=== PATIENT | male | born 1950 | race Caucasian/White ===

== ENCOUNTER 2024-04-12 14:41 | Inpatient (IN) | payer SELFPAY ==
[2024-04-12] VITALS (7 sets, daily range): BP systolic 96–139; BP diastolic 64–82; PULSE 78–100; RESP 16–20; TEMP 36.6–37.7; O2SAT 98–100; BMI 37.2; BMI 36.3
--- NOTE | 2024-04-12 15:11 | CT_ITS ---
INDICATION: sacral wound left pelvis, spina bifida EXAMINATION: CT PELVIS BONE - CT Pelvis W/ Contrast Injection TECHNIQUE: Routine noncontrast bone CT protocol was performed of the pelvis. 2-D reformats were performed by the technologist. A radiation dose optimization technique was used for this scan. IV Contrast dosage and agent: 100 cc [id number] COMPARISON: None. FINDINGS: SOFT TISSUES: Subcutaneous gas and fluid collection with peripheral enhancement posterior to the left initial tuberosity measuring 4.8 x 4.5 x 4.2 cm. No radiopaque foreign body. BONES/JOINTS: Spina bifida deformity with postsurgical changes. Chronic left hip dislocation with destructive changes of the left femoral head. Abnormal soft tissue in the left hip joint space with probable heterogenous enhancement. No evidence of acute cortical destruction. CT/Pelvis WITH IV Contrast IMPRESSION: Subcutaneous collection posterior to the left initial tuberosity suspicious for abscess formation. The collection extends to the tuberosity but there is no acute cortical destruction demonstrated. Chronic left hip dislocation with large phlegmon in the joint space and chronic appearing destructive changes of the left femoral head. Electronically Signed: Hermelindo Bautista MD at 16:48 EST ,
--- NOTE | 2024-04-12 15:15 | EX.ED.DYSGE1 ---
HPI History of Present Illness Chief Complaint: Wound Check Narrative Narrative: Chief complaint and HPI: Sacral decubitus ulcer. 74-year-old male with history of spina bifida who is wheelchair-bound with chronic Gooden and recurrent UTIs presents for evaluation of sacral decubitus ulcer. Patient states that he has a chronic history of sacral decubitus ulcers. He states that he follows with the wound clinic. His states over the last several days the wound appears to be deeper in nature. She states sometimes there is drainage but is not purulent. Patient endorses intermittent fevers over the last several days. He states he has a history of recurrent UTIs. He states that he thought he was having a UTI so he started taking prophylactic antibiotics that his doctor gave him at home. He does not remember what they are called. Patient denies any URI symptoms, nausea, vomiting, abdominal pain, cough, shortness of breath, chest pain. He states that he changed out his Gooden catheter yesterday. He denies any pain at the site. He states that he is currently trying to be seen by the wound clinic. Review of systems: See HPI Medications: As listed on the chart Allergies: As listed on the chart PFSH: Per chart Vital signs: As listed on the chart. Reviewed. Physical exam: Gen: A&O x3, NAD Head: Normocephalic, atraumatic Eyes: No sclera icterus, conjunctiva clear ENT: Moist mucous membranes Neck: Trachea midline, No JVD CV: RRR, no murmurs, no peripheral edema Resp: Lungs CTA BL, no w/r/c GI: Abd soft, non-distended, non-tender, no r/r/g Musc: Limited range of motion from his spinal bifida Skin: Warm, patient has a left buttock/sacral decubitus ulcer-approximate 3 x 4 cm, no drainage or purulence on my exam, no induration/fluctuance/crepitus, wound does tunnel about 1 inch in the center, there is some fibrotic tissue in the center possible early necrosis but no eschar Neuro: Alert, oriented, grossly intact, sensation intact Psych: Cooperative, appropriate mood and affect [facility] Medical History (Updated 04/12/24 @ 15:53 by Jane Sandoval) Chronic indwelling Gooden catheter Allergy/AdvReac Type Severity Reaction Status Date / Time No Known Allergies Allergy Verified 04/12/24 14:42 Family History no significant family his Social History Smoking Status: Never smoker EXAM Physical Exam Const Vital Signs: 04/12/24 14:42 04/12/24 14:45 04/12/24 16:46 Temperature 100 F H 100 F H Temperature Source Oral Oral Pulse Rate 100 100 78 Respiratory Rate 18 18 Blood Pressure 129/81 H 129/81 H 96/64 Blood Pressure Mean 97 97 74 Pulse Ox 99 99 98 Oxygen Delivery Method Room Air Room Air MDM MDM MDM Narrative Medical decision making narrative: 74-year-old male with history of spina bifida who is wheelchair-bound with chronic Gooden and recurrent UTIs presents for evaluation of sacral decubitus ulcer. Associated symptom is intermittent fevers. Patient does have a sacral decubitus ulcer. See physical exam findings. Differential diagnosis includes but is not limited to infected sacral decubitus ulcer, abscess, evolving sacral decubitus ulcer, UTI. On presentation patient does have a temperature of 100 ?F. Tylenol ordered. Basic labs ordered with CT pelvis to better assess the sacral ulcer. UA ordered to assess for UTI. Blood culture obtained given patient's intermittent fevers. CBC without leukocytosis or anemia. BMP relatively unremarkable. Lactic acid unremarkable. UA positive for UTI. Patient has nitrates. On chart review I do not have previous urine cultures therefore Rocephin ordered.CT abdomen pelvis shows subcutaneous collection posterior to the left ischial tuberosity suspicious for abscess formation. The collection extends to the tuberosity but there is no acute cortical destruction demonstrated. There is chronic left hip dislocation with large phlegmon in the joint space and chronic appearing destructive changes in the left femoral head. Given the findings of the CT abdomen pelvis, patient will warrant admission for IV antibiotics and possible debridement. Zosyn and vancomycin ordered for broad coverage. Patient discussed with the hospitalist service who accepted admission. Impression: 1. Sacral decubitus ulcer with subcutaneous abscess 2. UTI with chronic Gooden 3. Chronic left hip dislocation with large phlegmon in the joint space and chronic appearing destructive changes of the left femoral head Lab Data Labs: Laboratory Results - last 24 hr 04/12/24 04/12/24 15:21 15:30 WBC 8.6 RBC 4.28 L Hgb 13.2 Hct 38.9 L MCV 90.9 MCH 30.8 MCHC 33.9 RDW Std Deviation 45.0 H RDW Coeff of Gregor 13.5 Plt Count 366 MPV 9.6 Immature Gran % (Auto) 0.600 Neut % (Auto) 68.7 Lymph % (Auto) 16.1 L [place] % (Auto) 11.7 H Eos % (Auto) 2.6 Baso % (Auto) 0.3 Absolute Neuts (auto) 5.9 Absolute Lymphs (auto) 1.38 Nucleated RBC % 0 Sodium 136 Potassium 3.3 L Chloride 102 Carbon Dioxide 27.0 Anion Gap 7 BUN 13 Creatinine 0.70 Est GFR (MDRD) Af Amer 143 Est GFR (MDRD) Non-Af 118 BUN/Creatinine Ratio 18.6 Glucose 112 H Lactic Acid 1.3 Calcium 8.7 Urine Color Yellow Urine Clarity Sl. Cloudy Urine pH 6.5 Ur Specific [place] 1.010 Urine Protein 15 H Urine Glucose (UA) Normal Urine Ketones Negative Urine Occult Blood 25 H Urine Nitrite Positive H Urine Bilirubin Negative Urine Urobilinogen Normal Ur Leukocyte Esterase 500 H Urine RBC 0-5 SEEN Urine WBC 25-50 SEEN Ur Squamous Epith Cells 0-5 SEEN Urine Bacteria 1+ Urine Mucus 0 SEEN Radiography Diagnostic Testing: Clinical Impression(s) from Imaging Studies Pelvis CT 04/12/24 15:11 IMPRESSION: Subcutaneous collection posterior to the left initial tuberosity suspicious for abscess formation. The collection extends to the tuberosity but there is no acute cortical destruction demonstrated. Chronic left hip dislocation with large phlegmon in the joint space and chronic appearing destructive changes of the left femoral head. Electronically Signed: Hermelindo Bautista MD at 16:48 EST Reading Location ID and State: [facility] / [place] Tel , Service support , Discharge Plan Triage Chief Complaint: Wound Check ED Provider: Jacinto Lizarraga Dx/Rx/DC Orders Primary Care Provider: Guillermo Duenas Referrals: Guillermo Duenas, [Primary Care Provider] - Print Language: Serbian
[2024-04-12 15:38] LABS: Absolute Lymphocyte Count 1.38 X10^3/uL (0.83-4.51); Absolute Neutrophil Count 5.9 X10^3/uL (2.0-7.7); Basophil# 0.03 X10^3/uL; Basophil% 0.3 % (0-1); Eosinophil# 0.22 X10^3/uL; Eosinophils% 2.6 % (0-5); Hematocrit 38.9 % (40-54); Hemoglobin 13.2 g/dL (13.0-16.5); Lymphocyte # 1.38 X10^3/ul (0.83-4.51); Lymphocyte % 16.1 % (19-41); Mean Corp Hgb Conc 33.9 g/dL (32-36); Mean Corpuscular Hgb 30.8 pg (27.0-32.0); Mean Corpuscular Volume 90.9 fL (80-94); Mean Platelet Vol. 9.6 fl (6.2-12.0); Monocyte% 11.7 % (0-10); NRBC Flagged by Analyzer 0 % (0-5); Neutrophil % 68.7 % (47-70); Platelet Count 366 K/mm3 (150-450); RBC Distribution Width CV 13.5 % (11.6-14.6); Red Blood Count 4.28 M/mm3 (4.6-6.2); White Blood Count 8.6 K/mm3 (4.4-11.0)
[2024-04-12 15:38] LABS: Mucous, Urine 0 SEEN /hpf (<or=2+)
[2024-04-12 15:43] LABS: Anion Gap 7 (5-15); BUN 13 mg/dL (7-18); BUN/Creat Ratio 18.6 RATIO (10-20); Calcium,Total 8.7 mg/dL (8.5-10.1); Chloride 102 mmol/L (98-107); EST Glomerular Filtration Rate 118 mL/min (>60); Est Glom Filt Rate - Afr Amer 143 mL/min (>60); Glucose 112 mg/dL (74-106); Potassium 3.3 mmol/L (3.5-5.1); Sodium Level 136 mmol/L (136-145)
[2024-04-12] MEDS: Acetaminophen 500 MG Tablet 1000 MG PO (15:43)
[2024-04-12] MEDS: 0.9% Normal Saline (1000mL) 1,000 ML 999 ML IV (15:43)
[2024-04-12 15:45] LABS: Color, Urine Yellow (Yellow); Glucose, Dipstick Normal (Normal); Ketone-Dipstick Negative (Negative); Leukocyte Esterase-Dipstick 500 /ul (Negative); Nitrite-Dipstick Positive (Negative); Occult Blood-Urine 25 /ul (Negative); Protein-Dipstick 15 mg/dl (Negative); Urine Bilirubin Dipstick Negative (Negative); Urine Clarity Sl. Cloudy (Clear); Urine Urobilinogen Normal (Normal); Urine pH 6.5 (5.0 - 8.0)
[2024-04-12 15:52] LABS: Bacteria 1+ /hpf (None Seen)
[2024-04-12 15:53] LABS: Red Blood Cells-Urine 0-5 SEEN /hpf (0-5); White Blood Cells 25-50 SEEN /hpf (0-5)
[2024-04-12 15:55] LABS: Squamous Epithelial Cells - UA 0-5 SEEN /hpf (0-5)
[2024-04-12 15:55] LABS: Lactic Acid 1.3 mmol/L (0.4-1.9)
[2024-04-12] MEDS: Ceftriaxone 1 GM/50 ML BAG IV (16:25)
[2024-04-12] MEDS: Piperacil/Tazobactam 4.5 GM in 0.9% Normal Saline (100mL MB+) 100 ML IV (17:39)
--- NOTE | 2024-04-12 18:18 | HP.PCM.HOS_ITS ---
HPI - General General Date of Admission: 04/12/24 Date of Service: 04/12/24 Chief Complaint: Pressure ulcer infection HPI Narrative FELIPA PEREZ, is a 74 M with history of spina bifid complicated by paraplegia, recurrent urinary tract infection, A-fib on Eliquis, hypertension in the past who presents to the ED for concerns regarding progressively worsening sacral decubitus ulcer. Per the patient he wanted to follow-up in the wound care clinic but due to [place] he could not get an appointment and decided to present to the ED for further evaluation. Over the last few months the decubitus ulcer has progressively worsened, with associated some discharge, no blood or purulence noted. Denies any fever or chills. No nausea or vomiting. He has an indwelling Gooden's catheter, and has digitally disimpact his feces. Has no incontinence and does not feel there is any fecal soiling of his wounds. Has decreased sensation over bilateral lower extremities and no sensation over the ulcer. [facility] Medical History (Updated 04/12/24 @ 18:39 by Maria A Estevez) Anxiety Non-smoker Asthma Atrial fibrillation Chronic indwelling Gooden catheter Allergy/AdvReac Type Severity Reaction Status Date / Time No Known Allergies Allergy Verified 04/12/24 14:42 Family History no significant family his no significant family history Social History Smoking Status: Never smoker ROS Review of Systems ROS Unobtainable: Denies due to encephalopathy, due to endotracheal tube, due to mental condition, due to mental status or other Constitutional Constitutional: Denies anorexia, change in weight, chills, fatigue, fever(s), malaise, night sweats, weakness or other Eyes Eyes: Denies blurry vision, change in eye color, change in vision, discharge from eye(s), double vision, erythema, eye pain, loss of vision or other ENT HEENT: Denies abnormal hearing, dysphagia, ear pain, epistaxis, headache(s), hearing loss, nasal congestion, nasal discharge, post nasal drip, sinus pressure, sore throat or other Respiratory/Chest Respiratory/Chest: Denies cough, dyspnea, excessive phlegm production, hemoptysis, productive cough, shortness of breath at rest, shortness of breath with exertion, wheezing or other Vital Signs Vital Signs Vital Signs: 04/12/24 14:42 04/12/24 14:45 04/12/24 16:46 Temperature 100 F H 100 F H Temperature Source Oral Oral Pulse Rate 100 100 78 Respiratory Rate 18 18 Blood Pressure 129/81 H 129/81 H 96/64 Blood Pressure Mean 97 97 74 Pulse Ox 99 99 98 Oxygen Delivery Method Room Air Room Air 04/12/24 17:37 Temperature 97.8 F Temperature Source Pulse Rate 78 Respiratory Rate 16 Blood Pressure 128/78 H Blood Pressure Mean 94 Pulse Ox 99 Oxygen Delivery Method Weight Weight: 210 lb 5.136 oz Body Mass Index (BMI) 37.2 Physical Exam Const alert, oriented x3 and no apparent distress HEENT normocephalic Eyes PERRL Neck no lymphadenopathy Resp normal respiratory effort Cardio Cardio Narrative: Irregularly irregular GI normal to inspection, nondistended, normoactive bowel sounds Extremity Extremity Narrative: Reduced to absent sensation over the bilateral lower extremities Skin Skin Narrative: Deep sacral wound around 2X 2 cm in size, present on the left sacral region, surrounding erythema seen, no muscle or bone visible. Neuro oriented x3 Neuro Narrative: Paraplegia, decree sensation over bilateral lower extremities Psych affect normal Results Medical Records Data Attestation: I reviewed the patient's medical records Lab / Micro Data Attestation: I reviewed the patient's lab results. 04/12/24 15:21 04/12/24 15:21 Labs: Laboratory Results - last 24 hr 04/12/24 15:21: WBC 8.6, RBC 4.28 L, Hgb 13.2, Hct 38.9 L, MCV 90.9, MCH 30.8, MCHC 33.9, RDW Std Deviation 45.0 H, RDW Coeff of Gregor 13.5, Plt Count 366, MPV 9.6, Immature Gran % (Auto) 0.600, Neut % (Auto) 68.7, Lymph % (Auto) 16.1 L, M leo % (Auto) 11.7 H, Eos % (Auto) 2.6, Baso % (Auto) 0.3, Absolute Neuts (auto) 5.9, Absolute Lymphs (auto) 1.38, Nucleated RBC % 0, Sodium 136, Potassium 3.3 L , Chloride 102, Carbon Dioxide 27.0, Anion Gap 7, BUN 13, Creatinine 0.70, Est GFR (MDRD) Af Amer 143, Est GFR (MDRD) Non-Af 118, BUN/Creatinine Ratio 18.6, G lucose 112 H, Lactic Acid 1.3, Calcium 8.7 04/12/24 15:30: Urine Color Yellow, Urine Clarity Sl. Cloudy, Urine pH 6.5, Ur Specific [place] 1.010, Urine Protein 15 H, Urine Glucose (UA) Normal, Urine Ketones Negative, Urine Occult Blood 25 H, Urine Nitrite Positive H, Urine Bilirubin Negative, Urine Urobilinogen Normal, Ur Leukocyte Esterase 500 H, Urine RBC 0-5 SEEN, Urine WBC 25-50 SEEN, Ur Squamous Epith Cells 0-5 SEEN, Urine Bacteria 1+, Urine Mucus 0 SEEN Imaging Radiology Impression Pelvis CT 04/12/24 15:11 IMPRESSION: Subcutaneous collection posterior to the left initial tuberosity suspicious for abscess formation. The collection extends to the tuberosity but there is no acute cortical destruction demonstrated. Chronic left hip dislocation with large phlegmon in the joint space and chronic appearing destructive changes of the left femoral head. Electronically Signed: Hermelindo Bautista MD at 16:48 EST , Assessment & Plan Assessment/Plan (1) Pressure ulcer: PLAN: Plan 74-year-old male with history of spina bifid a complicated by paraplegia, A-fib on Eliquis, hypertension, recurrent urinary tract infections presented to the ED with concerns regarding worsening pressure ulcer that on imaging shows a deep seating abscess with possible osteomyelitis. He is being admitted for further management with IV antibiotics, wound care and possible surgical intervention #Pressure ulcer -Based on the imaging findings he has a deep-seated abscess -Will start him on IV Zosyn plus vancomycin -Infectious disease consult -Wound care consult -Possible surgical intervention required will reevaluate after ID input -Regular position changes #Urinary tract infection -Urine nitrate, leuk esterase, WBC are positive -Will be covered with Zosyn -Related to indwelling Gooden's catheter #Hypertension -Continue home medications #A-fib -Presently rate controlled, on metoprolol and Eliquis Continue home medications #DVT prophylaxis -High risk, therapeutically anticoagulated -Continue to monitor
[2024-04-12] MEDS: Vancomycin HCl 1,500 MG in 0.9% Normal Saline (500mL Bag) 500 ML 250 MG IV (19:59)
--- NOTE | 2024-04-12 20:05 | PCM.RX.CS ---
Consult Antibiotic Management Pharmacy has been consulted to manage selected antibiotic: Vancomycin Type of Intervention Type of Consult: New start Suspected Infection Suspected Infection: Skin/Soft tissue Labs Labs: Sodium 136 mmol/L (136-145) 04/12/24 15:21 Potassium 3.3 mmol/L (3.5-5.1) L 04/12/24 15:21 Chloride 102 mmol/L (98-107) 04/12/24 15:21 Carbon Dioxide 27.0 mmol/L (21.0-32.0) 04/12/24 15:21 Anion Gap 7 (5-15) 04/12/24 15:21 BUN 13 mg/dL (7-18) 04/12/24 15:21 Creatinine 0.70 mg/dL (0.70-1.30) 04/12/24 15:21 Est GFR (MDRD) Af Amer 143 mL/min (>60) 04/12/24 15:21 Est GFR (MDRD) Non-Af 118 mL/min (>60) 04/12/24 15:21 BUN/Creatinine Ratio 18.6 RATIO (10-20) 04/12/24 15:21 Glucose 112 mg/dL (74-106) H 04/12/24 15:21 Dosing Weight Weight used for dosin.2 kg Estimated Creatinine Clearance Estimated Creatinine Clearance: 84 ML/MIN Goal Trough Goal Trough: 10-15 mcg/mL Pharmacy Plan for Drug Dosing Pharmacy Plan for Drug Dosing: Give standard dose of 1500mg IV x1, then continue with 1000mg q12h per [facility] dosing protocol. Check a trough before the 4th overall dose. Pharmacy Service will continue to monitor and adjust dosing as required. Follow-Up Labs Follow-Up Labs: Trough: Vancomycin Date/Time Labs Ordered Labs to be done on [date and time ordered]: 04/14/24 07:30
[2024-04-12] MEDS: Atorvastatin Calcium 20 MG Tablet PO (22:02)
[2024-04-12] MEDS: APIXABAN 5 MG TABLET PO (22:02)
[2024-04-12] MEDS: Metoprolol Tartrate 100 MG Tablet PO (22:02)
[2024-04-13 04:01] VITALS: BP 117/78; PULSE 93; RESP 16; TEMP 37.2; O2SAT 97
[2024-04-13 05:37] LABS: Absolute Neutrophil Count 5.1 X10^3/uL (2.0-7.7); Basophil# 0.02 X10^3/uL; Basophil% 0.3 % (0-1); Eosinophil# 0.23 X10^3/uL; Eosinophils% 3.1 % (0-5); Hematocrit 35.3 % (40-54); Hemoglobin 11.9 g/dL (13.0-16.5); Mean Corp Hgb Conc 33.7 g/dL (32-36); Mean Corpuscular Hgb 30.8 pg (27.0-32.0); Mean Corpuscular Volume 91.5 fL (80-94); Mean Platelet Vol. 9.5 fl (6.2-12.0); Monocyte# 0.97 X10^3/uL; Monocyte% 12.9 % (0-10); NRBC Flagged by Analyzer 0 % (0-5); Neutrophil # 5.06 X10^3/uL (2.7-7.7); Neutrophil % 67.2 % (47-70); Platelet Count 358 K/mm3 (150-450); RBC Distribution Width CV 13.5 % (11.6-14.6); RBC Distribution Width SD 45.2 fl (35.1-43.9); Red Blood Count 3.86 M/mm3 (4.6-6.2); White Blood Count 7.5 K/mm3 (4.4-11.0)
[2024-04-13 06:22] LABS: ALB/GLOB Ratio 0.5 RATIO (0.9-2.4); AST(SGOT) 16 U/L (15-37); Alanine Aminotransfer ALT/SGPT 30 U/L (16-61); Albumin, Serum 2.1 g/dL (3.2-5.0); Alkaline Phosphatase 75 U/L (45-117); Anion Gap 5 (5-15); BUN 10 mg/dL (7-18); BUN/Creat Ratio 16.9 RATIO (10-20); Bilirubin, Direct 0.18 mg/dL (0.00-0.30); Calcium,Total 8.3 mg/dL (8.5-10.1); Chloride 109 mmol/L (98-107); Creatinine, Serum 0.59 mg/dL (0.70-1.30); EST Glomerular Filtration Rate 143 mL/min (>60); Est Glom Filt Rate - Afr Amer 173 mL/min (>60); Estimated Creatinine Clearance 84.32 ml/min; Globulin 3.9 g/dL (2.2-4.2); Glucose 92 mg/dL (74-106); Magnesium 1.8 mg/dL (1.6-2.6); Potassium 3.5 mmol/L (3.5-5.1); Sodium Level 140 mmol/L (136-145)
--- NOTE | 2024-04-13 07:13 | PCM.PN.HOSP ---
Reason for Visit Reason for Visit: Diagnoses Pressure ulcer of unspecified site, unspecified stage (04/12/24) Subjective Subjective Patient with no acute events overnight per nurse and per self reports. He denies any significant pain at this time and notes that he is doing well. Discussed plan of care which included continued wound RN evaluation, infectious disease involvement and plastic surgery involvement especially given CT findings which patient is amenable. Patient denies fevers, chills, nausea, emesis, abdominal pain, chest pain or dyspnea. Objective Data Objective Data Vital Signs: Vital Signs Temp Pulse Resp BP Pulse Ox O2 Del Method 98.9 F 93 16 117/78 97 Room Air 04/13/24 04:01 04/13/24 04:01 04/13/24 04:01 04/13/24 04:01 04/13/24 04:01 04/13/24 04:01 Oxygen Delivery Method Room Air Weight: 205 lb 8 oz Body Mass Index (BMI) 36.3 Intake & Output: Intake and Output for Last 24 Hours 04/11/24 04/12/24 04/13/24 23:59 23:59 23:59 Intake Total 1680 / 2080 400 / 400 Output Total 425 / 425 Balance 1680 / 1655 -25 / 25 Lab / Micro Data 04/13/24 05:04 04/13/24 05:04 Labs: Laboratory Results - last 24 hr 04/12/24 15:21: WBC 8.6, RBC 4.28 L, Hgb 13.2, Hct 38.9 L, MCV 90.9, MCH 30.8, MCHC 33.9, RDW Std Deviation 45.0 H, RDW Coeff of Gregor 13.5, Plt Count 366, MPV 9.6, Immature Gran % (Auto) 0.600, Neut % (Auto) 68.7, Lymph % (Auto) 16.1 L, [place] % (Auto) 11.7 H, Eos % (Auto) 2.6, Baso % (Auto) 0.3, Absolute Neuts (auto) 5.9, Absolute Lymphs (auto) 1.38, Nucleated RBC % 0, Sodium 136, Potassium 3.3 L, Chloride 102, Carbon Dioxide 27.0, Anion Gap 7, BUN 13, Creatinine 0.70, Est GFR (MDRD) Af Amer 143, Est GFR (MDRD) Non-Af 118, BUN/Creatinine Ratio 18.6, Glucose 112 H, Lactic Acid 1.3, Calcium 8.7 04/12/24 15:30: Urine Color Yellow, Urine Clarity Sl. Cloudy, Urine pH 6.5, Ur Specific [place] 1.010, Urine Protein 15 H, Urine Glucose (UA) Normal, Urine Ketones Negative, Urine Occult Blood 25 H, Urine Nitrite Positive H, Urine Bilirubin Negative, Urine Urobilinogen Normal, Ur Leukocyte Esterase 500 H, Urine RBC 0-5 SEEN, Urine WBC 25-50 SEEN, Ur Squamous Epith Cells 0-5 SEEN, Urine Bacteria 1+, Urine Mucus 0 SEEN 04/12/24 19:00: S.aureus Protein A PCR Cancelled, MRSA (PCR) Cancelled 04/13/24 05:04: WBC 7.5, RBC 3.86 L, Hgb 11.9 L, Hct 35.3 L, MCV 91.5, MCH 30.8, MCHC 33.7, RDW Std Deviation 45.2 H, RDW Coeff of Gregor 13.5, Plt Count 358, MPV 9.5, Immature Gran % (Auto) 0.500, Neut % (Auto) 67.2, Lymph % (Auto) 16.0 L, [place] % (Auto) 12.9 H, Eos % (Auto) 3.1, Baso % (Auto) 0.3, Absolute Neuts (auto) 5.1, Absolute Lymphs (auto) 1.20, Nucleated RBC % 0, Sodium 140, Potassium 3.5, Chloride 109 H, Carbon Dioxide 25.0, Anion Gap 5, BUN 10, Creatinine 0.59 L, Estim Creat Clear Calc 84.32, Est GFR (MDRD) Af Amer 173, Est GFR (MDRD) Non-Af 143, BUN/Creatinine Ratio 16.9, Glucose 92, Calcium 8.3 L, Phosphorus 3.0, Magnesium 1.8, Total Bilirubin 0.50, Direct Bilirubin 0.18, AST 16, ALT 30, Alkaline Phosphatase 75, Total Protein 6.0 L, Albumin 2.1 L, Globulin 3.9, Albumin/Globulin Ratio 0.5 L, TSH 2.080 Micro: Microbiology 04/12/24 19:00 Wound - Buttock Skin and Soft Tissue MRSA/MSSA (PCR - Final Staphylococcus aureus Radiography Diagnostic Testing: Radiology Impression Pelvis CT 04/12/24 15:11 IMPRESSION: Subcutaneous collection posterior to the left initial tuberosity suspicious for abscess formation. The collection extends to the tuberosity but there is no acute cortical destruction demonstrated. Chronic left hip dislocation with large phlegmon in the joint space and chronic appearing destructive changes of the left femoral head. Electronically Signed: Hermelindo Bautista MD at 16:48 EST Reading Location ID and State: [facility] / [place] Tel , Service support , Physical Exam Narrative Physical Examination: General: Awake, alert, oriented x 3 and cooperative, seated upright in the MS bed, denies any complaints at this time and denies pain. Skin: Normal color, normal turgor, no icterus, no cyanosis except for occasional abrasion, scabs to the lower extremities with underlying paraplegia with mild contractures, notable left buttock decubitus ulcer with periwound erythema, mild odor, mild discharge noted on presentation, dressing in place, no drainage. HEENT: AT/NC, EOMI, PERRLA, MMM. Lungs: CTA bilaterally, moderate effort, mild decrease BL bases, no rales, ronchi or wheezing. Heart: Regular rate and rhythm; no gallop, rub audible. Abdomen: Soft, obese, NTTP, ND, normal BS. Extremities: No cyanosis, no clubbing, bilateral ankle to mid lindo edema chronic, underlying history of paraplegia with mild contractures, see skin Neurological: Patient awake, alert, oriented as noted cognitive function intact; pupils equally reactive to light and accommodation, cranial nerves gross normal, underlying history of spina bifida with chronic paraplegia, strength severely globally decreased, chronic indwelling Aggarwal catheter in place with patient reporting he recently changed the catheter. Psychiatric: Affect appears fatigued otherwise normal, no acute evidence of depressive or anxiety feelings. Assessment & Plan Assessment/Plan (1) Pressure ulcer: PLAN: Plan The patient is a 74 y/o M w/ PMHx: Obesity, PAF, HTN, HLD, Anxiety and Depression, Asthma, Spina bifida complicated by paraplegia with chronic indwelling aggarwal catheter with recurrent UTIs, need for chronic self stool disimpaction with chronic significant decubitus ulcer following with wound care clinic who presents to the [facility] ED on 04/12/24 secondary to worsening sacral decubitus ulcer with discharge, periwound erythema but no fevers or chills prompting ED evaluation. #1. Posterior left ischial tuberosity decubitus ulcer with suspicion for possible abscess, periwound erythema/cellulitis: ED evaluation included CT scan of the pelvis with subcutaneous collection posterior to the left ischial tuberosity suspicious for abscess formation with the collection extending to the tuberosity but no acute cortical destruction demonstrated, chronic left hip dislocation with large phlegmon in the joint space and chronic appearing destructive changes of the left femoral head. Admitted to medical surgical floor, maintained on IV vancomycin, adding IV Zosyn, pending Wound Cx, continue off loading, dressing changes, Wound RN consultation, Plastic Surgery consultation. #2. Spina bifida: Complicated by paraplegia with chronic indwelling Aggarwal catheter with recurrent UTIs as well as chronic self stool disimpaction needs, will continue stool/bowel regimen, assure Aggarwal catheter care, offloading, continue evaluation treatment as noted above #1, PT/OT/case management for discharge planning #3. PAF: Will continue home metoprolol regimen however given possible need for surgical invention we will hold patient home Eliquis regimen and place on chemoprophylaxis in the interim. #4. Anxiety and depression: Per current list does not appear to be on regimen, encourage continued outpatient follow-up and counseling as needed with PCP. #5. Hypertension: Continue home regimen including Norvasc, hydrochlorothiazide, lisinopril, metoprolol with hold parameters as needed, PRN hydralazine. #6. Hyperlipidemia: We will continue patient on statin therapy. #7. Chronic asthma: Per current was not on routine regimen, will have as needed albuterol, encourage head of bed and I-S. #8. Obesity: Weight loss and lifestyle changes encouraged. #9. DVT prophylaxis: Will hold Eliquis in preparation for possible surgical intervention which patient is on for PAF, in the interim transition to chemoprophylaxis. Charges/Coding Visit Charges Inpatient E&M: 05260 Subs Hosp L3
[2024-04-13 08:38] LABS: International Normalized Ratio 1.6; Prothrombin Time (Protime)PT. 19.3 SECONDS (11.7-14.9)
[2024-04-13 09:02] VITALS: BP 122/86; PULSE 99; RESP 16; TEMP 36.9; O2SAT 98
[2024-04-13] MEDS: Vancomycin IV 1,000 MG/200 ML BAG 200 MG IV ×2 (09:13→20:27)
[2024-04-13] MEDS: Menthol/Lanolin/Calamine/Znox 113 GM Tube 1 APPLIC TOPICAL ×4 (09:22→22:37)
[2024-04-13 09:23] VITALS: PULSE 99
[2024-04-13] MEDS: Polyethylene Glycol 3350 17 GM PACKET PO (09:23)
[2024-04-13] MEDS: Metoprolol Tartrate 100 MG Tablet PO ×2 (09:23→22:34)
[2024-04-13] MEDS: hydroCHLOROthiazide 25 MG Tablet PO (09:23)
[2024-04-13] MEDS: Docusate Sodium 100 MG Capsule PO (09:23)
[2024-04-13] MEDS: Lisinopril 40 MG Tablet PO (09:24)
[2024-04-13] MEDS: amLODIPine 10 MG Tablet PO (09:24)
[2024-04-13] MEDS: Piperacil/Tazobactam 3.375 GM in 0.9% Normal Saline (50mL MB+) 50 ML IV ×3 (10:46→22:29)
--- NOTE | 2024-04-13 11:06 | EX.PCM.CON.S ---
Assessment & Plan Assessment/Plan (1) Pressure ulcer: (2) Abscess: PLAN: CT reviewed. Doesn't communicate with the left hip. Left hip changes may be 2/2 previous disease and previous flap reconstruction. Source control obtained for now with bedside I&D today on rounds. PLAN: Plan I talked the patient extensively about the risks of surgery, including bleeding, infection, damage to surrounding structures, surgical site dehiscence and wound formation, need for wound care, need for repeat operations, failure to obtain the desired result, DVT/PE, and the risks of anesthesia including . The benefits and alternatives of this surgery were also discussed. All of their questions were answered, and they agreed to proceed with surgery. Hold Eliquis today and tomorrow morning NPO at midnight Plan for debridement in the OR tomorrow (need to make the wound larger for wound care and to prevent abscess). Anticipate wound VAC and home VAC Needs in hospital and home pressure offloading bed. Nutrition labs and consulting with nutrition team. Patient and happy with plan. HPI Consult Data Date of Consult: 04/13/24 HPI Narrative HPI Narrative: LAMONT PEREZ is a 74 M with a history of atrial fibrillation (on Eliquis) and spina bifida (walks with crutches until 17 years ago and is now nonambulatory and uses a wheelchair) who was admitted last night for worsening left ischial pressure ulcer with concern for drainage and infection. Subjective fevers and chills. CT scan demonstrated left ischial abscess. Today on the floor he has stable vital signs. His white blood cell count is within normal limits. His hemoglobin is 11 He is not a smoker. He is and has several adult children [facility] Medical History Anxiety Non-smoker Asthma Atrial fibrillation Chronic indwelling Gooden catheter Home Medications ?Medication ?Instructions ?Recorded ?Last Taken ?Type amlodipine 10 mg tablet 10 mg PO DAILY Blood pressure 04/12/24 Unknown History apixaban 5 mg tablet (Eliquis) 5 mg PO BID AFIB 04/12/24 Unknown History lisinopril 20 2 tab PO DAILY Blood pressure 04/12/24 Unknown History mg-hydrochlorothiazide 12.5 mg tablet metoprolol tartrate 100 mg tablet 100 mg PO BID Blood pressure 04/12/24 Unknown History simvastatin 40 mg tablet 40 mg PO QHS Cholesterol 04/12/24 Unknown History Allergy/AdvReac Type Severity Reaction Status Date / Time No Known Allergies Allergy Verified 04/12/24 14:42 Family History no significant family his Social History Smoking Status: Never smoker Physical Exam Narrative Wound Left ischial region with a small opening about 2 x 2 cm. With digital examination I was able to drain an abscess and packed the wound. Cultures were taken. Cavity is about 8 x 8 cm beneath small opening. Procedure preformed: Abscess drainage (CPT 63150) Tolerated well. Pressure for bleeding (stopped). Packed with gauze. Lab / Micro Data 04/13/24 05:04 04/13/24 05:04 Labs: Laboratory Results - last 24 hr 04/12/24 15:21: WBC 8.6, RBC 4.28 L, Hgb 13.2, Hct 38.9 L, MCV 90.9, MCH 30.8, MCHC 33.9, RDW Std Deviation 45.0 H, RDW Coeff of Gregor 13.5, Plt Count 366, MPV 9.6, Immature Gran % (Auto) 0.600, Neut % (Auto) 68.7, Lymph % (Auto) 16.1 L, [place] % (Auto) 11.7 H, Eos % (Auto) 2.6, Baso % (Auto) 0.3, Absolute Neuts (auto) 5.9, Absolute Lymphs (auto) 1.38, Nucleated RBC % 0, Sodium 136, Potassium 3.3 L, Chloride 102, Carbon Dioxide 27.0, Anion Gap 7, BUN 13, Creatinine 0.70, Est GFR (MDRD) Af Amer 143, Est GFR (MDRD) Non-Af 118, BUN/Creatinine Ratio 18.6, Glucose 112 H, Lactic Acid 1.3, Calcium 8.7 04/12/24 15:30: Urine Color Yellow, Urine Clarity Sl. Cloudy, Urine pH 6.5, Ur Specific Wickett 1.010, Urine Protein 15 H, Urine Glucose (UA) Normal, Urine Ketones Negative, Urine Occult Blood 25 H, Urine Nitrite Positive H, Urine Bilirubin Negative, Urine Urobilinogen Normal, Ur Leukocyte Esterase 500 H, Urine RBC 0-5 SEEN, Urine WBC 25-50 SEEN, Ur Squamous Epith Cells 0-5 SEEN, Urine Bacteria 1+, Urine Mucus 0 SEEN 04/12/24 19:00: S.aureus Protein A PCR Cancelled, MRSA (PCR) Cancelled 04/13/24 05:04: WBC 7.5, RBC 3.86 L, Hgb 11.9 L, Hct 35.3 L, MCV 91.5, MCH 30.8, MCHC 33.7, RDW Std Deviation 45.2 H, RDW Coeff of Gregor 13.5, Plt Count 358, MPV 9.5, Immature Gran % (Auto) 0.500, Neut % (Auto) 67.2, Lymph % (Auto) 16.0 L, Shawnee % (Auto) 12.9 H, Eos % (Auto) 3.1, Baso % (Auto) 0.3, Absolute Neuts (auto) 5.1, Absolute Lymphs (auto) 1.20, Nucleated RBC % 0, PT 19.3 H, INR 1.6, Sodium 140, Potassium 3.5, Chloride 109 H, Carbon Dioxide 25.0, Anion Gap 5, BUN 10, Creatinine 0.59 L, Estim Creat Clear Calc 84.32, Est GFR (MDRD) Af Amer 173, Est GFR (MDRD) Non-Af 143, BUN/Creatinine Ratio 16.9, Glucose 92, Calcium 8.3 L, Phosphorus 3.0, Magnesium 1.8, Total Bilirubin 0.50, Direct Bilirubin 0.18, AST 16, ALT 30, Alkaline Phosphatase 75, Total Protein 6.0 L, Albumin 2.1 L, Globulin 3.9, Albumin/Globulin Ratio 0.5 L, TSH 2.080 Micro: Microbiology 04/12/24 19:00 Wound - Buttock Skin and Soft Tissue MRSA/MSSA (PCR - Final Staphylococcus aureus Imaging Radiology Impression Pelvis CT 04/12/24 15:11 IMPRESSION: Subcutaneous collection posterior to the left initial tuberosity suspicious for abscess formation. The collection extends to the tuberosity but there is no acute cortical destruction demonstrated. Chronic left hip dislocation with large phlegmon in the joint space and chronic appearing destructive changes of the left femoral head. Electronically Signed: Hermelindo Bautista MD at 16:48 EST , Charges/Coding Multi Select Codes Visit Charges Office Visit/Consults: 52654 IP Consult L5 (with 57 modifier for decision to take to surgery and 25 modifier (abscess drainage CPT 00979) )
[2024-04-13 16:00] VITALS: BP 124/69; PULSE 91; RESP 16; TEMP 37.1; O2SAT 95
[2024-04-13] MEDS: Juven (unflavored) Packet 1 PACKET PO (17:21)
[2024-04-13 20:48] LABS: M R Staph aureus DNA By PCR Negative (Negative); Probe Check PASS; Specimen Processing Control PASS; Staph aureus DNA By PCR NEGATIVE (Negative)
[2024-04-13 22:24] VITALS: BP 128/88; PULSE 95; RESP 16; TEMP 36.8; O2SAT 98
[2024-04-13 22:34] VITALS: BP 128/88; PULSE 95
[2024-04-13] MEDS: Atorvastatin Calcium 20 MG Tablet PO (22:36)
[2024-04-14] VITALS (15 sets, daily range): BP systolic 102–143; BP diastolic 58–86; PULSE 78–102; RESP 12–18; TEMP 36.2–37.2; O2SAT 96–100; BMI 36.3
--- NOTE | 2024-04-14 06:00 | EKG12_ITS ---
Test Reason : PRE-OP Blood Pressure : */* mmHG Vent. Rate : 88 BPM Atrial Rate : * BPM P-R Int : * ms QRS Dur : 80 ms QT Int : 380 ms P-R-T Axes : * 2 37 degrees QTcB Int : 459 ms Atrial fibrillation with a competing junctional pacemaker with premature ventricular or aberrantly co nducted complexes Nonspecific ST abnormality Abnormal ECG Confirmed by LAUREN BLANTON, MARTIR ([id number]), assistant editor WEST SUERO ([id number]) on 04/15/2024 6:12:41 AM Referred By: Jacinto Lizarraga Confirmed By: MARTIR AGUILAR MD
[2024-04-14] MEDS: Piperacil/Tazobactam 3.375 GM in 0.9% Normal Saline (50mL MB+) 50 ML IV ×3 (06:29→22:29)
--- NOTE | 2024-04-14 07:28 | PN.HOSP_ITS ---
Reason for Visit Reason for Visit: Diagnoses Cutaneous abscess, unspecified (04/12/24) Pressure ulcer of unspecified site, unspecified stage (04/12/24) Subjective Subjective Patient with no acute events overnight per self and per nursing report. Reviewed interventions day prior and plan of care to which patient is amenable. Discussed that wound nurse would be available today and will be seeing him and working aside plastic surgery. Discussed no cultures pending per plastic intervention the day prior. Patient only complaint is mild dyspepsia which he notes is currently abated but sometimes can worsen. Patient denies fevers, chills, nausea, emesis, abdominal pain, chest pain or dyspnea. Objective Data Objective Data Vital Signs: Vital Signs Temp Pulse Resp BP Pulse Ox O2 Del Method 99.0 F 84 16 106/83 H 96 Room Air 04/14/24 02:40 04/14/24 02:40 04/14/24 02:40 04/14/24 02:40 04/14/24 02:40 04/14/24 02:40 Oxygen Delivery Method Room Air Weight: 205 lb 8 oz Body Mass Index (BMI) 36.3 Intake & Output: Intake and Output for Last 24 Hours 04/12/24 04/13/24 04/14/24 23:59 23:59 23:59 Intake Total 1680 / 2080 2040 / 2040 50 / 50 Output Total 1775 / 1775 450 / 450 Balance 1680 / 1655 265 / 265 -400 / -400 Lab / Micro Data 04/14/24 07:35 04/14/24 07:35 Labs: Laboratory Results - last 24 hr 04/13/24 05:04: PT 19.3 H, INR 1.6 04/13/24 17:24: S.aureus Protein A PCR NEGATIVE, MRSA (PCR) Negative Micro: Microbiology 04/12/24 15:30 Urine Catheter - Aggarwal Urine Culture - Final Escherichia coli 04/12/24 19:00 Wound - Buttock Gram Stain - Final 04/12/24 19:00 Wound - Buttock Wound Culture - Preliminary Citrobacter koseri Staphylococcus species 04/12/24 19:00 Wound - Buttock Skin and Soft Tissue MRSA/MSSA (PCR - Final Staphylococcus aureus 04/13/24 11:02 Wound - Sacral Gram Stain - Final 04/12/24 15:30 Blood Culture (Wb) - Anticubital Left Blood Culture - Preliminary Physical Exam Narrative Physical Examination: General: Awake, alert, oriented x 3 and cooperative, seated upright in the MS bed, only current complaint is mild dyspepsia intermittent sensation. Skin: Normal color, normal turgor, no icterus, no cyanosis except for occasional abrasion, scabs to the lower extremities with underlying paraplegia with mild contractures, notable left buttock decubitus ulcer with periwound erythema, mild odor, mild discharge noted on presentation, dressing in place, no drainage. HEENT: AT/NC, EOMI, PERRLA, MMM. Lungs: CTA bilaterally, moderate effort, mild decrease BL bases, no rales, ronchi or wheezing. Heart: Regular rate and rhythm; no gallop, rub audible. Abdomen: Soft, obese, NTTP, ND, mildly hyperactive BS. Extremities: No cyanosis, no clubbing, bilateral ankle to mid lindo edema chronic, underlying history of paraplegia with mild contractures, see skin Neurological: Patient awake, alert, oriented as noted cognitive function intact; pupils equally reactive to light and accommodation, cranial nerves gross normal, underlying history of spina bifida with chronic paraplegia, strength severely globally decreased, chronic indwelling Aggarwal catheter in place. Psychiatric: Affect appears more interactive, no acute evidence of depressive or anxiety feelings. Assessment & Plan Assessment/Plan (1) Pressure ulcer: PLAN: Plan The patient is a 74 y/o M w/ PMHx: Obesity, PAF, HTN, HLD, Anxiety and Depression, Asthma, Spina bifida complicated by paraplegia with chronic indwelling aggarwal catheter with recurrent UTIs, need for chronic self stool disimpaction with chronic significant decubitus ulcer following with wound care clinic who presents to the [facility] ED on 04/12/24 secondary to worsening sacral decubitus ulcer with discharge, periwound erythema but no fevers or chills prompting ED evaluation. #1. Posterior left ischial tuberosity decubitus ulcer with suspicion for possible abscess, periwound erythema/cellulitis: ED evaluation included CT scan of the pelvis with subcutaneous collection posterior to the left ischial tuberosity suspicious for abscess formation with the collection extending to the tuberosity but no acute cortical destruction demonstrated, chronic left hip dislocation with large phlegmon in the joint space and chronic appearing destructive changes of the left femoral head. Admitted to medical surgical floor, maintained on IV vancomycin, 04/13/24 added IV Zosyn, continue off loading, dressing changes, Wound RN consultation, Plastic Surgery consultation. 04/13/24 Plastic surgery evaluation w/ bedside I+D with MRSA wound/Wound Cx obtained with cultures pending. Per discussion with surgery will need more definitive OR debridement. 04/12/2024 Gram stain with Citrobacter rare, Staphylococcus aureus rare with malik sensitivity noted however external culture. Per plastic surgery 04/13/2024 final Gram stain with noted 4+ gram-negative rods with finalization culture pending. 04/14/2024 currently NPO with hold on Eliquis for possible surgical intervention. Infectious disease consulted, awaiting evaluation. #2. Spina bifida: Complicated by paraplegia with chronic indwelling Aggarwal catheter with recurrent UTIs as well as chronic self stool disimpaction needs, will continue stool/bowel regimen, assure Aggarwal catheter care, offloading, continue evaluation treatment as noted above #1, PT/OT/case management for discharge planning #3. PAF: Will continue home metoprolol regimen however given possible need for surgical invention we will hold patient home Eliquis regimen. #4. Anxiety and depression: Per current list does not appear to be on regimen, encourage continued outpatient follow-up and counseling as needed with PCP. #5. Hypertension: Continue home regimen including Norvasc, hydrochlorothiazide, lisinopril, metoprolol with hold parameters as needed, PRN hydralazine. #6. Hyperlipidemia: We will continue patient on statin therapy. #7. Chronic asthma: Per current was not on routine regimen, will have as needed albuterol, encourage head of bed and I-S. #8. Obesity: Weight loss and lifestyle changes encouraged. #9. Dyspepsia, possibly chronic GERD: Will add low-dose twice daily famotidine and as needed Mylanta, notes this is an intermittent ongoing issue. #10. DVT prophylaxis: Holding Eliquis for possible surgical intervention as noted.
[2024-04-14 07:47] LABS: Absolute Lymphocyte Count 0.98 X10^3/uL (0.83-4.51); Absolute Neutrophil Count 7.3 X10^3/uL (2.0-7.7); Basophil# 0.03 X10^3/uL; Basophil% 0.3 % (0-1); Eosinophil# 0.18 X10^3/uL; Eosinophils% 1.9 % (0-5); Hematocrit 37.4 % (40-54); Hemoglobin 12.6 g/dL (13.0-16.5); Lymphocyte # 0.98 X10^3/ul (0.83-4.51); Lymphocyte % 10.5 % (19-41); Mean Corp Hgb Conc 33.7 g/dL (32-36); Mean Corpuscular Hgb 30.5 pg (27.0-32.0); Mean Corpuscular Volume 90.6 fL (80-94); Mean Platelet Vol. 9.1 fl (6.2-12.0); Monocyte# 0.81 X10^3/uL; Monocyte% 8.7 % (0-10); NRBC Flagged by Analyzer 0 % (0-5); Neutrophil # 7.29 X10^3/uL (2.7-7.7); Platelet Count 387 K/mm3 (150-450); RBC Distribution Width CV 13.4 % (11.6-14.6); RBC Distribution Width SD 44.4 fl (35.1-43.9); Red Blood Count 4.13 M/mm3 (4.6-6.2); White Blood Count 9.4 K/mm3 (4.4-11.0)
[2024-04-14 08:15] LABS: ALB/GLOB Ratio 0.5 RATIO (0.9-2.4); AST(SGOT) 20 U/L (15-37); Alanine Aminotransfer ALT/SGPT 43 U/L (16-61); Albumin, Serum 2.2 g/dL (3.2-5.0); Alkaline Phosphatase 94 U/L (45-117); Anion Gap 5 (5-15); BUN 13 mg/dL (7-18); BUN/Creat Ratio 23.6 RATIO (10-20); Calcium,Total 9.1 mg/dL (8.5-10.1); Chloride 106 mmol/L (98-107); Creatinine, Serum 0.55 mg/dL (0.70-1.30); EST Glomerular Filtration Rate 155 mL/min (>60); Est Glom Filt Rate - Afr Amer 187 mL/min (>60); Estimated Creatinine Clearance 84.32 ml/min; Globulin 4.3 g/dL (2.2-4.2); Glucose 127 mg/dL (74-106); Potassium 3.4 mmol/L (3.5-5.1); Protein, Total 6.5 g/dL (6.4-8.2); Sodium Level 136 mmol/L (136-145)
[2024-04-14] MEDS: Lisinopril 40 MG Tablet PO (09:35)
[2024-04-14] MEDS: Metoprolol Tartrate 100 MG Tablet PO ×2 (09:35→22:36)
[2024-04-14] MEDS: Famotidine 20 MG Tablet PO ×2 (09:35→22:37)
--- NOTE | 2024-04-14 10:04 | PCM.CONS.GEN ---
Assessment & Plan Assessment/Plan (1) Abscess: PLAN: OR planned, on empiric vanc/zosyn. Wound cx with staph aureus and citro. Will follow, thank you (2) Pressure ulcer: HPI Consult Data Date of Consult: 04/14/24 HPI Narrative Reason for Consultation: abscess HPI Narrative: LAMONT PEREZ, is a 74 M with spina bifida complicated by paraplegia, has had L hip ulcer for about 6 months. Over past few days, increased drainage from hip with worsening of wound. Some fever and chills. Came to ED, admitted on vanc/zosyn, CT showed abscess. Plan is for OR today, feeling better. Full ROS performed and neg except as noted above. [facility] Medical History Anxiety Non-smoker Asthma Atrial fibrillation Chronic indwelling Gooden catheter Home Medications ?Medication ?Instructions ?Recorded ?Last Taken ?Type amlodipine 10 mg tablet 10 mg PO DAILY Blood pressure 04/12/24 Unknown History apixaban 5 mg tablet (Eliquis) 5 mg PO BID AFIB 04/12/24 Unknown History lisinopril 20 2 tab PO DAILY Blood pressure 04/12/24 Unknown History mg-hydrochlorothiazide 12.5 mg tablet metoprolol tartrate 100 mg tablet 100 mg PO BID Blood pressure 04/12/24 Unknown History simvastatin 40 mg tablet 40 mg PO QHS Cholesterol 04/12/24 Unknown History Allergy/AdvReac Type Severity Reaction Status Date / Time No Known Allergies Allergy Verified 04/12/24 14:42 Family History no significant family his Social History Smoking Status: Never smoker Physical Exam Const alert, oriented x3 and no apparent distress General Appearance: cooperative HEENT normocephalic and head/scalp atraumatic Eyes PERRL and EOMs intact bilaterally Neck supple and No nodes Resp normal air movement and clear to auscultation bilaterally Cardio regular rate and regular rhythm GI soft to palpation, non-tender and non-distended Extremity General Extremity: Negative for edema Skin Skin Narrative: hip bandaged Neuro CN's II-XII intact bilaterally Lab / Micro Data Attestation: I reviewed the patient's lab results. 04/14/24 07:35 04/14/24 07:35 Labs: Laboratory Results - last 24 hr 04/13/24 17:24: S.aureus Protein A PCR NEGATIVE, MRSA (PCR) Negative 04/14/24 07:35: WBC 9.4, RBC 4.13 L, Hgb 12.6 L, Hct 37.4 L, MCV 90.6, MCH 30.5, MCHC 33.7, RDW Std Deviation 44.4 H, RDW Coeff of Gregor 13.4, Plt Count 387, MPV 9.1, Immature Gran % (Auto) 0.600, Neut % (Auto) 78.0 H, Lymph % (Auto) 10.5 L, Williamson % (Auto) 8.7, Eos % (Auto) 1.9, Baso % (Auto) 0.3, Absolute Neuts (auto) 7.3, Absolute Lymphs (auto) 0.98, Nucleated RBC % 0, Sodium 136, Potassium 3.4 L, Chloride 106, Carbon Dioxide 26.0, Anion Gap 5, BUN 13, Creatinine 0.55 L, Estim Creat Clear Calc 84.32, Est GFR (MDRD) Af Amer 187, Est GFR (MDRD) Non-Af 155, BUN/Creatinine Ratio 23.6 H, Glucose 127 H, Calcium 9.1, Total Bilirubin 0.60, AST 20, ALT 43, Alkaline Phosphatase 94, Total Protein 6.5, Albumin 2.2 L, Globulin 4.3 H, Albumin/Globulin Ratio 0.5 L Micro: Microbiology 04/12/24 19:00 Wound - Buttock Gram Stain - Final 04/12/24 19:00 Wound - Buttock Wound Culture - Preliminary Citrobacter koseri Staphylococcus aureus 04/12/24 19:00 Wound - Buttock Skin and Soft Tissue MRSA/MSSA (PCR - Final Staphylococcus aureus 04/12/24 15:30 Urine Catheter - Gooden Urine Culture - Final Escherichia coli 04/13/24 11:02 Wound - Sacral Gram Stain - Final 04/12/24 15:30 Blood Culture (Wb) - Anticubital Left Blood Culture - Preliminary
[2024-04-14 10:12] LABS: Vancomycin, Trough Level 10.4 ug/mL (5.0-15.0)
--- NOTE | 2024-04-14 10:19 | WOUNDNOTE ---
Pt scheduled for surgery today with Dr Cabrera. will leave dressing in place at this time. Surgery to pickling grader patient shortly. Discussed with Dr Cabrera.
[2024-04-14] MEDS: Vancomycin IV 1,000 MG/200 ML BAG 200 MG IV ×2 (10:39→20:07)
--- NOTE | 2024-04-14 11:16 | PCM.RX.CS ---
Consult Antibiotic Management Pharmacy has been consulted to manage selected antibiotic: Vancomycin Type of Intervention Type of Consult: Follow-up Labs Labs: Sodium 136 mmol/L (136-145) 04/14/24 07:35 Potassium 3.4 mmol/L (3.5-5.1) L 04/14/24 07:35 Chloride 106 mmol/L (98-107) 04/14/24 07:35 Carbon Dioxide 26.0 mmol/L (21.0-32.0) 04/14/24 07:35 Anion Gap 5 (5-15) 04/14/24 07:35 BUN 13 mg/dL (7-18) 04/14/24 07:35 Creatinine 0.55 mg/dL (0.70-1.30) L 04/14/24 07:35 Est GFR (MDRD) Af Amer 187 mL/min (>60) 04/14/24 07:35 Est GFR (MDRD) Non-Af 155 mL/min (>60) 04/14/24 07:35 BUN/Creatinine Ratio 23.6 RATIO (10-20) H 04/14/24 07:35 Glucose 127 mg/dL (74-106) H 04/14/24 07:35 Vancomycin Trough 10.4 ug/mL (5.0-15.0) 04/14/24 07:35 Microbiology Microbiology: Microbiology 04/13/24 11:02 Wound - Sacral Gram Stain - Final 04/13/24 11:02 Wound - Sacral Wound Culture - Preliminary Gram negative jojo Beta streptococcus Alpha hemolytic organism Staphylococcus species 04/12/24 19:00 Wound - Buttock Gram Stain - Final 04/12/24 19:00 Wound - Buttock Wound Culture - Preliminary Citrobacter koseri Staphylococcus aureus 04/12/24 19:00 Wound - Buttock Skin and Soft Tissue MRSA/MSSA (PCR - Final Staphylococcus aureus 04/12/24 15:30 Urine Catheter - Gooden Urine Culture - Final Escherichia coli 04/12/24 15:30 Blood Culture (Wb) - Anticubital Left Blood Culture - Preliminary Pharmacy Plan for Drug Dosing Pharmacy Plan for Drug Dosing: VANCOMYCIN LEVEL RECEIVED Current Vancomycin Dose: 1000MG Q12 Number of Doses Received: 3 Vancomycin Level: 10.4 mg/dL Hours Since Last Dose: 11 Renal Function: Scr 0.55 mg/dL, CrCl 84 mL/min Renal Function Trend: stable Vancomycin Plan/Comments: 11 hour trough is therapeutic (goal 10-15). Will continue current dosing and get a level in 2 days. Pending Level: 04/16/24 @ 0730 Pharmacy Service will continue to monitor and adjust dosing as required.
--- NOTE | 2024-04-14 11:38 | NURSING ---
1400 zosyn tubed down to AC
--- NOTE | 2024-04-14 11:50 | PRE.ANES_ITS ---
ASA Classification* ASA Classification ASA Classification: 3 (see written pre anesthesia record for full assessment ) and E Assessment & Plan Anesthesia* Anesthesia Assessment Anesthesia Assessment: Discussed sedation and/or anesthesia options, risks, benefits, and alternatives with patient/parents/legal guardian/POA. Questions invited. The patient/parents/legal guardian/POA seems to understand and agrees to proceed with anesthesia plan. Reviewed the physical assessment, medical history, allergy history and patient home medications list prior to surgery/procedure/anesthetic and documented any changes. Performed airway and anesthesia risk assessments. Anesthesia Type Anesthesia Type: General (see written pre anesthesia record for full assessment ) Anesthesia Focused Assessment* Temperature: 98.9 F Pulse Rate: 86 Blood Pressure: 132/85 Respiratory Rate: 16 Pulse Ox: 98 Airway Assessment Mouth opens: >3 cm Mallampati Score: III Focused Labs Anesthesia Preop lab: CBC WBC 9.4 K/mm3 (4.4-11.0) 04/14/24 07:35 RBC 4.13 M/mm3 (4.6-6.2) L 04/14/24 07:35 Hgb 12.6 g/dL (13.0-16.5) L 04/14/24 07:35 Hct 37.4 % (40-54) L 04/14/24 07:35 Plt Count 387 K/mm3 (150-450) 04/14/24 07:35 CHEMISTRY Potassium 3.4 mmol/L (3.5-5.1) L 04/14/24 07:35 Sodium 136 mmol/L (136-145) 04/14/24 07:35 Magnesium 1.8 mg/dL (1.6-2.6) 04/13/24 05:04 Phosphorus 3.0 mg/dL (2.5-4.9) 04/13/24 05:04 BUN 13 mg/dL (7-18) 04/14/24 07:35 Creatinine 0.55 mg/dL (0.70-1.30) L 04/14/24 07:35 Glucose 127 mg/dL (74-106) H 04/14/24 07:35 TSH 2.080 uIU/mL (0.358-3.740) 04/13/24 05:04 COAG PT 19.3 SECONDS (11.7-14.9) H 04/13/24 05:04 Pre-Assessment Diagnosis/Proposed Procedure Planned Operative Procedure(s): I and D of Left Ischial pressure sore Anesthesia History 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 When Was Last Pacemaker Check QUESTION #4 FULL TEXT: You/Your Family Experience fever (hyperthermia) with Anesthesia Last Oral Intake Last Oral intake: Last Oral Intake NPO since 00:00 04/14/24 08:04 Meds taken in AM with sips of Yes 04/14/24 08:04 water? Meds patient instructed to take am of surgery PONV PONV - inorganic chemistry professor: PONV - inorganic chemistry professor Female HX of Motion Sickness HX of N/V After Surgery Non-Smoker Duration of Surgery greater than 60 minutes Number of Risk Factors PONV Score Height & Weight Height & Weight: Anesthesia: Height & Weight Height 5 ft 3 in 04/14/24 08:04 Weight: 93.213 kg 04/14/24 08:04 Body Mass Index (BMI) 36.3 04/14/24 08:04 Respiratory Assessment Respiratory Assessment - inorganic chemistry professor: Respiratory Tract Infection Hx - inorganic chemistry professor Hx Respiratory Tract Infection No 04/14/24 00:00 STOP Sleep Apnea STOP Sleep Apnea - inorganic chemistry professor: STOP Sleep Apnea - inorganic chemistry professor Hx Hypertension Yes: controlled with meds 04/13/24 11:44 Hx Sleep Apnea No 04/12/24 18:40 CPAP BIPAP Do you snore loudly (louder Yes 04/12/24 18:40 than talking or can be heard Do you often feel tired/ Yes 04/12/24 18:40 fatigued/ sleepy during daytime? Has anyone observed you stop No 04/12/24 18:40 breathing during sleep? STOP Results Positive 04/12/24 18:40 QUESTION #5 FULL TEXT : Do you snore loudly (louder than talking or can be heard through closed doors)? 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 confused, unrespo /Reproduction History /Reproductive History - inorganic chemistry professor: /Reproductive Hx- inorganic chemistry professor Hx Now No 04/14/24 00:00 Gestational Age (in weeks): EDC: Hx Hx Para Hx Section SAB No 04/14/24 00:00 Active Medications Active Medications: Current Medications Generic Name Dose Route Start Last Admin Trade Name Freq PRN Reason Stop Dose Admin Al Hydroxide/Mg Hydroxide 30 ml 04/14/24 09:19 Mag Hydrox/Al Hydrox/Simeth 30 Ml Udc PO Q4H PRN PRN DYSPEPSIA/INDIGESTION Albuterol Sulfate 2.5 mg 04/13/24 07:16 Albuterol 2.5 Mg/3 Ml Vial.Neb. INHALATION Q2H PRN PRN Dyspnea, wheezing Amlodipine Besylate 10 mg 04/14/24 22:00 Amlodipine 10 Mg Tablet PO QHS [facility] Protocol Atorvastatin Calcium 20 mg 04/12/24 22:00 04/13/24 22:36 Atorvastatin Calcium 20 Mg Tablet PO 20 mg QHS [facility] Administration Calamine/Phenol 1 applic 04/13/24 10:00 04/14/24 08:11 Menthol/Lanolin/Calamine/Znox 113 Gm Tube TOPICAL Not Given 4X/DAY [facility] Protocol Docusate Sodium 100 mg 04/13/24 10:00 04/14/24 07:26 Docusate Sodium 100 Mg Capsule PO Not Given BID [facility] Famotidine 20 mg 04/14/24 09:20 04/14/24 09:35 Famotidine 20 Mg Tablet PO 20 mg BID [facility] Administration Hydralazine HCl 10 mg 04/13/24 07:16 Hydralazine 20 Mg/Ml Vial IV Q4H PRN PRN SBP > 160 Protocol Hydrochlorothiazide 25 mg 04/13/24 10:00 04/14/24 07:26 Hydrochlorothiazide 25 Mg Tablet PO Not Given DAILY [facility] Sodium Chloride 100 mls @ 15 mls/hr 04/12/24 18:35 IV .Q6H40M PRN SALINE FLUSH Vancomycin IV-PHARMACY TO DOSE 500 mls @ 250 mls/hr 04/12/24 19:15 1 each/ Sodium Chloride IV X1 PRN Rx to Dose Protocol Vancomycin HCl 1,000 mg in 200 mls @ 200 mls/hr 04/13/24 08:00 04/14/24 10:39 Vancomycin IV 200 mls/hr Q12H [facility] Administration Piperacillin Sod/Tazobactam 50 mls @ 12.5 mls/hr 04/13/24 07:30 04/14/24 10:39 Sod 3.375 gm/ Sodium Chloride IV Infused Q8 [facility] Infusion Sodium Chloride 100 mls @ 15 mls/hr 04/14/24 09:17 IV .Q6H40M PRN Saline Flush Sodium Chloride 100 mls @ 15 mls/hr 04/14/24 09:17 IV .Q6H40M PRN Additional IVPB Infusion L-Arginine/L-Glutamine/Calcium HMB 1 packet 04/13/24 17:00 04/14/24 07:26 Sudhakar (Unflavored) [facility] Lisinopril 40 mg 04/13/24 10:00 04/14/24 09:35 Lisinopril 40 Mg Tablet PO 40 mg DAILY [facility] Administration Metoprolol Tartrate 100 mg 04/12/24 22:00 04/14/24 09:35 Metoprolol Tartrate 100 Mg Tablet PO 100 mg BID [facility] Administration Protocol Polyethylene Glycol 17 gm 04/13/24 10:00 04/14/24 07:27 Polyethylene Glycol 3350 17 Gm Packet PO Not Given DAILY [facility] Sodium Chloride 10 - 40 ml 04/12/24 18:35 0.9% Saline Lock 10 Ml Syringe IV UD PRN SALINE FLUSH Vancomycin Protocol 1 lab 04/16/24 05:30 Vancomycin Trough/Random Due 04/16/24 09:30 DAILY [facility] PFSH Medical History Anxiety Non-smoker Asthma Atrial fibrillation Chronic indwelling Gooden catheter Home Medications ?Medication ?Instructions ?Recorded ?Last Taken ?Type amlodipine 10 mg tablet 10 mg PO DAILY Blood pressure 04/12/24 Unknown History apixaban 5 mg tablet (Eliquis) 5 mg PO BID AFIB 04/12/24 Unknown History lisinopril 20 2 tab PO DAILY Blood pressure 04/12/24 Unknown History mg-hydrochlorothiazide 12.5 mg tablet metoprolol tartrate 100 mg tablet 100 mg PO BID Blood pressure 04/12/24 Unknown History simvastatin 40 mg tablet 40 mg PO QHS Cholesterol 04/12/24 Unknown History Allergy/AdvReac Type Severity Reaction Status Date / Time No Known Allergies Allergy Verified 04/12/24 14:42 Family History no significant family his Social History Smoking Status: Never smoker Review of Systems (Anesthesia) ROS Narrative System reviewed and no additional complaints, except as documented.
--- NOTE | 2024-04-14 11:52 | HP.PCM.SX_ITS ---
HPI - General General Date of Admission: 04/12/24 Chief Complaint: Pressure ulcer infection HPI Narrative LAMONT PEREZ is a 74 M who presents with left ischial wound with acute abscess (admitted for infection). Taking to the OR today for drainage. [facility] Medical History Anxiety Non-smoker Asthma Atrial fibrillation Chronic indwelling Gooden catheter Home Medications ?Medication ?Instructions ?Recorded ?Last Taken ?Type amlodipine 10 mg tablet 10 mg PO DAILY Blood pressure 04/12/24 Unknown History apixaban 5 mg tablet (Eliquis) 5 mg PO BID AFIB 04/12/24 Unknown History lisinopril 20 2 tab PO DAILY Blood pressure 04/12/24 Unknown History mg-hydrochlorothiazide 12.5 mg tablet metoprolol tartrate 100 mg tablet 100 mg PO BID Blood pressure 04/12/24 Unknown History simvastatin 40 mg tablet 40 mg PO QHS Cholesterol 04/12/24 Unknown History Allergy/AdvReac Type Severity Reaction Status Date / Time No Known Allergies Allergy Verified 04/12/24 14:42 Family History no significant family his Social History Smoking Status: Never smoker Vital Signs Vital Signs Vital Signs: 04/13/24 16:00 04/13/24 22:00 04/13/24 22:24 Temperature 98.8 F 98.2 F Temperature Source Oral Oral Pulse Rate 91 95 Pulse Strength Normal (2+) Respiratory Rate 16 16 Respiratory Effort Respiratory Depth Respiratory Pattern Blood Pressure 124/69 H 128/88 H Blood Pressure Mean 87 101 Blood Pressure Source Monitor Blood Pressure Position Semi-Fowlers Supine Blood Pressure Location Right Arm Right Arm Pulse Ox 95 98 Oxygen Delivery Method Room Air Room Air 04/13/24 22:34 04/13/24 22:40 04/14/24 02:40 Temperature 99.0 F Temperature Source Oral Pulse Rate 95 84 Pulse Strength Respiratory Rate 16 Respiratory Effort Normal Non-Labored Respiratory Depth Normal Respiratory Pattern Normal Blood Pressure 128/88 H 106/83 H Blood Pressure Mean 90 Blood Pressure Source Monitor Blood Pressure Position Semi-Fowlers Blood Pressure Location Right Arm Pulse Ox 96 Oxygen Delivery Method Room Air Room Air 04/14/24 08:04 04/14/24 09:35 Temperature 98.9 F Temperature Source Oral Pulse Rate 86 86 Pulse Strength Respiratory Rate 16 Respiratory Effort Respiratory Depth Respiratory Pattern Blood Pressure 132/85 H Blood Pressure Mean 100 Blood Pressure Source Monitor Blood Pressure Position Semi-Fowlers Blood Pressure Location Right Forearm Pulse Ox 98 Oxygen Delivery Method Room Air Weight Weight: 205 lb 8 oz Body Mass Index (BMI) 36.3 Physical Exam Narrative Wound Left ischial region with a small opening about 2 x 2 cm. With digital examination I was able to drain an abscess and packed the wound. Cultures were taken. Cavity is about 8 x 8 cm beneath small opening. Results Lab / Micro Data 04/14/24 07:35 04/14/24 07:35 Labs: Laboratory Results - last 24 hr 04/13/24 17:24: S.aureus Protein A PCR NEGATIVE, MRSA (PCR) Negative 04/14/24 07:35: WBC 9.4, RBC 4.13 L, Hgb 12.6 L, Hct 37.4 L, MCV 90.6, MCH 30.5, MCHC 33.7, RDW Std Deviation 44.4 H, RDW Coeff of Gregor 13.4, Plt Count 387, MPV 9.1, Immature Gran % (Auto) 0.600, Neut % (Auto) 78.0 H, Lymph % (Auto) 10.5 L, [place] % (Auto) 8.7, Eos % (Auto) 1.9, Baso % (Auto) 0.3, Absolute Neuts (auto) 7.3, Absolute Lymphs (auto) 0.98, Nucleated RBC % 0, Sodium 136, Potassium 3.4 L , Chloride 106, Carbon Dioxide 26.0, Anion Gap 5, BUN 13, Creatinine 0.55 L, Estim Creat Clear Calc 84.32, Est GFR (MDRD) Af Amer 187, Est GFR (MDRD) Non-Af 155, BUN/Creatinine Ratio 23.6 H, Glucose 127 H, Calcium 9.1, Total Bilirubin 0.60, AST 20, ALT 43, Alkaline Phosphatase 94, Total Protein 6.5, Albumin 2.2 L, Globulin 4.3 H, Albumin/Globulin Ratio 0.5 L, Vancomycin Trough 10.4 Micro: Microbiology 04/12/24 15:30 Blood Culture (Wb) - Anticubital Left Blood Culture - Preliminary Coag Negative Staph 04/13/24 11:02 Wound - Sacral Gram Stain - Final 04/13/24 11:02 Wound - Sacral Wound Culture - Preliminary Gram negative jojo Beta streptococcus Alpha hemolytic organism Staphylococcus species 04/12/24 19:00 Wound - Buttock Gram Stain - Final 04/12/24 19:00 Wound - Buttock Wound Culture - Preliminary Citrobacter koseri Staphylococcus aureus 04/12/24 19:00 Wound - Buttock Skin and Soft Tissue MRSA/MSSA (PCR - Final Staphylococcus aureus 04/12/24 15:30 Urine Catheter - Gooden Urine Culture - Final Escherichia coli Assessment & Plan Assessment/Plan (1) Pressure ulcer: (2) Abscess: PLAN: Plan I talked the patient extensively about the risks of surgery, including bleeding, infection, damage to surrounding structures, surgical site dehiscence and wound formation, need for wound care, need for repeat operations, failure to obtain the desired result, DVT/PE, and the risks of anesthesia including . The benefits and alternatives of this surgery were also discussed. All of their questions were answered, and they agreed to proceed with surgery. INTERVAL H&P PLAN, DATE OF SURGERY: We will proceed with surgery today.
--- NOTE | 2024-04-14 11:54 | PCM.OPRPT ---
Operative Report (Standard) Operative Information Date of Procedure: 04/14/24 Pre-Operative Diagnosis: Left Ischial Wound with Abscess Post-Operative Diagnosis: Same Surgery/Procedure Performed: 1) Incision and Drainage of Left Ischial Wound (7 x 6 cm) with debridement of necrotic bone (CPT: 57941, 21339 x 2 (42 cm^2)) 2) Bone biopsy left ischium (CPT 73188) 3) Placement of irrigating wound vac, left ischium (CPT 27043) - VeraFlow pattern cutter: No Type of Anesthesia: General RN Documented Start/Stop Times: Operation Date: 04/14/24 12:30 Case Time Into Pre-Op 04/14/24 11:19 Out of Pre-Op 04/14/24 13:06 Anesthesia Start 04/14/24 13:09 Into Room 04/14/24 13:09 Procedure Start 04/14/24 13:28 Procedure End 04/14/24 14:03 Anesthesia End 04/14/24 14:14 Out of Room 04/14/24 14:14 Procedure Start Time: 13:28 Procedure Stop Time: 14:03 Select all DRAINS/GRAFTS/IMPLANTS that apply: None Estimated Blood Loss: 20 cc Fluids Replaced: 500 cc of LR Specimen collected: Yes Description of specimen(s) removed: Cultures and ulcer to pathology Description of surgery: Indications: Lamont Wolf is a 74-year-old male with a history of spina bifida who has been nonambulatory and using a wheelchair for the past 17 years secondary to complications from his spina bifida and lower extremity weakness. I was consulted by the inpatient team for an infected left ischial abscess. He presents today for incision and drainage of the abscess in the operating room as well as opening the wound for improved wound care. He understands the risks, benefits, and alternatives to today's procedure and elected to proceed. Procedure details: Patient was correctly identified in preoperative holding and taken back to the operating room where he was administered general anesthesia and placed in a prone position where he was prepped and draped in sterile fashion. All bony prominences were protected as were the face and eyes. 20 cc of 0.25% marcaine with 1:200,000 epinephrine and 1% lidocaine with 1:200,000 epinephrine (50/50 mixture of the long and short acting local) was injected around the wound. A 10 blade scalpel was used to excise (ulcer sent to pathology) around the ulcer to unroof the large subcutaneous wound that was tracking down to the left ischial bone. The abscess was cultured. The wound was excised with rongeur and Bovie and hemostasis was obtained with Bovie. The ulcer was sent to pathology to rule out skin cancer. A culture of the left ischial bone was taken and the bone was debrided with a rongeur. The wound was irrigated with 3 L normal saline as well as 450 cc of Irrisept. The entire excision was 7 x 6 cm including necrotic bone, necrotic muscle, necrotic fascia, necrotic subcutaneous tissue and necrotic skin. The patient tolerated the procedure well. A wound VAC was applied for irrigation (irrigating not disposable wound VAC). The patient was awakened and taken to the PACU in stable condition and transferred on was pressure offloading bed. Postoperative plan: Patient will need 3 times per week VAC changes at home. Okay for removal and replacement of irrigating wound VAC with normal wound VAC on 18 April 2024 (Thursday). Surgical Findings: Ischial wound down to bone with abscess cavity overlying the bone Complications Complications: No Admit VTE Documentation VTE Mechan Device Prophylaxis: SCD's
[2024-04-14] MEDS: 0.9% Normal Saline (1000mL) 1,000 ML 15 ML IV (12:00)
--- NOTE | 2024-04-14 12:30 | PRES_PTH ---
PATIENT: FELIPA PEREZ LOC: MS3 U#:[id number] AGE/SX: 74/M ROOM: [facility] RE04/12/[address]: Dr. Eddi Carmona MD : 1950 BED: 1 DIS: 04/18/2024 SPEC #: [id number] RECD: 04/14/24 17:59 STATUS: GUILLERMO TREMAINE #: [id number] DEJAH: 04/14/24 12:[address]: Felipa Cabrera DEPT: SURGICAL PATHOLOGY RECD BY: Sanchez Red ENTERED: 04/15/24 09:08 SP TYPE: PRESS SORE OTHR DR: MD Dr. Ardiana Garcia MD Dr. Robert Leininger, MD Dr. Scott Wilkins, DO Tissues: A - Ischium, NOS B - Ischium, NOS Procedures: Decalcification bone/plaque Surgery Specimen Level IV HEADER OPERATION: Incision, drainage abscess, ischial PRE-OP DIAGNOSIS: Pressure ulcer, abscess TISSUE SUBMITTED: A. Ischial pressure sore, B. Ischial bone MICROSCOPIC DIAGNOSIS A. Ischial pressure sore, excision: Skin with underlying tissue with ulceration, acute and chronic inflammation, abscess formation and granulation tissue reaction. B. Ischial bone, excision: A piece of bone with acute osteomyelitis. . 04/18/2024 MICROSCOPIC DESCRIPTION Slides are reviewed. GROSS DESCRIPTION A. Received in fixative is one container labeled with the patient's name and designated Tissue, ischial pressure sore. The specimen consists of a piece of coleman-white skin with underlying tissue measuring 3.0 x 0.5cm and up to 1.0cm in thickness. This specimen is inked, serially sectioned and totally submitted in two cassettes. B. Received fresh for frozen section diagnosis labeled with the patient's name is a specimen designated Ischial bone. The specimen consists of a piece of bone measuring 0.3 x 0.1 x 0.1cm. The entire specimen is submitted in one cassette after decalcification. 04/18/2024 TC:2 CPT:[id number]
--- NOTE | 2024-04-14 13:56 | CASEMGMT ---
RN CM attempted to see Pt, down in the OR. Will follow up later for initial assessment and DC planning.
[2024-04-14] MEDS: Bupiv/Epi 0.25% 30 ML Vial (14:07)
[2024-04-14] MEDS: Lidocaine 1% /Epi 1:100 (20ml) 20 ML Vial (14:07)
--- NOTE | 2024-04-14 14:38 | WOUNDNOTE ---
Was notified by Dr Cabrera that patient will need a home wound VAC prior to discharge home. Pt does not have insurance, so Dr Cabrera was notified that a home wound VAC would not be possible with no insurance coverage. Pt had surgery today so unsure of discharge date at this point. will continue to follow.
--- NOTE | 2024-04-14 14:58 | PCM.POSTANE2 ---
Anesthesia Postop Eval I Sum Anesthesia Postop Eval I Summary Anesthesia Postop Eval I Summary: Anesthesia Postop Eval I: Assessment Summary Airway patent Spontaneous unlabored respirations Mental status nausea Vomiting Anesthesia Postop Eval I: Fluid Summary Crystalloid volume administer (ml) Colloids volume administered ( ml) Blood Product volume administered (ml) Total IV fluid infused Anesthesia Postop Eval I: Summary Notes Anesthesia Complication Anesthesia Complication Comment: Post-operative progress note Anesthesia: Postop Eval II Evaluation Mental status: Awake and Calm Pain Level: 0 nausea: No Vomiting: No Complications Anesthesia Complication: No
[2024-04-14] MEDS: Menthol/Lanolin/Calamine/Znox 113 GM Tube 1 APPLIC TOPICAL ×2 (15:22→22:34)
[2024-04-14] MEDS: Sodium Hypochlorite (Dakin's) 0.125% Wound Irrigation IRRIGATION (15:32)
--- NOTE | 2024-04-14 15:44 | WOUNDNOTE ---
VeraFlo switched over to the Dakins solution as ordered. dressing intact with good seal noted at 125mmHg. will monitor.
--- NOTE | 2024-04-14 16:00 | PCM.POST.ANE ---
Anesthesia: Postop Eval I Current Vital Signs Temperature: 98.3 F Pulse Rate: 87 Blood Pressure: 126/83 Respiratory Rate: 16 Pulse Ox: 98 Oxygen Delivery Method: Room Air Assessment Airway patent: Yes Spontaneous unlabored respirations: Yes Mental status: Awake and Calm nausea: No Vomiting: No Anesthesia Complication: No Fluid Hydration Crystalloid volume administer (ml): 1,000 Total IV fluid infused: 1,000 Progress Note Anesthesia document: Postop Eval 1 completed: Yes
--- NOTE | 2024-04-14 16:09 | CASEMGMT ---
AZIZA NOBLES Assessment: Face to Face with pt for initial transition planning/care coordination assessment. AZIZA NOBLES introduced self and role at [facility], pt voices understanding and consents to assessment. Pt is A&O x4 and answers all questions appropriately at this time. Pt lying in bed in no distress, sitting at bedside. Care providers, pharmacy, and demographics verified/updated. Strata: 1 Admitting Dx: Wound Infection PCP: Henrique Specialists: Marek Direct Support Worker [facility] Insurance: Self Pay Prescription Benefit: No LNOK: NephewArmin; , Marilou Living Arrangements: Pt lives with in a ranch home with ramp to enter. ADLs: Pt needs assistance with ADLs and IADLs. Transportation: Pt drives self and denies concerns with transportation. DME: Wheelchair, ramp, provides bed baths. HHC/SNF: Denies SNF, used HHC in the past but does not recall who it was. Pt states no concerns with going home at time of dc. states able to assist with dressing changes at home. Pt states no further concerns/needs. CM to follow. Advised pt to ask CM if any further question/concerns/needs arise, voices understanding. Pt Goal: Home Plan: Home, follow ID and Wound Care. Eze ERVIN CM
--- NOTE | 2024-04-14 17:00 | CASEMGMT ---
Social Work Reason for intervention: Self Pay Met with patient and in room, introducing to self and social work role. Patient willing and open to speaking with social media sr strategy manager. Patient confirms that does not have insurance, and shares that works for a company called [employer] in [place] for the last 17 years. Patient reports this company does not offer insurance, with stating reasoning that many Taz work for this employer; patient also reports has not paid into social security to get Medicare. estimates patient earns between [phone] a month, which is how financial needs are met in the household. Patient referenced being exempt from paying into Medicare. reports Dede from [employer] was up today to see patient and left hospital assistance applications to fill out. Explored willingness to apply for Medicaid, which patient declined stating that he and try to take care of own needs, but have also received help from the [employer] patient and belong to. Patient does voice some concern about wound care, in that the machine patient has on costs about 5,000, referring to what this ad copy writer believes is a wound vac. Encouraged patient to talk with physician and wound nurse to hear what recommendations will be made for aftercare, and educated that both RN CM and SW remain available to assist with discharge planning, and evaluation of resource needs. Educated that if patient has prescription needs at discharge, and concerned about the cost RN CM/SW team can also follow for possible resources for this. Patient and share that patient was recently approved for a year coverage of [employer], from March 2024 through March 2025. Supportive listening and emotional support offered, including learning about patient and being for 49 years, with an anniversary coming in September 2024. 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 Patient and expressed thanks for visit and checking in. Plan: SW to follow and assist as needed for home going needs. Possible need for prescriptions assistance at discharge. -LAURA Greenfield
[2024-04-14] MEDS: Atorvastatin Calcium 20 MG Tablet PO (22:36)
[2024-04-14] MEDS: amLODIPine 10 MG Tablet PO (22:37)
[2024-04-15] VITALS (7 sets, daily range): BP systolic 116–138; BP diastolic 78–85; PULSE 73–97; RESP 14–18; TEMP 36.9–37.3; O2SAT 96–98
[2024-04-15 04:51] LABS: Absolute Lymphocyte Count 1.41 X10^3/uL (0.83-4.51); Absolute Neutrophil Count 5.9 X10^3/uL (2.0-7.7); Basophil# 0.03 X10^3/uL; Basophil% 0.3 % (0-1); Eosinophil# 0.27 X10^3/uL; Eosinophils% 3.1 % (0-5); Hematocrit 35.3 % (40-54); Hemoglobin 11.8 g/dL (13.0-16.5); Lymphocyte # 1.41 X10^3/ul (0.83-4.51); Lymphocyte % 16.3 % (19-41); Mean Corp Hgb Conc 33.4 g/dL (32-36); Mean Corpuscular Hgb 30.4 pg (27.0-32.0); Mean Platelet Vol. 9.2 fl (6.2-12.0); Monocyte# 1.01 X10^3/uL; Monocyte% 11.6 % (0-10); NRBC Flagged by Analyzer 0 % (0-5); Neutrophil % 68.1 % (47-70); Platelet Count 389 K/mm3 (150-450); RBC Distribution Width CV 13.5 % (11.6-14.6); Red Blood Count 3.88 M/mm3 (4.6-6.2); White Blood Count 8.7 K/mm3 (4.4-11.0)
[2024-04-15 05:19] LABS: ALB/GLOB Ratio 0.5 RATIO (0.9-2.4); AST(SGOT) 17 U/L (15-37); Alanine Aminotransfer ALT/SGPT 39 U/L (16-61); Alkaline Phosphatase 80 U/L (45-117); Anion Gap 3 (5-15); BUN 16 mg/dL (7-18); BUN/Creat Ratio 26.1 RATIO (10-20); Calcium,Total 8.7 mg/dL (8.5-10.1); Chloride 110 mmol/L (98-107); Creatinine, Serum 0.61 mg/dL (0.70-1.30); EST Glomerular Filtration Rate 137 mL/min (>60); Est Glom Filt Rate - Afr Amer 166 mL/min (>60); Estimated Creatinine Clearance 84.32 ml/min; Globulin 3.9 g/dL (2.2-4.2); Glucose 104 mg/dL (74-106); Potassium 3.5 mmol/L (3.5-5.1); Protein, Total 5.9 g/dL (6.4-8.2); Sodium Level 139 mmol/L (136-145)
[2024-04-15] MEDS: Piperacil/Tazobactam 3.375 GM in 0.9% Normal Saline (50mL MB+) 50 ML IV ×3 (06:29→21:09)
--- NOTE | 2024-04-15 06:45 | PCM.PN.HOSP ---
Reason for Visit Reason for Visit: Diagnoses Cutaneous abscess, unspecified (04/12/24) Pressure ulcer of unspecified site, unspecified stage (04/12/24) Subjective Subjective Patient with post-operatively no issues overnight. VAC in place without concerns with serosanguineous drainage. He denies any pain complaints at this time. Discussed further plan of care and noted that we would need to await OR cultures and repeat input from infectious disease as to whether or not oral versus IV antibiotics were going to be necessary. In addition to this discussed that likely the VAC would be transition off once he is appropriate to return to home with home health with packing given unfortunately patient has no insurance and likely will not be able to afford the costly fee for VAC at home. Patient denies fevers, chills, nausea, emesis, abdominal pain, chest pain or dyspnea. Objective Data Objective Data Vital Signs: Vital Signs Temp Pulse Resp BP Pulse Ox O2 Del Method 99.0 F 87 14 122/78 H 96 Room Air 04/15/24 06:32 04/15/24 06:32 04/15/24 06:32 04/15/24 06:32 04/15/24 06:32 04/15/24 06:32 Oxygen Delivery Method Room Air Weight: 205 lb 8 oz Body Mass Index (BMI) 36.3 Intake & Output: Intake and Output for Last 24 Hours 04/13/24 04/14/24 04/15/24 23:59 23:59 23:59 Intake Total 2040 / 2040 1075 / 1075 500 / 500 Output Total 1775 / 1775 1200 / 1200 500 / 500 Balance 265 / 265 -125 / -125 0 / 0 Lab / Micro Data 04/15/24 04:06 04/15/24 04:06 Labs: Laboratory Results - last 24 hr 04/14/24 07:35: WBC 9.4, RBC 4.13 L, Hgb 12.6 L, Hct 37.4 L, MCV 90.6, MCH 30.5, MCHC 33.7, RDW Std Deviation 44.4 H, RDW Coeff of Gregor 13.4, Plt Count 387, MPV 9.1, Immature Gran % (Auto) 0.600, Neut % (Auto) 78.0 H, Lymph % (Auto) 10.5 L, [place] % (Auto) 8.7, Eos % (Auto) 1.9, Baso % (Auto) 0.3, Absolute Neuts (auto) 7.3, Absolute Lymphs (auto) 0.98, Nucleated RBC % 0, Sodium 136, Potassium 3.4 L, Chloride 106, Carbon Dioxide 26.0, Anion Gap 5, BUN 13, Creatinine 0.55 L, Estim Creat Clear Calc 84.32, Est GFR (MDRD) Af Amer 187, Est GFR (MDRD) Non-Af 155, BUN/Creatinine Ratio 23.6 H, Glucose 127 H, Calcium 9.1, Total Bilirubin 0.60, AST 20, ALT 43, Alkaline Phosphatase 94, Total Protein 6.5, Albumin 2.2 L, Globulin 4.3 H, Albumin/Globulin Ratio 0.5 L, Vancomycin Trough 10.4 04/15/24 04:06: WBC 8.7, RBC 3.88 L, Hgb 11.8 L, Hct 35.3 L, MCV 91.0, MCH 30.4, MCHC 33.4, RDW Std Deviation 45.0 H, RDW Coeff of Gregor 13.5, Plt Count 389, MPV 9.2, Immature Gran % (Auto) 0.600, Neut % (Auto) 68.1, Lymph % (Auto) 16.3 L, [place] % (Auto) 11.6 H, Eos % (Auto) 3.1, Baso % (Auto) 0.3, Absolute Neuts (auto) 5.9, Absolute Lymphs (auto) 1.41, Nucleated RBC % 0, Sodium 139, Potassium 3.5, Chloride 110 H, Carbon Dioxide 26.0, Anion Gap 3 L, BUN 16, Creatinine 0.61 L, Estim Creat Clear Calc 84.32, Est GFR (MDRD) Af Amer 166, Est GFR (MDRD) Non-Af 137, BUN/Creatinine Ratio 26.1 H, Glucose 104, Calcium 8.7, Total Bilirubin 0.50, AST 17, ALT 39, Alkaline Phosphatase 80, Total Protein 5.9 L, Albumin 2.0 L, Globulin 3.9, Albumin/Globulin Ratio 0.5 L Micro: Microbiology 04/12/24 15:49 Blood Culture (Wb) - Anticubital Right Blood Culture - Preliminary No growth in 48 hours. 04/12/24 15:30 Blood Culture (Wb) - Anticubital Left Blood Culture - Preliminary Coag Negative Staph 04/13/24 11:02 Wound - Sacral Gram Stain - Final 04/13/24 11:02 Wound - Sacral Wound Culture - Preliminary Gram negative jojo Beta streptococcus Alpha hemolytic organism Staphylococcus species 04/12/24 19:00 Wound - Buttock Gram Stain - Final 04/12/24 19:00 Wound - Buttock Wound Culture - Preliminary Citrobacter koseri Staphylococcus aureus 04/12/24 19:00 Wound - Buttock Skin and Soft Tissue MRSA/MSSA (PCR - Final Staphylococcus aureus 04/12/24 15:30 Urine Catheter - Aggarwal Urine Culture - Final Escherichia coli Physical Exam Narrative Physical Examination: General: Awake, alert, oriented x 3 and cooperative, seated upright in the MS bed, no acute complaints, VAC in place with serosanguineous drainage. Skin: Normal color, normal turgor, no icterus, no cyanosis except for occasional abrasion, ecchymoses, status post OR with VAC in place with serosanguineous drainage noted in the canister. HEENT: AT/NC, EOMI, PERRLA, MMM. Lungs: CTA bilaterally, moderate effort, mild decrease BL bases, no rales, ronchi or wheezing. Heart: Regular rate and rhythm; no gallop, rub audible. Abdomen: Soft, obese, NTTP, ND, normal BS. Extremities: No cyanosis, no clubbing, bilateral ankle to mid lindo edema chronic, underlying history of paraplegia with mild contractures, see skin Neurological: Patient awake, alert, oriented as noted cognitive function intact; pupils equally reactive to light and accommodation, cranial nerves gross normal, underlying history of spina bifida with chronic paraplegia, strength severely globally decreased, chronic indwelling Aggarwal catheter in place. Psychiatric: Affect appears normal, no acute evidence of depressive or anxiety feelings. Assessment & Plan Assessment/Plan (1) Pressure ulcer: PLAN: Plan The patient is a 74 y/o M w/ PMHx: Obesity, PAF, HTN, HLD, Anxiety and Depression, Asthma, Spina bifida complicated by paraplegia with chronic indwelling aggarwal catheter with recurrent UTIs, need for chronic self stool disimpaction with chronic significant decubitus ulcer following with wound care clinic who presents to the [facility] ED on 04/12/24 secondary to worsening sacral decubitus ulcer with discharge, periwound erythema but no fevers or chills prompting ED evaluation. #1. Posterior left ischial tuberosity decubitus ulcer with suspicion for possible abscess, periwound erythema/cellulitis: ED evaluation included CT scan of the pelvis with subcutaneous collection posterior to the left ischial tuberosity suspicious for abscess formation with the collection extending to the tuberosity but no acute cortical destruction demonstrated, chronic left hip dislocation with large phlegmon in the joint space and chronic appearing destructive changes of the left femoral head. Admitted to medical surgical floor, maintained on IV vancomycin, 04/13/24 added IV Zosyn, continue off loading, dressing changes, Wound RN consultation, Plastic Surgery consultation. 04/13/24 Plastic surgery evaluation w/ bedside I+D with MRSA wound/Wound Cx obtained with cultures pending. Per discussion with surgery will need more definitive OR debridement. 04/12/2024 Gram stain with Citrobacter rare, Staphylococcus aureus rare with malik sensitivity noted however external culture. Per plastic surgery 04/13/2024 final Gram stain with noted 4+ gram-negative rods with finalization culture pending. 04/14/2024 OR I+D L ischial wound w/ debridement necrotic bone w/ VAC placement. Unfortunately patient will not be candidate to have home wound VAC as he is self-pay but still awaiting on operative cultures and infectious disease input on antibiotic therapies. If prolonged IV regimen needed will place PICC. Once patient is discharged home will need to continue aggressive wound care/packing per wound RN/surgery discretion. Suspect likely will not be able be discharged until Thursday. 04/15/2024 cleared by surgery to resume patient Eliquis therapy. #2. Spina bifida: Complicated by paraplegia with chronic indwelling Aggarwal catheter with recurrent UTIs as well as chronic self stool disimpaction needs, will continue stool/bowel regimen, assure Aggarwal catheter care, offloading, continue evaluation treatment as noted above #1, PT/OT/case management for discharge planning. #3. PAF: Will continue home metoprolol regimen, 04/15/2024 resumed Eliquis per surgery amenability. #4. Anxiety and depression: Per current list does not appear to be on regimen, encourage continued outpatient follow-up and counseling as needed with PCP. #5. Hypertension: Continue home regimen including Norvasc, hydrochlorothiazide, lisinopril, metoprolol with hold parameters as needed, PRN hydralazine. #6. Hyperlipidemia: We will continue patient on statin therapy. #7. Chronic asthma: Per current was not on routine regimen, will have as needed albuterol, encourage head of bed and I-S. #8. Obesity: Weight loss and lifestyle changes encouraged. #9. Dyspepsia, possibly chronic GERD: Added low-dose twice daily famotidine and as needed Mylanta, notes this is an intermittent ongoing issue. #10. DVT prophylaxis: 04/15/2024 resumed Eliquis per surgery amenability. Charges/Coding Visit Charges Inpatient E&M: 87011 Subs Hosp L2
--- NOTE | 2024-04-15 07:32 | PN.SURG_ITS ---
Subjective Subjective Doing well POD 1 from left ischial wound debridement. Pain controlled. 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 He has a pressure offloading cushion that he will use going forward. Objective Data Objective Data Vital Signs: Vital Signs Temp Pulse Resp BP Pulse Ox O2 Del Method 99.0 F 87 14 122/78 H 96 Room Air 04/15/24 06:32 04/15/24 06:32 04/15/24 06:32 04/15/24 06:32 04/15/24 06:32 04/15/24 06:32 Oxygen Delivery Method Room Air Weight: 205 lb 8 oz Body Mass Index (BMI) 36.3 Intake & Output: Intake and Output for Last 24 Hours 04/13/24 04/14/24 04/15/24 23:59 23:59 23:59 Intake Total 2040 / 2040 1075 / 1075 500 / 500 Output Total 1775 / 1775 1200 / 1200 500 / 500 Balance 265 / 265 -125 / -125 0 / 0 Lab / Micro Data 04/15/24 04:06 04/15/24 04:06 Labs: Laboratory Results - last 24 hr 04/14/24 07:35: WBC 9.4, RBC 4.13 L, Hgb 12.6 L, Hct 37.4 L, MCV 90.6, MCH 30.5, MCHC 33.7, RDW Std Deviation 44.4 H, RDW Coeff of Gregor 13.4, Plt Count 387, MPV 9.1, Immature Gran % (Auto) 0.600, Neut % (Auto) 78.0 H, Lymph % (Auto) 10.5 L, [place] % (Auto) 8.7, Eos % (Auto) 1.9, Baso % (Auto) 0.3, Absolute Neuts (auto) 7.3, Absolute Lymphs (auto) 0.98, Nucleated RBC % 0, Sodium 136, Potassium 3.4 L , Chloride 106, Carbon Dioxide 26.0, Anion Gap 5, BUN 13, Creatinine 0.55 L, Estim Creat Clear Calc 84.32, Est GFR (MDRD) Af Amer 187, Est GFR (MDRD) Non-Af 155, BUN/Creatinine Ratio 23.6 H, Glucose 127 H, Calcium 9.1, Total Bilirubin 0.60, AST 20, ALT 43, Alkaline Phosphatase 94, Total Protein 6.5, Albumin 2.2 L, Globulin 4.3 H, Albumin/Globulin Ratio 0.5 L, Vancomycin Trough 10.4 04/15/24 04:06: WBC 8.7, RBC 3.88 L, Hgb 11.8 L, Hct 35.3 L, MCV 91.0, MCH 30.4, MCHC 33.4, RDW Std Deviation 45.0 H, RDW Coeff of Gregor 13.5, Plt Count 389, MPV 9.2, Immature Gran % (Auto) 0.600, Neut % (Auto) 68.1, Lymph % (Auto) 16.3 L, M [place] % (Auto) 11.6 H, Eos % (Auto) 3.1, Baso % (Auto) 0.3, Absolute Neuts (auto) 5.9, Absolute Lymphs (auto) 1.41, Nucleated RBC % 0, Sodium 139, Potassium 3.5, Chloride 110 H, Carbon Dioxide 26.0, Anion Gap 3 L, BUN 16, Creatinine 0.61 L, Estim Creat Clear Calc 84.32, Est GFR (MDRD) Af Amer 166, Est GFR (MDRD) Non-Af 137, BUN/Creatinine Ratio 26.1 H, Glucose 104, Calcium 8.7, Total Bilirubin 0.50, AST 17, ALT 39, Alkaline Phosphatase 80, Total Protein 5.9 L, Albumin 2.0 L, Globulin 3.9, Albumin/Globulin Ratio 0.5 L Micro: Microbiology 04/12/24 15:49 Blood Culture (Wb) - Anticubital Right Blood Culture - Preliminary No growth in 48 hours. 04/12/24 15:30 Blood Culture (Wb) - Anticubital Left Blood Culture - Preliminary Coag Negative Staph 04/13/24 11:02 Wound - Sacral Gram Stain - Final 04/13/24 11:02 Wound - Sacral Wound Culture - Preliminary Gram negative jojo Beta streptococcus Alpha hemolytic organism Staphylococcus species 04/12/24 19:00 Wound - Buttock Gram Stain - Final 04/12/24 19:00 Wound - Buttock Wound Culture - Preliminary Citrobacter koseri Staphylococcus aureus 04/12/24 19:00 Wound - Buttock Skin and Soft Tissue MRSA/MSSA (PCR - Final Staphylococcus aureus 04/12/24 15:30 Urine Catheter - Gooden Urine Culture - Final Escherichia coli Physical Exam Narrative Left ischial wound with irrigating VAC. Holding suction. No pressure points on the VAC tubing. Assessment & Plan Assessment/Plan (1) Pressure ulcer: PLAN: F/u OR cultures Continue Irrigating VAC until date of discharge (if within 1 week). Then change to regular VAC and then start three times per week VAC changes at home if able. Should get pressure offloading bed at home (has one now in hospital) Nutrition labs and nutrition consultation Discussed high protein intake and pressure offloading with Mr. Wolf. Charges/Coding Procedures Integumentary 111xxx-113xx: 50025 Global Visit
[2024-04-15] MEDS: Vancomycin IV 1,000 MG/200 ML BAG 200 MG IV ×2 (07:48→19:54)
[2024-04-15] MEDS: 0.9% Saline Lock 10 ML Syringe IV ×2 (07:49→19:53)
[2024-04-15] MEDS: Docusate Sodium 100 MG Capsule PO (07:50)
[2024-04-15] MEDS: Lisinopril 40 MG Tablet PO (07:50)
[2024-04-15] MEDS: Menthol/Lanolin/Calamine/Znox 113 GM Tube 1 APPLIC TOPICAL ×2 (07:51→21:11)
[2024-04-15] MEDS: hydroCHLOROthiazide 25 MG Tablet PO (07:51)
[2024-04-15] MEDS: Metoprolol Tartrate 100 MG Tablet PO ×2 (07:52→22:45)
[2024-04-15] MEDS: Famotidine 20 MG Tablet PO ×2 (07:52→21:13)
[2024-04-15] MEDS: APIXABAN 5 MG TABLET PO ×2 (09:51→21:12)
--- NOTE | 2024-04-15 14:11 | PCM.PN.ID ---
Physical Exam Narrative Feeling better since surgery. No fever, no n/v/d. Const alert and no apparent distress General Appearance: cooperative Resp normal air movement and clear to auscultation bilaterally Cardio regular rate and regular rhythm GI soft to palpation, non-tender and non-distended Skin Skin Narrative: wound vac in place, no new rash ID ID: Route of nutrition/ use of supplements: [] Nutritional Intake: [] IV Site: [] Gooden Catheter: [] Assessment & Plan Assessment/Plan (1) Abscess: PLAN: OR 04/14/[address] Cabrera for I&D down to bone, on empiric vanc/zosyn. Wound cx with staph aureus and citro. Surg cx with strep, GNR. Plan will be for 6 weeks abx at discharge. Will follow (2) Pressure ulcer:
[2024-04-15] MEDS: Atorvastatin Calcium 20 MG Tablet PO (21:12)
[2024-04-15] MEDS: amLODIPine 10 MG Tablet PO (21:12)
--- NOTE | 2024-04-16 01:00 | NURSING ---
Changed wound vac canister.
[2024-04-16] MEDS: Piperacil/Tazobactam 3.375 GM in 0.9% Normal Saline (50mL MB+) 50 ML IV ×3 (05:57→21:34)
[2024-04-16 05:59] VITALS: BP 138/93; PULSE 73; RESP 18; TEMP 36.8; O2SAT 92
--- NOTE | 2024-04-16 06:27 | PN.HOSP_ITS ---
Reason for Visit Reason for Visit: Diagnoses Cutaneous abscess, unspecified (04/12/24) Pressure ulcer of unspecified site, unspecified stage (04/12/24) Subjective Subjective Patient with no acute events overnight per self and per nursing report. He denies any abdominal discomfort or pain. He notes currently sensation of feeling very full but just finished his breakfast and he does report he likely ate too much. Discussed plan of care with ongoing finalization of cultures, ID reevaluation need and likely 6 weeks course of antibiotic therapy but will await ID reevaluation prior to PICC request. Discussed that currently there may be a possibility for an ultra type of VAC but it sounds as though wound nursing care is still working on this otherwise patient will need to go home with aggressive frequent dressing changes and packing only. Patient denies fevers, chills, nausea, emesis, abdominal pain, chest pain or dyspnea. Objective Data Objective Data Vital Signs: Vital Signs Temp Pulse Resp BP Pulse Ox O2 Del Method 98.3 F 73 18 138/93 H 92 Room Air 04/16/24 05:59 04/16/24 05:59 04/16/24 05:59 04/16/24 05:59 04/16/24 05:59 04/16/24 05:59 Oxygen Delivery Method Room Air Weight: 205 lb 8 oz Body Mass Index (BMI) 36.3 Intake & Output: Intake and Output for Last 24 Hours 04/14/24 04/15/24 04/16/24 23:59 23:59 23:59 Intake Total 1075 / 1075 1631.00 / 1631.00 50 / 50 Output Total 1200 / 1200 2450 / 2450 Balance -125 / -125 -819.00 / -819.00 50 / 50 Lab / Micro Data 04/16/24 07:35 04/16/24 07:35 Micro: Microbiology 04/13/24 11:02 Wound - Sacral Gram Stain - Final 04/13/24 11:02 Wound - Sacral Wound Culture - Preliminary Citrobacter koseri Streptococcus group F Alpha Hemolytic Streptococcus Staphylococcus haemolyticus 04/13/24 11:02 Wound - Sacral Anaerobic Culture - Preliminary Checking for anaerobes, further studies to follow. 04/14/24 12:30 Bone - Ischial Bone Gram Stain - Final 04/14/24 12:30 Tissue - Ischial Pressure Sore Gram Stain - Final 04/14/24 12:30 Tissue - Ischial Pressure Sore Wound Culture - Preliminary Gram negative jojo Beta streptococcus Alpha hemolytic organism 04/12/24 15:30 Blood Culture (Wb) - Anticubital Left Blood Culture - Preliminary Coag Negative Staph 04/12/24 15:49 Blood Culture (Wb) - Anticubital Right Blood Culture - Preliminary No growth in 48 hours. 04/12/24 19:00 Wound - Buttock Gram Stain - Final 04/12/24 19:00 Wound - Buttock Wound Culture - Preliminary Citrobacter koseri Staphylococcus aureus 04/12/24 19:00 Wound - Buttock Skin and Soft Tissue MRSA/MSSA (PCR - Final Staphylococcus aureus 04/12/24 15:30 Urine Catheter - Aggarwal Urine Culture - Final Escherichia coli Physical Exam Narrative Physical Examination: General: Awake, alert, oriented x 3 and cooperative, seated upright in the MS bed, denies any complaints, VAC in place with serosanguineous drainage, present. Skin: Normal color, normal turgor, no icterus, no cyanosis except for occasional abrasion, ecchymoses, status post OR with VAC in place with serosanguineous drainage noted in the canister. HEENT: AT/NC, EOMI, PERRLA, MMM. Lungs: CTA bilaterally, moderate effort, mild decrease BL bases, no rales, ronchi or wheezing. Heart: Regular rate and rhythm; no gallop, rub audible. Abdomen: Soft, obese, NTTP, ND, normal BS. Extremities: No cyanosis, no clubbing, bilateral ankle to mid lindo edema chronic, underlying history of paraplegia with mild contractures, see skin Neurological: Patient awake, alert, oriented as noted cognitive function intact; pupils equally reactive to light and accommodation, cranial nerves gross normal, underlying history of spina bifida with chronic paraplegia, strength severely globally decreased, chronic indwelling Aggarwal catheter in place. Psychiatric: Affect appears normal, no acute evidence of depressive or anxiety feelings. Assessment & Plan Assessment/Plan (1) Pressure ulcer: PLAN: Plan The patient is a 74 y/o M w/ PMHx: Obesity, PAF, HTN, HLD, Anxiety and Depression, Asthma, Spina bifida complicated by paraplegia with chronic indwelling aggarwal catheter with recurrent UTIs, need for chronic self stool disimpaction with chronic significant decubitus ulcer following with wound care clinic who presents to the [facility] ED on 04/12/24 secondary to worsening sacral decubitus ulcer with discharge, periwound erythema but no fevers or chills prompting ED evaluation. #1. Posterior left ischial tuberosity decubitus ulcer with suspicion for possible abscess, periwound erythema/cellulitis: ED evaluation included CT scan of the pelvis with subcutaneous collection posterior to the left ischial tuberosity suspicious for abscess formation with the collection extending to the tuberosity but no acute cortical destruction demonstrated, chronic left hip dislocation with large phlegmon in the joint space and chronic appearing destructive changes of the left femoral head. Admitted to medical surgical floor, maintained on IV vancomycin, 04/13/24 added IV Zosyn, continue off loading, dressing changes, Wound RN consultation, Plastic Surgery consultation. 04/13/24 Plastic surgery evaluation w/ bedside I+D with MRSA wound/Wound Cx obtained with cultures pending. Per discussion with surgery will need more definitive OR debridement. Per plastic surgery 04/13/2024 final Gram stain with noted 4+ gram-negative rods with finalization culture pending. 04/14/2024 OR I+D L ischial wound w/ debridement necrotic bone w/ VAC placement. Unfortunately patient will not be candidate to have home wound VAC as he is self-pay. 04/12/2024 Gram stain with Citrobacter rare, Staphylococcus aureus rare with malik sensitivity noted however external culture. 04/14/2024 surgical culture with Citrobacter, beta Staphylococcus, alpha-hemolytic organism with preliminary status with anaerobic cultures pending and previous to this 04/13/2024 finalized Citrobacter, Streptococcus, Staphylococcus with anaerobic preliminary only. Per last infectious disease note 04/15/2024 will need likely 6 weeks of antibiotic therapy at discharge. 04/15/2024 cleared by surgery to resume patient Eliquis therapy. 04/16/2024 discussions with patient and about awaiting finalized cultures, plan repeat ID evaluation Thursday and possibility of altered type of VAC per wound RN who will be re-involved again Thursday. #2. Spina bifida: Complicated by paraplegia with chronic indwelling Aggarwal catheter with recurrent UTIs as well as chronic self stool disimpaction needs, will continue stool/bowel regimen, assure Aggarwal catheter care, offloading, continue evaluation treatment as noted above #1, PT/OT/case management for discharge planning. #3. PAF: Will continue home metoprolol and Eliquis regimen, transiently held as noted above for surgery but resumed. #4. Anxiety and depression: Per current list does not appear to be on regimen, encourage continued outpatient follow-up and counseling as needed with PCP. #5. Hypertension: Continue home regimen including Norvasc, hydrochlorothiazide, lisinopril, metoprolol with hold parameters as needed, PRN hydralazine. #6. Hyperlipidemia: We will continue patient on statin therapy. #7. Chronic asthma: Per current was not on routine regimen, will have as needed albuterol, encourage head of bed and I-S. #8. Obesity: Weight loss and lifestyle changes encouraged. #9. Dyspepsia, possibly chronic GERD: Added low-dose twice daily famotidine and as needed Mylanta, notes this is an intermittent ongoing issue. #10. DVT prophylaxis: Continue home Eliquis. Charges/Coding Visit Charges Inpatient E&M: 19780 Subs Hosp L2
--- NOTE | 2024-04-16 06:33 | NURSING ---
left voicemail for [employer] about service code 7 being on the screen.
--- NOTE | 2024-04-16 08:04 | PCM.PN.SRG ---
Subjective Subjective Pain controlled. Social work and the rest of the team are working on coordinating home VAC changes. Objective Data Objective Data Vital Signs: Vital Signs Temp Pulse Resp BP Pulse Ox O2 Del Method 98.3 F 73 18 138/93 H 92 Room Air 04/16/24 05:59 04/16/24 05:59 04/16/24 05:59 04/16/24 05:59 04/16/24 05:59 04/16/24 08:00 Oxygen Delivery Method Room Air Weight: 205 lb 8 oz Body Mass Index (BMI) 36.3 Intake & Output: Intake and Output for Last 24 Hours 04/14/24 04/15/24 04/16/24 23:59 23:59 23:59 Intake Total 1075 / 1075 1631.00 / 1631.00 450 / 450 Output Total 1200 / 1200 2450 / 2450 650 / 650 Balance -125 / -125 -819.00 / -819.00 -200 / -200 Lab / Micro Data 04/15/24 04:06 04/15/24 04:06 Micro: Microbiology 04/14/24 12:30 Tissue - Ischial Pressure Sore Gram Stain - Final 04/14/24 12:30 Tissue - Ischial Pressure Sore Wound Culture - Preliminary Citrobacter koseri Beta streptococcus Alpha hemolytic organism 04/13/24 11:02 Wound - Sacral Gram Stain - Final 04/13/24 11:02 Wound - Sacral Wound Culture - Final Citrobacter koseri Streptococcus group F Streptococcus mitis/ oralis Staphylococcus haemolyticus 04/13/24 11:02 Wound - Sacral Anaerobic Culture - Preliminary Checking for anaerobes, further studies to follow. 04/14/24 12:30 Bone - Ischial Bone Gram Stain - Final 04/12/24 15:30 Blood Culture (Wb) - Anticubital Left Blood Culture - Preliminary Coag Negative Staph 04/12/24 15:49 Blood Culture (Wb) - Anticubital Right Blood Culture - Preliminary No growth in 48 hours. 04/12/24 19:00 Wound - Buttock Gram Stain - Final 04/12/24 19:00 Wound - Buttock Wound Culture - Preliminary Citrobacter koseri Staphylococcus aureus 04/12/24 19:00 Wound - Buttock Skin and Soft Tissue MRSA/MSSA (PCR - Final Staphylococcus aureus 04/12/24 15:30 Urine Catheter - Gooden Urine Culture - Final Escherichia coli Physical Exam Narrative Vac holding suction over left ischial wound. No bleeding in the VAC. Assessment & Plan Assessment/Plan (1) Pressure ulcer: PLAN: OK to remove VAC and place BID Dakins WTD dressings as needed if trouble with holding suction. Plan for DC home with air bed and TIW VAC changes and weekly follow up in the wound care center. Continue nutrition consultation and improved protein intake for wound healing. Continue pressure offloading. Charges/Coding Procedures Integumentary 111xxx-113xx: 17712 Global Visit
[2024-04-16] MEDS: Menthol/Lanolin/Calamine/Znox 113 GM Tube 1 APPLIC TOPICAL ×3 (08:05→21:33)
[2024-04-16] MEDS: APIXABAN 5 MG TABLET PO ×2 (08:07→21:33)
[2024-04-16] MEDS: hydroCHLOROthiazide 25 MG Tablet PO (08:07)
[2024-04-16 08:08] VITALS: PULSE 86
[2024-04-16] MEDS: Metoprolol Tartrate 100 MG Tablet PO ×2 (08:08→21:32)
[2024-04-16] MEDS: Famotidine 20 MG Tablet PO ×2 (08:09→21:32)
[2024-04-16] MEDS: Lisinopril 40 MG Tablet PO (08:09)
[2024-04-16 08:36] LABS: Absolute Lymphocyte Count 1.28 X10^3/uL (0.83-4.51); Absolute Neutrophil Count 5.9 X10^3/uL (2.0-7.7); Basophil# 0.05 X10^3/uL; Basophil% 0.6 % (0-1); Eosinophil# 0.23 X10^3/uL; Eosinophils% 2.8 % (0-5); Hematocrit 39.4 % (40-54); Hemoglobin 13.1 g/dL (13.0-16.5); Lymphocyte # 1.28 X10^3/ul (0.83-4.51); Lymphocyte % 15.4 % (19-41); Mean Corp Hgb Conc 33.2 g/dL (32-36); Mean Corpuscular Hgb 30.5 pg (27.0-32.0); Mean Corpuscular Volume 91.6 fL (80-94); Mean Platelet Vol. 9.3 fl (6.2-12.0); Monocyte# 0.74 X10^3/uL; Monocyte% 8.9 % (0-10); NRBC Flagged by Analyzer 0 % (0-5); Neutrophil # 5.93 X10^3/uL (2.7-7.7); Neutrophil % 71.6 % (47-70); Platelet Count 448 K/mm3 (150-450); RBC Distribution Width CV 13.4 % (11.6-14.6); RBC Distribution Width SD 45.4 fl (35.1-43.9); White Blood Count 8.3 K/mm3 (4.4-11.0)
[2024-04-16] MEDS: Vancomycin Trough/Random Due 1 LAB MC (08:46)
[2024-04-16 09:06] LABS: ALB/GLOB Ratio 0.5 RATIO (0.9-2.4); AST(SGOT) 21 U/L (15-37); Alanine Aminotransfer ALT/SGPT 43 U/L (16-61); Albumin, Serum 2.1 g/dL (3.2-5.0); Alkaline Phosphatase 86 U/L (45-117); Anion Gap 7 (5-15); BUN 22 mg/dL (7-18); BUN/Creat Ratio 32.8 RATIO (10-20); Calcium,Total 9.2 mg/dL (8.5-10.1); Chloride 109 mmol/L (98-107); Creatinine, Serum 0.67 mg/dL (0.70-1.30); EST Glomerular Filtration Rate 124 mL/min (>60); Est Glom Filt Rate - Afr Amer 150 mL/min (>60); Estimated Creatinine Clearance 84.32 ml/min; Globulin 4.3 g/dL (2.2-4.2); Glucose 110 mg/dL (74-106); Potassium 3.5 mmol/L (3.5-5.1); Protein, Total 6.4 g/dL (6.4-8.2); Sodium Level 142 mmol/L (136-145)
[2024-04-16 09:13] LABS: Vancomycin, Trough Level 13.9 ug/mL (5.0-15.0)
[2024-04-16] MEDS: Vancomycin IV 1,000 MG/200 ML BAG 200 MG IV ×2 (11:18→21:33)
[2024-04-16 12:00] VITALS: BP 132/76; PULSE 65; RESP 14; TEMP 36.3; O2SAT 96
--- NOTE | 2024-04-16 15:02 | PCM.RX.CS ---
Consult Antibiotic Management Pharmacy has been consulted to manage selected antibiotic: Vancomycin Type of Intervention Type of Consult: Follow-up Suspected Infection Suspected Infection: Skin/Soft tissue Labs Labs: Sodium 142 mmol/L (136-145) 04/16/24 07:35 Potassium 3.5 mmol/L (3.5-5.1) 04/16/24 07:35 Chloride 109 mmol/L (98-107) H 04/16/24 07:35 Carbon Dioxide 27.0 mmol/L (21.0-32.0) 04/16/24 07:35 Anion Gap 7 (5-15) 04/16/24 07:35 BUN 22 mg/dL (7-18) H 04/16/24 07:35 Creatinine 0.67 mg/dL (0.70-1.30) L 04/16/24 07:35 Est GFR (MDRD) Af Amer 150 mL/min (>60) 04/16/24 07:35 Est GFR (MDRD) Non-Af 124 mL/min (>60) 04/16/24 07:35 BUN/Creatinine Ratio 32.8 RATIO (10-20) H 04/16/24 07:35 Glucose 110 mg/dL (74-106) H 04/16/24 07:35 Vancomycin Trough 13.9 ug/mL (5.0-15.0) 04/16/24 07:35 Microbiology Microbiology: Microbiology 04/14/24 12:30 Tissue - Ischial Pressure Sore Gram Stain - Final 04/14/24 12:30 Tissue - Ischial Pressure Sore Wound Culture - Preliminary Citrobacter koseri Streptococcus group F Alpha hemolytic organism 04/14/24 12:30 Bone - Ischial Bone Gram Stain - Final 04/14/24 12:30 Bone - Ischial Bone Wound Culture - Preliminary Gram negative jojo Gram positive organism 04/13/24 11:02 Wound - Sacral Gram Stain - Final 04/13/24 11:02 Wound - Sacral Wound Culture - Final Citrobacter koseri Streptococcus group F Streptococcus mitis/ oralis Staphylococcus haemolyticus 04/13/24 11:02 Wound - Sacral Anaerobic Culture - Preliminary Checking for anaerobes, further studies to follow. 04/12/24 15:30 Blood Culture (Wb) - Anticubital Left Blood Culture - Preliminary Coag Negative Staph 04/12/24 15:49 Blood Culture (Wb) - Anticubital Right Blood Culture - Preliminary No growth in 48 hours. 04/12/24 19:00 Wound - Buttock Gram Stain - Final 04/12/24 19:00 Wound - Buttock Wound Culture - Preliminary Citrobacter koseri Staphylococcus aureus 04/12/24 19:00 Wound - Buttock Skin and Soft Tissue MRSA/MSSA (PCR - Final Staphylococcus aureus 04/12/24 15:30 Urine Catheter - Gooden Urine Culture - Final Escherichia coli Goal Trough Goal Trough: 10-15 mcg/mL Pharmacy Plan for Drug Dosing Pharmacy Plan for Drug Dosing: VANCOMYCIN LEVEL RECEIVED Current Vancomycin Dose: 1000mg q12h Number of Doses Received: x6 1000mg doses Vancomycin Level: 13.9 (drawn at 0735) Hours Since Last Dose: 11.5 hours since last 1000mg dose on 04/15 at 1954 Renal Function: SrCr 0.67 Renal Function Trend: SrCr stable Lab/Micro: Vancomycin Plan/Comments: resulted trough of 13.9 is within the ordered goal trough range of 10-15. recommend continuing current dose of 1000mg q12h and checking a trough prior to the 4th dose Pending Level: 04/17/24 at 2130 Pharmacy Service will continue to monitor and adjust dosing as required. Follow-Up Labs Follow-Up Labs: Trough: Vancomycin (04/17/24 at 2130)
[2024-04-16 21:25] VITALS: BP 118/79; PULSE 87; RESP 16; TEMP 36.9; O2SAT 95
[2024-04-16 21:32] VITALS: BP 118/79; PULSE 87
[2024-04-16] MEDS: Atorvastatin Calcium 20 MG Tablet PO (21:32)
[2024-04-16] MEDS: amLODIPine 10 MG Tablet PO (21:32)
[2024-04-17 03:56] VITALS: BP 141/84; PULSE 87; RESP 16; TEMP 36.6; O2SAT 96
[2024-04-17 05:20] LABS: Absolute Neutrophil Count 6.9 X10^3/uL (2.0-7.7); Basophil# 0.05 X10^3/uL; Basophil% 0.5 % (0-1); Eosinophil# 0.29 X10^3/uL; Eosinophils% 3.1 % (0-5); Hematocrit 37.9 % (40-54); Hemoglobin 12.6 g/dL (13.0-16.5); Lymphocyte % 12.7 % (19-41); Mean Corp Hgb Conc 33.2 g/dL (32-36); Mean Corpuscular Hgb 29.9 pg (27.0-32.0); Mean Platelet Vol. 9.1 fl (6.2-12.0); Monocyte% 9.5 % (0-10); NRBC Flagged by Analyzer 0 % (0-5); Neutrophil # 6.94 X10^3/uL (2.7-7.7); Neutrophil % 73.5 % (47-70); Platelet Count 490 K/mm3 (150-450); RBC Distribution Width CV 13.2 % (11.6-14.6); Red Blood Count 4.21 M/mm3 (4.6-6.2); White Blood Count 9.5 K/mm3 (4.4-11.0)
[2024-04-17] MEDS: Piperacil/Tazobactam 3.375 GM in 0.9% Normal Saline (50mL MB+) 50 ML IV ×3 (06:24→22:27)
--- NOTE | 2024-04-17 06:26 | PCM.PN.HOSP ---
Reason for Visit Reason for Visit: Diagnoses Cutaneous abscess, unspecified (04/12/24) Pressure ulcer of unspecified site, unspecified stage (04/12/24) Subjective Subjective Patient with stools the day prior, getting around the VAC thus it was taken down and transitioned to dakin soaked dressings wet to dry. Patient denies any further stooling or diarrhea. Plastic surgery evaluation today with amenability to continue these types of dressings is still uncertain that patient will be able to have any type of VAC for discharge. Patient denies fevers, chills, nausea, emesis, abdominal pain, chest pain or dyspnea. Objective Data Objective Data Vital Signs: Vital Signs Temp Pulse Resp BP Pulse Ox O2 Del Method 97.9 F 87 16 141/84 H 96 Room Air 04/17/24 03:56 04/17/24 03:56 04/17/24 03:56 04/17/24 03:56 04/17/24 03:56 04/17/24 03:56 Oxygen Delivery Method Room Air Weight: 205 lb 8 oz Body Mass Index (BMI) 36.3 Intake & Output: Intake and Output for Last 24 Hours 04/15/24 04/16/24 04/17/24 23:59 23:59 23:59 Intake Total 1631.00 / 1631.00 2330 / 2330 50 / 50 Output Total 2450 / 2450 2550 / 2550 550 / 550 Balance -819.00 / -819.00 -220 / -220 -500 / -500 Lab / Micro Data 04/17/24 04:23 04/17/24 04:23 Labs: Laboratory Results - last 24 hr 04/16/24 07:35: WBC 8.3, RBC 4.30 L, Hgb 13.1, Hct 39.4 L, MCV 91.6, MCH 30.5, MCHC 33.2, RDW Std Deviation 45.4 H, RDW Coeff of Gregor 13.4, Plt Count 448, MPV 9.3, Immature Gran % (Auto) 0.700, Neut % (Auto) 71.6 H, Lymph % (Auto) 15.4 L, [place] % (Auto) 8.9, Eos % (Auto) 2.8, Baso % (Auto) 0.6, Absolute Neuts (auto) 5.9, Absolute Lymphs (auto) 1.28, Nucleated RBC % 0, Sodium 142, Potassium 3.5, Chloride 109 H, Carbon Dioxide 27.0, Anion Gap 7, BUN 22 H, Creatinine 0.67 L, Estim Creat Clear Calc 84.32, Est GFR (MDRD) Af Amer 150, Est GFR (MDRD) Non-Af 124, BUN/Creatinine Ratio 32.8 H, Glucose 110 H, Calcium 9.2, Total Bilirubin 0.30, AST 21, ALT 43, Alkaline Phosphatase 86, Total Protein 6.4, Albumin 2.1 L, Globulin 4.3 H, Albumin/Globulin Ratio 0.5 L, Vancomycin Trough 13.9 04/17/24 04:23: WBC 9.5, RBC 4.21 L, Hgb 12.6 L, Hct 37.9 L, MCV 90.0, MCH 29.9, MCHC 33.2, RDW Std Deviation 43.0, RDW Coeff of Gregor 13.2, Plt Count 490 H, MPV 9.1, Immature Gran % (Auto) 0.700, Neut % (Auto) 73.5 H, Lymph % (Auto) 12.7 L, [place] % (Auto) 9.5, Eos % (Auto) 3.1, Baso % (Auto) 0.5, Absolute Neuts (auto) 6.9, Absolute Lymphs (auto) 1.20, Nucleated RBC % 0 Micro: Microbiology 04/14/24 12:30 Tissue - Ischial Pressure Sore Gram Stain - Final 04/14/24 12:30 Tissue - Ischial Pressure Sore Wound Culture - Preliminary Citrobacter koseri Streptococcus group F Alpha hemolytic organism 04/14/24 12:30 Bone - Ischial Bone Gram Stain - Final 04/14/24 12:30 Bone - Ischial Bone Wound Culture - Preliminary Gram negative jojo Gram positive organism 04/13/24 11:02 Wound - Sacral Gram Stain - Final 04/13/24 11:02 Wound - Sacral Wound Culture - Final Citrobacter koseri Streptococcus group F Streptococcus mitis/ oralis Staphylococcus haemolyticus 04/13/24 11:02 Wound - Sacral Anaerobic Culture - Preliminary Checking for anaerobes, further studies to follow. 04/12/24 15:30 Blood Culture (Wb) - Anticubital Left Blood Culture - Preliminary Coag Negative Staph 04/12/24 15:49 Blood Culture (Wb) - Anticubital Right Blood Culture - Preliminary No growth in 48 hours. 04/12/24 19:00 Wound - Buttock Gram Stain - Final 04/12/24 19:00 Wound - Buttock Wound Culture - Preliminary Citrobacter koseri Staphylococcus aureus 04/12/24 19:00 Wound - Buttock Skin and Soft Tissue MRSA/MSSA (PCR - Final Staphylococcus aureus 04/12/24 15:30 Urine Catheter - Aggarwal Urine Culture - Final Escherichia coli Physical Exam Narrative Physical Examination: General: Awake, alert, oriented x 3 and cooperative, laying in the MS bed, denies any complaints, VAC has been taken off and transition to wet-to-dry with Dakin solution. Skin: Normal color, normal turgor, no icterus, no cyanosis except for occasional abrasion, ecchymoses, status post OR with currently dressing in place with no marked drainage, VAC has been removed. HEENT: AT/NC, EOMI, PERRLA, MMM. Lungs: CTA bilaterally, moderate effort, mild decrease BL bases, no rales, ronchi or wheezing. Heart: Regular rate and rhythm; no gallop, rub audible. Abdomen: Soft, obese, NTTP, ND, normal BS. Extremities: No cyanosis, no clubbing, bilateral ankle to mid lindo edema chronic, underlying history of paraplegia with mild contractures, see skin Neurological: Patient awake, alert, oriented as noted cognitive function intact; pupils equally reactive to light and accommodation, cranial nerves gross normal, underlying history of spina bifida with chronic paraplegia, strength severely globally decreased, chronic indwelling Aggarwal catheter in place. Psychiatric: Affect appears normal, no acute evidence of depressive or anxiety feelings. Assessment & Plan Assessment/Plan (1) Pressure ulcer: PLAN: Plan The patient is a 74 y/o M w/ PMHx: Obesity, PAF, HTN, HLD, Anxiety and Depression, Asthma, Spina bifida complicated by paraplegia with chronic indwelling aggarwal catheter with recurrent UTIs, need for chronic self stool disimpaction with chronic significant decubitus ulcer following with wound care clinic who presents to the [facility] ED on 04/12/24 secondary to worsening sacral decubitus ulcer with discharge, periwound erythema but no fevers or chills prompting ED evaluation. #1. Posterior left ischial tuberosity decubitus ulcer with suspicion for possible abscess, periwound erythema/cellulitis: ED evaluation included CT scan of the pelvis with subcutaneous collection posterior to the left ischial tuberosity suspicious for abscess formation with the collection extending to the tuberosity but no acute cortical destruction demonstrated, chronic left hip dislocation with large phlegmon in the joint space and chronic appearing destructive changes of the left femoral head. Admitted to medical surgical floor, maintained on IV vancomycin, 04/13/24 added IV Zosyn, continue off loading, dressing changes, Wound RN consultation, Plastic Surgery consultation. 04/13/24 Plastic surgery evaluation w/ bedside I+D with MRSA wound/Wound Cx obtained with cultures pending. Per discussion with surgery will need more definitive OR debridement. Per plastic surgery 04/13/2024 final Gram stain with noted 4+ gram-negative rods with finalization culture pending. 04/14/2024 OR I+D L ischial wound w/ debridement necrotic bone w/ VAC placement. Unfortunately patient will not be candidate to have home wound VAC as he is self-pay. 04/12/2024 Gram stain with Citrobacter rare, Staphylococcus aureus rare with malik sensitivity noted however external culture. 04/14/2024 surgical culture with Citrobacter, beta Staphylococcus, alpha-hemolytic organism with preliminary status with anaerobic cultures pending and previous to this 04/13/2024 finalized Citrobacter, Streptococcus, Staphylococcus with anaerobic preliminary only. Per last infectious disease note 04/15/2024 will need likely 6 weeks of antibiotic therapy at discharge. 04/15/2024 cleared by surgery to resume patient Eliquis therapy. 04/16/2024 discussions with patient and about awaiting finalized cultures, plan repeat ID evaluation Thursday and possibility of altered type of VAC per wound RN who will be re-involved again Thursday. May require PICC line placement. 04/16/2024 unfortunately wound VAC contaminated, taken down and transition to Dakin's soaked packing which was amenable per plastic surgery. #2. Spina bifida: Complicated by paraplegia with chronic indwelling Aggarwal catheter with recurrent UTIs as well as chronic self stool disimpaction needs, will continue stool/bowel regimen, assure Aggarwal catheter care, offloading, continue evaluation treatment as noted above #1, PT/OT/case management for discharge planning. #3. PAF: Will continue home metoprolol and Eliquis regimen, transiently held as noted above for surgery but resumed. #4. Anxiety and depression: Per current list does not appear to be on regimen, encourage continued outpatient follow-up and counseling as needed with PCP. #5. Hypertension: Continue home regimen including Norvasc, hydrochlorothiazide, lisinopril, metoprolol with hold parameters as needed, PRN hydralazine. #6. Hyperlipidemia: We will continue patient on statin therapy. #7. Chronic asthma: Per current was not on routine regimen, will have as needed albuterol, encourage head of bed and I-S. #8. Obesity: Weight loss and lifestyle changes encouraged. #9. Dyspepsia, possibly chronic GERD: Added low-dose twice daily famotidine and as needed Mylanta, notes this is an intermittent ongoing issue. #10. DVT prophylaxis: Continue home Eliquis. Charges/Coding Visit Charges Inpatient E&M: 76980 Subs Hosp L2
[2024-04-17 06:46] LABS: ALB/GLOB Ratio 0.5 RATIO (0.9-2.4); AST(SGOT) 24 U/L (15-37); Alanine Aminotransfer ALT/SGPT 50 U/L (16-61); Albumin, Serum 2.2 g/dL (3.2-5.0); Alkaline Phosphatase 83 U/L (45-117); Anion Gap 5 (5-15); BUN 16 mg/dL (7-18); BUN/Creat Ratio 22.7 RATIO (10-20); Calcium,Total 9.2 mg/dL (8.5-10.1); Chloride 106 mmol/L (98-107); Creatinine, Serum 0.71 mg/dL (0.70-1.30); EST Glomerular Filtration Rate 117 mL/min (>60); Est Glom Filt Rate - Afr Amer 141 mL/min (>60); Estimated Creatinine Clearance 84.32 ml/min; Globulin 4.2 g/dL (2.2-4.2); Glucose 115 mg/dL (74-106); Potassium 3.2 mmol/L (3.5-5.1); Protein, Total 6.4 g/dL (6.4-8.2); Sodium Level 139 mmol/L (136-145)
[2024-04-17 09:50] VITALS: BP 137/85; PULSE 86; RESP 16; TEMP 36.7; O2SAT 96
[2024-04-17] MEDS: Menthol/Lanolin/Calamine/Znox 113 GM Tube 1 APPLIC TOPICAL ×4 (10:18→23:01)
[2024-04-17 10:19] VITALS: PULSE 84
[2024-04-17] MEDS: APIXABAN 5 MG TABLET PO ×2 (10:19→23:02)
[2024-04-17] MEDS: Metoprolol Tartrate 100 MG Tablet PO ×2 (10:19→23:03)
[2024-04-17] MEDS: hydroCHLOROthiazide 25 MG Tablet PO (10:19)
[2024-04-17] MEDS: Lisinopril 40 MG Tablet PO (10:25)
[2024-04-17] MEDS: Famotidine 20 MG Tablet PO ×2 (10:25→23:03)
[2024-04-17] MEDS: Vancomycin IV 1,000 MG/200 ML BAG 200 MG IV (10:33)
[2024-04-17 16:30] VITALS: BP 134/76; PULSE 89; RESP 16; TEMP 36.8; O2SAT 96
[2024-04-17 22:28] LABS: Vancomycin, Trough Level 16.3 ug/mL (5.0-15.0)
--- NOTE | 2024-04-17 22:35 | PCM.RX.CS ---
Consult Antibiotic Management Pharmacy has been consulted to manage selected antibiotic: Vancomycin Type of Intervention Type of Consult: Follow-up Labs Labs: Sodium 139 mmol/L (136-145) 04/17/24 04:23 Potassium 3.2 mmol/L (3.5-5.1) L 04/17/24 04:23 Chloride 106 mmol/L (98-107) 04/17/24 04:23 Carbon Dioxide 28.0 mmol/L (21.0-32.0) 04/17/24 04:23 Anion Gap 5 (5-15) 04/17/24 04:23 BUN 16 mg/dL (7-18) 04/17/24 04:23 Creatinine 0.71 mg/dL (0.70-1.30) 04/17/24 04:23 Est GFR (MDRD) Af Amer 141 mL/min (>60) 04/17/24 04:23 Est GFR (MDRD) Non-Af 117 mL/min (>60) 04/17/24 04:23 BUN/Creatinine Ratio 22.7 RATIO (10-20) H 04/17/24 04:23 Glucose 115 mg/dL (74-106) H 04/17/24 04:23 Vancomycin Trough 16.3 ug/mL (5.0-15.0) H 04/17/24 21:43 Microbiology Microbiology: Microbiology 04/12/24 15:30 Blood Culture (Wb) - Anticubital Left Blood Culture - Final Coag Negative Staph 04/12/24 15:49 Blood Culture (Wb) - Anticubital Right Blood Culture - Final No growth in 5 days. 04/13/24 11:02 Wound - Sacral Gram Stain - Final 04/13/24 11:02 Wound - Sacral Wound Culture - Final Citrobacter koseri Streptococcus group F Streptococcus mitis/ oralis Staphylococcus haemolyticus 04/13/24 11:02 Wound - Sacral Anaerobic Culture - Preliminary Anaerobic cocci 04/14/24 12:30 Bone - Ischial Bone Gram Stain - Final 04/14/24 12:30 Bone - Ischial Bone Wound Culture - Preliminary Citrobacter koseri Staphylococcus species 04/14/24 12:30 Tissue - Ischial Pressure Sore Gram Stain - Final 04/14/24 12:30 Tissue - Ischial Pressure Sore Wound Culture - Final Citrobacter koseri Streptococcus group F Streptococcus mitis/ oralis 04/12/24 19:00 Wound - Buttock Gram Stain - Final 04/12/24 19:00 Wound - Buttock Wound Culture - Preliminary Citrobacter koseri Staphylococcus aureus 04/12/24 19:00 Wound - Buttock Skin and Soft Tissue MRSA/MSSA (PCR - Final Staphylococcus aureus 04/12/24 15:30 Urine Catheter - Gooden Urine Culture - Final Escherichia coli Pharmacy Plan for Drug Dosing Pharmacy Plan for Drug Dosing: Pharmacy Service will continue to monitor and adjust dosing as required. TROUGH 16.3 @ 11 HOURS (GOAL 10-15) HOLD DOSE AND DRAW RANDOM LEVEL IN 8 HOURS Follow-Up Labs Follow-Up Labs: Trough: Vancomycin Date/Time Labs Ordered Labs to be done on [date and time ordered]: 04/18 @ 9142
[2024-04-17 22:59] VITALS: BP 142/98; PULSE 61; RESP 18; TEMP 36.7; O2SAT 95
[2024-04-17 23:03] VITALS: BP 142/98; PULSE 61
[2024-04-17] MEDS: Atorvastatin Calcium 20 MG Tablet PO (23:03)
[2024-04-17] MEDS: amLODIPine 10 MG Tablet PO (23:04)
[2024-04-18 03:48] VITALS: BP 142/86; PULSE 78; RESP 16; TEMP 37.1; O2SAT 96
[2024-04-18 05:40] LABS: Absolute Neutrophil Count 8.9 X10^3/uL (2.0-7.7); Basophil# 0.04 X10^3/uL; Basophil% 0.3 % (0-1); Eosinophils% 2.6 % (0-5); Hemoglobin 13.5 g/dL (13.0-16.5); Lymphocyte % 10.4 % (19-41); Mean Corp Hgb Conc 33.8 g/dL (32-36); Mean Corpuscular Hgb 30.3 pg (27.0-32.0); Mean Corpuscular Volume 89.7 fL (80-94); Mean Platelet Vol. 8.8 fl (6.2-12.0); Monocyte# 1.02 X10^3/uL; Monocyte% 8.8 % (0-10); NRBC Flagged by Analyzer 0 % (0-5); Neutrophil # 8.94 X10^3/uL (2.7-7.7); Neutrophil % 77.2 % (47-70); Platelet Count 479 K/mm3 (150-450); RBC Distribution Width CV 13.1 % (11.6-14.6); RBC Distribution Width SD 42.7 fl (35.1-43.9); Red Blood Count 4.46 M/mm3 (4.6-6.2); White Blood Count 11.6 K/mm3 (4.4-11.0)
[2024-04-18] MEDS: Piperacil/Tazobactam 3.375 GM in 0.9% Normal Saline (50mL MB+) 50 ML IV ×2 (05:57→14:04)
[2024-04-18 06:09] LABS: ALB/GLOB Ratio 0.5 RATIO (0.9-2.4); AST(SGOT) 19 U/L (15-37); Alanine Aminotransfer ALT/SGPT 46 U/L (16-61); Albumin, Serum 2.2 g/dL (3.2-5.0); Alkaline Phosphatase 78 U/L (45-117); Anion Gap 5 (5-15); BUN 15 mg/dL (7-18); BUN/Creat Ratio 20.5 RATIO (10-20); Calcium,Total 9.3 mg/dL (8.5-10.1); Chloride 106 mmol/L (98-107); Creatinine, Serum 0.73 mg/dL (0.70-1.30); EST Glomerular Filtration Rate 112 mL/min (>60); Est Glom Filt Rate - Afr Amer 135 mL/min (>60); Estimated Creatinine Clearance 84.32 ml/min; Globulin 4.3 g/dL (2.2-4.2); Glucose 111 mg/dL (74-106); Potassium 3.1 mmol/L (3.5-5.1); Protein, Total 6.5 g/dL (6.4-8.2); Sodium Level 138 mmol/L (136-145)
[2024-04-18 06:42] LABS: Vancomycin, Random Level 11.8 ug/mL (0.0-15.0)
--- NOTE | 2024-04-18 06:54 | PCM.RX.CS ---
Consult Antibiotic Management Pharmacy has been consulted to manage selected antibiotic: Vancomycin Type of Intervention Type of Consult: Follow-up Suspected Infection Suspected Infection: Skin/Soft tissue Prior Doses of Antibiotics Prior Doses of Antibiotics Received/Current Regimen: Vancomycin 1000 mg Q12H last dose given 04/17/24 @ 1033 Labs Labs: Sodium 138 mmol/L (136-145) 04/18/24 05:27 Potassium 3.1 mmol/L (3.5-5.1) L 04/18/24 05:27 Chloride 106 mmol/L (98-107) 04/18/24 05:27 Carbon Dioxide 27.0 mmol/L (21.0-32.0) 04/18/24 05:27 Anion Gap 5 (5-15) 04/18/24 05:27 BUN 15 mg/dL (7-18) 04/18/24 05:27 Creatinine 0.73 mg/dL (0.70-1.30) 04/18/24 05:27 Est GFR (MDRD) Af Amer 135 mL/min (>60) 04/18/24 05:27 Est GFR (MDRD) Non-Af 112 mL/min (>60) 04/18/24 05:27 BUN/Creatinine Ratio 20.5 RATIO (10-20) H 04/18/24 05:27 Glucose 111 mg/dL (74-106) H 04/18/24 05:27 Vancomycin Trough 16.3 ug/mL (5.0-15.0) H 04/17/24 21:43 Random Vancomycin 11.8 ug/mL (0.0-15.0) 04/18/24 05:27 Microbiology Microbiology: Microbiology 04/12/24 15:30 Blood Culture (Wb) - Anticubital Left Blood Culture - Final Coag Negative Staph 04/12/24 15:49 Blood Culture (Wb) - Anticubital Right Blood Culture - Final No growth in 5 days. 04/13/24 11:02 Wound - Sacral Gram Stain - Final 04/13/24 11:02 Wound - Sacral Wound Culture - Final Citrobacter koseri Streptococcus group F Streptococcus mitis/ oralis Staphylococcus haemolyticus 04/13/24 11:02 Wound - Sacral Anaerobic Culture - Preliminary Anaerobic cocci 04/14/24 12:30 Bone - Ischial Bone Gram Stain - Final 04/14/24 12:30 Bone - Ischial Bone Wound Culture - Preliminary Citrobacter koseri Staphylococcus species 04/14/24 12:30 Tissue - Ischial Pressure Sore Gram Stain - Final 04/14/24 12:30 Tissue - Ischial Pressure Sore Wound Culture - Final Citrobacter koseri Streptococcus group F Streptococcus mitis/ oralis 04/12/24 19:00 Wound - Buttock Gram Stain - Final 04/12/24 19:00 Wound - Buttock Wound Culture - Preliminary Citrobacter koseri Staphylococcus aureus 04/12/24 19:00 Wound - Buttock Skin and Soft Tissue MRSA/MSSA (PCR - Final Staphylococcus aureus 04/12/24 15:30 Urine Catheter - Gooden Urine Culture - Final Escherichia coli Dosing Weight Weight used for dosin kg Estimated Creatinine Clearance Estimated Creatinine Clearance: ~ 84 Goal Trough Goal Trough: 10-15 mcg/mL Pharmacy Plan for Drug Dosing Pharmacy Plan for Drug Dosing: Vancomycin random this AM = 11.8, will resume dosing with 750 mg Q12H. Pharmacy Service will continue to monitor and adjust dosing as required. Follow-Up Labs Follow-Up Labs: Trough: Vancomycin Date/Time Labs Ordered Labs to be done on [date and time ordered]: 04/19/24 @ 0061
[2024-04-18] MEDS: hydroCHLOROthiazide 25 MG Tablet PO (08:22)
[2024-04-18] MEDS: Lisinopril 40 MG Tablet PO (08:22)
[2024-04-18] MEDS: Menthol/Lanolin/Calamine/Znox 113 GM Tube 1 APPLIC TOPICAL ×2 (08:22→14:04)
[2024-04-18] MEDS: Famotidine 20 MG Tablet PO (08:22)
[2024-04-18] MEDS: Vancomycin HCl 750 MG in 0.9% Normal Saline (250mL Bag) 250 ML 250 MG IV (08:22)
[2024-04-18 08:23] VITALS: PULSE 78
[2024-04-18] MEDS: APIXABAN 5 MG TABLET PO (08:23)
[2024-04-18] MEDS: Metoprolol Tartrate 100 MG Tablet PO (08:23)
[2024-04-18 09:45] VITALS: BP 121/89; PULSE 78; RESP 17; TEMP 36.8; O2SAT 98
[2024-04-18] MEDS: DAKIN'S SOL HALF STRENGTH (=0.25%) TOPICAL (11:00)
--- NOTE | 2024-04-18 11:26 | WOUNDNOTE ---
wound photo: left ischium
--- NOTE | 2024-04-18 11:35 | WOUNDNOTE ---
skin photo: left buttock
--- NOTE | 2024-04-18 14:37 | PCM.PN.ID ---
ID ID: Route of nutrition/ use of supplements: [] Nutritional Intake: [] IV Site: [] Gooden Catheter: [] Patient overall clinically stable. Tolerating parenteral antibiotic therapy well. Remains euthermic. Microbiology data reviewed. Discussed case with wound care nurse and reviewed the pictures of his buttocks area. Alert responsive does not appear toxic lungs are clear heart exam S1-S2 abdomen soft nontender Assessment & Plan Assessment/Plan (1) Pressure ulcer: PLAN: Pressure ulcer/wound infection status post surgical debridement. Based on the microbiology data okay to go home on Augmentin 875 mg twice a day plus Cipro 500 mg twice a day both for 10 more days.
--- NOTE | 2024-04-18 15:15 | PCM.DC ---
Discharge Instructions Diet Discharge Diet: Low fat / Low cholesterol DC O2, CPAP, BIPAP needs Home O2 Discharge instructions: No Dressing / Incision Discharge Activity: Return to Normal Activity Dressing / Incision Call your doctor if you observe: Fever of 101 or Higher, Shortness of breath, Dizziness, Fainting spells, Swelling in the ankles, Chest pain and Increased palpitations (irregular heartbeat) Follow Up Care Test Results: Test results from this visit will be discussed in further detail at your follow-up appointment, if applicable. Discharge Plan Admission Admit Date/Time: 04/12/24 17:32 Attending Provider: Eddi Carmona Primary Care Provider: Guillermo Duenas Consulting Providers: Mervin Wooten; Lamont Cabrera; Lamont Salas; Adriana Champagne Discharge Orders/Prescriptions Prescriptions: New amoxicillin-pot clavulanate 875-125 mg tablet 1 tab PO BID Qty: 20 0RF ciprofloxacin HCl [Cipro] 500 mg tablet 500 mg PO BID Qty: 20 0RF Continued amlodipine 10 mg tablet 10 mg PO DAILY lisinopril-hydrochlorothiazide 20-12.5 mg tablet 2 tab PO DAILY metoprolol tartrate 100 mg tablet 100 mg PO BID simvastatin 40 mg tablet 40 mg PO QHS Eliquis 5 mg tablet 5 mg PO BID Referrals / Follow Up: Guillermo Duenas DO [Primary Care Provider] - Within 1 Week Hyperbaric Medicine,[facility] Wound and [Non-Staff] - Within 1 Week Disposition Disposition (needs filled in before D/C Order can be placed): Home, Self Care
--- NOTE | 2024-04-18 15:31 | WOUNDNOTE ---
Pt's wanting another wound dressing change with her to be sure she feels comfortable changing the dressing at home. was able to demonstrate the dressing change and states she now feels comfortable changing it at home. No firther needs or concerns. pt will be sent with Dakins solution and some dressing changes. pt will follow with Dr Cabrera at discharge at the wound healing center.
--- NOTE | 2024-04-18 15:33 | CASEMGMT ---
AZIZA NOBLES spoke with wound nurse. Wound nurse reports that pt observed dressing change twice today and feels comfortable with this at home. Rest of Dakins and wound supplies to be sent home with pt. She states pt can obtain more dakins at pharmacy without rx since pt is self pay. AZIZA NOBLES into pt room, pt and present. Pt is aware of wound supplies and dakins that will be sent home and how to obtain more when needed. Discussed C SN for pt. Pt states he will be going to the [facility] weekly and does not feel this is necessary at this point. He is aware that should he change his mind, the [facility] may order HH for him. Pt confirms she is comfortable with wound care for pt. Pt does not plan on getting a low air loss mattress for his bed due to cost. Discussed where he could obtain this as well such as [facility] and a handout given for the [facility] for [facility]. Pt to dc on po atb. Pt would like meds brought to room. TC to [facility] and the meds were actually called into [facility]. TC to [facility], left requesting cost of medications. Pt is aware meds were sent to [facility]. Pt has transportation home. No further needs at this time. Pt ready for dc.
[2024-04-18 16:00] VITALS: BP 133/84; PULSE 70; RESP 18; TEMP 36.7; O2SAT 98
--- NOTE | 2024-04-18 16:03 | DS.PCM_ITS ---
Providers Date of Admission: 04/12/24 Primary Care Physician: Dr. 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 Comment: Reason for Consult:: Bed sore 04/13/24 07:18 Consult: Plastic Surgery Routine Consulting Provider: Felipa Cabrera Reason for Consult: Infected decubitous ulcer EMERGENT Consult: No Notified: Yes Date Notified: 04/13/24 Time Notified: 07:18 Method of Notification: Text Reason For Visit: WOUND INFECTION Diagnosis Discharge Diagnosis (1) Pressure ulcer: Status: Acute Code(s): L89.90 - Pressure ulcer of unspecified site, unspecified stage Medications at Discharge Home Medications amlodipine 10 mg tablet 10 mg PO DAILY Blood pressure 04/12/24 apixaban 5 mg tablet (Eliquis) 5 mg PO BID AFIB 04/12/24 lisinopril 20 mg-hydrochlorothiazide 12.5 mg tablet 2 tab PO DAILY Blood pressure 04/12/24 metoprolol tartrate 100 mg tablet 100 mg PO BID Blood pressure 04/12/24 simvastatin 40 mg tablet 40 mg PO QHS Cholesterol 04/12/24 amoxicillin 875 mg-potassium clavulanate 125 mg tablet 1 tab PO BID #20 tabs 04/18/24 ciprofloxacin HCl 500 mg tablet (Cipro) 500 mg PO BID #20 tabs 04/18/24 Hospital Course Operations - (1) Incision and Drainage of Left Ischial Wound (7 x 6 cm) with debridement of necrotic bone (CPT: 89097, 69895 x 2 (42 cm^2)) 2) Bone biopsy left ischium (CPT 82485) 3) Placement of irrigating wound vac, left ischium (CPT 77199) - VeraFlow) Procedures None Summary of Care Provided Minutes Spent on Discharge: 32 Hospital Course: Per HPI: FELIPA PEREZ, is a 74 M with history of spina bifid complicated by paraplegia, recurrent urinary tract infection, A-fib on Eliquis, hypertension in the past who presents to the ED for concerns regarding progressively worsening sacral decubitus ulcer. Per the patient he wanted to follow-up in the wound care clinic but due to Davon Codi he could not get an appointment and decided to present to the ED for further evaluation. Over the last few months the decubitus ulcer has progressively worsened, with associated some discharge, no blood or purulence noted. Denies any fever or chills. No nausea or vomiting. He has an indwelling Gooden's catheter, and has digitally disimpact his feces. Has no incontinence and does not feel there is any fecal soiling of his wounds. Has decreased sensation over bilateral lower extremities and no sensation over the ulcer. Hospital Course: #1. Posterior left ischial tuberosity decubitus ulcer with suspicion for possible abscess, periwound erythema/cellulitis: ED evaluation included CT scan of the pelvis with subcutaneous collection posterior to the left ischial tuberosity suspicious for abscess formation with the collection extending to the tuberosity but no acute cortical destruction demonstrated, chronic left hip dislocation with large phlegmon in the joint space and chronic appearing destructive changes of the left femoral head. Admitted to medical surgical floor, maintained on IV vancomycin, 04/13/24 added IV Zosyn, continue off loading, dressing changes, Wound RN consultation, Plastic Surgery consultation. 04/13/24 Plastic surgery evaluation w/ bedside I+D with MRSA wound/Wound Cx obtained with cultures pending. Per discussion with surgery will need more definitive OR debridement. Per plastic surgery 04/13/2024 final Gram stain with noted 4+ gram-negative rods with finalization culture pending. 04/14/2024 OR I+D L ischial wound w/ debridement necrotic bone w/ VAC placement. Unfortunately patient will not be candidate to have home wound VAC as he is self-pay. 04/12/2024 Gram stain with Citrobacter rare, Staphylococcus aureus rare with malik sensitivity noted however external culture. 04/14/2024 surgical culture with Citrobacter, beta Staphylococcus, alpha-hemolytic organism with preliminary status with anaerobic cultures pending and previous to this 04/13/2024 finalized Citrobacter, Streptococcus, Staphylococcus with anaerobic preliminary only. Per last infectious disease note 04/15/2024 will need likely 6 weeks of antibiotic therapy at discharge. 04/15/2024 cleared by surgery to resume patient Eliquis therapy. 04/16/2024 discussions with patient and about awaiting finalized cultures, plan repeat ID evaluation Thursday and possibility of altered type of VAC per wound RN who will be re-involved again Thursday. May require PICC line placement. 04/16/2024 unfortunately wound VAC contaminated, taken down and transition to Dakin's soaked packing which was amenable per plastic surgery. 04/18/2024: Discussed with him the plan for discharge today he expressed understanding there is benefits going home and would like to go home today. Infectious disease is recommending Cipro 500 mg p.o. twice daily as well as Augmentin 875 mg p.o. twice daily for 10 more days with outpatient follow-up to the wound care center. He had a bowel movement that did go into the wound VAC so this was removed and he will continue with Dakin's solution and wet-to-dry dressing changes at home. He did not want home health care. Otherwise he is doing well #2. Spina bifida: Complicated by paraplegia with chronic indwelling Gooden catheter with recurrent UTIs as well as chronic self stool disimpaction needs, will continue stool/bowel regimen, assure Gooden catheter care, offloading, continue evaluation treatment as noted above #1, PT/OT/case management for discharge planning. #3. PAF: Will continue home metoprolol and Eliquis regimen, transiently held as noted above for surgery but resumed. #4. Anxiety and depression: Per current list does not appear to be on regimen, encourage continued outpatient follow-up and counseling as needed with PCP. #5. Hypertension: Continue home regimen including Norvasc, hydrochlorothiazide, lisinopril, metoprolol with hold parameters as needed, PRN hydralazine. #6. Hyperlipidemia: We will continue patient on statin therapy. #7. Chronic asthma: Per current was not on routine regimen, will have as needed albuterol, encourage head of bed and I-S. #8. Obesity: Weight loss and lifestyle changes encouraged. #9. Dyspepsia, possibly chronic GERD: Added low-dose twice daily famotidine and as needed Mylanta, notes this is an intermittent ongoing issue. Physical Exam Narrative General: Alert, Oriented x3, Cooperative, No apparent distress HEENT: Atraumatic, PERRLA, EOMI, Normocephalic Oral: Moist Mucosa Neck: Supple, No JVD Lungs: Clear to auscultation, Normal air movement, No rhonchi, No wheeze, No rales Cardiovascular: Regular rate, Regular Rhythm, Normal S1, Normal S2, No murmurs Abdomen: Soft, Non Tender, Non-Distended, No Hepato-splenomegaly Extremities: No edema, Capillary Refill Less than 3 Seconds Skin: No rashes, No breakdown, dressing intact Musculoskeletal: No Tenderness to Palpation of Joints or Extremities Neurological: No focal neurological deficits, chronic lower extremity neurological changes Psych/Mental Status: Normal Affect, Appropriate Weight / BMI Weight Weight: 205 lb 8 oz Body Mass Index (BMI) 36.3 ABG / Lab / Microbiology Data 04/18/24 05:27 04/18/24 05:27 Laboratory: Laboratory Results - last 24 hr 04/17/24 21:43: Vancomycin Trough 16.3 H 04/18/24 05:27: WBC 11.6 H, RBC 4.46 L, Hgb 13.5, Hct 40.0, MCV 89.7, MCH 30.3, MCHC 33.8, RDW Std Deviation 42.7, RDW Coeff of Gregor 13.1, Plt Count 479 H, MPV 8.8, Immature Gran % (Auto) 0.700, Neut % (Auto) 77.2 H, Lymph % (Auto) 10.4 L, Florence % (Auto) 8.8, Eos % (Auto) 2.6, Baso % (Auto) 0.3, Absolute Neuts (auto) 8.9 H, Absolute Lymphs (auto) 1.20, Nucleated RBC % 0, Sodium 138, Potassium 3.1 L, Chloride 106, Carbon Dioxide 27.0, Anion Gap 5, BUN 15, Creatinine 0.73, Estim Creat Clear Calc 84.32, Est GFR (MDRD) Af Amer 135, Est GFR (MDRD) Non-Af 112, BUN/Creatinine Ratio 20.5 H, Glucose 111 H, Calcium 9.3, Total Bilirubin 0.40, AST 19, ALT 46, Alkaline Phosphatase 78, Total Protein 6.5, Albumin 2.2 L, Globulin 4.3 H, Albumin/Globulin Ratio 0.5 L, Random Vancomycin 11.8 Microbiology: Microbiology 04/13/24 11:02 Wound - Sacral Gram Stain - Final 04/13/24 11:02 Wound - Sacral Wound Culture - Final Citrobacter koseri Streptococcus group F Streptococcus mitis/ oralis Staphylococcus haemolyticus 04/13/24 11:02 Wound - Sacral Anaerobic Culture - Final Anaerobic cocci Bacteroides thetaiotaomicron Prevotella oralis 04/14/24 12:30 Tissue - Ischial Pressure Sore Gram Stain - Final 04/14/24 12:30 Tissue - Ischial Pressure Sore Wound Culture - Final Citrobacter koseri Streptococcus group F Streptococcus mitis/ oralis 04/14/24 12:30 Tissue - Ischial Pressure Sore Anaerobic Culture - Preliminary Gram variable jojo Gram positive jojo Gram negative jojo 04/14/24 12:30 Bone - Ischial Bone Gram Stain - Final 04/14/24 12:30 Bone - Ischial Bone Wound Culture - Final Citrobacter koseri Staphylococcus epidermidis 04/12/24 15:30 Blood Culture (Wb) - Anticubital Left Blood Culture - Final Coag Negative Staph 04/12/24 15:49 Blood Culture (Wb) - Anticubital Right Blood Culture - Final No growth in 5 days. 04/12/24 19:00 Wound - Buttock Gram Stain - Final 04/12/24 19:00 Wound - Buttock Wound Culture - Preliminary Citrobacter koseri Staphylococcus aureus 04/12/24 19:00 Wound - Buttock Skin and Soft Tissue MRSA/MSSA (PCR - Final Staphylococcus aureus 04/12/24 15:30 Urine Catheter - Gooden Urine Culture - Final Escherichia coli D/C Instructions Discharge Diet: Low fat / Low cholesterol Call your doctor if you observe: Fever of 101 or Higher, Shortness of breath, Dizziness, Fainting spells, Swelling in the ankles, Chest pain and Increased palpitations (irregular heartbeat) DC O2, CPAP, BIPAP Needs Home O2 Discharge instructions: No Meaningful Use Info Meaningful Use Meaningful Use Diagnoses (Choose all that apply): None applicable Ischemic Stroke Statin Dosing Therapy Reference: STATIN DOSE THERAPY REFERENCE: * Patients > 75 years receive moderate or high dose statin therapy. * Patients 75 years or YOUNGER should receive HIGH intensity statin dose unless contraindicated. You will be required to document reason for non-treatment if statin daily dose does not meet guidelines. HIGH DOSE STATIN THERAPY DAILY Atorvastatin > than or = to 40 mg Rosuvastatin > than or = to 20 mg Amlodipine + Atorvastatin > than or = to 2.5/40 mg Ezetimibe + Simvastatin 10/80 mg Simvastatin 80mg Discharge Plan Admission Admit Date/Time: 12/24/24 17:32 Attending Provider: Eddi Carmona Primary Care Provider: Guillermo Duenas Consulting Providers: Mervin Wooten; Felipa Cabrera; Felipa Salas; Adriana Champagne Discharge Orders/Prescriptions Prescriptions: New amoxicillin-pot clavulanate 875-125 mg tablet 1 tab PO BID Qty: 20 0RF ciprofloxacin HCl [Cipro] 500 mg tablet 500 mg PO BID Qty: 20 0RF Continued amlodipine 10 mg tablet 10 mg PO DAILY lisinopril-hydrochlorothiazide 20-12.5 mg tablet 2 tab PO DAILY metoprolol tartrate 100 mg tablet 100 mg PO BID simvastatin 40 mg tablet 40 mg PO QHS Eliquis 5 mg tablet 5 mg PO BID Referrals / Follow Up: Guillermo Duenas DO [Primary Care Provider] - Within 1 Week [facility] [Non-Staff] - Within 1 Week Disposition Disposition (needs filled in before D/C Order can be placed): Home, Self Care Charges/Coding Visit Charges Inpatient E&M: 24268 Disch Hosp >30min
== END 2024-04-18 17:26 | disposition home or self-care (01) | DRG 580 ==
LOC: ED 15:44 → MS3 17:33
PROVIDERS: Family Medicine; Surgery Plastic and Reconstructive Surgery; Admitting Provider Internal Medicine; Emergency Provider Surgery; Visit Provider Family Medicine
PROC: 0QB30ZZ Excision of Left Pelvic Bone, Open Approach (ICD-10-PCS; principal; 2024-04-14 12:15)
DX: L89.324 Pressure ulcer of left buttock, stage 4 (principal); L02.31 Cutaneous abscess of buttock; G82.20 Paraplegia, unspecified; L03.317 Cellulitis of buttock; I48.0 Paroxysmal atrial fibrillation; B95.4 Other streptococcus as the cause of diseases classified elsewhere; B95.62 Methicillin resistant Staphylococcus aureus infection as the cause of diseases classified elsewhere; I10 Essential (primary) hypertension; F32.A Depression, unspecified; E66.9 Obesity, unspecified; Q05.9 Spina bifida, unspecified; E78.5 Hyperlipidemia, unspecified; F41.9 Anxiety disorder, unspecified; K21.9 Gastro-esophageal reflux disease without esophagitis; M24.452 Recurrent dislocation, left hip; B96.89 Other specified bacterial agents as the cause of diseases classified elsewhere; B95.7 Other staphylococcus as the cause of diseases classified elsewhere; Z99.3 Dependence on wheelchair; Z79.01 Long term (current) use of anticoagulants; Z79.899 Other long term (current) drug therapy; Z87.440 Personal history of urinary (tract) infections
CPT/HCPCS: 36415; 72193; 80048; 80053; 80076; 80202; 81001; 83605; 83735; 84100; 84443; 85025; 85610; 87015; 87040; 87070; 87075; 87077; 87086; 87088; 87102; 87116; 87186; 87205; 87206; 87640; 88305; 88311; 93005; 94668; 97802; 99284; Q9967; A4216; J2405

== ENCOUNTER 2024-05-16 14:15 | Outpatient (RCR) | payer SELFPAY ==
[2024-05-02 14:15] VITALS: BP 128/80; PULSE 91; RESP 16; TEMP 35.9; BMI 36.3
--- NOTE | 2024-05-02 17:54 | PCM.WC.PN ---
History of Present Illness Date of Service: 05/02/24 Chief Complaint: FELIPA PEREZ is a 74 M with a history of atrial fibrillation (on Eliquis) and spina bifida (walks with crutches until 17 years ago and is now nonambulatory and uses a wheelchair) who was admitted last night for worsening left ischial pressure ulcer with concern for drainage and infection. Subjective fevers and chills. CT scan demonstrated left ischial abscess. Today on the floor he has stable vital signs. His white blood cell count is within normal limits. His hemoglobin is 11 He is not a smoker. He is and has several adult children Debrided in OR on 14 APR 2024, positive cultures (left ischial bone, Citrobacter koseri, Staph epidermidis, on Augmentin and Cipro). Subjective Subjective Current Encounter, 02 May 2024: Doing well overall. On antibiotics, has been trying to pressure offload. Endorses good dressing changes with his at home. No fevers/chills. Objective Data Objective Data Vital Signs: Vital Signs Temp Pulse Resp BP O2 Del Method 96.7 F L 91 16 128/80 H Room Air 05/02/24 14:15 05/02/24 14:15 05/02/24 14:15 05/02/24 14:15 05/02/24 14:15 Oxygen Delivery Method Room Air Weight: 205 lb Body Mass Index (BMI) 36.3 Charges/Coding Procedures Integumentary 111xxx-113xx: 65887 Tiana bone 20 sq cm/< Physical Exam Narrative Wound: Open and no fluid collections. Wound is 4 x 3 cm and is 3 cm deep. Left ischial region. Probes to bone. Const alert and oriented x3 Debridement Note Debridement Note Wound debrided: Left ischial wound Laterality: Left Type of Debridement: Excisional debridement Anesthesia Used: 4% Lidocaine Solution Depth: to bone Percentage of wound debrided: 100 Instrument Used: 7mm curette Severity: Necrosis of Bone Amount of bleeding with debridement: Moderate Bleeding Controlled with: Compression and gauze and Silver Nitrate Patient tolerated procedure: Patient tolerated procedure well Post-Debridement Measurements and Additional Note: Post-Debridement Measurements/Treatment HAKAN - Nurse 1 - General Ulcer Assessment Start: 05/02/24 14:13 Freq: Status: Active Protocol: GABI Activity Type Activity Date Activity User E-sign Co-sign Detail Recorded Client Recorded Date Recorded By Document 05/02/24 14:15 [facility] [id number] 05/02/24 14:29 [facility] 05/02/24 14:15 WC - Today's Visit Information Type of service Initial Visit Arrival Mode Wheelchair Transfer Assistance Other Transfer Assist (Other) 1 Accompanied by Patient Identification Verified (Name & Yes ) Patient Requires Transmission-Based No Precautions Height and Weight Height 5 ft 3 in Weight 205 lb Weight in Pounds 205.0 lbs Weight Measurement Method Estimated by Patient Body Mass Index (BMI) 36.3 BMI Classification Obese BSA - Luisito 1.95 Vital Signs Temperature (97.8 F-99.1 F) 96.7 F L Temperature Source Temporal Pulse Rate (60-100) 91 Pulse Location Monitor Respiratory Rate (12-18) 16 Respiratory rate source Observation Oxygen Delivery Method Room Air Blood Pressure (90/60-120/80) 128/80 H Blood Pressure Mean (mm Hg) 96 Source Monitor Position Sitting Blood Pressure Location Left Arm History Since Last Visit- (Skip if this is Patient's initial visit) Left Footwear Regular Shoe Right Footwear Regular Shoe Pain Scale: 0-10 Numeric Is Patient Pain Free? 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 No Able to Read Yes Able to Write Yes Communication Tools None Right Hearing Abillity Normal Left Hearing Abillity Normal Visual Assistive Devices Glasses Teaching Assessment Preferences Verbal,Written, Audio/Visual, Demonstration Barriers to Learning None Readiness To Learn Excellent Willingness to Engage in Self Management High Activies Readiness to Engage in Self Management High Activities Anxiety Level Calm Cooperation Cooperative Perception Coherent Interest in Health Problem Asks Questions Education Importance Acknowledges Need Does Patient Smoke tobacco or other No substances Smoking Status Never smoker Is Patient Diabetic No Functional Assessment Recent Decline in Ability to Perform Denies Any Declines 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 Cultural/Baptism Needs that may affect No Treatment Plan Teaching: Wound Center Signs & Symptoms of Infection -Person Taught Patient, Significant Other -Teaching Method Discussion -Response to teaching Verbalize Understanding *Pressure Ulcers -Person Taught Patient, Significant Other -Teaching Method Discussion -Response to teaching Verbalize Understanding Offload: Mattress, Cushion, Reposition -Person Taught Patient, Significant Other -Teaching Method Discussion -Response to teaching Verbalize Understanding *Welcome to the Wound Center -Person Taught Patient, Significant Other -Teaching Method Discussion -Response to teaching Verbalize Understanding - Nurse 1 - General Ulcer Measurement Start: 05/02/24 14:13 Freq: Status: Active Protocol: Activity Type Activity Date Activity User E-sign Co-sign Detail Recorded Client Recorded Date Recorded By Document 05/02/24 14:15 [facility] [id number] 05/02/24 14:29 [facility] 05/02/24 14:15 Wound Center Nurse 1 #1- L ISCHIAL POST OP -Combined with other wound No -Current Size (cm) - Length 1.4 -Current Size (cm) - Width 5.9 -Current Size (cm) - Depth 3.4 -Total Square Cm 8.26 -Date of Last Picture (Recall this 05/02/24 field) -Photo Taken Yes -Undermining/Tunneling Yes -Undermining/Tunneling Starts (O'clock 11 ) -Undermining/Tunneling Ends (O'clock) 1 -Maximum Distance (cm) 3.6 -Exudate Amt Large -Exudate Type Serosanguineous -Wound Margin Distinct, Outline Attached -Granulation Amt Large (67-100%) -Granulation Quality Hyper- granulation,Red -Slough/Fibrin Yes -Necrosis Amt Small (1-33%) -Necrotic Tissue Type Adherent Slough -Texture (Nichelle-wound Skin Appearance) Assessed, Scarring,Rash -Moisture (Nichelle-wound Skin Appearance) Assessed -Color (Nichelle-wound Skin Appearance) Assessed -Temperature (Nichelle-wound Skin No Abnormality Appearance) (Pt Warm) -Tenderness on Palpation (Nichelle-wound No Skin Appearance) -Ulcer Cleansing Soap and Water -Foul Odor after Cleansing No -Anesthetic Used 4% Lidocaine Solution WC - Nurse 2 - General Ulcer CM Notes Start: 05/02/24 14:13 Freq: Status: Active Protocol: Activity Type Activity Date Activity User E-sign Co-sign Detail Recorded Client Recorded Date Recorded By Document 05/02/24 15:10 [id number] 05/02/24 15:12 05/02/24 15:10 Wound Center Nurse 2 -Time 15:11 -Correct Patient Yes -Correct Side, Site, Position Yes -Correct Procedure Yes -Procedure Performed Yes -Type of Procedure Debridement -Clinical Debridement Bone -Tissue Removed Non-viable tissue -Post Debridement (cm) - Length 4 -Post Debridement (cm) - Width 3 -Post Debridement (cm) - Depth 3 -Total Square (Post) (cm) 12 -Area of Debridement (cm) - Length 4 -Area of Debridement (cm) - Width 3 -Total Square (Area) (cm) 12 -Tunneling No -Undermining/Tunneling No -Circular Undermining No -Wound/Ulcer Outcome Not Healed -Ulcer Cleansing Rinsed/ Irrigated with Saline -Foul Odor after Cleansing No -Bioengineered Tissue No -Bleeding Controlled with Pressure -Treatment Response Procedure Tolerated Well -Offloading No -Debridement - Bone, 1st 20sq cm Yes Pain Scale: 0-10 Numeric Is Patient Pain Free? Yes - Nurse 3 - General Ulcer D/C NN Start: 05/02/24 14:13 Freq: Status: Active Protocol: Activity Type Activity Date Activity User E-sign Co-sign Detail Recorded Client Recorded Date Recorded By Document 05/02/24 15:29 [id number] 05/02/24 15:29 05/02/24 15:29 Wound Care Center Nurse 3 #1- L ISCHIAL POST OP -Ulcer Cleansing Rinsed/ Irrigated with Saline -Foul Odor after Cleansing No -Other Dressing KERLIX -Primary Dressing Covered/Secured with Secured with Tape Pain Scale: 0-10 Numeric Is Patient Pain Free? Yes WC - Visit Discharge Discharge Condition Stable Ambulatory Status Wheelchair Transportation Private Auto Medication Reconcilliation completed & Yes provided to patient/care provider Clinical Summary of Care Provided Yes Assessment/Plan Assessment/Plan (1) Pressure ulcer: CODE(S): L89.90 - Pressure ulcer of unspecified site, unspecified stage PLAN: F/u with Dr. Salas (infectious disease) for the positive bone cultures in setting or recent abscess/infection. Continue twice daily Dakins-soaked Kerlix wet-to-dry dressings, pressure offloading. 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 Would like to try to get the wound to granulate in and heal secondarily at this time. F/u in 2 weeks at the wound care center.
--- NOTE | 2024-05-03 09:49 | WC ---
PHOTO 05/02/24 LEFT ISCHIAL
[2024-05-16 14:05] VITALS: BP 125/79; PULSE 84; RESP 16; TEMP 36.1; BMI 36.3
--- NOTE | 2024-05-17 09:30 | WC ---
PHOTO 05/16/24 LEFT ISCHIAL POST OP
--- NOTE | 2024-05-17 13:49 | PN.PCM_ITS ---
History of Present Illness Date of Service: 05/17/24 Chief Complaint: FELIPA PEREZ is a 74 M with a history of atrial fibrillation (on Eliquis) and spina bifida (walks with crutches until 17 years ago and is now nonambulatory and uses a wheelchair) who was admitted last night for worsening left ischial pressure ulcer with concern for drainage and infection. Subjective fevers and chills. CT scan demonstrated left ischial abscess. Today on the floor he has stable vital signs. His white blood cell count is within normal limits. His hemoglobin is 11 He is not a smoker. He is and has several adult children Debrided in OR on 14 APR 2024, positive cultures (left ischial bone, Citrobacter koseri, Staph epidermidis, on Augmentin and Cipro). Subjective Subjective 02 May 2024: Doing well overall. On antibiotics, has been trying to pressure offload. Endorses good dressing changes with his at home. No fevers/chills. 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 Doing well overall. No fevers or chills. has been doing excellent wound care. Objective Data Objective Data Vital Signs: Vital Signs Temp Pulse Resp BP O2 Del Method 97.0 F L 84 16 125/79 H Room Air 05/16/24 14:05 05/16/24 14:05 05/16/24 14:05 05/16/24 14:05 05/16/24 14:05 Oxygen Delivery Method Room Air Weight: 205 lb Body Mass Index (BMI) 36.3 Charges/Coding Procedures Integumentary 111xxx-113xx: 57032 Tiana bone 20 sq cm/< Physical Exam Narrative Wound (LEFT ISCHIAL WOUND): Open and no fluid collections. Wound is 5 x 3 cm and is 5.4 cm deep. Left ischial region. Probes to bone. Const alert and oriented x3 Debridement Note Debridement Note Wound debrided: Left Ischial Wound Laterality: Left Wound Grade/Stage: Stage 4 (exposed bone) Type of Debridement: Excisional debridement Anesthesia Used: 4% Lidocaine Solution Depth: to bone Percentage of wound debrided: 100 Instrument Used: 7mm curette Severity: Necrosis of Bone Amount of bleeding with debridement: Moderate Bleeding Controlled with: Compression and gauze and Silver Nitrate Patient tolerated procedure: Patient tolerated procedure well Post-Debridement Measurements and Additional Note: Post-Debridement Measurements/Treatment WC - Nurse 1 - General Ulcer Assessment Start: 05/02/24 14:13 Freq: Status: Active Protocol: GABI Activity Type Activity Date Activity User E-sign Co-sign Detail Recorded Client Recorded Date Recorded By Document 05/02/24 14:15 [facility] [id number] 05/02/24 14:29 BM Document 05/16/24 14:05 [id number] 05/16/24 14:18 KW 05/02/24 05/16/24 14:15 14:05 - Today's Visit Information Type of service Initial Visit Follow-up Visit (Physician/MENTAL HEALTH DIRECTOR ) Arrival Mode Wheelchair Wheelchair Transfer Assistance Other Transfer Assist (Other) 1 Accompanied by Patient Identification Verified (Name & Yes Yes ) Patient Requires Transmission-Based No Precautions Height and Weight Height 5 ft 3 in Weight 205 lb Weight in Pounds 205.0 lbs Weight Measurement Method Estimated by Patient Body Mass Index (BMI) 36.3 36.3 BMI Classification Obese Obese BSA - Luisito 1.95 Vital Signs Temperature (97.8 F-99.1 F) 96.7 F L 97.0 F L Temperature Source Temporal Temporal Pulse Rate (60-100) 91 84 Pulse Location Monitor Monitor Respiratory Rate (12-18) 16 16 Respiratory rate source Observation Observation Oxygen Delivery Method Room Air Room Air Blood Pressure (90/60-120/80) 128/80 H 125/79 H Blood Pressure Mean (mm Hg) 96 94 Source Monitor Monitor Position Sitting Sitting Blood Pressure Location Left Arm Left Arm History Since Last Visit- (Skip if this is Patient's initial visit) Have you changed medications since your No last visit? Any new allergies or adverse reactions No Had a fall/change in ADL's that may No increase risk of falls Signs or symptoms of abuse and/or No neglect since last visit Have you been in the hospital since your No last visit? Has dressing in place as prescribed Yes Has compression in place as prescribed N/A Has offloadiing in place as prescribed N/A Experienced any changes in pain level or No management Left Footwear Regular Shoe Regular Shoe Right Footwear Regular Shoe Regular Shoe Pain Scale: 0-10 Numeric Is Patient Pain Free? Yes Yes Communication Assessment Preferred language Malay Financial Compliance Officer Required No Able to Read Yes Able to Write Yes Communication Tools None Right Hearing Abillity Normal Left Hearing Abillity Normal Visual Assistive Devices Glasses Teaching Assessment Preferences Verbal,Written, Audio/Visual, Demonstration Barriers to Learning None Readiness To Learn Excellent Willingness to Engage in Self Management High Activies Readiness to Engage in Self Management High Activities Anxiety Level Calm Cooperation Cooperative Perception Coherent Interest in Health Problem Asks Questions Education Importance Acknowledges Need Does Patient Smoke tobacco or other No substances Smoking Status Never smoker Is Patient Diabetic No Functional Assessment Recent Decline in Ability to Perform Denies Any Declines 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 Cultural/Taoism Needs that may affect No Treatment Plan Teaching: Wound Center Signs & Symptoms of Infection -Person Taught Patient, Significant Other -Teaching Method Discussion -Response to teaching Verbalize Understanding *Pressure Ulcers -Person Taught Patient, Significant Other -Teaching Method Discussion -Response to teaching Verbalize Understanding Offload: Mattress, Cushion, Reposition -Person Taught Patient, Significant Other -Teaching Method Discussion -Response to teaching Verbalize Understanding *Welcome to the Wound Center -Person Taught Patient, Significant Other -Teaching Method Discussion -Response to teaching Verbalize Understanding WC - Nurse 1 - General Ulcer Measurement Start: 05/02/24 14:13 Freq: Status: Active Protocol: Activity Type Activity Date Activity User E-sign Co-sign Detail Recorded Client Recorded Date Recorded By Document 05/02/24 14:15 [facility] [id number] 05/02/24 14:29 [facility] Document 05/16/24 14:05 [id number] 05/16/24 14:18 05/02/24 05/16/24 14:15 14:05 Wound Center Nurse 1 #1- L ISCHIAL POST OP -Combined with other wound No -Current Size (cm) - Length 1.4 5 -Current Size (cm) - Width 5.9 1.8 -Current Size (cm) - Depth 3.4 5.2 -Total Square Cm 8.26 9.0 -Date of Last Picture (Recall this 05/02/24 field) -Photo Taken Yes -Undermining/Tunneling Yes -Undermining/Tunneling Starts (O'clock 11 ) -Undermining/Tunneling Ends (O'clock) 1 -Maximum Distance (cm) 3.6 -Exudate Amt Large Medium -Exudate Type Serosanguineous Serosanguineous -Wound Margin Distinct, Distinct, Outline Outline Attached Attached -Granulation Amt Large (67-100%) Large (67-100%) -Granulation Quality Hyper- [place] granulation,Red -Slough/Fibrin Yes -Necrosis Amt Small (1-33%) Small (1-33%) -Necrotic Tissue Type Adherent Slough Adherent Slough -Structure Exposed Bone -Texture (Nichelle-wound Skin Appearance) Assessed, Assessed Scarring,Rash -Moisture (Nichelle-wound Skin Appearance) Assessed Assessed -Color (Nichelle-wound Skin Appearance) Assessed Assessed -Temperature (Nichelle-wound Skin No Abnormality No Abnormality Appearance) (Pt Warm) (Pt Warm) -Tenderness on Palpation (Nichelle-wound No No Skin Appearance) -Ulcer Cleansing Soap and Water Rinsed/ Irrigated with Saline -Foul Odor after Cleansing No No -Anesthetic Used 4% Lidocaine 4% Lidocaine Solution Solution WC - Nurse 2 - General Ulcer CM Notes Start: 05/02/24 14:13 Freq: Status: Active Protocol: Activity Type Activity Date Activity User E-sign Co-sign Detail Recorded Client Recorded Date Recorded By Document 05/02/24 15:10 [id number] 05/02/24 15:12 Document 05/16/24 14:30 [id number] 05/16/24 14:37 05/02/24 05/16/24 15:10 14:30 Wound Center Nurse 2 #1- L ISCHIAL POST OP -Time 15:11 14:30 -Correct Patient Yes Yes -Correct Side, Site, Position Yes Yes -Correct Procedure Yes Yes -Procedure Performed Yes Yes -Type of Procedure Debridement Debridement -Clinical Debridement Bone Bone -Tissue Removed Non-viable Non-viable tissue tissue -Post Debridement (cm) - Length 4 3.0 -Post Debridement (cm) - Width 3 5 -Post Debridement (cm) - Depth 3 5.4 -Total Square (Post) (cm) 12 15.0 -Area of Debridement (cm) - Length 4 3.0 -Area of Debridement (cm) - Width 3 5.0 -Total Square (Area) (cm) 12 15.00 -Tunneling No No -Undermining/Tunneling No No -Circular Undermining No No -Wound/Ulcer Outcome Not Healed Not Healed -Ulcer Cleansing Rinsed/ Rinsed/ Irrigated with Irrigated with Saline Saline -Foul Odor after Cleansing No No -Bioengineered Tissue No No -Bleeding Controlled with Pressure Pressure -Treatment Response Procedure Procedure Tolerated Well Tolerated Well -Offloading No No -Pressure Reduction Wheelchair cushion -Debridement - Bone, 1st 20sq cm Yes Yes Pain Scale: 0-10 Numeric Is Patient Pain Free? Yes Yes - Nurse 3 - General Ulcer D/C NN Start: 05/02/24 14:13 Freq: Status: Active Protocol: Activity Type Activity Date Activity User E-sign Co-sign Detail Recorded Client Recorded Date Recorded By Document 05/02/24 15:29 JF [id number] 05/02/24 15:29 Document 05/16/24 15:09 KW [id number] 05/16/24 15:10 KW 05/02/24 05/16/24 15:29 15:09 Wound Care Center Nurse 3 #1- L ISCHIAL POST OP -Ulcer Cleansing Rinsed/ Irrigated with Saline -Foul Odor after Cleansing No -Primary Dressing Applied Hysept ($) -Other Dressing KERLIX dakins soaked gauze -Primary Dressing Covered/Secured with Secured with Dry Gauze, Tape Secured with Tape Pain Scale: 0-10 Numeric Is Patient Pain Free? Yes Yes - Visit Discharge Discharge Condition Stable Stable Ambulatory Status Wheelchair Wheelchair Transportation Private Auto Private Auto Medication Reconcilliation completed & Yes No provided to patient/care provider Clinical Summary of Care Provided Yes Yes Assessment/Plan Assessment/Plan (1) Pressure ulcer: CODE(S): L89.90 - Pressure ulcer of unspecified site, unspecified stage PLAN: Patient remains on antibiotics per Infectious Disease (following) Continue twice daily Dakins-soaked Kerlix wet-to-dry dressings, pressure offloading. I discussed the wound and how the exposure of the bone makes the wound healing complicated, especially when we cannot do home VAC (patient is self pay/[employer] insurance). He is reluctant to get OR debridmeent with flap reconstruction because of need for offloading/gradual sitting protocol (could not work at his desk or at least not sit while at work). Patient and his are going to continue to discuss options and attempt to pressure offload as much as possible. F/u in 2 weeks for a wound check and to discuss options.
== END 2024-05-20 23:59 | disposition home or self-care (01) ==
LOC: WC 14:15
PROVIDERS: Referring Provider Surgery Plastic and Reconstructive Surgery; Visit Provider Surgery Plastic and Reconstructive Surgery
DX: L89.90 Pressure ulcer of unspecified site, unspecified stage (principal); Q05.9 Spina bifida, unspecified; L02.91 Cutaneous abscess, unspecified; Z79.01 Long term (current) use of anticoagulants; Z99.3 Dependence on wheelchair
CPT/HCPCS: 11044; 99214; G0463

== ENCOUNTER 2024-06-13 13:30 | Outpatient (RCR) | payer SELFPAY ==
[2024-05-21 02:32] VITALS: BP 125/79; PULSE 84; RESP 16; TEMP 36.1; BMI 36.3
[2024-05-25 14:14] VITALS: BP 138/82; PULSE 90; RESP 16; TEMP 36.6; BMI 36.3
--- NOTE | 2024-05-25 15:14 | PN.PCM_ITS ---
<Statement entered by Felipa Cabrera MD - 05/26/24 23:09> I have personally performed a face to face assessment of the patient and have reviewed the JEROME Note. History of Present Illness Date of Service: 05/25/24 Chief Complaint: Left ischial ulcer History of Wound: FELIPA PEREZ is a 74 M with a history of atrial fibrillation (on Eliquis) and spina bifida (walks with crutches until 17 years ago and is now nonambulatory and uses a wheelchair) who was admitted last night for worsening left ischial pressure ulcer with concern for drainage and infection. Subjective fevers and chills. CT scan demonstrated left ischial abscess. Today on the floor he has stable vital signs. His white blood cell count is within normal limits. His hemoglobin is 11 He is not a smoker. He is and has several adult children Debrided in OR on 14 APR 2024, positive cultures (left ischial bone, Citrobacter koseri, Staph epidermidis, on Augmentin and Cipro). Progress of Wound: 02 May 2024: Doing well overall. On antibiotics, has been trying to pressure offload. Endorses good dressing changes with his at home. No fevers/chills. 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 Doing well overall. No fevers or chills. has been doing excellent wound care. Current Encounter, 25 May 2024: He saw Dr. Salas earlier today and was told to complete his antibiotics. His ulcer is stable. He continues to have bone exposed and palpable. The ulcer is beefy pink. Nichelle wound is clear. He denies any issues with the dressing changes. Objective Data Objective Data Vital Signs: Vital Signs Temp Pulse Resp BP O2 Del Method 97.8 F 90 16 138/82 H Room Air 05/25/24 14:14 05/25/24 14:14 05/25/24 14:14 05/25/24 14:14 05/25/24 14:14 Oxygen Delivery Method Room Air Weight: 205 lb Body Mass Index (BMI) 36.3 Charges/Coding Procedures Integumentary 111xxx-113xx: 68003 Global Visit Debridement Note Debridement Note Wound debrided: Left Ischial Wound Laterality: Left Wound Grade/Stage: Stage 4 (exposed bone) Type of Debridement: Excisional debridement Anesthesia Used: 4% Lidocaine Solution and 5% Lidocaine Gel Depth: to muscle and to bone Percentage of wound debrided: 100 Instrument Used: 7mm curette Tissue Removed: Non viable tissue and slough into the muscle, no bone debrided. Severity: Necrosis of Muscle Amount of bleeding with debridement: Mild Bleeding Controlled with: Compression and gauze Patient tolerated procedure: Patient tolerated procedure well Post-Debridement Measurements and Additional Note: Post-Debridement Measurements/Treatment WC - Nurse 1 - General Ulcer Assessment Start: 05/25/24 14:14 Freq: Status: Active Protocol: GABI Activity Type Activity Date Activity User E-sign Co-sign Detail Recorded Client Recorded Date Recorded By Document 05/25/24 14:14 [email or web address] [id number] 05/25/24 14:15 KW 05/25/24 14:14 WC - Today's Visit Information Type of service Follow-up Visit (Physician/PARK NATURALIST ) Arrival Mode Wheelchair Accompanied by Patient Identification Verified (Name & Yes ) Height and Weight Body Mass Index (BMI) 36.3 BMI Classification Obese Vital Signs Temperature (97.8 F-99.1 F) 97.8 F Temperature Source Temporal Pulse Rate (60-100) 90 Pulse Location Monitor Respiratory Rate (12-18) 16 Respiratory rate source Observation Oxygen Delivery Method Room Air Blood Pressure (90/60-120/80) 138/82 H Blood Pressure Mean (mm Hg) 100 Source Monitor Position Semi-Fowlers Blood Pressure Location Left Arm History Since Last Visit- (Skip if this is Patient's initial visit) Have you changed medications since your No last visit? Any new allergies or adverse reactions No Had a fall/change in ADL's that may No increase risk of falls Signs or symptoms of abuse and/or No neglect since last visit Have you been in the hospital since your No last visit? Has dressing in place as prescribed Yes Has compression in place as prescribed N/A Has offloadiing in place as prescribed N/A Experienced any changes in pain level or No management Left Footwear Regular Shoe Right Footwear Regular Shoe Pain Scale: 0-10 Numeric Is Patient Pain Free? Yes Kaylee Nurse 1 - General Ulcer Measurement Start: 05/25/24 14:14 Freq: Status: Active Protocol: Activity Type Activity Date Activity User E-sign Co-sign Detail Recorded Client Recorded Date Recorded By Document 05/25/24 14:14 [id number] 05/25/24 14:15 05/25/24 14:14 Wound Center Nurse 1 #1- L ISCHIAL POST OP -Current Size (cm) - Length 4.8 -Current Size (cm) - Width 4.9 -Current Size (cm) - Depth 5.2 -Total Square Cm 23.52 -Date of Last Picture (Recall this 05/25/24 field) -Exudate Amt Medium -Exudate Type Serosanguineous -Wound Margin Distinct, Outline Attached -Granulation Amt Large (67-100%) -Granulation Quality [place],Red -Necrosis Amt Small (1-33%) -Necrotic Tissue Type Adherent Slough -Texture (Nichelle-wound Skin Appearance) Assessed -Moisture (Nichelle-wound Skin Appearance) Assessed -Color (Nichelle-wound Skin Appearance) Assessed -Temperature (Nichelle-wound Skin No Abnormality Appearance) (Pt Warm) -Tenderness on Palpation (Nichelle-wound No Skin Appearance) -Ulcer Cleansing Rinsed/ Irrigated with Saline -Foul Odor after Cleansing No -Anesthetic Used 5% Lidocaine Gel WC - Nurse 2 - General Ulcer CM Notes Start: 05/25/24 14:14 Freq: Status: Active Protocol: Activity Type Activity Date Activity User E-sign Co-sign Detail Recorded Client Recorded Date Recorded By Document 05/25/24 14:35 [id number] 05/25/24 14:42 05/25/24 14:35 Wound Center Nurse 2 -Time 14:35 -Correct Patient Yes -Correct Side, Site, Position Yes -Correct Procedure Yes -Procedure Performed Yes -Type of Procedure Debridement -Clinical Debridement Muscle / Fascia -Tissue Removed Muscle -Post Debridement (cm) - Length 5.0 -Post Debridement (cm) - Width 4.2 -Post Debridement (cm) - Depth 6.5 -Total Square (Post) (cm) 21.00 -Area of Debridement (cm) - Length 5.0 -Area of Debridement (cm) - Width 4.2 -Total Square (Area) (cm) 21.00 -Tunneling No -Undermining/Tunneling No -Circular Undermining No -Wound/Ulcer Outcome Not Healed -Ulcer Cleansing Rinsed/ Irrigated with Saline -Foul Odor after Cleansing No -Bioengineered Tissue No -Bleeding Controlled with Pressure -Treatment Response Procedure Tolerated Well -Debridement - Muscle / Fascia, 1st Yes 20sq cm Pain Scale: 0-10 Numeric Is Patient Pain Free? Yes WC - Nurse 3 - General Ulcer D/C NN Start: 05/25/24 14:14 Freq: Status: Active Protocol: Activity Type Activity Date Activity User E-sign Co-sign Detail Recorded Client Recorded Date Recorded By Document 05/25/24 15:00 DL [id number] 05/25/24 15:02 DL 05/25/24 15:00 Wound Care Center Nurse 3 #1- L ISCHIAL POST OP -Ulcer Cleansing Rinsed/ Irrigated with Saline -Foul Odor after Cleansing No -Other Dressing dakins -Primary Dressing Covered/Secured with Secured with Tape -Other Covering ABD -Wound Comment(s) Dressing applied per Thony Sierra today. Treatment Response Procedure Tolerated Well Pain Scale: 0-10 Numeric Is Patient Pain Free? Yes WC - Visit Discharge Discharge Condition Stable Ambulatory Status Wheelchair Transportation Private Auto Assessment/Plan Assessment/Plan (1) Pressure ulcer: CODE(S): L89.90 - Pressure ulcer of unspecified site, unspecified stage PLAN: Patient remains on antibiotics per Infectious Disease (following) Continue twice daily Dakins-soaked Kerlix wet-to-dry dressings, pressure offloading. I reinforced the discussion that Dr. Cabrera previously discussed about: the wound and how the exposure of the bone makes the wound healing complicated, especially when we cannot do home VAC (patient is self pay/[employer] insurance). He is reluctant to get OR debridmeent with flap reconstruction because of need for offloading/gradual sitting protocol (could not work at his desk or at least not sit while at work). Patient and his are going to continue to discuss options and attempt to pressure offload as much as possible. The can discuss this further with Dr. Cabrera at the next visit. I discussed this plan of car with Dr. Cabrera. F/u in 2-[address] Cabrera for a wound check and to discuss options.
--- NOTE | 2024-05-26 09:42 | WC ---
PHOTO 05/25/24 LEFT ISCHIUM
[2024-06-13 13:27] VITALS: BP 130/80; PULSE 88; RESP 18; TEMP 36.1; BMI 36.3
[2024-06-13 15:05] LABS: Absolute Lymphocyte Count 2.09 X10^3/uL (0.83-4.51); Absolute Neutrophil Count 8.8 X10^3/uL (2.0-7.7); Basophil# 0.05 X10^3/uL; Basophil% 0.4 % (0-1); Eosinophil# 0.19 X10^3/uL; Eosinophils% 1.6 % (0-5); Hematocrit 42.9 % (40-54); Hemoglobin 13.8 g/dL (13.0-16.5); Lymphocyte # 2.09 X10^3/ul (0.83-4.51); Lymphocyte % 17.5 % (19-41); Mean Corp Hgb Conc 32.2 g/dL (32-36); Mean Corpuscular Hgb 28.9 pg (27.0-32.0); Mean Corpuscular Volume 89.7 fL (80-94); Mean Platelet Vol. 9.7 fl (6.2-12.0); Monocyte# 0.81 X10^3/uL; Monocyte% 6.8 % (0-10); NRBC Flagged by Analyzer 0 % (0-5); Neutrophil # 8.75 X10^3/uL (2.7-7.7); Neutrophil % 73.4 % (47-70); Platelet Count 395 K/mm3 (150-450); RBC Distribution Width CV 14.2 % (11.6-14.6); RBC Distribution Width SD 46.5 fl (35.1-43.9); Red Blood Count 4.78 M/mm3 (4.6-6.2); White Blood Count 11.9 K/mm3 (4.4-11.0)
[2024-06-13 16:42] LABS: Hemoglobin A1c 5.5 % (3.8-5.6)
[2024-06-13 19:00] LABS: ALB/GLOB Ratio 0.7 RATIO (0.9-2.4); AST(SGOT) 19 U/L (15-37); Alanine Aminotransfer ALT/SGPT 37 U/L (16-61); Albumin, Serum 3.3 g/dL (3.2-5.0); Alkaline Phosphatase 84 U/L (45-117); Anion Gap 10 (5-15); BUN 21 mg/dL (7-18); BUN/Creat Ratio 31.3 RATIO (10-20); Calcium,Total 9.6 mg/dL (8.5-10.1); Chloride 105 mmol/L (98-107); Creatinine, Serum 0.67 mg/dL (0.70-1.30); EST Glomerular Filtration Rate 124 mL/min (>60); Est Glom Filt Rate - Afr Amer 150 mL/min (>60); Globulin 4.6 g/dL (2.2-4.2); Glucose 107 mg/dL (74-106); Potassium 3.5 mmol/L (3.5-5.1); Protein, Total 7.9 g/dL (6.4-8.2); Sodium Level 139 mmol/L (136-145)
--- NOTE | 2024-06-14 09:43 | PCM.WC.PN ---
History of Present Illness Date of Service: 06/13/24 Chief Complaint: Left ischial ulcer History of Wound: FELIPA PEREZ is a 74 M with a history of atrial fibrillation (on Eliquis) and spina bifida (walked with crutches until 17 years ago and is now nonambulatory and uses a wheelchair) who was admitted last night for worsening left ischial pressure ulcer with concern for drainage and infection. Subjective fevers and chills. CT scan demonstrated left ischial abscess. Today on the floor he has stable vital signs. His white blood cell count is within normal limits. His hemoglobin is 11 He is not a smoker. He is and has several adult children Debrided in OR on 14 APR 2024, positive cultures (left ischial bone, Citrobacter koseri, Staph epidermidis, on Augmentin and Cipro). With regards to ambulation: Patient has not been able to walk for over 10 years and does not anticipate ever being able to walk again. I talked to him about the use of muscles in the lower extremity for reconstruction, and he is amenable to this option. Progress of Wound: 02 May 2024: Doing well overall. On antibiotics, has been trying to pressure offload. Endorses good dressing changes with his at home. No fevers/chills. 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 Doing well overall. No fevers or chills. has been doing excellent wound care. 25 May 2024: He saw Dr. Salas earlier today and was told to complete his antibiotics. His ulcer is stable. He continues to have bone exposed and palpable. The ulcer is beefy pink. Nichelle wound is clear. He denies any issues with the dressing changes. Current Encounter, 13 Jun 2024: Reports that he is thought a lot about reconstructive options and postoperative protocols. He and his are now interested in flap reconstruction, and understand plan for pressure offloading. Since her last visit they have been doing excellent wound care with Dakin's wet-to-dry dressings and keeping the wound clean. He has not had any fevers chills or any other systemic signs of illness. He continues to pressure offload the wound and eat a high-protein diet Objective Data Objective Data Vital Signs: Vital Signs Temp Pulse Resp BP O2 Del Method 96.9 F L 88 18 130/80 H Room Air 06/13/24 13:27 06/13/24 13:27 06/13/24 13:27 06/13/24 13:27 06/13/24 13:27 Oxygen Delivery Method Room Air Weight: 205 lb Body Mass Index (BMI) 36.3 Lab / Micro Data 06/13/24 14:25 06/13/24 14:25 Labs: Laboratory Results - last 24 hr 06/13/24 14:25: WBC 11.9 H, RBC 4.78, Hgb 13.8, Hct 42.9, MCV 89.7, MCH 28.9, MCHC 32.2, RDW Std Deviation 46.5 H, RDW Coeff of Gregor 14.2, Plt Count 395, MPV 9.7, Immature Gran % (Auto) 0.300, Neut % (Auto) 73.4 H, Lymph % (Auto) 17.5 L, [place] % (Auto) 6.8, Eos % (Auto) 1.6, Baso % (Auto) 0.4, Absolute Neuts (auto) 8.8 H, Absolute Lymphs (auto) 2.09, Nucleated RBC % 0, Sodium 139, Potassium 3.5, Chloride 105, Carbon Dioxide 24.0, Anion Gap 10, BUN 21 H, Creatinine 0.67 L, Est GFR (MDRD) Af Amer 150, Est GFR (MDRD) Non-Af 124, BUN/Creatinine Ratio 31.3 H, Glucose 107 H, Hemoglobin A1c 5.5, Calcium 9.6, Total Bilirubin 0.50, AST 19, ALT 37, Alkaline Phosphatase 84, Total Protein 7.9, Albumin 3.3, Globulin 4.6 H, Albumin/Globulin Ratio 0.7 L Charges/Coding Procedures Integumentary [id number]: [id number] Tiana bone 20 sq cm/< Physical Exam Narrative Wound (LEFT ISCHIAL WOUND): Open and no fluid collections. Wound is 5 x 3 cm and is 5.4 cm deep. Left ischial region. Probes to bone. Const alert and oriented x3 Constitutional Narrative: Wound (LEFT ISCHIAL WOUND): Open and no fluid collections. Wound is 3.5 x 3 cm and is 5 cm deep. Probes to bone. Good granulation tissue overall Debridement Note Debridement Note Wound debrided: Left ischial wound Laterality: Left Type of Debridement: Excisional debridement Anesthesia Used: 4% Lidocaine Solution Depth: to bone Percentage of wound debrided: 100 Instrument Used: 7mm curette Severity: Necrosis of Bone Amount of bleeding with debridement: Moderate Bleeding Controlled with: Compression and gauze Patient tolerated procedure: Patient tolerated procedure well Post-Debridement Measurements and Additional Note: Post-Debridement Measurements/Treatment - Nurse 1 - General Ulcer Assessment Start: 05/25/24 14:14 Freq: Status: Active Protocol: GABI Activity Type Activity Date Activity User E-sign Co-sign Detail Recorded Client Recorded Date Recorded By Document 05/25/24 14:14 KW [id number] 05/25/24 14:15 KW Document 06/13/24 13:27 KW [id number] 06/13/24 13:28 KW 05/25/24 06/13/24 14:14 13:27 - Today's Visit Information Type of service Follow-up Visit Follow-up Visit (Physician/MANAGER PERFORMANCE IMPROVEMENT (Physician/MANAGER PERFORMANCE IMPROVEMENT ) ) Arrival Mode Wheelchair Wheelchair Accompanied by Patient Identification Verified (Name & Yes Yes ) Height and Weight Body Mass Index (BMI) 36.3 36.3 BMI Classification Obese Obese Vital Signs Temperature (97.8 F-99.1 F) 97.8 F 96.9 F L Temperature Source Temporal Temporal Pulse Rate (60-100) 90 88 Pulse Location Monitor Monitor Respiratory Rate (12-18) 16 18 Respiratory rate source Observation Observation Oxygen Delivery Method Room Air Room Air Blood Pressure (90/60-120/80) 138/82 H 130/80 H Blood Pressure Mean (mm Hg) 100 96 Source Monitor Monitor Position Semi-Fowlers Right Lateral Blood Pressure Location Left Arm Left Arm History Since Last Visit- (Skip if this is Patient's initial visit) Have you changed medications since your No No last visit? Any new allergies or adverse reactions No No Had a fall/change in ADL's that may No No increase risk of falls Signs or symptoms of abuse and/or No No neglect since last visit Have you been in the hospital since your No No last visit? Has dressing in place as prescribed Yes Yes Has compression in place as prescribed N/A N/A Has offloadiing in place as prescribed N/A N/A Experienced any changes in pain level or No No management Left Footwear Regular Shoe Regular Shoe Right Footwear Regular Shoe Regular Shoe Pain Scale: 0-10 Numeric Is Patient Pain Free? Yes Yes WC - Nurse 1 - General Ulcer Measurement Start: 05/25/24 14:14 Freq: Status: Active Protocol: Activity Type Activity Date Activity User E-sign Co-sign Detail Recorded Client Recorded Date Recorded By Document 05/25/24 14:14 KW [id number] 05/25/24 14:15 KW Document 06/13/24 13:27 KW [id number] 06/13/24 13:28 KW 05/25/24 06/13/24 14:14 13:27 Wound Center Nurse 1 #1- L ISCHIAL POST OP -Current Size (cm) - Length 4.8 4.2 -Current Size (cm) - Width 4.9 1.6 -Current Size (cm) - Depth 5.2 5.5 -Total Square Cm 23.52 6.72 -Date of Last Picture (Recall this 05/25/24 field) -Exudate Amt Medium Small -Exudate Type Serosanguineous Sanguineous -Wound Margin Distinct, Thickened & Outline Rolled Under Attached -Granulation Amt Large (67-100%) Large (67-100%) -Granulation Quality [place],Red [place] -Necrosis Amt Small (1-33%) -Necrotic Tissue Type Adherent Slough -Texture (Nichelle-wound Skin Appearance) Assessed Assessed -Moisture (Nichelle-wound Skin Appearance) Assessed -Color (Nichelle-wound Skin Appearance) Assessed Assessed -Temperature (Nichelle-wound Skin No Abnormality No Abnormality Appearance) (Pt Warm) (Pt Warm) -Tenderness on Palpation (Nichelle-wound No No Skin Appearance) -Ulcer Cleansing Rinsed/ Rinsed/ Irrigated with Irrigated with Saline Saline -Foul Odor after Cleansing No No -Anesthetic Used 5% Lidocaine 4% Lidocaine Gel Solution WC - Nurse 2 - General Ulcer CM Notes Start: 05/25/24 14:14 Freq: Status: Active Protocol: Activity Type Activity Date Activity User E-sign Co-sign Detail Recorded Client Recorded Date Recorded By Document 05/25/24 14:35 GM [id number] 05/25/24 14:42 GM Edit Result 05/25/24 14:35 GM (1) [id number] 06/01/24 10:18 GM Document 06/13/24 13:29 JF [id number] 06/13/24 13:31 JF (1) #1- L ISCHIAL POST OP - Debridement, Muscle/Fascia, ea addt'l => 1 20sq cm or part thereof 05/25/24 06/13/24 14:35 13:29 Wound Center Nurse 2 #1- L ISCHIAL POST OP -Time 14:35 13:29 -Correct Patient Yes Yes -Correct Side, Site, Position Yes Yes -Correct Procedure Yes Yes -Procedure Performed Yes Yes -Type of Procedure Debridement Debridement -Clinical Debridement Muscle / Fascia Bone -Tissue Removed Muscle Non-viable tissue -Post Debridement (cm) - Length 5.0 3.0 -Post Debridement (cm) - Width 4.2 3.5 -Post Debridement (cm) - Depth 6.5 5.0 -Total Square (Post) (cm) 21.00 10.50 -Area of Debridement (cm) - Length 5.0 3.0 -Area of Debridement (cm) - Width 4.2 3.5 -Total Square (Area) (cm) 21.00 10.50 -Tunneling No No -Undermining/Tunneling No No -Circular Undermining No No -Wound/Ulcer Outcome Not Healed Not Healed -Ulcer Cleansing Rinsed/ Rinsed/ Irrigated with Irrigated with Saline Saline -Foul Odor after Cleansing No No -Bioengineered Tissue No No -Bleeding Controlled with Pressure Pressure -Treatment Response Procedure Procedure Tolerated Well Tolerated Well -Offloading No -Pressure Reduction Wheelchair cushion -Debridement - Muscle / Fascia, 1st Yes 20sq cm -Debridement, Muscle/Fascia, ea addt'l 1 20sq cm or part thereof -Debridement - Bone, 1st 20sq cm Yes Pain Scale: 0-10 Numeric Is Patient Pain Free? Yes Yes - Nurse 3 - General Ulcer D/C NN Start: 05/25/24 14:14 Freq: Status: Active Protocol: Activity Type Activity Date Activity User E-sign Co-sign Detail Recorded Client Recorded Date Recorded By Document 05/25/24 15:00 DL [id number] 05/25/24 15:02 DL Document 06/13/24 13:58 DL [id number] 06/13/24 13:59 DL 05/25/24 06/13/24 15:00 13:58 Wound Care Center Nurse 3 #1- L ISCHIAL POST OP -Ulcer Cleansing Rinsed/ Irrigated with Saline -Foul Odor after Cleansing No -Other Dressing dakins -Primary Dressing Covered/Secured with Secured with Tape -Other Covering ABD -Wound Comment(s) Dressing applied per Thony Sierra today. Treatment Response Procedure Tolerated Well Pain Scale: 0-10 Numeric Is Patient Pain Free? Yes Yes WC - Visit Discharge Discharge Condition Stable Stable Ambulatory Status Wheelchair Wheelchair Transportation Private Auto Private Auto Facility Type Home Health Orders Sent Yes #1- L ISCHIAL POST OP -Ulcer Cleansing Rinsed/ Irrigated with Saline -Foul Odor after Cleansing No -Other Dressing dakins -Primary Dressing Covered/Secured with Dry Gauze, Secured with Tape -Other Covering ABD Treatment Response Procedure Tolerated Well Assessment/Plan Assessment/Plan (1) Pressure ulcer: CODE(S): L89.90 - Pressure ulcer of unspecified site, unspecified stage PLAN: Continue twice daily Dakins-soaked Kerlix wet-to-dry dressings, pressure offloading. I discussed the wound and how the exposure of the bone makes the wound healing complicated, especially when we cannot do home VAC (patient is self pay/[employer] insurance). He was initially reluctant to get OR debridement with flap reconstruction because of need for offloading/gradual sitting protocol (could not work at his desk or at least not sit while at work), but since we are having difficulty granulating over the bone and getting the wound healed, he would like to attempt definitive reconstruction. Patient and his are going to continue to discuss options and attempt to pressure offload as much as possible. F/u in 3 weeks for a wound check and to discuss nutrition labs (ordered today) and for operative planning. With regards to potential reconstruction, I talked the patient extensively about staging the surgery with an operative debridement washout followed by reconstruction, and then we had an extensive discussion regarding the risks of surgery, including bleeding, infection, damage to surrounding structures, flap failure, surgical site dehiscence and wound formation, need for wound care, need for repeat operations, failure to obtain the desired result, DVT/PE, and the risks of anesthesia including , including stroke (from low blood pressure/ischemia or clot). The benefits and alternatives of this surgery were also discussed. All of their questions were answered.
[2024-06-15 05:07] LABS: Prealbumin 23 mg/dL (9-32)
== END 2024-06-17 23:59 | disposition home or self-care (01) ==
LOC: WC 13:30
PROVIDERS: Referring Provider Surgery Plastic and Reconstructive Surgery; Visit Provider Surgery Plastic and Reconstructive Surgery
DX: L89.224 Pressure ulcer of left hip, stage 4 (principal); Q05.9 Spina bifida, unspecified; I48.91 Unspecified atrial fibrillation; Z99.3 Dependence on wheelchair; L02.416 Cutaneous abscess of left lower limb
CPT/HCPCS: 11043; 11044; 11046; 36415; 80053; 83036; 84134; 85025

== ENCOUNTER 2024-07-04 08:32 | Outpatient (RCR) | payer SELFPAY ==
[2024-06-18 02:34] VITALS: BP 130/80; PULSE 88; RESP 18; TEMP 36.1; BMI 36.3
--- NOTE | 2024-07-04 08:29 | PN.PCM_ITS ---
History of Present Illness Date of Service: 07/04/24 Chief Complaint: Left ischial ulcer History of Wound: FELIPA WOLF is a 74 M with a history of atrial fibrillation (on Eliquis) and spina bifida (walked with crutches until 17 years ago and is now nonambulatory and uses a wheelchair) who was admitted last night for worsening left ischial pressure ulcer with concern for drainage and infection. Subjective fevers and chills. CT scan demonstrated left ischial abscess. Today on the floor he has stable vital signs. His white blood cell count is within normal limits. His hemoglobin is 11 He is not a smoker. He is and has several adult children Debrided in OR on 14 APR 2024, positive cultures (left ischial bone, Citrobacter koseri, Staph epidermidis, on Augmentin and Cipro). With regards to ambulation: Patient has not been able to walk for over 10 years and does not anticipate ever being able to walk again. I talked to him about the use of muscles in the lower extremity for reconstruction, and he is amenable to this option. Subjective Subjective 02 May 2024: Doing well overall. On antibiotics, has been trying to pressure offload. Endorses good dressing changes with his at home. No fevers/chills. 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 Doing well overall. No fevers or chills. has been doing excellent wound care. Current Encounter, 04 July 2024: Patient here to discuss flap reconstruction. Would like to attempt a definitive treatment of the ischial wound. Has thought about positioning restrictions and expectations, and is accepting of the risks, benefits of the procedure. He recently (13 June) had nutrition labs which demonstrated albumin of 3.3 and a prealbumin of 23. Hgb is 13.4 (MCV 89) Patient does not have a diverting ostomy and is not interested in one at this time. He does not have a pressure offloading bed at home, but is working with the [facility] Liaison to get one from the [facility] warehouse. Objective Data Objective Data Vital Signs: Vital Signs Temp Pulse Resp BP 96.9 F L 88 18 130/80 H 06/18/24 02:34 06/18/24 02:34 06/18/24 02:34 06/18/24 02:34 Weight: 205 lb Body Mass Index (BMI) 36.3 He recently (13 June) had nutrition labs which demonstrated albumin of 3.3 and a prealbumin of 23. Hgb is 13.4 (MCV 89) Charges/Coding Visit Charges Office Visits / Consults: 16198 OV L3 Est 20min Physical Exam Narrative Wound (LEFT ISCHIAL WOUND): Open and no fluid collections. Wound is 3 x 3.5 cm and is 5 cm deep. Left ischial region. Probes to bone. Const alert and oriented x3 Debridement Note Debridement Note No debridement was completed: No debridement was completed today Assessment/Plan Assessment/Plan (1) Pressure ulcer: CODE(S): L89.90 - Pressure ulcer of unspecified site, unspecified stage PLAN: Plan from 14 Jun 2024: Continue twice daily Dakins-soaked Kerlix wet-to-dry dressings, pressure offloading. I discussed the wound and how the exposure of the bone makes the wound healing complicated, especially when we cannot do home VAC (patient is self pay/[employer] insurance). He was initially reluctant to get OR debridement with flap reconstruction because of need for offloading/gradual sitting protocol (could not work at his desk or at least not sit while at work), but since we are having difficulty granulating over the bone and getting the wound healed, he would like to attempt definitive reconstruction. Patient and his are going to continue to discuss options and attempt to pressure offload as much as possible. F/u in 3 weeks for a wound check and to discuss nutrition labs (ordered today) and for operative planning. With regards to potential reconstruction, I talked the patient extensively about staging the surgery with an operative debridement washout followed by reconstruction, and then we had an extensive discussion regarding the risks of surgery, including bleeding, infection, damage to surrounding structures, flap failure, surgical site dehiscence and wound formation, need for wound care, need for repeat operations, failure to obtain the desired result, DVT/PE, and the risks of anesthesia including , including stroke (from low blood pressure/ischemia or clot). The benefits and alternatives of this surgery were also discussed. All of their questions were answered. PLAN FROM 04 July 2024: Reviewed nutrition labs with the patient and his . I believe he is optimized for flap reconstruction. I reiterated the above risks of flap failure/worsening of the wound/failure to heal the wound. We talked about the above noted risks of anesthesia. I also talked to them about damage to surrounding structures including the anus/rectum, and need for an ostomy. I talked to them about fistula formation with the anus/rectum. They're accepting of these risks. Mr. Wolf would like to proceed. Discussed pressure offloading protocol and sitting protocol, with an emphasis on the length of the protocol and reasons why he needs to continue to pressure offload post-operatively. Stage 1: Plan for excision of the left ischial wound with cultures and then irrigating wound VAC. ID consult. Stage 2 (during the same admission): Definitive reconstruction of the left ischial wound with rotation flap/closure, possible gracilis flap.
[2024-07-04 08:33] VITALS: BP 130/88; PULSE 71; RESP 15; TEMP 36.4; BMI 36.3
== END 2024-07-18 23:59 | disposition home or self-care (01) ==
LOC: WC 08:32
PROVIDERS: Referring Provider Surgery Plastic and Reconstructive Surgery; Visit Provider Surgery Plastic and Reconstructive Surgery
DX: L89.224 Pressure ulcer of left hip, stage 4 (principal); I48.91 Unspecified atrial fibrillation; L02.416 Cutaneous abscess of left lower limb; Z99.3 Dependence on wheelchair
CPT/HCPCS: 99213; G0463

== ENCOUNTER 2024-08-01 09:10 | Outpatient (RCR) | payer SELFPAY ==
[2024-07-19 00:28] VITALS: BP 130/88; PULSE 71; RESP 15; TEMP 36.4; BMI 36.3
--- NOTE | 2024-07-27 15:47 | WC ---
Cathryn Curry BAR TACKER transfers care of this patient over to Dr. Cabrera as of 07/27/24
[2024-08-01 09:41] VITALS: BP 133/86; PULSE 88; RESP 18; TEMP 36.5; BMI 36.3
--- NOTE | 2024-08-01 14:05 | PCM.WC.PN ---
History of Present Illness Date of Service: 08/01/24 Chief Complaint: Left ischial ulcer History of Wound: FELIPA WOLF is a 74 M with a history of atrial fibrillation (on Eliquis) and spina bifida (walked with crutches until 17 years ago and is now nonambulatory and uses a wheelchair) who was admitted last night for worsening left ischial pressure ulcer with concern for drainage and infection. Subjective fevers and chills. CT scan demonstrated left ischial abscess. Today on the floor he has stable vital signs. His white blood cell count is within normal limits. His hemoglobin is 11 He is not a smoker. He is and has several adult children Debrided in OR on 14 APR 2024, positive cultures (left ischial bone, Citrobacter koseri, Staph epidermidis, on Augmentin and Cipro). With regards to ambulation: Patient has not been able to walk for over 10 years and does not anticipate ever being able to walk again. I talked to him about the use of muscles in the lower extremity for reconstruction, and he is amenable to this option. Subjective Subjective 02 May 2024: Doing well overall. On antibiotics, has been trying to pressure offload. Endorses good dressing changes with his at home. No fevers/chills. 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 Doing well overall. No fevers or chills. has been doing excellent wound care. 04 July 2024: Patient here to discuss flap reconstruction. Would like to attempt a definitive treatment of the ischial wound. Has thought about positioning restrictions and expectations, and is accepting of the risks, benefits of the procedure. He recently (13 June) had nutrition labs which demonstrated albumin of 3.3 and a prealbumin of 23. Hgb is 13.4 (MCV 89) Patient does not have a diverting ostomy and is not interested in one at this time. He does not have a pressure offloading bed at home, but is working with the [facility] Liaison to get one from the [facility] warehouse. Current Encounter, 01 August 2024: Doing well overall with home wound care. He is looking forward to flap reconstruction. Patient has been unable to get a pressure offloading bed from the [facility] warehouse they do not have one currently. He is working on getting clearance from a lotus notes administrator for surgery (has an appointment later this month). Objective Data Objective Data Vital Signs: Vital Signs Temp Pulse Resp BP 97.7 F L 88 18 133/86 H 08/01/24 09:41 08/01/24 09:41 08/01/24 09:41 08/01/24 09:41 Weight: 205 lb Body Mass Index (BMI) 36.3 Charges/Coding Visit Charges Office Visits / Consults: 21367 OV L3 Est 20min Physical Exam Narrative Wound (LEFT ISCHIAL WOUND): Open and no fluid collections. Wound is 3 x 4 cm and is 4 cm deep. Left ischial region. Probes to bone. Const alert and oriented x3 Debridement Note Debridement Note No debridement was completed: No debridement was completed today Post-Debridement Measurements and Additional Note: Post-Debridement Measurements/Treatment WC - Nurse 1 - General Ulcer Assessment Start: 08/01/24 09:41 Freq: Status: Active Protocol: WC.LOWEXT Activity Type Activity Date Activity User E-sign Co-sign Detail Recorded Client Recorded Date Recorded By Document 08/01/24 09:41 DL [id number] 08/01/24 09:46 DL 08/01/24 09:41 - Today's Visit Information Type of service Follow-up Visit (Physician/ROLLER GOLD LEAF ) Arrival Mode Wheelchair Transfer Assistance Manual Transfer Assist (Other) x2 Patient Identification Verified (Name & Yes ) Patient Requires Transmission-Based No Precautions Height and Weight Body Mass Index (BMI) 36.3 BMI Classification Obese Vital Signs Temperature (97.8 F-99.1 F) 97.7 F L Temperature Source Temporal Pulse Rate (60-100) 88 Pulse Location Monitor Respiratory Rate (12-18) 18 Respiratory rate source Observation Blood Pressure (90/60-120/80) 133/86 H Blood Pressure Mean (mm Hg) 101 Source Monitor History Since Last Visit- (Skip if this is Patient's initial visit) Have you changed medications since your No last visit? Any new allergies or adverse reactions No Had a fall/change in ADL's that may No increase risk of falls Signs or symptoms of abuse and/or No neglect since last visit Have you been in the hospital since your No last visit? Has dressing in place as prescribed Yes Has compression in place as prescribed N/A Has offloadiing in place as prescribed Yes Experienced any changes in pain level or No management Pain Scale: 0-10 Numeric Is Patient Pain Free? Yes WC - Nurse 1 - General Ulcer Measurement Start: 08/01/24 09:41 Freq: Status: Active Protocol: Activity Type Activity Date Activity User E-sign Co-sign Detail Recorded Client Recorded Date Recorded By Document 08/01/24 09:41 DL [id number] 08/01/24 09:46 DL 08/01/24 09:41 Wound Center Nurse 1 #1- L ISCHIAL POST OP -Current Size (cm) - Length 4.4 -Current Size (cm) - Width 2.4 -Current Size (cm) - Depth 4.5 -Total Square Cm 10.56 -Photo Taken Yes -Classification - Thickness Full Thickness without Exposed Support Structure -Exudate Amt Medium -Exudate Type Serosanguineous -Wound Margin Distinct, Outline Attached -Granulation Amt Large (67-100%) -Granulation Quality [place] -Necrosis Amt None Present (0 %) -Structure Exposed N/A -Texture (Nichelle-wound Skin Appearance) Scarring -Moisture (Nichelle-wound Skin Appearance) Maceration -Color (Nichelle-wound Skin Appearance) No Abnormality -Temperature (Nichelle-wound Skin No Abnormality Appearance) (Pt Warm) -Ulcer Cleansing Soap and Water -Foul Odor after Cleansing No -Anesthetic Used 5% Lidocaine Gel HAKAN - Nurse 2 - General Ulcer CM Notes Start: 08/01/24 09:41 Freq: Status: Active Protocol: Activity Type Activity Date Activity User E-sign Co-sign Detail Recorded Client Recorded Date Recorded By Document 08/01/24 10:05 DS [id number] 08/01/24 10:06 DS 08/01/24 10:05 Wound Center Nurse 2 -Time 10:05 -Correct Patient Yes -Correct Side, Site, Position Yes -Procedure Performed No -Post Debridement (cm) - Length 4.0 -Post Debridement (cm) - Width 3.0 -Post Debridement (cm) - Depth 4.0 -Total Square (Post) (cm) 12.00 -Area of Debridement (cm) - Length 4.0 -Area of Debridement (cm) - Width 3.0 -Total Square (Area) (cm) 12.00 -Wound/Ulcer Outcome Not Healed Pain Scale: 0-10 Numeric Is Patient Pain Free? Yes HAKAN - Nurse 3 - General Ulcer D/C NN Start: 08/01/24 09:41 Freq: Status: Active Protocol: Activity Type Activity Date Activity User E-sign Co-sign Detail Recorded Client Recorded Date Recorded By Document 08/01/24 10:29 JOSE [id number] 08/01/24 10:30 JOSE 08/01/24 10:29 Wound Care Center Nurse 3 #1- L ISCHIAL POST OP -Ulcer Cleansing Rinsed/ Irrigated with Saline -Other Dressing dakin's slightly moistened gauze -Primary Dressing Covered/Secured with Dry Gauze, Secured with Tape Pain Scale: 0-10 Numeric Is Patient Pain Free? Yes WC - Visit Discharge Discharge Condition Unstable Ambulatory Status Ambulatory, Wheelchair Transportation Private Auto Accompanied by Medication Reconcilliation completed & Yes provided to patient/care provider Clinical Summary of Care Provided Yes Assessment/Plan Assessment/Plan (1) Pressure ulcer: CODE(S): L89.90 - Pressure ulcer of unspecified site, unspecified stage PLAN: Plan from 14 Jun 2024: Continue twice daily Dakins-soaked Kerlix wet-to-dry dressings, pressure offloading. I discussed the wound and how the exposure of the bone makes the wound healing complicated, especially when we cannot do home VAC (patient is self pay/[employer] insurance). He was initially reluctant to get OR debridement with flap reconstruction because of need for offloading/gradual sitting protocol (could not work at his desk or at least not sit while at work), but since we are having difficulty granulating over the bone and getting the wound healed, he would like to attempt definitive reconstruction. Patient and his are going to continue to discuss options and attempt to pressure offload as much as possible. F/u in 3 weeks for a wound check and to discuss nutrition labs (ordered today) and for operative planning. With regards to potential reconstruction, I talked the patient extensively about staging the surgery with an operative debridement washout followed by reconstruction, and then we had an extensive discussion regarding the risks of surgery, including bleeding, infection, damage to surrounding structures, flap failure, surgical site dehiscence and wound formation, need for wound care, need for repeat operations, failure to obtain the desired result, DVT/PE, and the risks of anesthesia including , including stroke (from low blood pressure/ischemia or clot). The benefits and alternatives of this surgery were also discussed. All of their questions were answered. PLAN FROM 04 July 2024: Reviewed nutrition labs with the patient and his . I believe he is optimized for flap reconstruction. I reiterated the above risks of flap failure/worsening of the wound/failure to heal the wound. We talked about the above noted risks of anesthesia. I also talked to them about damage to surrounding structures including the anus/rectum, and need for an ostomy. I talked to them about fistula formation with the anus/rectum. They're accepting of these risks. Mr. Wolf would like to proceed. Discussed pressure offloading protocol and sitting protocol, with an emphasis on the length of the protocol and reasons why he needs to continue to pressure offload post-operatively. Stage 1: Plan for excision of the left ischial wound with cultures and then irrigating wound VAC. ID consult. Stage 2 (during the same admission): Definitive reconstruction of the left ischial wound with rotation flap/closure, possible gracilis flap. Plan from 01 August 2024: Patient is awaiting appointment later this month with cardiology for clearance for the OR. His primary care physician of coordinate. We discussed the risk benefits and alternatives to flap reconstruction today. We talked about pressure offloading protocols. We talked about no guarantees that the wound will be healed and we may make a small wound into a larger wound. I also talked to him about my concerns for osteomyelitis and how we will need to do bone biopsies and follow-up with infectious disease for IV antibiotic. We will likely keep him in house for 3 weeks while the wound heals following the flaps that we can pressure offload. Patient is in agreement with all of these plans. He will need to be off of Eliquis for 48 hours before surgery (understands risks of thromboembolic event and benefit of decreasing bleeding risk). Continue Dakin's wet-to-dry twice daily dressings for now
--- NOTE | 2024-08-02 14:50 | WC ---
PHOTO 08/01/24 LEFT ISCHIAL
== END 2024-08-17 23:59 | disposition home or self-care (01) ==
LOC: WC 09:10
PROVIDERS: Referring Provider Surgery Plastic and Reconstructive Surgery; Visit Provider Surgery Plastic and Reconstructive Surgery
DX: L89.224 Pressure ulcer of left hip, stage 4 (principal); Q05.9 Spina bifida, unspecified; I48.91 Unspecified atrial fibrillation; Z99.3 Dependence on wheelchair; L02.416 Cutaneous abscess of left lower limb
CPT/HCPCS: 99213; G0463

== ENCOUNTER 2024-08-29 07:54 | Outpatient (RCR) | payer SELFPAY ==
[2024-08-18 00:12] VITALS: BP 133/86; PULSE 88; RESP 18; TEMP 36.5; BMI 36.3
[2024-08-29 10:07] VITALS: BP 143/91; PULSE 72; RESP 18; TEMP 36.2; BMI 36.3
--- NOTE | 2024-08-30 09:26 | PN.PCM_ITS ---
History of Present Illness Date of Service: 08/29/24 Chief Complaint: Left ischial ulcer History of Wound: FELIPA WOLF is a 74 M with a history of atrial fibrillation (on Eliquis) and spina bifida (walked with crutches until 17 years ago and is now nonambulatory and uses a wheelchair) who was admitted last night for worsening left ischial pressure ulcer with concern for drainage and infection. Subjective fevers and chills. CT scan demonstrated left ischial abscess. Today on the floor he has stable vital signs. His white blood cell count is within normal limits. His hemoglobin is 11 He is not a smoker. He is and has several adult children Debrided in OR on 14 APR 2024, positive cultures (left ischial bone, Citrobacter koseri, Staph epidermidis, on Augmentin and Cipro). With regards to ambulation: Patient has not been able to walk for over 10 years and does not anticipate ever being able to walk again. I talked to him about the use of muscles in the lower extremity for reconstruction, and he is amenable to this option. Subjective Subjective 02 May 2024: Doing well overall. On antibiotics, has been trying to pressure offload. Endorses good dressing changes with his at home. No fevers/chills. 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 Doing well overall. No fevers or chills. has been doing excellent wound care. 04 July 2024: Patient here to discuss flap reconstruction. Would like to attempt a definitive treatment of the ischial wound. Has thought about positioning restrictions and expectations, and is accepting of the risks, benefits of the procedure. He recently (13 June) had nutrition labs which demonstrated albumin of 3.3 and a prealbumin of 23. Hgb is 13.4 (MCV 89) Patient does not have a diverting ostomy and is not interested in one at this time. He does not have a pressure offloading bed at home, but is working with the [facility] Liaison to get one from the [facility] warehouse. 01 August 2024: Doing well overall with home wound care. He is looking forward to flap reconstruction. Patient has been unable to get a pressure offloading bed from the [facility] warehouse they do not have one currently. He is working on getting clearance from a audio video mechanic for surgery (has an appointment later this month). Current Encounter, 29 Aug 2024: Doing well overall and would like to undergo excision and flap reconstruction. Patient has gone to a audio video mechanic there was recommended that he obtain additional stress test; however, after discussion with audio video mechanic here (Bryce Sanders/LUIS FERNANDO), who reviewed the chart and cardiac imaging, he is recommending we proceed without additional testing. Objective Data Objective Data Vital Signs: Vital Signs Temp Pulse Resp BP 97.2 F L 72 18 143/91 H 08/29/24 10:07 08/29/24 10:07 08/29/24 10:07 08/29/24 10:07 Weight: 205 lb Body Mass Index (BMI) 36.3 Charges/Coding Visit Charges Office Visits / Consults: 93523 OV L3 Est 20min Physical Exam Narrative Wound (LEFT ISCHIAL WOUND): Open and no fluid collections. Wound is 3 x 2.5 cm and is 4 cm deep. Left ischial region. Probes to bone. Const alert and oriented x3 Debridement Note Debridement Note No debridement was completed: No debridement was completed today Post-Debridement Measurements and Additional Note: Post-Debridement Measurements/Treatment WC - Nurse 1 - General Ulcer Assessment Start: 08/29/24 10:07 Freq: Status: Active Protocol: HAKAN.KAITLIN Activity Type Activity Date Activity User E-sign Co-sign Detail Recorded Client Recorded Date Recorded By Document 08/29/24 10:07 DL [id number] 08/29/24 10:14 DL 08/29/24 10:07 WC - Today's Visit Information Type of service Follow-up Visit (Physician/CARPENTER BRIDGE ) Arrival Mode Wheelchair Transfer Assistance None Height and Weight Body Mass Index (BMI) 36.3 BMI Classification Obese Vital Signs Temperature (97.8 F-99.1 F) 97.2 F L Temperature Source Temporal Pulse Rate (60-100) 72 Pulse Location Monitor Respiratory Rate (12-18) 18 Respiratory rate source Observation Blood Pressure (90/60-120/80) 143/91 H Blood Pressure Mean (mm Hg) 108 Source Monitor History Since Last Visit- (Skip if this is Patient's initial visit) Have you changed medications since your No last visit? Any new allergies or adverse reactions No Had a fall/change in ADL's that may No increase risk of falls Signs or symptoms of abuse and/or No neglect since last visit Have you been in the hospital since your No last visit? Has dressing in place as prescribed No Has compression in place as prescribed N/A Has offloadiing in place as prescribed Yes Experienced any changes in pain level or No management Pain Scale: 0-10 Numeric Is Patient Pain Free? Yes HAKAN - Nurse 1 - General Ulcer Measurement Start: 08/29/24 10:07 Freq: Status: Active Protocol: Activity Type Activity Date Activity User E-sign Co-sign Detail Recorded Client Recorded Date Recorded By Document 08/29/24 10:07 CORY [id number] 08/29/24 10:14 DL 08/29/24 10:07 Wound Center Nurse 1 #1- L ISCHIAL POST OP -Current Size (cm) - Length 3.6 -Current Size (cm) - Width 2.6 -Current Size (cm) - Depth 4.8 -Total Square Cm 9.36 -Photo Taken Yes -Exudate Amt Medium -Exudate Type Serosanguineous -Wound Margin Thickened & Rolled Under -Granulation Amt Large (67-100%) -Granulation Quality Red -Necrosis Amt None Present (0 %) -Structure Exposed N/A -Texture (Nichelle-wound Skin Appearance) Scarring -Moisture (Nichelle-wound Skin Appearance) Maceration -Color (Nichelle-wound Skin Appearance) No Abnormality -Ulcer Cleansing Soap and Water -Foul Odor after Cleansing No -Anesthetic Used 5% Lidocaine Gel HAKAN - Nurse 2 - General Ulcer CM Notes Start: 08/29/24 10:07 Freq: Status: Active Protocol: Activity Type Activity Date Activity User E-sign Co-sign Detail Recorded Client Recorded Date Recorded By Document 08/29/24 10:34 [facility] [id number] 08/29/24 10:44 [facility] 08/29/24 10:34 Wound Center Nurse 2 -Time 10:35 -Post Debridement (cm) - Length 3 -Post Debridement (cm) - Width 2.5 -Post Debridement (cm) - Depth 4 -Total Square (Post) (cm) 7.5 -Area of Debridement (cm) - Length 3 -Area of Debridement (cm) - Width 2.5 -Total Square (Area) (cm) 7.5 -Wound/Ulcer Outcome Not Healed -Bleeding Controlled with NA Pain Scale: 0-10 Numeric Is Patient Pain Free? Yes HAKAN - Nurse 3 - General Ulcer D/C NN Start: 08/29/24 10:07 Freq: Status: Active Protocol: Activity Type Activity Date Activity User E-sign Co-sign Detail Recorded Client Recorded Date Recorded By Document 08/29/24 10:56 ML [id number] 08/29/24 10:57 ML 08/29/24 10:56 Wound Care Center Nurse 3 #1- L ISCHIAL POST OP -Ulcer Cleansing Rinsed/ Irrigated with Saline -Other Dressing dakins,abd -Primary Dressing Covered/Secured with Dry Gauze & Roll Gauze, Secured with Tape Pain Scale: 0-10 Numeric Is Patient Pain Free? Yes Assessment/Plan Assessment/Plan (1) Pressure ulcer: CODE(S): L89.90 - Pressure ulcer of unspecified site, unspecified stage PLAN: Plan from 14 Jun 2024: Continue twice daily Dakins-soaked Kerlix wet-to-dry dressings, pressure offloading. I discussed the wound and how the exposure of the bone makes the wound healing complicated, especially when we cannot do home VAC (patient is self pay/[employer] insurance). He was initially reluctant to get OR debridement with flap reconstruction because of need for offloading/gradual sitting protocol (could not work at his desk or at least not sit while at work), but since we are having difficulty granulating over the bone and getting the wound healed, he would like to attempt definitive reconstruction. Patient and his are going to continue to discuss options and attempt to pressure offload as much as possible. F/u in 3 weeks for a wound check and to discuss nutrition labs (ordered today) and for operative planning. With regards to potential reconstruction, I talked the patient extensively about staging the surgery with an operative debridement washout followed by reconstruction, and then we had an extensive discussion regarding the risks of surgery, including bleeding, infection, damage to surrounding structures, flap failure, surgical site dehiscence and wound formation, need for wound care, need for repeat operations, failure to obtain the desired result, DVT/PE, and the risks of anesthesia including , including stroke (from low blood pressure/ischemia or clot). The benefits and alternatives of this surgery were also discussed. All of their questions were answered. PLAN FROM 04 July 2024: Reviewed nutrition labs with the patient and his . I believe he is optimized for flap reconstruction. I reiterated the above risks of flap failure/worsening of the wound/failure to heal the wound. We talked about the above noted risks of anesthesia. I also talked to them about damage to surrounding structures including the anus/rectum, and need for an ostomy. I talked to them about fistula formation with the anus/rectum. They're accepting of these risks. Mr. Wolf would like to proceed. Discussed pressure offloading protocol and sitting protocol, with an emphasis on the length of the protocol and reasons why he needs to continue to pressure offload post-operatively. Stage 1: Plan for excision of the left ischial wound with cultures and then irrigating wound VAC. ID consult. Stage 2 (during the same admission): Definitive reconstruction of the left ischial wound with rotation flap/closure, possible gracilis flap. Plan from 01 August 2024: Patient is awaiting appointment later this month with cardiology for clearance for the OR. His primary care physician of coordinate. We discussed the risk benefits and alternatives to flap reconstruction today. We talked about pressure offloading protocols. We talked about no guarantees that the wound will be healed and we may make a small wound into a larger wound. I also talked to him about my concerns for osteomyelitis and how we will need to do bone biopsies and follow-up with infectious disease for IV antibiotic. We will likely keep him in house for 3 weeks while the wound heals following the flaps that we can pressure offload. Patient is in agreement with all of these plans. He will need to be off of Eliquis for 48 hours before surgery (understands risks of thromboembolic event and benefit of decreasing bleeding risk). Continue Dakin's wet-to-dry twice daily dressings for now Plan from 29 Aug 2024: Plan to proceed with excision followed by reconstruction. Patient will need to be off of Eliquis 48 hours before surgery. Re-iterated above noted risks, benefits, and alternatives.
== END 2024-09-17 23:59 | disposition home or self-care (01) ==
LOC: WC 07:54
PROVIDERS: Referring Provider Surgery Plastic and Reconstructive Surgery; Visit Provider Surgery Plastic and Reconstructive Surgery
DX: L98.496 Non-pressure chronic ulcer of skin of other sites with bone involvement without evidence of necrosis (principal); Q05.9 Spina bifida, unspecified; I48.91 Unspecified atrial fibrillation; Z99.3 Dependence on wheelchair; L02.416 Cutaneous abscess of left lower limb; Z79.01 Long term (current) use of anticoagulants
CPT/HCPCS: 99213; G0463

== ENCOUNTER 2024-09-06 08:24 | Inpatient (IN) | payer SELFPAY ==
--- NOTE | 2024-09-02 14:03 | PAT.ANE_ITS ---
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 When Was Last Pacemaker Check QUESTION #4 FULL TEXT: You/Your Family Experience fever (hyperthermia) with Anesthesia Last Oral Intake Last Oral intake: Last Oral Intake NPO since Meds taken in AM with sips of water? 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 Female No 09/02/24 13:41 HX of Motion Sickness No 09/02/24 13:41 HX of N/V After Surgery No 09/02/24 13:41 Non-Smoker Yes 09/02/24 13:41 Duration of Surgery greater Yes 09/02/24 13:41 than 60 minutes Number of Risk Factors 2 09/02/24 13:41 PONV Score Moderate Risk 09/02/24 13:41 Height & Weight Height & Weight: Anesthesia: Height & Weight Height 5 ft 3 in 08/16/24 08:55 Respiratory Assessment Respiratory Assessment - heavy equipment plumbing supervisor: Respiratory Tract Infection Hx - heavy 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 Has anyone observed you stop No 09/02/24 13:41 breathing during sleep? STOP Results Positive 09/02/24 13:41 QUESTION #5 FULL TEXT : Do you snore loudly (louder than talking or can be heard through closed doors)? 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 Specify any problems Hx of Preganancy in last 3 N/A 09/02/24 13:41 Months Nurse Filling Out Transfusion DSCHRIBER 09/02/24 13:41 & Questions: Date: 09/02/24 09/02/24 13:41 Time: 13:44 09/02/24 13:41 Patient unable to answer at this time (ie. 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: /Reproductive Hx- heavy equipment plumbing supervisor Hx Now No 09/02/24 13:41 Gestational Age (in weeks): EDC: Hx Hx Para Hx Section SAB No 09/02/24 13:41 PFSH Medical History (Updated 09/02/24 @ 13:55 by Tory Montenegro) Wears glasses Arthritis Uses wheelchair Incontinence of bowel Heartburn History of edema History of echocardiogram Cardiology follow-up encounter History of atrial fibrillation Self-catheterizes urinary bladder Agatston coronary artery calcium score less than 100 Mixed hyperlipidemia Spina bifida Paraplegia, incomplete Benign essential hypertension Anxiety Non-smoker Asthma Atrial fibrillation Home Medications ?Medication ?Instructions ?Recorded ?Last Taken ?Type amlodipine 10 mg tablet 10 mg PO DAILY Blood pressur e 04/12/24 Unknown History apixaban 5 mg tablet (Eliquis) 5 mg PO BID AFIB Unknown History lisinopril 20 1 tab PO BID Blood pressure 04/12/24 Unknown History mg-hydrochlorothiazide 12.5 mg tablet metoprolol tartrate 100 mg tablet 100 mg PO BID Blood pressure 04/12/24 Unknown History simvastatin 40 mg tablet 40 mg PO QHS Cholesterol Unknown History Allergy/AdvReac Type Severity Reaction Status Date / Time No Known Allergies Allergy Verified 09/02/24 13:37 Family History Father Cancer Surgical History (Updated 09/02/24 @ 13:55 by Tory Montenegro) History of incision and drainage History of cataract removal with insertion of prosthetic lens Social History household members: spouse Smoking Status: Never smoker alcohol intake: never substance use type: does not use caffeine: Yes (2 servings daily) Audit: Pertinent Findings Pertinent Findings EKG Perinent findings: 08/16/24 Atrial fibrillation -irregular conduction - Nonspecific T-abnormality. 78rate BNORMAL Consult pertinent findings: Date of Service: 08/16/24 [facility] [address] [place] [address] OFFICE VISIT Date of Service: 08/16/24 MR#: [id number] Acct: [id number] Name: FELIPA PEREZ Rep #: [id number] : 1950 Provider: Dr. Joavn Moser MD Age/Sex: 74/M Location: [facility] [place] Status: Signed HPI HPI History of Present Illness Details: This gentleman has past medical history significant for spina bifid, dyslipidemia, hypertension and atrial fibrillation. He is being considered for surgery for decubitus ulcer on his hip. We are asked to evaluate his cardiac risk for the proposed procedure. Patient was diagnosed with atrial fibrillation this last March. He is on metoprolol for rate control and on apixaban for anticoagulation. He has also had a coronary calcium score done last January. Reported as 48. Denies any chest pains either at rest or with exertion. Patient is wheelchair- bound on account of his spina bifida. Denies any orthopnea. No PND. No ankle edema. Denies any palpitations. No syncope or presyncope. No history of CVA or TIA. No history of bleeding disorders. Intake Vital Signs 05/02/24 14:15 08/16/24 08:52 08/16/24 08:55 Height 5 ft 3 in 5 ft 3 in 5 ft 3 in Weight: 200 lb BMI 35.4 BP 114/72 Blood Pressure Location Lt brachial Position Sitting Respiration 18 Pulse 85 Pulse Source Monitor Comment weight per pt report Intake Visit Reasons: AFIB ([facility]) Pay Clerk Required: No Accompanied by: Is patient in pain?: No Allergies No Known Allergies Allergy (Verified 08/16/24 08:50) Medications Medication Instructions Recorded Confirmed Type amlodipine 10 mg tablet 10 mg PO DAILY Blood pressure 04/12/24 08/16/24 History apixaban 5 mg tablet (Eliquis) 5 mg PO BID AFIB 04/12/24 08/16/24 History lisinopril 20 2 tab PO DAILY Blood pressure 04/12/24 08/16/24 History mg-hydrochlorothiazide 12.5 mg tablet metoprolol tartrate 100 mg tablet 100 mg PO BID Blood pressure 04/12/24 08/16/24 History simvastatin 40 mg tablet 40 mg PO QHS Cholesterol 04/12/24 08/16/24 History Have you fallen in the past year?: Yes PFSH Medical History Urinary tract infection Self-catheterizes urinary bladder Pre-diabetes Agatston coronary artery calcium score less than 100 Mixed hyperlipidemia Nonhealing ulcer of left lower extremity Spina bifida Paraplegia, incomplete Benign essential hypertension Anxiety Non-smoker Asthma Atrial fibrillation Chronic indwelling Gooden catheter Surgical History History of cataract removal with insertion of prosthetic lens Family History Father Cancer Social History household members: spouse Smoking Status: Never smoker alcohol intake: never substance use type: does not use caffeine: Yes (2 servings daily) ROS Const Const: Negative for fatigue or weakness ENT ENT: Negative for dizziness or balance problems Cardio Chest Pain: No Palpitations: No Edema: None Muscle aches with walking: None Resp Respiratory: Negative for SOB with activity, SOB at rest or SOB orthopnea\SOB lying down GI GI: Negative nausea, vomiting or heartburn Musc Musc: Negative for muscle weakness or balance problems Neuro Neuro: Negative for dizziness, lightheadedness, near syncope, syncope or weakness Endo Endo: Negative for fatigue Cardiology Exam Const Appearance: comfortable and no acute distress Nutritional Appearance: well nourished Neck Neck: no JVD Carotids: Negative bruit Chest Auscultation: Bilateral: Clear to Auscultation Cardio Rhythm: irregularly irregular Heart sounds: S1 normal and S2 normal Neuro General: patient alert, patient awake and patient oriented x3 Extremities Lower Extremity Edema: Trace: Bilateral Supplemental Info Supplemental Information Labs: No Data to Display Diagnostics: Electrocardiogram Pulmonary: No Data to Display Past Visits: Cardiology Visit 08/16/24 Assessment and Plan Assessment and Plan (1) Preoperative cardiovascular examination: Plan: Normal LV function on echocardiogram. I wanted to further risk stratify this patient by checking a Lexiscan stress Myoview. However the patient refuses that and wishes to proceed with the proposed surgery without any further testing. He is willing to accept any cardiovascular risk. In my opinion, patient is an intermediate risk for the proposed procedure. Please avoid major hemodynamic swings during and after anesthesia. May hold apixaban 3 to 4 days prior to the proposed surgical procedure and resume postsurgery when okay with the surgeon. Continue metoprolol for ventricular rate control with his atrial fibrillation. (2) Atrial fibrillation: Status: Chronic Plan: Continue metoprolol for rate control. Continue on apixaban for anticoagulation. (3) Coronary artery disease: Status: Chronic Plan: Calcium score 48. I recommended that the patient undergo a Lexiscan stress Myoview to evaluate physiological significance of coronary artery disease. He however declines that. (4) Hypertension: Status: Chronic Plan: Amlodipine, lisinopril hydrochlorothiazide and metoprolol. (5) Dyslipidemia: Status: Chronic Plan: On simvastatin. Being managed by primary care physician. Orders: Orders 12 Lead EKG performed by BMS Today I48.91 - Unspecified atrial fibrillation Recommendation Anesthesia Recommendation Anesthesia recommendation: OPTIMIZED for anesthesia
[2024-09-06] VITALS (16 sets, daily range): BP systolic 104–151; BP diastolic 70–115; PULSE 76–94; RESP 15–20; TEMP 36.3–37.1; O2SAT 87–100; BMI 76.1; BMI 36.3
--- NOTE | 2024-09-06 07:34 | PRE.ANES_ITS ---
ASA Classification* ASA Classification ASA Classification: 3 Assessment & Plan Anesthesia* Anesthesia Assessment Anesthesia Assessment: Discussed sedation and/or anesthesia options, risks, benefits, and alternatives with patient/parents/legal guardian/POA. Questions invited. The patient/parents/legal guardian/POA seems to understand and agrees to proceed with anesthesia plan. Reviewed the physical assessment, medical history, allergy history and patient home medications list prior to surgery/procedure/anesthetic and documented any changes. Performed airway and anesthesia risk assessments. Anesthesia Type Anesthesia Type: General Anesthesia Focused Assessment* Airway Assessment Mouth opens: >3 cm Mallampati Score: II Comment: Dr. Cabrera discussed cardiac issues with Dr Sanders who feels patient is optimized from a cardiac stand poinnt Focused Labs Anesthesia Preop lab: CBC WBC 11.9 K/mm3 (4.4-11.0) H 06/13/24 14: 5 RBC 4.78 M/mm3 (4.6-6.2) 06/13/24 14:25 06/13/24 Hgb 13.8 g/dL (13.0-16.5) 06/13/24 14:25 06/13/24 Hct 42.9 % (40-54) 06/13/24 14:25 06/13/24 Plt Count 395 K/mm3 (150-450) 06/13/24 14:25 06/13/24 CHEMISTRY Potassium 3.5 mmol/L (3.5-5.1) 06/13/24 14:25 06/13/24 Sodium 139 mmol/L (136-145) 06/13/24 14:25 06/13/24 Magnesium 1.8 mg/dL (1.6-2.6) 04/13/24 05:04 04/13/24 Phosphorus 3.0 mg/dL (2.5-4.9) 04/13/24 05:04 04/13/24 BUN 21 mg/dL (7-18) H 06/13/24 14:25 06/13/24 Creatinine 0.67 mg/dL (0.70-1.30) L 06/13/24 14:25 Glucose 107 mg/dL (74-106) H 06/13/24 14:25 06/13/24 TSH 2.080 uIU/mL (0.358-3.740) 04/13/24 05:04 03/21 09/10 COAG PT 19.3 SECONDS (11.7-14.9) H 04/13/24 05:04 03/21 09/10 Pre-Assessment Diagnosis/Proposed Procedure Planned Operative Procedure(s): LEFT ISCHIUM PRESSURE SORE EXCISION WITH IRRIGATING WOUND VAC Anesthesia History 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 When Was Last Pacemaker Check QUESTION #4 FULL TEXT: You/Your Family Experience fever (hyperthermia) with Anesthesia Last Oral Intake Last Oral intake: Last Oral Intake NPO since Meds taken in AM with sips of water? 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 Has anyone observed you stop No 09/02/24 13:41 breathing during sleep? STOP Results Positive 09/02/24 13:41 QUESTION #5 FULL TEXT : Do you snore loudly (louder than talking or can be heard through closed doors)? 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 Specify any problems Hx of Preganancy in last 3 N/A 09/02/24 13:41 Months Nurse Filling Out Transfusion DSCHRIBER 09/02/24 13:41 & Questions: Date: 09/02/24 09/02/24 13:41 Time: 13:44 09/02/24 13:41 Patient unable to answer at this time (ie. 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: /Reproductive Hx- bullet lubricant mixer Hx Now No 09/02/24 13:41 Gestational Age (in weeks): EDC: Hx Hx Para Hx Section SAB No 09/02/24 13:41 Active Medications Active Medications: Current Medications Generic Name Dose Route Start Last Admin Trade Name Freq PRN Reason Stop Dose Admin Cefazolin Sodium 2 gm/ Sodium 110 mls @ 150 mls/hr 09/06/24 08:40 Chloride IV 09/06/24 09:23 INTRAOP ONE Lactated Ringer's 1,000 mls @ 15 mls/hr 09/06/24 07:30 IV .Q48H MANUEL PFSH Medical History Wears glasses Arthritis Uses wheelchair Incontinence of bowel Heartburn History of edema History of echocardiogram Cardiology follow-up encounter History of atrial fibrillation Self-catheterizes urinary bladder Agatston coronary artery calcium score less than 100 Mixed hyperlipidemia Spina bifida Paraplegia, incomplete Benign essential hypertension Anxiety Non-smoker Asthma Atrial fibrillation Home Medications ?Medication ?Instructions ?Recorded ?Last Taken ?Type amlodipine 10 mg tablet 10 mg PO DAILY Blood pressur e 04/12/24 Unknown History apixaban 5 mg tablet (Eliquis) 5 mg PO BID AFIB Unknown History lisinopril 20 1 tab PO BID Blood pressure 04/12/24 Unknown History mg-hydrochlorothiazide 12.5 mg tablet metoprolol tartrate 100 mg tablet 100 mg PO BID Blood pressure 04/12/24 Unknown History simvastatin 40 mg tablet 40 mg PO QHS Cholesterol Unknown History Allergy/AdvReac Type Severity Reaction Status Date / Time No Known Allergies Allergy Verified 09/02/24 13:37 Family History Father Cancer Surgical History History of incision and drainage History of cataract removal with insertion of prosthetic lens Social History household members: spouse Smoking Status: Never smoker alcohol intake: never substance use type: does not use caffeine: Yes (2 servings daily) Review of Systems (Anesthesia) ROS Narrative System reviewed and no additional complaints, except as documented.
[2024-09-06] MEDS: Lactated Ringers 1,000 ML 15 ML IV (07:50)
--- NOTE | 2024-09-06 08:22 | PCM.HP.STD ---
HPI - General General Date of Admission: 09/06/24 HPI Narrative Chief Complaint: Left ischial ulcer History of Wound: LAMONT WOLF is a 74 M with a history of atrial fibrillation (on Eliquis) and spina bifida (walked with crutches until 17 years ago and is now nonambulatory and uses a wheelchair) who was admitted last night for worsening left ischial pressure ulcer with concern for drainage and infection. Subjective fevers and chills. CT scan demonstrated left ischial abscess. Today on the floor he has stable vital signs. His white blood cell count is within normal limits. His hemoglobin is 11 He is not a smoker. He is and has several adult children Debrided in OR on 14 APR 2024, positive cultures (left ischial bone, Citrobacter koseri, Staph epidermidis, on Augmentin and Cipro). With regards to ambulation: Patient has not been able to walk for over 10 years and does not anticipate ever being able to walk again. I talked to him about the use of muscles in the lower extremity for reconstruction, and he is amenable to this option. 02 May 2024: Doing well overall. On antibiotics, has been trying to pressure offload. Endorses good dressing changes with his at home. No fevers/chills. 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 Doing well overall. No fevers or chills. has been doing excellent wound care. 04 July 2024: Patient here to discuss flap reconstruction. Would like to attempt a definitive treatment of the ischial wound. Has thought about positioning restrictions and expectations, and is accepting of the risks, benefits of the procedure. He recently (13 June) had nutrition labs which demonstrated albumin of 3.3 and a prealbumin of 23. Hgb is 13.4 (MCV 89) Patient does not have a diverting ostomy and is not interested in one at this time. He does not have a pressure offloading bed at home, but is working with the [facility] Liaison to get one from the [facility] warehouse. 01 August 2024: Doing well overall with home wound care. He is looking forward to flap reconstruction. Patient has been unable to get a pressure offloading bed from the [facility] warehouse they do not have one currently. He is working on getting clearance from a tetryl nitrator operator for surgery (has an appointment later this month). 29 Aug 2024: Doing well overall and would like to undergo excision and flap reconstruction. Patient has gone to a tetryl nitrator operator there was recommended that he obtain additional stress test; however, after discussion with tetryl nitrator operator here (Bryce Sanders/LUIS FERNANDO), who reviewed the chart and cardiac imaging, he is recommending we proceed without additional testing. Current Encounter (DATE OF SURGERY H&P UPDATE): I saw and examined the patient this morning in pre-operative holding. We discussed risks and benefits of today's surgery and they would like to proceed. NO CHANGE in health history since last seen and evaluated. Ready to proceed with surgery. He has been off of blood thinner since Thursday [facility] Medical History Wears glasses Arthritis Uses wheelchair Incontinence of bowel Heartburn History of edema History of echocardiogram Cardiology follow-up encounter History of atrial fibrillation Self-catheterizes urinary bladder Agatston coronary artery calcium score less than 100 Mixed hyperlipidemia Spina bifida Paraplegia, incomplete Benign essential hypertension Anxiety Non-smoker Asthma Atrial fibrillation Home Medications ?Medication ?Instructions ?Recorded ?Last Taken ?Type amlodipine 10 mg tablet 10 mg PO DAILY Blood pressure 04/12/24 09/06/24 History apixaban 5 mg tablet (Eliquis) 5 mg PO BID AFIB 04/12/24 09/03/24 History lisinopril 20 1 tab PO BID Blood pressure 04/12/24 09/05/24 History mg-hydrochlorothiazide 12.5 mg tablet metoprolol tartrate 100 mg tablet 100 mg PO BID Blood pressure 04/12/24 09/06/24 History simvastatin 40 mg tablet 40 mg PO .qd Cholesterol 04/12/24 09/05/24 History Allergy/AdvReac Type Severity Reaction Status Date / Time No Known Allergies Allergy Verified 09/06/24 07:43 Family History Father Cancer Surgical History History of incision and drainage History of cataract removal with insertion of prosthetic lens Social History household members: spouse Smoking Status: Never smoker alcohol intake: never substance use type: does not use caffeine: Yes (2 servings daily) Vital Signs Vital Signs Vital Signs: 09/06/24 07:45 09/06/24 07:45 Temperature 97.3 F L Temperature Source Temporal Pulse Rate 90 Respiratory Rate 18 Respiratory Pattern Normal Blood Pressure 117/91 H Blood Pressure Mean 99 Blood Pressure Source Monitor Blood Pressure Position Semi-Fowlers Blood Pressure Location Left Arm Pulse Ox 97 Oxygen Delivery Method Room Air Weight Weight: 429 lb 14.422 oz Body Mass Index (BMI) 76.1 Physical Exam Narrative Wound (LEFT ISCHIAL WOUND): Open and no fluid collections. Wound is 3 x 2.5 cm and is 4 cm deep. Left ischial region. Probes to bone. Assessment & Plan Assessment/Plan (1) Pressure ulcer: PLAN: I discussed the wound and how the exposure of the bone makes the wound healing complicated, especially when we cannot do home VAC (patient is self pay/[employer] insurance). He was initially reluctant to get OR debridement with flap reconstruction because of need for offloading/gradual sitting protocol (could not work at his desk or at least not sit while at work), but since we are having difficulty granulating over the bone and getting the wound healed, he would like to attempt definitive reconstruction. Patient and his are going to continue to discuss options and attempt to pressure offload as much as possible. F/u in 3 weeks for a wound check and to discuss nutrition labs (ordered today) and for operative planning. With regards to potential reconstruction, I talked the patient extensively about staging the surgery with an operative debridement washout followed by reconstruction, and then we had an extensive discussion regarding the risks of surgery, including bleeding, infection, damage to surrounding structures, flap failure, surgical site dehiscence and wound formation, need for wound care, need for repeat operations, failure to obtain the desired result, DVT/PE, and the risks of anesthesia including , including stroke (from low blood pressure/ischemia or clot). The benefits and alternatives of this surgery were also discussed. All of their questions were answered. PLAN FROM 04 July 2024: Reviewed nutrition labs with the patient and his . I believe he is optimized for flap reconstruction. I reiterated the above risks of flap failure/worsening of the wound/failure to heal the wound. We talked about the above noted risks of anesthesia. I also talked to them about damage to surrounding structures including the anus/rectum, and need for an ostomy. I talked to them about fistula formation with the anus/rectum. They're accepting of these risks. Mr. Wolf would like to proceed. Discussed pressure offloading protocol and sitting protocol, with an emphasis on the length of the protocol and reasons why he needs to continue to pressure offload post-operatively. Stage 1: Plan for excision of the left ischial wound with cultures and then irrigating wound VAC. ID consult. Stage 2 (during the same admission): Definitive reconstruction of the left ischial wound with rotation flap/closure, possible gracilis flap. Plan from 01 August 2024: Patient is awaiting appointment later this month with cardiology for clearance for the OR. His primary care physician of coordinate. We discussed the risk benefits and alternatives to flap reconstruction today. We talked about pressure offloading protocols. We talked about no guarantees that the wound will be healed and we may make a small wound into a larger wound. I also talked to him about my concerns for osteomyelitis and how we will need to do bone biopsies and follow-up with infectious disease for IV antibiotic. We will likely keep him in house for 3 weeks while the wound heals following the flaps that we can pressure offload. Patient is in agreement with all of these plans. He will need to be off of Eliquis for 48 hours before surgery (understands risks of thromboembolic event and benefit of decreasing bleeding risk). Continue Dakin's wet-to-dry twice daily dressings for now Plan from 29 Aug 2024: Plan to proceed with excision followed by reconstruction. Patient will need to be off of Eliquis 48 hours before surgery. Re-iterated above noted risks, benefits, and alternatives. INTERVAL H&P PLAN, DATE OF SURGERY: We will proceed with surgery today. I talked to the patient extensively about the risks of surgery, including bleeding, infection, damage to surrounding structures, poor scaring, surgical site dehiscence and wound formation, need for wound care, need for repeat operations, failure to obtain the desired result, DVT/PE, and the risks of anesthesia including , including stroke (from low blood pressure/ischemia or clot). The benefits and alternatives of this surgery were also discussed. All of their questions were answered, and they agreed to proceed with surgery.
--- NOTE | 2024-09-06 08:34 | OP.PCM_ITS ---
Operative Report (Standard) Operative Information Date of Procedure: 09/06/24 Pre-Operative Diagnosis: 1) left ischial wound Post-Operative Diagnosis: Same Surgery/Procedure Performed: 1) surgical preparation of left ischial wound for irrigating wound VAC placement, 3 x 4 cm (CPT 61207) 2) left ischial bone biopsy (CPT: 37036) 3) placement of irrigating wound VAC left ischium, 3 x 4 cm (12 square cm) (CPT: 96734) not disposable home visit field care manager: Yes Campus Administrator: Gayathri Chow Tasks completed by cutting table operator first: Retracting Type of Anesthesia: General/Supplemental (20 cc of 50-50 mixture of 1% lidocaine with 1-200,000 epinephrine and quarter percent Marcaine with 1-200,000 epinephrine) RN Documented Start/Stop Times: Operation Date: 09/08/24 07:30 <No data on this case meets the specified criteria> Procedure Start Time: 09:11 Procedure Stop Time: 09:45 Select all DRAINS/GRAFTS/IMPLANTS that apply: Implanted device (Temporary irrigating wound vac) Implanted device details: Irrigating VAC (VeraFlow) Estimated Blood Loss: 50 cc Specimen collected: Yes Description of specimen(s) removed: 1) Deep soft tissue culture, 2) deep ischial bone culture, 3) deep ischial bone pathology (r/o osteomyelitis), and 4) ischial skin ulcer for r/o malignancy. Description of surgery: Indications: Lamont Wolf is a delightful 74-year-old male who is nonambulatory with a left ischial pressure ulcer, full-thickness stage IV down to the bone. Presents today for excision and placement of a irrigating wound VAC. He understands the risks, benefits, and alternatives to the procedure. Procedure details: Patient was correctly identified in preoperative holding and marked. He was taken back to the operating room he was administered general anesthesia and flipped in the right lateral decubitus position where he was prepped and draped in sterile fashion with care taken to pad all bony prominences and protect the face. He had an appropriate axillary roll placed as well. A timeout was performed. Methylene blue was placed topically over the wound to ensure that the entire wound was excised today. Local anesthesia was injected as noted above and given time to take effect. 10 blade scalpel was used to excise the ulcer full- thickness circumferentially as well as Bovie electrocautery for full-thickness excision of the ulcer down to the ischial bone. It was sent to pathology for review and rule out malignancy. It was oriented short superior and long lateral with a marking stitch. The base of the wound was excised with a rongeur including necrotic bone, and a bone biopsy was taken of the deep ischial bone tissue. Any sequestrum was debrided with a rongeur to ensure full debridement of the chronic osteomyelitis. The wound was then irrigated with 3 L of normal saline as well as Irrisept (450 cc). Hemostasis was obtained with Bovie electrocautery. The entire excision of the wound was 3 x 4 cm. For the 12 cm? wound, an irrigating wound VAC was placed. Patient tolerated the procedure well he was awakened and taken to the PACU in stable condition. Surgical Findings: Necrotic bone at the base of the wound consistent with osteomyelitis Complications Complications: No Admit VTE Documentation VTE Mechan Device Prophylaxis: SCD's
--- NOTE | 2024-09-06 08:40 | PRES_PTH ---
PATIENT: FELIPA PEREZ LOC: MS3 U#:[id number] AGE/SX: 74/M ROOM: [facility] RE09/06/[address]: Dr. Gregorio Rawls MD : 1950 BED: 1 DIS: 09/13/2024 SPEC #: [id number] RECD: 09/06/24 10:04 STATUS: GUILLERMO RELamont #: [id number] DEJAH: 09/06/24 08:[address]: Felipa Cabrera DEPT: SURGICAL PATHOLOGY RECD BY: Damián Guajardo ENTERED: 09/06/24 10:13 SP TYPE: FOREST WOOD DR: Dr. Guillermo Duenas, DO Tissues: A - Ischium, NOS B - Ischium, NOS Procedures: Decalcification bone/plaque Surgery Specimen Level IV Surgery Specimen Level V HEADER OPERATION: Left ischium pressure sore excision with irrigating wound vac PRE-OP DIAGNOSIS: Pressure ulcer TISSUE SUBMITTED: A- Left ischium bone biopsy, B- Left ischial pressure ulcer - rule out malignancy *short stitch- superior, long stitch- lateral* MICROSCOPIC DIAGNOSIS A. Left ischium, bone, biopsy: * Trabecular bone with reactive and degenerative changes, with marked marrow fibrosis and chronic inflammation with slight activity, suggestive of chronic osteomyelitis - see note. * Note: Recommend correlation with clinical, imaging, and microbiology findings. B. Left ischium, pressure ulcer, excision: * Cutaneous ulceration with active chronic inflammation, scar, and reactive epidermal changes. * No malignant change seen. MICROSCOPIC DESCRIPTION Slides are reviewed. GROSS DESCRIPTION A. Received in formalin in a container labeled with the patient's name, date of , and left ischium bone biopsy is a 0.5 x 0.3 x 0.3 cm fragment of red-pink, somewhat softened bone. The specimen is submitted entirely in A1 following decalcification in Immunocal solution. B. Received in formalin in a container labeled with the patient's name, date of , and left ischial pressure ulcer rule out malignancy, short stitch cisneros superior, long cisneros lateral is an oriented portion of annular soft tissue received with a short stitch indicating superior margin and long stitch indicating lateral margin. The short stitch is arbitrarily designated as 12:00, and the long stitch is arbitrarily designated as 9:00. The specimen is 4.3 cm from 9-3 o'clock (lateral to medial), 1.8 cm from 12-6 o'clock when closed (superior to inferior), and 4.8 cm from superficial to deep. The superficial aspect exhibits white-spivey, nodular, and granular possible skin which is poorly adherent to the outer surface (measuring approximately 6 cm in length by 0.7 cm in width and situated from approximately 8:00 to 4:00). The internal aspect of the annular soft tissue exhibits previously dyed blue-yellow, lobulated and rubbery surfaces with a thickness ranging from 0.6 to 1.2 cm. Ink welsh: 12-3 o'clock: Blue3-6 o'clock: Red6-9 o'clock: Green9-12 o'clock: Black The specimen is radially sectioned to reveal uniform coleman-spivey, rubbery surfaces with scattered granularity. No nodules or distinct mass-like lesion is grossly recognized. Deputy Insurance Commissioner sections are submitted sequentially and radially as follows (approximately every other slice is submitted):B1. 12-3 o'clock B2. 3-4 o'clock (1 slice is whole and 1 slice is bisected- inked orange where sections connect)B3. 4-6 o'clock (1 slice bisected and inked orange at connection) B4. 6-7 o'clock (1 slice, bisected and inked orange where sections connect)B5. 8-9 o'clock (1 slice bisected and inked orange connection, 1 slice whole)B6. 9-12 o'clock [facility] 09-06-2024 CPT:[id number]
[2024-09-06] MEDS: Cefazolin 2 GM in 0.9% Normal Saline (100mL Bag) 100 ML IV ×3 (08:52→21:52)
[2024-09-06] MEDS: Lidocaine 1% /Epi 1:100 (20ml) 20 ML Vial (09:22)
[2024-09-06] MEDS: Bupiv/Epi 0.25% 30 ML Vial (09:22)
[2024-09-06] MEDS: Methylene Blue 1% 100 MG/10 ML VIAL (09:23)
[2024-09-06] MEDS: Sodium Hypochlorite (Dakin's) 0.125% Wound Irrigation IRRIGATION (09:41)
--- NOTE | 2024-09-06 10:01 | PCM.POST.ANE ---
Anesthesia: Postop Eval I Current Vital Signs Temperature: 98.7 F Pulse Rate: 94 Blood Pressure: 114/100 Respiratory Rate: 20 Pulse Ox: 96 Oxygen Delivery Method: Room Air Assessment Airway patent: Yes Spontaneous unlabored respirations: Yes Mental status: Awake and Calm nausea: No Vomiting: No Anesthesia Complication: No Fluid Hydration Crystalloid volume administer (ml): 800 Total IV fluid infused: 800 Progress Note Anesthesia document: Postop Eval 1 completed: Yes
--- NOTE | 2024-09-06 11:02 | POSTOPAN2_ITS ---
Anesthesia Postop Eval I Sum Postop Eval Completion status Anesthesia document: Postop Eval 1 completed: Yes Anesthesia Postop Eval I Summary Anesthesia Postop Eval I Summary: Anesthesia Postop Eval I: Assessment Summary Airway patent Yes 09/06/24 10:02 [email or web address] Spontaneous unlabored Yes 09/06/24 10:02 HEALTH [email or web address] respirations Mental status Awake,Calm 09/06/24 10:02 [email or web address] nausea No 09/06/24 10:02 HEALTH [email or web address] Vomiting No 09/06/24 10:02 HEALTH [email or web address] Anesthesia Postop Eval I: Fluid Summary Crystalloid volume administer 800 09/06/24 10:02 HEALTH [email or web address] (ml) Colloids volume administered ( ml) Blood Product volume administered (ml) Total IV fluid infused 800 09/06/24 10:02 [email or web address] Anesthesia Postop Eval I: Summary Notes Anesthesia Complication No 09/06/24 10:02 [email or web address] [email or web address] Anesthesia Complication Comment: Post-operative progress note Anesthesia: Postop Eval II Evaluation Mental status: Awake Pain Level: 0 nausea: No Vomiting: No
--- NOTE | 2024-09-06 11:02 | PCM.POSTANE2 ---
Anesthesia Postop Eval I Sum Postop Eval Completion status Anesthesia document: Postop Eval 1 completed: Yes Anesthesia Postop Eval I Summary Anesthesia Postop Eval I Summary: Anesthesia Postop Eval I: Assessment Summary Airway patent Yes 09/06/24 10:02 RECEIVING [email or web address] Spontaneous unlabored Yes 09/06/24 10:02 RECEIVING [email or web address] respirations Mental status Awake,Calm 09/06/24 10:02 RECEIVING [email or web address] nausea No 09/06/24 10:02 RECEIVING [email or web address] Vomiting No 09/06/24 10:02 RECEIVING [email or web address] Anesthesia Postop Eval I: Fluid Summary Crystalloid volume administer 800 09/06/24 10:02 RECEIVING [email or web address] (ml) Colloids volume administered ( ml) Blood Product volume administered (ml) Total IV fluid infused 800 09/06/24 10:02 RECEIVING [email or web address] Anesthesia Postop Eval I: Summary Notes Anesthesia Complication No 09/06/24 10:02 RECEIVING [email or web address] Anesthesia Complication Comment: Post-operative progress note Anesthesia: Postop Eval II Evaluation Mental status: Awake Pain Level: 0 nausea: No Vomiting: No
[2024-09-06] MEDS: Atorvastatin Calcium 20 MG Tablet PO (21:52)
[2024-09-06] MEDS: Metoprolol Tartrate 100 MG Tablet PO (21:52)
[2024-09-07] VITALS (8 sets, daily range): BP systolic 117–149; BP diastolic 77–97; PULSE 81–97; RESP 15–16; TEMP 36.5–37.2; O2SAT 93–99; BMI 36.3
[2024-09-07] MEDS: Ondansetron 4 MG/2 ML Vial IV ×2 (03:24→17:39)
[2024-09-07 05:09] LABS: Absolute Lymphocyte Count 1.23 X10^3/uL (0.83-4.51); Absolute Neutrophil Count 7.1 X10^3/uL (2.0-7.7); Basophil# 0.03 X10^3/uL; Basophil% 0.3 % (0-1); Eosinophil# 0.23 X10^3/uL; Eosinophils% 2.5 % (0-5); Hematocrit 39.1 % (40-54); Hemoglobin 13.1 g/dL (13.0-16.5); Lymphocyte # 1.23 X10^3/ul (0.83-4.51); Lymphocyte % 13.2 % (19-41); Mean Corp Hgb Conc 33.5 g/dL (32-36); Mean Corpuscular Hgb 29.4 pg (27.0-32.0); Mean Corpuscular Volume 87.7 fL (80-94); Mean Platelet Vol. 9.2 fl (6.2-12.0); Monocyte# 0.67 X10^3/uL; Monocyte% 7.2 % (0-10); NRBC Flagged by Analyzer 0 % (0-5); Neutrophil % 76.3 % (47-70); Platelet Count 382 K/mm3 (150-450); RBC Distribution Width CV 13.9 % (11.6-14.6); Red Blood Count 4.46 M/mm3 (4.6-6.2); White Blood Count 9.3 K/mm3 (4.4-11.0)
[2024-09-07] MEDS: Cefazolin 2 GM in 0.9% Normal Saline (100mL Bag) 100 ML IV ×3 (05:19→21:51)
[2024-09-07 06:17] LABS: Anion Gap 11 (5-15); BUN 14 mg/dL (4-19); BUN/Creat Ratio 22.3 RATIO (10-20); Calcium,Total 8.8 mg/dL (7.6-11.0); Carbon Dioxide 23.8 mmol/L (21.0-32.0); Chloride 106 mmol/L (98-108); Creatinine, Serum 0.61 mg/dL (0.70-1.20); EST Glomerular Filtration Rate 102 (>60); Estimated Creatinine Clearance 84.21 ml/min (50-250); Glucose 124 mg/dL (70-99); Potassium 3.9 mmol/L (3.3-5.1); Sodium Level 140 mmol/L (133-145)
[2024-09-07] MEDS: amLODIPine 10 MG Tablet PO (08:53)
[2024-09-07] MEDS: Enoxaparin 40 MG/0.4 ML Syringe SC (08:53)
[2024-09-07] MEDS: Metoprolol Tartrate 100 MG Tablet PO ×2 (08:53→21:49)
[2024-09-07] MEDS: Sodium Hypochlorite (Dakin's) 0.125% Wound Irrigation IRRIGATION (09:15)
[2024-09-07] MEDS: Metoclopramide 10 MG/2 ML Vial 2.5 MG IV (09:45)
[2024-09-07] MEDS: 0.9% Saline Lock 10 ML Syringe IV ×3 (09:45→17:39)
--- NOTE | 2024-09-07 11:29 | CASEMGMT ---
Addendum entered by Barbara Ivy 09/07/24 15:26: Correction: No ID consult order noted. Original Note: AZIZA NOBLES Assessment: Face to Face with pt for initial transition planning/care coordination assessment. AZIZA NOBLES introduced self and role at [facility], pt voices understanding and consents to assessment. Pt is A&O x4 and answers all questions appropriately at this time. Pt lying in bed in no distress with at bedside. Care providers, pharmacy, and demographics verified/updated. Admitting Dx: L ischium pressure sore excision with irrigating wound vac Strata Score: 1 PCP:Henrique Specialists:Deborah, plastic surgeon; Ehsan, cardio Preferred Pharmacy: [facility] Retail Insurance: Self Pay Prescription Benefit: no LNOK: Marilou Wolf, ; Armin Schilling, nephew Living Arrangements: Pt lives with in a single story home with a ramp to enter. Pt reports he is I in ADLs and performs IADLs. Pt denies concerns at home. Transportation: Pt drives self. Pt also drives. Pt concerned of transportation needed to go to medical appts as he may need a stretcher. DME:w/c, single bed in living room with no pressure relief, catheter supplies from [facility]. HHC/SNF: Denies hx of Pt states no concerns with going home at time of dc. Pt states he is to be lying post surgery. Pt went to [facility] to check on pressure reducing mattress and states she was quoted approx $4000. She states that a male at the branch looked something up on his phone and stated for $100 she could get a power motor for the bed. Pt asks AZIZA NOBLES to check on this. Pt self caths monthly with alessia and has supplies for this. Pt had been doing dressing changes for pt and will continue if needed. Discussed HHC and pt did not know if this is something he is interested in and would like to speak to Dr. Cabrera first. ID consulted. AZIZA NOBLES to follow. Pt states no further concerns/needs. CM to follow. Advised pt to ask CM if any further questions/concerns/needs arise, voices understanding. Pt Goal:Home Plan: Home vs Home with HHC, follow ID recs, wound care, transportation needs TC to Dioni at [facility] to obtain information on the power motor for bed. He will check into this and call RN CM back. Deisy ERVIN CM
--- NOTE | 2024-09-07 12:19 | CASEMGMT ---
Social Work Pt is listed as self pay. Pt utilizes program through the [facility] and has spoken with financial services and has made a downpayment for hospitalization. SW will remain available if needs arise. CHAI Vasquez
--- NOTE | 2024-09-07 14:09 | PN.SURG_ITS ---
Subjective Subjective Patient denies having any pain, fevers or chills this morning on postop day 1. He did have some issues with nausea and vomiting last night, but they have now resolved and he was able to keep down some tea and sherbet around noon today. No abdominal pain. Denies any issues with his urinary catheter. No chest pain racing of the heart or shortness of breath Objective Data Objective Data Vital Signs: Vital Signs Temp Pulse Resp BP Pulse Ox O2 Del Method O2 Flow Rate 98.1 F 83 16 149/96 H 96 Room Air 2 09/07/24 09:00 09/07/24 09:00 09/07/24 09:00 09/07/24 09:00 09/07/24 09:00 09/07/24 09:00 09/06/24 11:57 Oxygen Flow Rate (L/min) 2 Oxygen Delivery Method Room Air Weight: 204 lb 15.773 oz Body Mass Index (BMI) 36.3 Intake & Output: Intake and Output for Last 24 Hours 09/05/24 09/06/24 09/07/24 23:59 23:59 23:59 Intake Total 220 / 420 691.5 / 691.5 Output Total 100 / 500 750 / 750 Balance 120 / -80 -58.5 / -58.5 Lab / Micro Data 09/07/24 04:28 09/07/24 04:28 Labs: Laboratory Results - last 24 hr 09/07/24 04:28: WBC 9.3, RBC 4.46 L, Hgb 13.1, Hct 39.1 L, MCV 87.7, MCH 29.4, MCHC 33.5, RDW Std Deviation 44.0 H, RDW Coeff of Gregor 13.9, Plt Count 382, MPV 9.2, Immature Gran % (Auto) 0.500, Neut % (Auto) 76.3 H, Lymph % (Auto) 13.2 L, [place] % (Auto) 7.2, Eos % (Auto) 2.5, Baso % (Auto) 0.3, Absolute Neuts (auto) 7.1, Absolute Lymphs (auto) 1.23, Nucleated RBC % 0, Sodium 140, Potassium 3.9, Chloride 106, Carbon Dioxide 23.8, Anion Gap 11, BUN 14, Creatinine 0.61 L, Estim Creat Clear Calc 84.21, Est GFR (MDRD) Non-Af 102, BUN/Creatinine Ratio 22.3 H, Glucose 124 H, Calcium 8.8 Micro: Microbiology 09/06/24 Unknown Tissue - Ischial Pressure Sore Gram Stain - Final 09/06/24 Unknown Tissue - Ischial Pressure Sore Wound Culture - Preliminary No growth-Final to follow 09/06/24 Unknown Bone - Ischial Bone Gram Stain - Final 09/06/24 Unknown Bone - Ischial Bone Wound Culture - Preliminary No growth-Final to follow Physical Exam Narrative No acute distress Normal respiratory rate and normal work of breathing Abdomen: Nontender to palpation, nondistended Wound: VAC is holding suction with serosanguineous fluid in the canister, no signs of bleeding. Appropriately offloaded on a pressure offloading bed Assessment & Plan Assessment/Plan (1) Pressure ulcer: PLAN: Neuro: Tylenol and or oxycodone for pain control as needed Cardiac: Continue home amlodipine and metoprolol, holding Eliquis (atrial fibrillation indication) Respiratory: Continue incentive spirometer Abdomen: No acute issues at this time. FEN: N.p.o. at midnight for surgery. Electrolytes within normal limits Infectious disease: Continue IV Ancef 2 g every 8, follow-up cultures from the OR. No organisms seen on Gram stain's Hematology: Lovenox 40 mg daily, SCDs N.p.o. at midnight for reconstruction tomorrow. Continue irrigating wound VAC with Dakin's to clean wound. Patient happy with the plan Charges/Coding Procedures Integumentary [id number]: [id number] Global Visit
--- NOTE | 2024-09-07 20:00 | CT_ITS ---
PROCEDURE: ABDOMEN/PELVIS WITHOUT CONT 09/07/2024 REASON FOR EXAM: POST PO NAUSEA AND VOMITING TECHNIQUE: Abdomen and pelvis CT without intravenous contrast. Noncontrast technique limits evaluation of the abdominal and pelvic viscera. Coronal and Sagittal reconstruction series were provided. One or more dose reduction techniques were used (e.g., Automated exposure control, adjustment of the mA and/or kV according to patient size, use of iterative reconstruction technique). PATIENT PREPARATION: Per protocol ORAL CONTRAST TYPE: None. AMOUNT: mL COMPARISON: None. FINDINGS: Left buttock wound. Soft tissue density and osseous destruction of the left hip. Lung bases: Mild dependent atelectasis Liver: Normal size. No obvious mass. Gallbladder: Normal. Spleen: Normal. Pancreas: Normal size. No surrounding inflammation. Adrenals: Normal Kidneys: Bilateral kidney simple cysts. Lobular cortices. No hydronephrosis. Bladder: Partially decompressed around a Gooden catheter. Reproductive Organs: Normal Bowel: Normal Lymph nodes: Unremarkable Vasculature: Moderate atherosclerosis. Peritoneum / Retroperitoneum: Bones: Mid/lower lumbar and upper sacral laminectomies. Fluid collection which measures 6.4 x 5.6 cm posterior to L5, S1, and S2. CT/Abdomen/Pelvis without Cont IMPRESSION: Soft tissue density and osseous destruction of the left hip. A mass can not be excluded. Left buttock wound. Postsurgical changes of the spine with a fluid collection posterior to L5 throu gh S2. OVERALL FINAL ASSESSMENT: . LI-RADS is not meant to be used in patients <18 years or patients with cirrhosi s due to congenital hepatic fibrosis or due to vascular disorders, because these patients have a lower chance of developing HC C. Reading Location: [id number]
--- NOTE | 2024-09-07 20:26 | CON.PCM.HO_ITS ---
Assessment & Plan Assessment/Plan (1) Postoperative nausea and vomiting: (2) Pressure ulcer: QUALIFIERS: Pressure injury location: hip Pressure injury stage: stage 4 Laterality: left Qualified Code(s): L89.224 - Pressure ulcer of left hip, stage 4 (3) Spina bifida: QUALIFIERS: Spinal region: unspecified Presence of hydrocephalus: without hydrocephalus Qualified Code(s): Q05.9 - Spina bifida, unspecified (4) Paraplegia, incomplete: (5) Atrial fibrillation: QUALIFIERS: Atrial fibrillation type: unspecified chronic Q ualified Code(s): I48.20 - Chronic atrial fibrillation, unspecified (6) Obesity (BMI 30-39.9): PLAN: Plan 1. Worsening Left ischial pressure ulcer with increasing drainage and concern for infection; s/p I&D POD #1 with placement of a Wound-Vac on the Left ischial ~3 cm x ~4 cm wound with plan to close wound on September 08, 2024 with patient on IV cefazolin 2g IV q. 8 hours and LR @ 75 cc/hr with subsequent complaints of persistent postoperative nausea and vomiting in spite of standard antiemetics prompting hospitalist consultation - Patient was ordered scopolamine patch which was added to as needed IV ondansetron and as needed IV metoclopramide with good result at this time. CT scan of the abdomen pelvis this admission shows no acute bowel issues including constipation. Patient should be able to proceed with planned wound closure surgery in a.m. 2. Spina bifida with incomplete paraplegia; causing patient to ambulate with crutches until ~17 years ago, neurogenic bladder; with self catheterization ~4-5 times/day and chronic fecal incontinence; requiring frequent digital disimpaction complicating #1 - Noted. 3. History of atrial fibrillation; on apixaban BID compounding #1 & #2 - Atrial fibrillation rate controlled at this time with apixaban on hold due to planned surgical procedure. 4. Obesity; with BMI of 36.3 this admission adding to the burden of disease outlined from #1 - #3 - Weight loss was recommended. Check TSH. This complicates his case may hamper recovery. 5. Essential hypertension; on amlodipine, lisinopril-hydrochlorothiazide BID and metoprolol BID - Maintain current regimen with blood pressure well- controlled. 6. Hyperlipidemia; on simvastatin - Resume statin. 7. History of cataract removal; s/p insertion of prosthetic lens - Noted for the sake of completeness. 8. OA - Stable. 9. DVT prophylaxis - Patient is already on enoxaparin 40 mg sq. daily. Total time: Approximately (but not less than) 45 minutes. HPI Consult Data Date of Consult: 09/07/24 HPI Narrative Reason for Consultation: Medical Management of persistent Postoperative Nausea and Vomiting. HPI Narrative: FELIPA PEREZ, is a 74 M with a past medical history of spina bifida with incomplete paraplegia; causing patient to ambulate with crutches until ~17 years ago, neurogenic bladder; with self catheterization ~4-5 times/day, history of chronic fecal incontinence; requiring frequent digital disimpaction, essential hypertension; on amlodipine, lisinopril-hydrochlorothiazide BID and metoprolol BID, hyperlipidemia; on simvastatin, obesity; with BMI of 36.3 this admission, history of atrial fibrillation; on apixaban BID, history of cataract removal; s/p insertion of prosthetic lens, history of bowel incontinence and OA who was admitted to the surgical service of Dr. Cabrera on September 06, 2024 for surgical debridement of a worsening Left ischial pressure ulcer with increasing drainage and concern for infection with a review of the records showing previous discussion of possible flap reconstruction with patient wishing to avoid diverting ostomy. Patient underwent I&D with placement of a Wound-Vac on the Left ischial ~3 cm x ~4 cm wound with plan to close wound on September 08, 2024 with patient on IV cefazolin 2g IV q. 8 hours and LR @ 75 cc/hr. Then this morning on postoperative day #1 he was noted to have had issues with postoperative nausea and vomiting overnight that persisted throughout the day in spite of IV ondansetron and IV metoclopramide which prompted urgent hospitalist consultation at 19:05 hours. I then personally spoke with Dr. Cabrera and discussed the case with recommendation for CT scan of the abdomen and pelvis to evaluate for suspected postoperative ileus in addition to enhancing the antiemetic regimen with scopolamine patch 1.5 mg topical q. 72 hours with patient not complaining of nausea, vomiting, distention or abdominal pain at this time - but he does admit to not performing digital disimpaction in ~48 hours due to concerns about the Wound-Vac. CT scan of the abdomen pelvis without contrast revealed soft tissue density and osseous destruction of the Left hip with mass unable to be excluded in addition to the Left buttock wound and postsurgical changes of the spine with a fluid collection posterior to the L5-S2 with bowel described as normal. I personally evaluated the patient at the bedside and was comfortable and nontoxic in appearance with no complaints of nausea, vomiting or abdominal pain at this time. Thank you for allowing us to participate in the care of your patient. [facility] Medical History (Updated 09/07/24 @ 23:[address] Gregorio Barrera DO) Wears glasses Arthritis Uses wheelchair Incontinence of bowel Heartburn History of edema History of echocardiogram Cardiology follow-up encounter History of atrial fibrillation Self-catheterizes urinary bladder [place] coronary artery calcium score less than 100 Mixed hyperlipidemia Spina bifida Paraplegia, incomplete Benign essential hypertension Anxiety Non-smoker Asthma Atrial fibrillation Home Medications ?Medication ?Instructions ?Recorded ?Last Taken ?Type amlodipine 10 mg tablet 10 mg PO DAILY Blood pressur e 04/12/24 09/06/24 History apixaban 5 mg tablet (Eliquis) 5 mg PO BID AFIB 09/03/24 History lisinopril 20 1 tab PO BID Blood pressure 04/12/24 09/05/24 History mg-hydrochlorothiazide 12.5 mg tablet metoprolol tartrate 100 mg tablet 100 mg PO BID Blood pressure 04/12/24 09/06/24 History simvastatin 40 mg tablet 40 mg PO .qd Cholesterol 09/05/24 History Allergy/AdvReac Type Severity Reaction Status Date / Time No Known Allergies Allergy Verified 09/06/24 07:43 Family History Father Cancer Surgical History History of incision and drainage History of cataract removal with insertion of prosthetic lens Social History household members: spouse Smoking Status: Never smoker alcohol intake: never substance use type: does not use caffeine: Yes (2 servings daily) ROS ROS Narrative Review of Systems: Constitutional: Patient denies fever or chills. Eyes: Patient denies changes in vision or discharge from eyes. ENT: Patient denies runny nose, sore throat or ear pain. Resp: Patient denies SOB or cough. CV: Patient denies chest pain, palpitations, heart racing or LE edema. GI: Patient admits to nausea and vomiting with bilious emesis earlier but he denies abdominal pain or distention. : Patient denies dysuria or hematuria. MSK: Patient admits to postoperative pain which is well-controlled. Skin: Patient has Left ischial wound with Wound-Vac as noted in HPI. Psych: Patient denies symptoms of uncontrolled depression or anxiety. Neuro: Patient denies headache, paresthesias or focal neurologic deficits. Allergy: Patient denies lip swelling, tongue swelling or urticaria. Hematology: Patient denies easy bleeding or easy bruisability. Endocrinology: Patient denies polyuria, polydipsia, polyphagia or heat/cold intolerance. 14 point ROS otherwise negative except for positives noted above in HPI. Physical Exam Const alert, oriented x3 and no apparent distress Constitutional Narrative: Obese. General Appearance: cooperative HEENT normocephalic, head/scalp atraumatic, hearing grossly normal bilaterally and moist oral mucous membranes Eyes PERRL, EOMs intact bilaterally and conjunctivae normal Neck no lymphadenopathy, supple and no JVD Resp normal respiratory effort, no retractions, no use of accessory muscles and clear to auscultation bilaterally Cardio regular rate and regular rhythm GI normal to inspection, nondistended, normoactive bowel sounds, soft to palpation, non-tender and non-distended GI Narrative: Obese. Extremity Extremity Narrative: Patient has chronic spina bifida with incomplete paraplegia. Skin Skin Narrative: Patient has Left ischial Wound-Vac in place with no signs of active infection to neurovascular compromise. Neuro oriented x3, CN's II-XII intact bilaterally, moves all extremities and no focal motor deficits Sensorium / Orientation: awake, alert, oriented to person, oriented to place and oriented to time Speech: speech normal Psych affect normal Medical Records Data Attestation: I reviewed the patient's medical records Lab / Micro Data Attestation: I reviewed the patient's lab results. 09/07/24 04:28 09/07/24 04:28 Labs: Laboratory Results - last 24 hr 09/07/24 04:28: WBC 9.3, RBC 4.46 L, Hgb 13.1, Hct 39.1 L, MCV 87.7, MCH 29.4, MCHC 33.5, RDW Std Deviation 44.0 H, RDW Coeff of Gregor 13.9, Plt Count 382, MPV 9.2, Immature Gran % (Auto) 0.500, Neut % (Auto) 76.3 H, Lymph % (Auto) 13.2 L, [place] % (Auto) 7.2, Eos % (Auto) 2.5, Baso % (Auto) 0.3, Absolute Neuts (auto) 7.1, Absolute Lymphs (auto) 1.23, Nucleated RBC % 0, Sodium 140, Potassium 3.9, Chloride 106, Carbon Dioxide 23.8, Anion Gap 11, BUN 14, Creatinine 0.61 L, Estim Creat Clear Calc 84.21, Est GFR (MDRD) Non-Af 102, BUN/Creatinine Ratio 22.3 H, Glucose 124 H, Calcium 8.8 Micro: Microbiology 09/06/24 Unknown Tissue - Ischial Pressure Sore Gram Stain - Final 09/06/24 Unknown Tissue - Ischial Pressure Sore Wound Culture - Preliminary No growth-Final to follow 09/06/24 Unknown Bone - Ischial Bone Gram Stain - Final 09/06/24 Unknown Bone - Ischial Bone Wound Culture - Preliminary No growth-Final to follow Imaging [facility] Imaging Services [address] [place] [address] Abdomen/Pelvis without Cont MR#: [id number] Acct: [id number] Name: FELIPA PEREZ Rep #: [id number] : 1950 M 74 From: Brady Mcdaniel MD PCP: Dr. Guillermo Duenas, Status: ADM IN Study: Abdomen/Pelvis without Cont Date of Exam: 09/07/24 Exam# [id number] Ordering Dr: Gregorio Barrera DO PROCEDURE: ABDOMEN/PELVIS WITHOUT CONT 09/07/2024 REASON FOR EXAM: POST PO NAUSEA AND VOMITING TECHNIQUE: Abdomen and pelvis CT without intravenous contrast. Noncontrast technique limits evaluation of the abdominal and pelvic viscera. Coronal and Sagittal reconstruction series were provided. One or more dose reduction techniques were used (e.g., Automated exposure control, adjustment of the mA and/or kV according to patient size, use of iterative reconstruction technique). PATIENT PREPARATION: Per protocol ORAL CONTRAST TYPE: None. AMOUNT: mL COMPARISON: None. FINDINGS: Left buttock wound. Soft tissue density and osseous destruction of the left hip. Lung bases: Mild dependent atelectasis Liver: Normal size. No obvious mass. Gallbladder: Normal. Spleen: Normal. Pancreas: Normal size. No surrounding inflammation. Adrenals: Normal Kidneys: Bilateral kidney simple cysts. Lobular cortices. No hydronephrosis. Bladder: Partially decompressed around a Gooden catheter. Reproductive Organs: Normal Bowel: Normal Lymph nodes: Unremarkable Vasculature: Moderate atherosclerosis. Peritoneum / Retroperitoneum: Bones: Mid/lower lumbar and upper sacral laminectomies. Fluid collection which measures 6.4 x 5.6 cm posterior to L5, S1, and S2. CT/Abdomen/Pelvis without Cont IMPRESSION: Soft tissue density and osseous destruction of the left hip. A mass can not be excluded. Left buttock wound. Postsurgical changes of the spine with a fluid collection posterior to L5 through S2. OVERALL FINAL ASSESSMENT: . LI-RADS is not meant to be used in patients <18 years or patients with cirrhosis due to congenital hepatic fibrosis or due to vascular disorders, because these patients have a lower chance of developing HCC. Reading Location: [id number] CC: Dr. Gregorio Barrera DO; Dr. Guillermo Duenas DO ~ Rn Navigator: Signed Charges/Coding Multi Select Codes Visit Charges Office Visit/Consults: 59606 IP Consult L3
--- NOTE | 2024-09-07 20:42 | PCM.PN.SRG ---
Subjective Subjective Seen and examined tonight 2/2 persistent nausea/vommiting Patient does not have any abdominal pain. Reports that he had BM (with digital stimulation) last on August (2 days ago). No flatus today. Objective Data Objective Data Vital Signs: Vital Signs Temp Pulse Resp BP Pulse Ox O2 Del Method O2 Flow Rate 98.6 F 81 16 131/83 H 98 Room Air 2 09/07/24 15:43 09/07/24 15:43 09/07/24 15:43 09/07/24 15:43 09/07/24 15:43 09/07/24 15:43 09/06/24 11:57 Oxygen Flow Rate (L/min) 2 Oxygen Delivery Method Room Air Weight: 204 lb 15.773 oz Body Mass Index (BMI) 36.3 Intake & Output: Intake and Output for Last 24 Hours 09/05/24 09/06/24 09/07/24 23:59 23:59 23:59 Intake Total 220 / 420 801.5 / 801.5 Output Total 100 / 500 1450 / 1450 Balance 120 / -80 -648.5 / -648.5 Lab / Micro Data 09/07/24 04:28 09/07/24 04:28 Labs: Laboratory Results - last 24 hr 09/07/24 04:28: WBC 9.3, RBC 4.46 L, Hgb 13.1, Hct 39.1 L, MCV 87.7, MCH 29.4, MCHC 33.5, RDW Std Deviation 44.0 H, RDW Coeff of Gregor 13.9, Plt Count 382, MPV 9.2, Immature Gran % (Auto) 0.500, Neut % (Auto) 76.3 H, Lymph % (Auto) 13.2 L, [place] % (Auto) 7.2, Eos % (Auto) 2.5, Baso % (Auto) 0.3, Absolute Neuts (auto) 7.1, Absolute Lymphs (auto) 1.23, Nucleated RBC % 0, Sodium 140, Potassium 3.9, Chloride 106, Carbon Dioxide 23.8, Anion Gap 11, BUN 14, Creatinine 0.61 L, Estim Creat Clear Calc 84.21, Est GFR (MDRD) Non-Af 102, BUN/Creatinine Ratio 22.3 H, Glucose 124 H, Calcium 8.8 Micro: Microbiology 09/06/24 Unknown Tissue - Ischial Pressure Sore Gram Stain - Final 09/06/24 Unknown Tissue - Ischial Pressure Sore Wound Culture - Preliminary No growth-Final to follow 09/06/24 Unknown Bone - Ischial Bone Gram Stain - Final 09/06/24 Unknown Bone - Ischial Bone Wound Culture - Preliminary No growth-Final to follow Physical Exam Narrative No acute distress Normal respiratory rate and normal work of breathing Abdomen: Nontender to palpation, no distention Wound: VAC is holding suction with serosanguineous fluid in the canister, no signs of bleeding. Appropriately offloaded on a pressure offloading bed Assessment & Plan Assessment/Plan (1) Pressure ulcer: PLAN: Medicine consulted in the setting of persistent post-op N/V (appreciate recommendations) Neuro: Tylenol and or oxycodone for pain control as needed Cardiac: Continue home amlodipine and metoprolol, holding Eliquis (atrial fibrillation indication) Respiratory: Continue incentive spirometer Abdomen/GI: We will get patient some help with positioning so as to digitally stimulate BM. Medicine has ordered a CT scan. FEN: N.p.o. at midnight for surgery. Electrolytes within normal limits. 75 cc LR hourly Infectious disease: Continue IV Ancef 2 g every 8, follow-up cultures from the OR. No organisms seen on Gram stain's Hematology: Lovenox 40 mg daily, SCDs N.p.o. at midnight for reconstruction tomorrow. Continue irrigating wound VAC with Dakin's to clean wound. Patient happy with the plan Charges/Coding Procedures Integumentary [id number]: [id number] Global Visit
[2024-09-07] MEDS: Scopolamine 1mg/72hr Patch 1 PATCH TD (21:15)
[2024-09-07] MEDS: Lactated Ringers 1,000 ML 75 ML IV (21:16)
[2024-09-07] MEDS: Atorvastatin Calcium 20 MG Tablet PO (21:49)
[2024-09-08] VITALS (15 sets, daily range): BP systolic 98–135; BP diastolic 65–91; PULSE 81–90; RESP 16–18; TEMP 36.1–37.1; O2SAT 93–97; BMI 36.3
[2024-09-08] MEDS: Cefazolin 2 GM in 0.9% Normal Saline (100mL Bag) 100 ML IV ×3 (05:16→22:24)
--- NOTE | 2024-09-08 06:29 | NURSING ---
pt to surgery
--- NOTE | 2024-09-08 06:48 | PRE.ANES_ITS ---
ASA Classification* ASA Classification ASA Classification: 3 Assessment & Plan Anesthesia* Anesthesia Assessment Anesthesia Assessment: Discussed sedation and/or anesthesia options, risks, benefits, and alternatives with patient/parents/legal guardian/POA. Questions invited. The patient/parents/legal guardian/POA seems to understand and agrees to proceed with anesthesia plan. Reviewed the physical assessment, medical history, allergy history and patient home medications list prior to surgery/procedure/anesthetic and documented any changes. Performed airway and anesthesia risk assessments. Anesthesia Type Anesthesia Type: General Anesthesia Focused Assessment* Temperature: 98.8 F Pulse Rate: 85 Blood Pressure: 133/86 Respiratory Rate: 16 Pulse Ox: 97 Oxygen Flow Rate (L/min): 2 Airway Assessment Mouth opens: >3 cm Mallampati Score: II Focused Labs Anesthesia Preop lab: CBC WBC 9.3 K/mm3 (4.4-11.0) 09/07/24 04:09/07/24 RBC 4.46 M/mm3 (4.6-6.2) L 09/07/24 04:09/07/24 Hgb 13.1 g/dL (13.0-16.5) 09/07/24 04:28 09/07/24 Hct 39.1 % (40-54) L 09/07/24 04:28 09/07/24 Plt Count 382 K/mm3 (150-450) 09/07/24 04:28 09/07/24 CHEMISTRY Potassium 3.9 mmol/L (3.3-5.1) 09/07/24 04:28 09/07/24 Sodium 140 mmol/L (133-145) 09/07/24 04:28 09/07/24 Magnesium 1.8 mg/dL (1.6-2.6) 04/13/24 05:04 04/13/24 Phosphorus 3.0 mg/dL (2.5-4.9) 04/13/24 05:04 04/13/24 BUN 14 mg/dL (4-19) 09/07/24 04:28 09/07/24 Creatinine 0.61 mg/dL (0.70-1.20) L 09/07/24 04:28 Glucose 124 mg/dL (70-99) H 09/07/24 04:28 09/07/24 TSH 2.080 uIU/mL (0.358-3.740) 04/13/24 05:04 03/21 09/10 COAG PT 19.3 SECONDS (11.7-14.9) H 04/13/24 05:04 03/21 09/10 Pre-Assessment Diagnosis/Proposed Procedure Planned Operative Procedure(s): LEFT ISCHIUM PRESSURE SORE EXCISION Flap Closure Anesthesia History 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 When Was Last Pacemaker Check QUESTION #4 FULL TEXT: You/Your Family Experience fever (hyperthermia) with Anesthesia Last Oral Intake Last Oral intake: Last Oral Intake NPO since 00:00 09/08/24 05:21 Meds taken in AM with sips of No 09/08/24 05:21 water? Meds patient instructed to take am of surgery PONV PONV - outdoor fitness trainer: PONV - outdoor fitness trainer Female No 09/02/24 13:41 HX of Motion Sickness No 09/02/24 13:41 HX of N/V After Surgery No 09/02/24 13:41 Non-Smoker Yes 09/02/24 13:41 Duration of Surgery greater Yes 09/02/24 13:41 than 60 minutes Number of Risk Factors 2 09/02/24 13:41 PONV Score Moderate Risk 09/02/24 13:41 Height & Weight Height & Weight: Anesthesia: Height & Weight Height 5 ft 3 in 09/08/24 05:21 Weight: 92.98 kg 09/08/24 05:21 Body Mass Index (BMI) 36.3 09/08/24 05:21 Respiratory Assessment Respiratory Assessment - outdoor fitness trainer: Respiratory Tract Infection Hx - outdoor fitness trainer Hx Respiratory Tract Infection No 09/07/24 22:18 STOP Sleep Apnea STOP Sleep Apnea - outdoor fitness trainer: STOP Sleep Apnea - outdoor fitness trainer Hx Hypertension Yes: CONTROLLED WITH MED 09/02/24 13:41 Hx Sleep Apnea No 09/06/24 10:55 CPAP BIPAP Do you snore loudly (louder Yes 09/02/24 13:41 than talking or can be heard Do you often feel tired/ No 09/02/24 13:41 fatigued/ sleepy during daytime? Has anyone observed you stop No 09/02/24 13:41 breathing during sleep? STOP Results Positive 09/06/24 09:55 QUESTION #5 FULL TEXT : Do you snore loudly (louder than talking or can be heard through closed doors)? 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 Specify any problems Hx of Preganancy in last 3 N/A 09/02/24 13:41 Months Nurse Filling Out Transfusion DSCHRIBER 09/02/24 13:41 & Questions: Date: 09/02/24 09/02/24 13:41 Time: 13:44 09/02/24 13:41 Patient unable to answer at this time (ie. confused, unrespo /Reproduction History /Reproductive History - outdoor fitness trainer: /Reproductive Hx- outdoor fitness trainer Hx Now No 09/07/24 22:18 Gestational Age (in weeks): EDC: Hx Hx Para Hx Section SAB No 09/07/24 22:18 Active Medications Active Medications: Current Medications Generic Name Dose Route Start Last Admin Trade Name Freq PRN Reason Stop Dose Admin Acetaminophen 650 mg 09/06/24 08:24 Acetaminophen 325 Mg Tablet PO Q6H PRN PRN Pain Score 1-10 Amlodipine Besylate 10 mg 09/07/24 10:00 09/07/24 08:53 Amlodipine 10 Mg Tablet PO 10 mg DAILY MANUEL Administration Protocol Atorvastatin Calcium 20 mg 09/06/24 22:00 09/07/24 21:49 Atorvastatin Calcium 20 Mg Tablet PO 20 mg QHS MANUEL Administration Sodium Hypochlorite 473 ml/ 0 ml 09/06/24 08:45 09/07/24 09:15 Sodium Chloride 473 ml IRRIGATION 1,000 ml UD MANUEL Administration Enoxaparin Sodium 40 mg 09/06/24 10:00 09/07/24 08:53 Enoxaparin 40 Mg/0.4 Ml Syringe SC 40 mg DAILY MANUEL Administration Lactated Ringer's 1,000 mls @ 15 mls/hr 09/06/24 07:30 09/07/24 09:16 IV 0 mls/hr .Q48H MANUEL Infusion Cefazolin Sodium 2 gm/ Sodium 110 mls @ 150 mls/hr 09/06/24 15:00 09/08/24 06:14 Chloride IV Infused Q8 MANUEL Infusion Lactated Ringer's 1,000 mls @ 75 mls/hr 09/07/24 19:30 09/08/24 05:16 IV 0 mls/hr .[id number] MANUEL Infusion Metoprolol Tartrate 100 mg 09/06/24 22:00 09/07/24 21:49 Metoprolol Tartrate 100 Mg Tablet PO 100 mg BID MANUEL Administration Protocol Ondansetron HCl 4 mg 09/06/24 08:24 09/07/24 17:39 Ondansetron 4 Mg/2 Ml Vial IV 4 mg Q8H PRN PRN Administration NAUSEA Oxycodone HCl 5 - 10 mg 09/06/24 08:24 Oxycodone 5 Mg Tablet PO Q4H PRN PRN Pain Score 1-10 Scopolamine HBr 1 patch 09/07/24 20:00 09/07/24 21:15 Scopolamine 1mg/72hr Patch TD 1 patch Q3D MANUEL Administration Sodium Chloride 10 - 40 ml 09/06/24 12:21 09/07/24 17:39 0.9% Saline Lock 10 Ml Syringe IV 10 ml UD PRN Administration SALINE FLUSH PFSH Medical History Wears glasses Arthritis Uses wheelchair Incontinence of bowel Heartburn History of edema History of echocardiogram Cardiology follow-up encounter History of atrial fibrillation Self-catheterizes urinary bladder Agatston coronary artery calcium score less than 100 Mixed hyperlipidemia Spina bifida Paraplegia, incomplete Benign essential hypertension Anxiety Non-smoker Asthma Atrial fibrillation Home Medications ?Medication ?Instructions ?Recorded ?Last Taken ?Type amlodipine 10 mg tablet 10 mg PO DAILY Blood pressur e 04/12/24 09/06/24 History apixaban 5 mg tablet (Eliquis) 5 mg PO BID AFIB 09/03/24 History lisinopril 20 1 tab PO BID Blood pressure 04/12/24 09/05/24 History mg-hydrochlorothiazide 12.5 mg tablet metoprolol tartrate 100 mg tablet 100 mg PO BID Blood pressure 04/12/24 09/06/24 History simvastatin 40 mg tablet 40 mg PO .qd Cholesterol 09/05/24 History Allergy/AdvReac Type Severity Reaction Status Date / Time No Known Allergies Allergy Verified 09/06/24 07:43 Family History Father Cancer Surgical History History of incision and drainage History of cataract removal with insertion of prosthetic lens Social History household members: spouse Smoking Status: Never smoker alcohol intake: never substance use type: does not use caffeine: Yes (2 servings daily) Review of Systems (Anesthesia) ROS Narrative System reviewed and no additional complaints, except as documented.
[2024-09-08] MEDS: Lactated Ringers 1,000 ML 15 ML IV (06:52)
--- NOTE | 2024-09-08 07:06 | PCM.HP.STD ---
HPI - General General Date of Admission: 09/06/24 HPI Narrative FELIPA PEREZ, is a 74 M who presents WITH LEFT ISCHIAL WOUND. Postop day 1 nausea and vomiting that is since improved with a scopolamine patch. CT scan per medicine did not demonstrate any bowel obstruction or constipation. Patient safe to proceed with surgery today. Ports that he is feeling much better [facility] Medical History Wears glasses Arthritis Uses wheelchair Incontinence of bowel Heartburn History of edema History of echocardiogram Cardiology follow-up encounter History of atrial fibrillation Self-catheterizes urinary bladder Agatston coronary artery calcium score less than 100 Mixed hyperlipidemia Spina bifida Paraplegia, incomplete Benign essential hypertension Anxiety Non-smoker Asthma Atrial fibrillation Home Medications ?Medication ?Instructions ?Recorded ?Last Taken ?Type amlodipine 10 mg tablet 10 mg PO DAILY Blood pressure 04/12/24 09/06/24 History apixaban 5 mg tablet (Eliquis) 5 mg PO BID AFIB 04/12/24 09/03/24 History lisinopril 20 1 tab PO BID Blood pressure 04/12/24 09/05/24 History mg-hydrochlorothiazide 12.5 mg tablet metoprolol tartrate 100 mg tablet 100 mg PO BID Blood pressure 04/12/24 09/06/24 History simvastatin 40 mg tablet 40 mg PO .qd Cholesterol 04/12/24 09/05/24 History Allergy/AdvReac Type Severity Reaction Status Date / Time No Known Allergies Allergy Verified 09/06/24 07:43 Family History Father Cancer Surgical History History of incision and drainage History of cataract removal with insertion of prosthetic lens Social History household members: spouse Smoking Status: Never smoker alcohol intake: never substance use type: does not use caffeine: Yes (2 servings daily) Vital Signs Vital Signs Vital Signs: 09/07/24 08:53 09/07/24 09:00 09/07/24 09:00 Temperature 98.1 F Temperature Source Oral Pulse Rate 83 83 Respiratory Rate 16 Respiratory Effort Normal Non-Labored Respiratory Depth Normal Respiratory Pattern Normal Blood Pressure 149/96 H 149/96 H Blood Pressure Mean 113 Blood Pressure Source Monitor Blood Pressure Position Semi-Fowlers Blood Pressure Location Right Arm Pulse Ox 96 Oxygen Delivery Method Room Air Room Air Oxygen Flow Rate (L/min) 09/07/24 15:43 09/07/24 21:27 09/07/24 21:27 Temperature 98.6 F 98.5 F Temperature Source Oral Oral Pulse Rate 81 97 Respiratory Rate 16 16 Respiratory Effort Normal Respiratory Depth Normal Respiratory Pattern Normal Blood Pressure 131/83 H 128/77 H Blood Pressure Mean 99 94 Blood Pressure Source Monitor Monitor Blood Pressure Position Semi-Fowlers Semi-Fowlers Blood Pressure Location Left Arm Left Arm Pulse Ox 98 96 Oxygen Delivery Method Room Air Room Air Room Air Oxygen Flow Rate (L/min) 09/07/24 21:49 09/07/24 23:52 09/08/24 02:50 Temperature 98.9 F Temperature Source Oral Pulse Rate 97 87 Respiratory Rate 16 Respiratory Effort Normal Respiratory Depth Normal Respiratory Pattern Normal Blood Pressure 117/83 H Blood Pressure Mean 94 Blood Pressure Source Monitor Blood Pressure Position Semi-Fowlers Blood Pressure Location Left Arm Pulse Ox 93 Oxygen Delivery Method Room Air Room Air Oxygen Flow Rate (L/min) 09/08/24 05:20 09/08/24 06:49 Temperature 98.8 F 98.8 F Temperature Source Oral Pulse Rate 85 85 Respiratory Rate 16 16 Respiratory Effort Respiratory Depth Respiratory Pattern Blood Pressure 133/86 H 133/86 H Blood Pressure Mean 101 Blood Pressure Source Monitor Blood Pressure Position Semi-Fowlers Blood Pressure Location Left Arm Pulse Ox 97 97 Oxygen Delivery Method Room Air Oxygen Flow Rate (L/min) 2 Weight Weight: 204 lb 15.773 oz Body Mass Index (BMI) 36.3 Physical Exam Narrative No acute distress Normal respiratory rate and normal work of breathing Abdomen: Nontender to palpation, no distention Wound: VAC is holding suction with serosanguineous fluid in the canister, no signs of bleeding. Appropriately offloaded on a pressure offloading bed Results Lab / Micro Data 09/07/24 04:28 09/07/24 04:28 Micro: Microbiology 09/06/24 Unknown Tissue - Ischial Pressure Sore Gram Stain - Final 09/06/24 Unknown Tissue - Ischial Pressure Sore Wound Culture - Preliminary No growth-Final to follow 09/06/24 Unknown Bone - Ischial Bone Gram Stain - Final 09/06/24 Unknown Bone - Ischial Bone Wound Culture - Preliminary No growth-Final to follow Imaging Radiology Impression Abdomen/Pelvis CT 09/07/24 20:00 IMPRESSION: Soft tissue density and osseous destruction of the left hip. A mass can not be excluded. Left buttock wound. Postsurgical changes of the spine with a fluid collection posterior to L5 through S2. OVERALL FINAL ASSESSMENT: . LI-RADS is not meant to be used in patients <18 years or patients with cirrhosis due to congenital hepatic fibrosis or due to vascular disorders, because these patients have a lower chance of developing HCC. Reading Location: [id number] Assessment & Plan Assessment/Plan (1) Pressure ulcer: QUALIFIERS: Pressure injury location: hip Pressure injury stage: stage 4 Laterality: left Qualified Code(s): L89.224 - Pressure ulcer of left hip, stage 4 PLAN: Neuro: Tylenol and or oxycodone for pain control as needed Cardiac: Continue home amlodipine and metoprolol, holding Eliquis (atrial fibrillation indication) Respiratory: Continue incentive spirometer Abdomen/GI: We will get patient some help with positioning so as to digitally stimulate BM. Medicine has ordered a CT scan. FEN: N.p.o. for surgery. Electrolytes within normal limits. 75 cc LR hourly Infectious disease: Continue IV Ancef 2 g every 8, follow-up cultures from the OR. No organisms seen on Gram stain's Hematology: Lovenox 40 mg daily, SCDs Plan to proceed with closure of the left ischial wound today in the operating room. We discussed the risk benefits and alternatives of closure /flap closure today. Patient understands the risks of dehiscence and wound failure as well as infection and need for repeat operations. He understands the risks of bleeding. He understands risk of anesthesia including hypotension and stroke. He would like to proceed with surgery. Current Encounter (DATE OF SURGERY H&P UPDATE): I saw and examined the patient this morning in pre-operative holding. We discussed risks and benefits of today's surgery and they would like to proceed. NO CHANGE in health history since last seen and evaluated. Ready to proceed with surgery.
--- NOTE | 2024-09-08 07:11 | OP.PCM_ITS ---
Operative Report (Standard) Operative Information Date of Procedure: 09/08/24 Pre-Operative Diagnosis: Left ischial pressure ulcer, stage IV Post-Operative Diagnosis: Same Surgery/Procedure Performed: 1) Excision of left ischial pressure ulcer with ostectomy and skin flap closure ([id number]) cat scanner operator: Yes Electrician Substation Supervisor: Zev Faulkner Tasks completed by certified surgical assistant: Retracting Type of Anesthesia: General/Supplemental (20 cc of 50-50 mixture of 1% lidocaine with 1-200,000 epinephrine and quarter percent Marcaine with 1-200,000 epinephrine) RN Documented Start/Stop Times: Operation Date: 09/08/24 07:30 Case Time Into Pre-Op 09/08/24 06:39 Out of Pre-Op 09/08/24 07:22 Anesthesia Start 09/08/24 07:25 Into Room 09/08/24 07:25 Procedure Start 09/08/24 07:51 Procedure End 09/08/24 08:52 Anesthesia End 09/08/24 08:59 Out of Room 09/08/24 08:59 Into Recovery 09/08/24 09:02 Procedure Start Time: 07:51 Procedure Stop Time: 08:52 Select all DRAINS/GRAFTS/IMPLANTS that apply: Drains (19 Hungarian Ozzie drain placed) Drain details: Place at the base of the wound tunneled out medially Estimated Blood Loss: 50 cc Specimen collected: Yes Description of specimen(s) removed: Deep soft tissue culture, bone culture Description of surgery: Indications: Lamont Wolf is a 74-year-old male who is nonambulatory with a history of spina bifida and a left ischial pressure ulcer. Presents today for definitive reconstruction. Patient underwent debridement of the wound on 06 Sep 2024 (2 days ago) with placement of irrigating wound VAC with Dakin's to clean the wound. Cultures have been negative thus far from the bone and the deep soft tissue. He has been on IV Ancef for 48 hours. Patient understands risks, benefits, and alternatives to today's procedure and would like to proceed. Procedure details: Patient was correctly identified in preoperative holding and taken back to the operating room he was administered general anesthesia and flipped in a right lateral decubitus position. He was prepped and draped in sterile fashion and care was taken to pad all bony prominences and protect his brachial plexus with an axillary roll. A proper timeout was performed. 15 blade scalpel was used to excise around the edges of the wound and Bovie electrocautery, curette, curved Rutledge scissors, and a rongeur were all used for sharp excision of the wound including excision of bone at the base of the wound (left ischial bone). Deep soft tissue cultures were taken as well as bone cultures. The wound was irrigated with 3000 cc of normal saline and 900 cc of Irrisept. Hemostasis was obtained with Bovie electrocautery. A 19 Hungarian Ozzie drain was inserted at the base of the wound and tunneled out medially on the thigh. Bovie electrocautery was used to undermine and create superiorly and inferiorly based skin flaps for closure to take tension off the wound. The inset was performed with 0 PDS deep muscle and deep fascial sutures in [id number] fashion, followed by 2-0 PDS deep dermal sutures and 3-0 Monocryl vertical mattress sutures and Prineo tape. Patient tolerated the procedure well. Drain was holding suction at the end of the case. The patient was taken to the PACU in stable condition. Postoperative plan: Follow-up wound cultures. Anticipate 2 weeks of Keflex per discussion on the phone with infectious disease (Dr. Salas) if deep cultures continue to be negative. Follow-up in the wound care center on Thursday, 12 Sep 2024. Dissipate discharge tomorrow, 09 Sep 2024. Surgical Findings: * Healthy wound bed without any signs of infection ready for reconstruction * Bone was firm and solid at the base of the wound (no sequestrum or other signs of osteomyelitis) Complications Complications: No Admit VTE Documentation VTE Mechan Device Prophylaxis: SCD's
[2024-09-08] MEDS: Bupiv/Epi 0.25% 30 ML Vial (07:50)
[2024-09-08] MEDS: Lidocaine 1% /Epi 1:100 (20ml) 20 ML Vial (07:50)
--- NOTE | 2024-09-08 09:44 | PCM.POST.ANE ---
Anesthesia: Postop Eval I Current Vital Signs Temperature: 97 F Pulse Rate: 87 Blood Pressure: 108/81 Respiratory Rate: 16 Pulse Ox: 95 Oxygen Delivery Method: Room Air Assessment Airway patent: Yes Spontaneous unlabored respirations: Yes Mental status: Awake and Calm nausea: No Vomiting: No Anesthesia Complication: No Fluid Hydration Crystalloid volume administer (ml): 600 Total IV fluid infused: 600 Progress Note Anesthesia document: Postop Eval 1 completed: Yes
[2024-09-08] MEDS: Lactated Ringers 1,000 ML 75 ML IV (10:16)
[2024-09-08] MEDS: Metoprolol Tartrate 100 MG Tablet PO ×2 (12:05→22:23)
[2024-09-08] MEDS: amLODIPine 10 MG Tablet PO (12:05)
[2024-09-08] MEDS: Enoxaparin 40 MG/0.4 ML Syringe SC (12:06)
--- NOTE | 2024-09-08 14:43 | NURSING ---
talked with lab about outstanding labs needing drawn.
[2024-09-08 15:08] LABS: Absolute Lymphocyte Count 0.72 X10^3/uL (0.83-4.51); Absolute Neutrophil Count 12.3 X10^3/uL (2.0-7.7); Basophil# 0.01 X10^3/uL; Basophil% 0.1 % (0-1); Hematocrit 41.1 % (40-54); Hemoglobin 13.8 g/dL (13.0-16.5); Lymphocyte # 0.72 X10^3/ul (0.83-4.51); Lymphocyte % 5.3 % (19-41); Mean Corp Hgb Conc 33.6 g/dL (32-36); Mean Corpuscular Hgb 29.1 pg (27.0-32.0); Mean Corpuscular Volume 86.5 fL (80-94); Mean Platelet Vol. 9.2 fl (6.2-12.0); Monocyte# 0.38 X10^3/uL; Monocyte% 2.8 % (0-10); NRBC Flagged by Analyzer 0 % (0-5); Neutrophil # 12.27 X10^3/uL (2.7-7.7); Neutrophil % 90.8 % (47-70); Platelet Count 376 K/mm3 (150-450); RBC Distribution Width CV 13.6 % (11.6-14.6); RBC Distribution Width SD 42.3 fl (35.1-43.9); Red Blood Count 4.75 M/mm3 (4.6-6.2); White Blood Count 13.5 K/mm3 (4.4-11.0)
[2024-09-08 18:09] LABS: AST(SGOT) 14 U/L (<=37); Alanine Aminotransfer ALT/SGPT 11 U/L (<=46); Albumin, Serum 3.2 g/dL (3.4-4.8); Alkaline Phosphatase 86 U/L (40-129); Anion Gap 12 (5-15); BUN 13 mg/dL (4-19); Calcium,Total 8.8 mg/dL (7.6-11.0); Chloride 101 mmol/L (98-108); Creatinine, Serum 0.66 mg/dL (0.70-1.20); EST Glomerular Filtration Rate 99 (>60); Estimated Creatinine Clearance 84.21 ml/min (50-250); Glucose 177 mg/dL (70-99); Magnesium 1.6 mg/dL (1.5-2.2); Phosphorus 2.9 mg/dL (2.7-4.5); Protein, Total 6.2 g/dL (5.9-8.4); Sodium Level 136 mmol/L (133-145); Total Bilirubin 0.26 mg/dL (0.00-1.30)
[2024-09-08] MEDS: Atorvastatin Calcium 20 MG Tablet PO (22:23)
[2024-09-09] VITALS (7 sets, daily range): BP systolic 106–135; BP diastolic 74–91; PULSE 73–94; RESP 16–18; TEMP 36.6–36.9; O2SAT 94–98; BMI 36.3
[2024-09-09] MEDS: Cefazolin 2 GM in 0.9% Normal Saline (100mL Bag) 100 ML IV ×3 (05:29→20:58)
[2024-09-09 07:00] LABS: Absolute Neutrophil Count 8.6 X10^3/uL (2.0-7.7); Basophil# 0.03 X10^3/uL; Basophil% 0.3 % (0-1); Eosinophil# 0.18 X10^3/uL; Eosinophils% 1.5 % (0-5); Hematocrit 40.6 % (40-54); Hemoglobin 13.8 g/dL (13.0-16.5); Lymphocyte % 14.5 % (19-41); Mean Corpuscular Hgb 29.4 pg (27.0-32.0); Mean Corpuscular Volume 86.6 fL (80-94); Mean Platelet Vol. 9.5 fl (6.2-12.0); Monocyte# 1.15 X10^3/uL; Monocyte% 9.8 % (0-10); NRBC Flagged by Analyzer 0 % (0-5); Neutrophil # 8.63 X10^3/uL (2.7-7.7); Neutrophil % 73.5 % (47-70); Platelet Count 397 K/mm3 (150-450); RBC Distribution Width CV 13.8 % (11.6-14.6); RBC Distribution Width SD 43.2 fl (35.1-43.9); Red Blood Count 4.69 M/mm3 (4.6-6.2); White Blood Count 11.7 K/mm3 (4.4-11.0)
[2024-09-09 08:01] LABS: Anion Gap 13 (5-15); BUN 12 mg/dL (4-19); BUN/Creat Ratio 17.6 RATIO (10-20); Calcium,Total 8.7 mg/dL (7.6-11.0); Carbon Dioxide 24.4 mmol/L (21.0-32.0); Chloride 102 mmol/L (98-108); Creatinine, Serum 0.65 mg/dL (0.70-1.20); EST Glomerular Filtration Rate 100 (>60); Estimated Creatinine Clearance 84.21 ml/min (50-250); Glucose 112 mg/dL (70-99); Potassium 3.5 mmol/L (3.3-5.1); Sodium Level 139 mmol/L (133-145)
[2024-09-09] MEDS: Enoxaparin 40 MG/0.4 ML Syringe SC (08:33)
[2024-09-09] MEDS: Metoprolol Tartrate 100 MG Tablet PO ×2 (08:33→20:46)
[2024-09-09] MEDS: amLODIPine 10 MG Tablet PO (08:33)
[2024-09-09] MEDS: Magnesium Hydroxide 30 ML UDC PO (10:48)
--- NOTE | 2024-09-09 11:46 | CASEMGMT ---
Addendum entered by Barbara Ivy 09/09/24 13:27: AZIZA NOBLES into pt room to make aware of answers provided by Dr. Cabrera. He does not have access to internet to search for the mattress overlay systems. Provided pt with 3 options and highlighted the cost, features and name with contact information on how to order. Pt to review with and also wants to get Dr. Cabrera's opinion. Pt denies any further needs at this time. Addendum entered by Barbara Ivy 09/09/24 13:00: Received notification from Dr. Cabrera that overlay is ok for pt. Also that pt can be transported by selves, no need for stretcher. Plan for dc on Thursday. Original Note: Received notification from [employer] that when pt stopped the rep just looked up on his phone and found a mattress overlay that can be purchased online for approx $100. AZIZA NOBLES into pt room, pt lying in bed in no distress. Made pt aware of this overlay. He is aware AZIZA NOBLES will ask Dr. Cabrera if this is appropriate for him and if pt will need stretcher for transport to the [facility]. Pt is unsure if he will be dc'd over the weekend or holiday. Questions asked to Dr. Cabrera via backline at this time.
--- NOTE | 2024-09-09 12:10 | PN.HOSP_ITS ---
Subjective Subjective Slightly improved nausea, yesterday was in the OR for wound debridement Objective Data Objective Data Vital Signs: Vital Signs Temp Pulse Resp BP Pulse Ox O2 Del Method O2 Flow Rate 98.2 F 82 16 126/89 H 98 Room Air 2 09/09/24 11:09 09/09/24 11:09 09/09/24 11:09 09/09/24 11:09 09/09/24 11:09 09/09/24 11:09 09/08/24 06:49 Oxygen Flow Rate (L/min) 2 Oxygen Delivery Method Room Air Weight: 204 lb 15.773 oz Body Mass Index (BMI) 36.3 Intake & Output: Intake and Output for Last 24 Hours 09/08/24 09/09/24 09/10/24 03:59 03:59 03:59 Intake Total 811.5 / 811.5 1812.50 / 1812.50 210 / 210 Output Total 1050 / 1050 1855 / 1855 300 / 300 Balance -238.5 / -238.5 -42.50 / -42.50 -90 / -90 Lab / Micro Data 09/09/24 06:15 09/09/24 06:15 Labs: Laboratory Results - last 24 hr 09/08/24 14:54: WBC 13.5 H, RBC 4.75, Hgb 13.8, Hct 41.1, MCV 86.5, MCH 29.1, MCHC 33.6, RDW Std Deviation 42.3, RDW Coeff of Gregor 13.6, Plt Count 376, MPV 9.2, Immature Gran % (Auto) 1.000 H, Neut % (Auto) 90.8 H, Lymph % (Auto) 5.3 L, [place] % (Auto) 2.8, Eos % (Auto) 0.0, Baso % (Auto) 0.1, Absolute Neuts (auto) 12.3 H, Absolute Lymphs (auto) 0.72 L, Nucleated RBC % 0, Sodium 136, Potassium 4.0, Chloride 101, Carbon Dioxide 24.0, Anion Gap 12, BUN 13, Creatinine 0.66 L, Estim Creat Clear Calc 84.21, Est GFR (MDRD) Non-Af 99, BUN/Creatinine Ratio 19.0, Glucose 177 H, Calcium 8.8, Phosphorus 2.9, Magnesium 1.6, Total Bilirubin 0.26, AST 14, ALT 11, Alkaline Phosphatase 86, Total Protein 6.2, Albumin 3.2 L, Globulin 3.0, Albumin/Globulin Ratio 1.0 09/09/24 06:15: WBC 11.7 H, RBC 4.69, Hgb 13.8, Hct 40.6, MCV 86.6, MCH 29.4, MCHC 34.0, RDW Std Deviation 43.2, RDW Coeff of Gregor 13.8, Plt Count 397, MPV 9.5, Immature Gran % (Auto) 0.400, Neut % (Auto) 73.5 H, Lymph % (Auto) 14.5 L, [place] % (Auto) 9.8, Eos % (Auto) 1.5, Baso % (Auto) 0.3, Absolute Neuts (auto) 8.6 H, Absolute Lymphs (auto) 1.70, Nucleated RBC % 0, Sodium 139, Potassium 3.5, Chloride 102, Carbon Dioxide 24.4, Anion Gap 13, BUN 12, Creatinine 0.65 L, Estim Creat Clear Calc 84.21, Est GFR (MDRD) Non-Af 100, BUN/Creatinine Ratio 17.6, Glucose 112 H, Calcium 8.7 Micro: Microbiology 09/06/24 Unknown Tissue - Ischial Pressure Sore Gram Stain - Final 09/06/24 Unknown Tissue - Ischial Pressure Sore Wound Culture - Preliminary No growth-Final to follow 09/06/24 Unknown Tissue - Ischial Pressure Sore Anaerobic Culture - Preliminary No growth in 48 hours. 09/06/24 Unknown Bone - Ischial Bone Gram Stain - Final 09/06/24 Unknown Bone - Ischial Bone Wound Culture - Final No growth aerobically. 09/06/24 Unknown Bone - Ischial Bone Anaerobic Culture - Preliminary No growth in 48 hours. 09/08/24 Unknown Bone - Ischium Gram Stain - Final 09/08/24 Unknown Ulcer, Decubitus - Ischium Gram Stain - Final Physical Exam Narrative General: Alert, Oriented x3, Cooperative, No apparent distress HEENT: Atraumatic, PERRLA, EOMI, Normocephalic Oral: Moist Mucosa Neck: Supple, No JVD Lungs: Diminished, Normal air movement, No rhonchi, No wheeze, No rales Cardiovascular: Regular rate, Regular Rhythm, Normal S1, Normal S2, No murmurs Abdomen: Soft, Non Tender, Non-Distended, No Hepato-splenomegaly Extremities: No edema, Capillary Refill Less than 3 Seconds Skin: Ischial wound not evaluated, dressing intact Musculoskeletal: No Tenderness to Palpation of Joints or Extremities Neurological: No focal neurological deficits, moves extremities with lower extremity weakness, spina bifida, physical exam is baseline Psych/Mental Status: Normal Affect, Appropriate Assessment & Plan Assessment/Plan (1) Postoperative nausea and vomiting: PLAN: Plan 1. Nausea and vomiting in the setting of initial pressure ulcer status post debridement on 09/06/2024 and 09/08/2024/spina bifida ? PT/OT ? Wound care ? Pain management per primary ? Will add Reglan today to his medication list to see if we can stimulate bowel function, he is already on scopolamine and Zofran ? His history of spina bifida, he used to be able to use crutches now he is essentially wheelchair-bound worsening his pressure ulcer issues ? CT scan of the abdomen pelvis on 09/07/2024 was unremarkable, no small bowel obstruction 2. Essential HTN/HLD/A-fib ? Continue with his home medications ? Will monitor and make adjustments as necessary ? Resume Eliquis when okay with surgery DVT: Lovenox Charges/Coding Visit Charges Inpatient E&M: 27023 Subs Hosp L2
[2024-09-09] MEDS: Bisacodyl 10 MG Suppository RC (13:29)
--- NOTE | 2024-09-09 13:48 | NURSING ---
supp given, rectal digital exam done. no stool felt.
--- NOTE | 2024-09-09 17:54 | PCM.PN.SRG ---
Subjective Subjective Patient doing well overall today. He had assistance from nursing staff having a bowel movement (patient does self digital disimpaction), and was able to pass some stool. He has had some persistent nausea, but this is improved with the scopolamine patch. Patient's dressings and drain were kept clean during the bowel movement. No chest pain, racing heart, or shortness of breath. No abdominal pain. He reports good drain care and good every 2 hour position changes. Objective Data Objective Data Vital Signs: Vital Signs Temp Pulse Resp BP Pulse Ox O2 Del Method O2 Flow Rate 98 F 73 16 106/74 94 Room Air 2 09/09/24 15:30 09/09/24 15:30 09/09/24 15:30 09/09/24 15:30 09/09/24 15:30 09/09/24 15:30 09/08/24 06:49 Oxygen Flow Rate (L/min) 2 Oxygen Delivery Method Room Air Weight: 204 lb 15.773 oz Body Mass Index (BMI) 36.3 Intake & Output: Intake and Output for Last 24 Hours 09/07/24 09/08/24 09/09/24 23:59 23:59 23:59 Intake Total 1011.5 / 1011.5 1512.50 / 1512.50 970 / 970 Output Total 1450 / 1450 1350 / 1350 1805 / 1805 Balance -438.5 / -438.5 162.50 / 162.50 -835 / -835 Lab / Micro Data 09/09/24 06:15 09/09/24 06:15 Labs: Laboratory Results - last 24 hr 09/08/24 14:54: Sodium 136, Potassium 4.0, Chloride 101, Carbon Dioxide 24.0, Anion Gap 12, BUN 13, Creatinine 0.66 L, Estim Creat Clear Calc 84.21, Est GFR (MDRD) Non-Af 99, BUN/Creatinine Ratio 19.0, Glucose 177 H, Calcium 8.8, Phosphorus 2.9, Magnesium 1.6, Total Bilirubin 0.26, AST 14, ALT 11, Alkaline Phosphatase 86, Total Protein 6.2, Albumin 3.2 L, Globulin 3.0, Albumin/Globulin Ratio 1.0 09/09/24 06:15: WBC 11.7 H, RBC 4.69, Hgb 13.8, Hct 40.6, MCV 86.6, MCH 29.4, MCHC 34.0, RDW Std Deviation 43.2, RDW Coeff of Gregor 13.8, Plt Count 397, MPV 9.5, Immature Gran % (Auto) 0.400, Neut % (Auto) 73.5 H, Lymph % (Auto) 14.5 L, [place] % (Auto) 9.8, Eos % (Auto) 1.5, Baso % (Auto) 0.3, Absolute Neuts (auto) 8.6 H, Absolute Lymphs (auto) 1.70, Nucleated RBC % 0, Sodium 139, Potassium 3.5, Chloride 102, Carbon Dioxide 24.4, Anion Gap 13, BUN 12, Creatinine 0.65 L, Estim Creat Clear Calc 84.21, Est GFR (MDRD) Non-Af 100, BUN/Creatinine Ratio 17.6, Glucose 112 H, Calcium 8.7 Micro: Microbiology 09/06/24 Unknown Tissue - Ischial Pressure Sore Gram Stain - Final 09/06/24 Unknown Tissue - Ischial Pressure Sore Wound Culture - Preliminary No growth-Final to follow 09/06/24 Unknown Tissue - Ischial Pressure Sore Anaerobic Culture - Preliminary No growth in 48 hours. 09/06/24 Unknown Bone - Ischial Bone Gram Stain - Final 09/06/24 Unknown Bone - Ischial Bone Wound Culture - Final No growth aerobically. 09/06/24 Unknown Bone - Ischial Bone Anaerobic Culture - Preliminary No growth in 48 hours. 09/08/24 Unknown Bone - Ischium Gram Stain - Final 09/08/24 Unknown Ulcer, Decubitus - Ischium Gram Stain - Final Radiography Diagnostic Testing: Radiology Impression Abdomen/Pelvis CT 09/07/24 20:00 IMPRESSION: Soft tissue density and osseous destruction of the left hip. A mass can not be excluded. Left buttock wound. Postsurgical changes of the spine with a fluid collection posterior to L5 through S2. OVERALL FINAL ASSESSMENT: . LI-RADS is not meant to be used in patients <18 years or patients with cirrhosis due to congenital hepatic fibrosis or due to vascular disorders, because these patients have a lower chance of developing HCC. Reading Location: [place] [address] Physical Exam Narrative No acute distress Normal respiratory rate and normal work of breathing Abdomen: Nontender to palpation, no distention Wound: Incision is clean dry and intact with Prineo tape in place. Drain in place holding suction and has serosanguineous fluid. Incision is clean and intact over the ischial wound closure. SCDs were on and activated on the extremities. No extremity swelling Appropriately offloaded on a pressure offloading bed Assessment & Plan Assessment/Plan (1) Pressure ulcer: QUALIFIERS: Pressure injury location: hip Pressure injury stage: stage 4 Laterality: left Qualified Code(s): L89.224 - Pressure ulcer of left hip, stage 4 PLAN: Neuro: Tylenol and or oxycodone for pain control as needed Cardiac: Continue home amlodipine and metoprolol Respiratory: Continue incentive spirometer Abdomen/GI: Continue daily digital disimpaction for bowel movements. Medicine has added Reglan to stimulate bowel movements and improved nausea. Appreciate recommendations FEN: Regular diet. electrolytes within normal limits. Discontinued IV fluids Infectious disease: Continue IV Ancef 2 g every 8, follow-up cultures from the OR. No growth to date on any of the OR cultures Hematology: Lovenox 40 mg daily, SCDs. Plan to resume Eliquis soon. Charges/Coding Procedures Integumentary 111xxx-113xx: 14385 Global Visit
[2024-09-09] MEDS: Atorvastatin Calcium 20 MG Tablet PO (20:46)
[2024-09-10 04:30] VITALS: BP 133/85; PULSE 86; RESP 16; TEMP 36.8; O2SAT 97
[2024-09-10] MEDS: Cefazolin 2 GM in 0.9% Normal Saline (100mL Bag) 100 ML IV (06:01)
[2024-09-10 07:03] LABS: Anion Gap 13 (5-15); BUN 11 mg/dL (4-19); BUN/Creat Ratio 18.7 RATIO (10-20); Calcium,Total 8.9 mg/dL (7.6-11.0); Carbon Dioxide 24.9 mmol/L (21.0-32.0); Chloride 101 mmol/L (98-108); Creatinine, Serum 0.57 mg/dL (0.70-1.20); EST Glomerular Filtration Rate 104 (>60); Estimated Creatinine Clearance 84.21 ml/min (50-250); Glucose 102 mg/dL (70-99); Magnesium 1.8 mg/dL (1.5-2.2); Potassium 3.6 mmol/L (3.3-5.1); Sodium Level 138 mmol/L (133-145)
--- NOTE | 2024-09-10 08:25 | PN.HOSP_ITS ---
Reason for Visit Reason for Visit: Diagnoses Obesity, unspecified (09/06/24) Paraplegia, incomplete (09/06/24) Chronic atrial fibrillation, unspecified (09/06/24) Pressure ulcer of left hip, stage 4 (09/06/24) Pressure ulcer of unspecified site, unspecified stage (09/06/24) Spina bifida, unspecified (09/06/24) Nausea with vomiting, unspecified (09/06/24) Other specified postprocedural states (09/06/24) Subjective Subjective Patient is a 74-year-old gentleman with history of spina bifida with incomplete paraplegia who was admitted by Dr. Cabrera on 09/06/2024 for significant debridement of worsening left ischial pressure with increasing drainage. Patient underwent I&D with wound VAC placement on 09/08/2024. The hospitalist service was consulted to assist with management of postoperative nausea and vomiting Objective Data Objective Data Vital Signs: Vital Signs Temp Pulse Resp BP Pulse Ox O2 Del Method O2 Flow Rate 98.3 F 86 16 133/85 H 97 Room Air 2 09/10/24 04:30 09/10/24 04:30 09/10/24 04:30 09/10/24 04:30 09/10/24 04:30 09/10/24 04:30 09/08/24 06:49 Oxygen Flow Rate (L/min) 2 Oxygen Delivery Method Room Air Weight: 92.98 kg Body Mass Index (BMI) 36.3 Intake & Output: Intake and Output for Last 24 Hours 09/08/24 09/09/24 09/10/24 23:59 23:59 23:59 Intake Total 1512.50 / 1512.50 1080 / 1080 110 / 110 Output Total 1350 / 1350 1804 725 / 725 Balance 162.50 / 162.50 -725 / -950 -615 / -615 Lab / Micro Data 09/09/24 06:15 09/10/24 06:11 Labs: Laboratory Results - last 24 hr 09/10/24 06:11: Sodium 138, Potassium 3.6, Chloride 101, Carbon Dioxide 24.9, Anion Gap 13, BUN 11, Creatinine 0.57 L, Estim Creat Clear Calc 84.21, Est GFR (MDRD) Non-Af 104, BUN/Creatinine Ratio 18.7, Glucose 102 H, Calcium 8.9, Phosphorus 3.0, Magnesium 1.8 Micro: Microbiology 09/06/24 Unknown Tissue - Ischial Pressure Sore Gram Stain - Final 09/06/24 Unknown Tissue - Ischial Pressure Sore Wound Culture - Final Staphylococcus lugdunensis 09/06/24 Unknown Tissue - Ischial Pressure Sore Anaerobic Culture - Preliminary No growth in 48 hours. 09/06/24 Unknown Bone - Ischial Bone Gram Stain - Final 09/06/24 Unknown Bone - Ischial Bone Wound Culture - Final No growth aerobically. 09/06/24 Unknown Bone - Ischial Bone Anaerobic Culture - Preliminary No growth in 48 hours. 09/08/24 Unknown Bone - Ischium Gram Stain - Final 09/08/24 Unknown Ulcer, Decubitus - Ischium Gram Stain - Final Radiography Diagnostic Testing: Radiology Impression Abdomen/Pelvis CT 09/07/24 20:00 IMPRESSION: Soft tissue density and osseous destruction of the left hip. A mass can not be excluded. Left buttock wound. Postsurgical changes of the spine with a fluid collection posterior to L5 through S2. OVERALL FINAL ASSESSMENT: . LI-RADS is not meant to be used in patients <18 years or patients with cirrhosis due to congenital hepatic fibrosis or due to vascular disorders, because these patients have a lower chance of developing HCC. Reading Location: [place] [address] Physical Exam Narrative GENERAL: cooperative HEENT: Atraumatic; normocephalic EYES; Anicteric, Normal Conjunctiva NECK; supple, normal thyroid, RESPIRATORY: Diminished to auscultation CARDIOVASCULAR: Regular S1 S2, GI: soft, normoactive bowel sounds, : No Renal angle tenderness; EXTREMITIES: Left ischial drain in place NEURO: Awake; no lateralizing signs. SKIN: No Rash PSYCH; Flat affect Assessment & Plan Assessment/Plan (1) Postoperative nausea and vomiting: PLAN: Plan Patient is a 74-year-old gentleman with history of spina bifida with incomplete paraplegia who was admitted by Dr. Cabrera on 09/06/2024 for significant debridement of worsening left ischial pressure ulcer with increasing drainage. Patient underwent I&D with wound VAC placement on 09/08/2024. The hospitalist service was consulted to assist with management of postoperative nausea and vomiting 1. Postoperative nausea and vomiting Patient underwent CT of the abdomen and pelvis following his procedure which is unremarkable for obstruction or ileus. Patient has since been managed symptomatically 2. Left ischial pressure ulcer with increasing drainage - Patient underwent I&D with wound VAC placement on 09/08/2024.. Wound cultures obtained prior to patient surgery did grow staphylococcus lugdunensis. Remains on appropriate antibiotic therapy #3. Spina bifida ? Complicated by incomplete paraplegia as well as urinary retention with a chronic indwelling Gooden catheter and chronic constipation. Plan is to continue with supportive care 4. Paroxysmal atrial fibrillation ? Rate controlled on metoprolol and systemic anticoagulation with apixaban. Held for patient surgery. Okay to resume when okay with surgery 5. Hypertension ? Blood pressure controlled, home medications continued with dose adjustment as needed 6. Dyslipidemia ?Patient is on statin therapy, continued at home dose 7. DVT prophylaxis ?Subcu Lovenox for now Charges/Coding Visit Charges Inpatient E&M: 46832 Subs Hosp L2
--- NOTE | 2024-09-10 08:27 | PN.SURG_ITS ---
Subjective Subjective Doing well overall. No fevers chills or pain. No abdominal pain. No chest pain racing heart shortness of breath. He does report some reflux symptoms which have inhibited him from eating, and he thinks this is secondary to laying down and trying to eat rather than sitting (because of the pressure sore). Patient did have 1 bowel movement yesterday with help from nursing staff and nursing home assistant administrator Objective Data Objective Data Vital Signs: Vital Signs Temp Pulse Resp BP Pulse Ox O2 Del Method O2 Flow Rate 98.3 F 86 16 133/85 H 97 Room Air 2 09/10/24 04:30 09/10/24 04:30 09/10/24 04:30 09/10/24 04:30 09/10/24 04:30 09/10/24 04:30 09/08/24 06:49 Oxygen Flow Rate (L/min) 2 Oxygen Delivery Method Room Air Weight: 204 lb 15.773 oz Body Mass Index (BMI) 36.3 Intake & Output: Intake and Output for Last 24 Hours 09/08/24 09/09/24 09/10/24 23:59 23:59 23:59 Intake Total 1512.50 / 1512.50 1080 / 1080 110 / 110 Output Total 1350 / 1350 1805 / 2030 725 / 725 Balance 162.50 / 162.50 -725 / -950 -615 / -615 Lab / Micro Data 09/09/24 06:15 09/10/24 06:11 Labs: Laboratory Results - last 24 hr 09/10/24 06:11: Sodium 138, Potassium 3.6, Chloride 101, Carbon Dioxide 24.9, Anion Gap 13, BUN 11, Creatinine 0.57 L, Estim Creat Clear Calc 84.21, Est GFR (MDRD) Non-Af 104, BUN/Creatinine Ratio 18.7, Glucose 102 H, Calcium 8.9, Phosphorus 3.0, Magnesium 1.8 Micro: Microbiology 09/06/24 Unknown Tissue - Ischial Pressure Sore Gram Stain - Final 09/06/24 Unknown Tissue - Ischial Pressure Sore Wound Culture - Final Staphylococcus lugdunensis 09/06/24 Unknown Tissue - Ischial Pressure Sore Anaerobic Culture - Preliminary No growth in 48 hours. 09/06/24 Unknown Bone - Ischial Bone Gram Stain - Final 09/06/24 Unknown Bone - Ischial Bone Wound Culture - Final No growth aerobically. 09/06/24 Unknown Bone - Ischial Bone Anaerobic Culture - Preliminary No growth in 48 hours. 09/08/24 Unknown Bone - Ischium Gram Stain - Final 09/08/24 Unknown Ulcer, Decubitus - Ischium Gram Stain - Final Radiography Diagnostic Testing: Radiology Impression Abdomen/Pelvis CT 09/07/24 20:00 IMPRESSION: Soft tissue density and osseous destruction of the left hip. A mass can not be excluded. Left buttock wound. Postsurgical changes of the spine with a fluid collection posterior to L5 through S2. OVERALL FINAL ASSESSMENT: . LI-RADS is not meant to be used in patients <18 years or patients with cirrhosis due to congenital hepatic fibrosis or due to vascular disorders, because these patients have a lower chance of developing HCC. Reading Location: [place] [address] Physical Exam Narrative No acute distress Normal respiratory rate and normal work of breathing Abdomen: Nontender to palpation, no distention Wound: Incision is clean dry and intact with Prineo tape in place. Drain in place holding suction and has serosanguineous fluid. Incision is clean and intact over the ischial wound closure. SCDs were on and activated on the extremities. No extremity swelling No wounds on the extremities. I examined his right trochanteric region and right ischial region as well as the sacrum and there were no wounds developing. Appropriately offloaded on a pressure offloading bed Assessment & Plan Assessment/Plan (1) Pressure ulcer: QUALIFIERS: Pressure injury location: hip Pressure injury stage: stage 4 Laterality: left Qualified Code(s): L89.224 - Pressure ulcer of left hip, stage 4 PLAN: Neuro: Tylenol and or oxycodone for pain control as needed Cardiac: Continue home amlodipine and metoprolol Respiratory: Continue incentive spirometer Abdomen/GI: Continue daily digital disimpaction for bowel movements. Medicine has added Reglan to stimulate bowel movements and improved nausea. Appreciate recommendations. I have added Tums and Protonix as well for heartburn FEN: Regular diet. electrolytes within normal limits. Discontinued IV fluids Infectious disease: Switching to clindamycin based on susceptibilities from the staph lugdunensis deep soft tissue cultures, follow-up other cultures from the OR. Hematology: Lovenox 40 mg daily, SCDs. Plan to resume Eliquis soon. Continue drain care and monitoring the ischial wound closure. Ischial wound following closure appears healthy right now and bone cultures have been negative Charges/Coding Procedures Integumentary 111xxx-113xx: 25437 Global Visit
[2024-09-10 09:32] VITALS: PULSE 88
[2024-09-10] MEDS: Metoprolol Tartrate 100 MG Tablet PO ×2 (09:32→20:17)
[2024-09-10] MEDS: amLODIPine 10 MG Tablet PO (09:32)
[2024-09-10] MEDS: Polyethylene Glycol 3350 17 GM PACKET PO (09:32)
[2024-09-10] MEDS: Pantoprazole Sodium 20 MG Tablet PO (09:32)
[2024-09-10] MEDS: Enoxaparin 40 MG/0.4 ML Syringe SC (09:32)
[2024-09-10 09:43] VITALS: BP 147/93; PULSE 88; RESP 16; TEMP 36.8; O2SAT 95
[2024-09-10] MEDS: Clindamycin 300 MG in Dextrose 5%-Water (50mL Bag) 50 ML 150 MG IV ×2 (14:22→21:57)
[2024-09-10] MEDS: 0.9% Saline Lock 10 ML Syringe IV (14:22)
[2024-09-10] MEDS: Calcium Carbonate 500 MG Tablet PO ×2 (14:22→20:00)
[2024-09-10 14:41] VITALS: BP 107/73; PULSE 78; RESP 16; TEMP 36.7; O2SAT 96
[2024-09-10] MEDS: Scopolamine 1mg/72hr Patch 1 PATCH TD (20:00)
[2024-09-10] MEDS: Atorvastatin Calcium 20 MG Tablet PO (20:16)
[2024-09-10 20:17] VITALS: BP 145/94; PULSE 83
[2024-09-10 21:00] VITALS: BP 145/94; PULSE 83; RESP 16; TEMP 36.8; O2SAT 97
[2024-09-11 03:00] VITALS: BP 129/95; PULSE 77; RESP 16; TEMP 36.6; O2SAT 96
[2024-09-11 04:35] LABS: Absolute Lymphocyte Count 1.86 X10^3/uL (0.83-4.51); Absolute Neutrophil Count 4.7 X10^3/uL (2.0-7.7); Basophil# 0.04 X10^3/uL; Basophil% 0.5 % (0-1); Eosinophil# 0.41 X10^3/uL; Eosinophils% 5.1 % (0-5); Hematocrit 40.6 % (40-54); Hemoglobin 13.9 g/dL (13.0-16.5); Lymphocyte # 1.86 X10^3/ul (0.83-4.51); Lymphocyte % 22.9 % (19-41); Mean Corp Hgb Conc 34.2 g/dL (32-36); Mean Corpuscular Hgb 29.4 pg (27.0-32.0); Mean Platelet Vol. 9.5 fl (6.2-12.0); Monocyte# 1.03 X10^3/uL; Monocyte% 12.7 % (0-10); NRBC Flagged by Analyzer 0 % (0-5); Neutrophil # 4.74 X10^3/uL (2.7-7.7); Neutrophil % 58.4 % (47-70); Platelet Count 374 K/mm3 (150-450); RBC Distribution Width CV 13.8 % (11.6-14.6); RBC Distribution Width SD 42.5 fl (35.1-43.9); Red Blood Count 4.72 M/mm3 (4.6-6.2); White Blood Count 8.1 K/mm3 (4.4-11.0)
[2024-09-11 04:59] LABS: Anion Gap 13 (5-15); BUN 13 mg/dL (4-19); BUN/Creat Ratio 25.7 RATIO (10-20); Calcium,Total 8.9 mg/dL (7.6-11.0); Carbon Dioxide 23.5 mmol/L (21.0-32.0); Chloride 104 mmol/L (98-108); Creatinine, Serum 0.49 mg/dL (0.70-1.20); EST Glomerular Filtration Rate 109 (>60); Estimated Creatinine Clearance 84.21 ml/min (50-250); Glucose 104 mg/dL (70-99); Magnesium 1.9 mg/dL (1.5-2.2); Phosphorus 3.5 mg/dL (2.7-4.5); Potassium 3.5 mmol/L (3.3-5.1); Sodium Level 141 mmol/L (133-145)
[2024-09-11] MEDS: Clindamycin 300 MG in Dextrose 5%-Water (50mL Bag) 50 ML 150 MG IV ×3 (06:03→22:00)
--- NOTE | 2024-09-11 07:33 | PCM.PN.HOSP ---
Reason for Visit Reason for Visit: Diagnoses Obesity, unspecified (09/06/24) Paraplegia, incomplete (09/06/24) Chronic atrial fibrillation, unspecified (09/06/24) Pressure ulcer of left hip, stage 4 (09/06/24) Pressure ulcer of unspecified site, unspecified stage (09/06/24) Spina bifida, unspecified (09/06/24) Nausea with vomiting, unspecified (09/06/24) Other specified postprocedural states (09/06/24) Subjective Subjective Patient seen had a relatively uneventful night. Blood pressure remained stable. Culture still coming back positive for staph sp Objective Data Objective Data Vital Signs: Vital Signs Temp Pulse Resp BP Pulse Ox O2 Del Method O2 Flow Rate 97.9 F 77 16 129/95 H 96 Room Air 2 09/11/24 03:00 09/11/24 03:00 09/11/24 03:00 09/11/24 03:00 09/11/24 03:00 09/11/24 03:00 09/08/24 06:49 Oxygen Flow Rate (L/min) 2 Oxygen Delivery Method Room Air Weight: 92.98 kg Body Mass Index (BMI) 36.3 Intake & Output: Intake and Output for Last 24 Hours 09/09/24 09/10/24 09/11/24 23:59 23:59 23:59 Intake Total 1080 / 1080 214 / 214 Output Total 1805 / 2030 1175 / 1175 575 / 575 Balance -725 / -950 -961 / -961 -575 / -575 Lab / Micro Data 09/11/24 03:58 09/11/24 03:58 Labs: Laboratory Results - last 24 hr 09/11/24 03:58: WBC 8.1, RBC 4.72, Hgb 13.9, Hct 40.6, MCV 86.0, MCH 29.4, MCHC 34.2, RDW Std Deviation 42.5, RDW Coeff of Gregor 13.8, Plt Count 374, MPV 9.5, Immature Gran % (Auto) 0.400, Neut % (Auto) 58.4, Lymph % (Auto) 22.9, [place] % (Auto) 12.7 H, Eos % (Auto) 5.1 H, Baso % (Auto) 0.5, Absolute Neuts (auto) 4.7, Absolute Lymphs (auto) 1.86, Nucleated RBC % 0, Sodium 141, Potassium 3.5, Chloride 104, Carbon Dioxide 23.5, Anion Gap 13, BUN 13, Creatinine 0.49 L, Estim Creat Clear Calc 84.21, Est GFR (MDRD) Non-Af 109, BUN/Creatinine Ratio 25.7 H, Glucose 104 H, Calcium 8.9, Phosphorus 3.5, Magnesium 1.9 Micro: Microbiology 09/06/24 Unknown Tissue - Ischial Pressure Sore Gram Stain - Final 09/06/24 Unknown Tissue - Ischial Pressure Sore Wound Culture - Final Staphylococcus lugdunensis 09/06/24 Unknown Tissue - Ischial Pressure Sore Anaerobic Culture - Final No growth in 5 days. 09/06/24 Unknown Bone - Ischial Bone Gram Stain - Final 09/06/24 Unknown Bone - Ischial Bone Wound Culture - Final No growth aerobically. 09/06/24 Unknown Bone - Ischial Bone Anaerobic Culture - Final No growth in 5 days. 09/08/24 Unknown Bone - Ischium Gram Stain - Final 09/08/24 Unknown Bone - Ischium Wound Culture - Preliminary No growth-Final to follow 09/08/24 Unknown Bone - Ischium Anaerobic Culture - Preliminary No growth in 48 hours. 09/08/24 Unknown Ulcer, Decubitus - Ischium Gram Stain - Final 09/08/24 Unknown Ulcer, Decubitus - Ischium Wound Culture - Preliminary No growth-Final to follow Physical Exam Narrative GENERAL: cooperative HEENT: Atraumatic; normocephalic EYES; Anicteric, Normal Conjunctiva NECK; supple, normal thyroid, RESPIRATORY: Diminished to auscultation CARDIOVASCULAR: Regular S1 S2, GI: soft, normoactive bowel sounds, : No Renal angle tenderness; EXTREMITIES: Left ischial drain in place NEURO: Awake; no lateralizing signs. SKIN: No Rash PSYCH; Flat affect Assessment & Plan Assessment/Plan (1) Postoperative nausea and vomiting: PLAN: Plan Patient is a 74-year-old gentleman with history of spina bifida with incomplete paraplegia who was admitted by Dr. Cabrera on 09/06/2024 for significant debridement of worsening left ischial pressure ulcer with increasing drainage. Patient underwent I&D t on 09/08/2024. The hospitalist service was consulted to assist with management of postoperative nausea and vomiting 1. Postoperative nausea and vomiting Patient underwent CT of the abdomen and pelvis following his procedure which is unremarkable for obstruction or ileus. Patient has since been managed symptomatically 2. Left ischial pressure ulcer with increasing drainage - Patient underwent I&D on 09/08/2024.. Wound cultures obtained prior to patient surgery did grow staphylococcus lugdunensis. Remains on appropriate antibiotic therapy 3. Spina bifida ? Complicated by incomplete paraplegia as well as urinary retention with a chronic indwelling Gooden catheter and chronic constipation. Plan is to continue with supportive care 4. Paroxysmal atrial fibrillation ? Rate controlled on metoprolol and systemic anticoagulation with apixaban. Held for patient surgery. Okay to resume when okay with surgery 5. Hypertension ? Blood pressure controlled, home medications continued with dose adjustment as needed 6. Dyslipidemia ?Patient is on statin therapy, continued at home dose 7. DVT prophylaxis ?Subcu Lovenox for now 8. Mild hypokalemia ? Patient started on potassium supplementation Charges/Coding Visit Charges Inpatient E&M: 57834 Subs Hosp L2
[2024-09-11 10:10] VITALS: BP 129/88; PULSE 87; RESP 18; TEMP 36.8; O2SAT 95
[2024-09-11 10:17] VITALS: PULSE 87
[2024-09-11] MEDS: Metoprolol Tartrate 100 MG Tablet PO ×2 (10:17→22:00)
[2024-09-11] MEDS: amLODIPine 10 MG Tablet PO (10:18)
[2024-09-11] MEDS: Enoxaparin 40 MG/0.4 ML Syringe SC (10:18)
[2024-09-11] MEDS: Pantoprazole Sodium 20 MG Tablet PO (10:18)
[2024-09-11] MEDS: Calcium Carbonate 500 MG Tablet PO ×2 (10:28→15:22)
--- NOTE | 2024-09-11 11:55 | PCM.PN.SRG ---
Subjective Subjective Doing well overall. No fevers chills or pain. No abdominal pain. No chest pain racing heart shortness of breath. Improved reflux symptoms with the Tums. Less nausea with scopolamine patch per internal medicine recommendation (appreciate help) Feels like he needs to have a bowel movement today but did not have one yesterday. He reports he will ask for nursing assistance Objective Data Objective Data Vital Signs: Vital Signs Temp Pulse Resp BP Pulse Ox O2 Del Method O2 Flow Rate 98.3 F 87 18 129/88 H 95 Room Air 2 09/11/24 10:10 09/11/24 10:17 09/11/24 10:10 09/11/24 10:10 09/11/24 10:10 09/11/24 10:10 09/08/24 06:49 Oxygen Flow Rate (L/min) 2 Oxygen Delivery Method Room Air Weight: 204 lb 15.773 oz Body Mass Index (BMI) 36.3 Intake & Output: Intake and Output for Last 24 Hours 09/09/24 09/10/24 09/11/24 23:59 23:59 23:59 Intake Total 1080 / 1080 214 / 214 52 / 52 Output Total 1805 / 2030 1175 / 1175 575 / 575 Balance -725 / -950 -961 / -961 -523 / -523 Lab / Micro Data 09/11/24 03:58 09/11/24 03:58 Labs: Laboratory Results - last 24 hr 09/11/24 03:58: WBC 8.1, RBC 4.72, Hgb 13.9, Hct 40.6, MCV 86.0, MCH 29.4, MCHC 34.2, RDW Std Deviation 42.5, RDW Coeff of Gregor 13.8, Plt Count 374, MPV 9.5, Immature Gran % (Auto) 0.400, Neut % (Auto) 58.4, Lymph % (Auto) 22.9, [place] % (Auto) 12.7 H, Eos % (Auto) 5.1 H, Baso % (Auto) 0.5, Absolute Neuts (auto) 4.7, Absolute Lymphs (auto) 1.86, Nucleated RBC % 0, Sodium 141, Potassium 3.5, Chloride 104, Carbon Dioxide 23.5, Anion Gap 13, BUN 13, Creatinine 0.49 L, Estim Creat Clear Calc 84.21, Est GFR (MDRD) Non-Af 109, BUN/Creatinine Ratio 25.7 H, Glucose 104 H, Calcium 8.9, Phosphorus 3.5, Magnesium 1.9 Micro: Microbiology 09/08/24 Unknown Ulcer, Decubitus - Ischium Gram Stain - Final 09/08/24 Unknown Ulcer, Decubitus - Ischium Wound Culture - Final No growth aerobically. 09/08/24 Unknown Ulcer, Decubitus - Ischium Anaerobic Culture - Preliminary No growth in 48 hours. 09/08/24 Unknown Bone - Ischium Gram Stain - Final 09/08/24 Unknown Bone - Ischium Wound Culture - Final No growth aerobically. 09/08/24 Unknown Bone - Ischium Anaerobic Culture - Preliminary No growth in 48 hours. 09/06/24 Unknown Tissue - Ischial Pressure Sore Gram Stain - Final 09/06/24 Unknown Tissue - Ischial Pressure Sore Wound Culture - Final Staphylococcus lugdunensis 09/06/24 Unknown Tissue - Ischial Pressure Sore Anaerobic Culture - Final No growth in 5 days. 09/06/24 Unknown Bone - Ischial Bone Gram Stain - Final 09/06/24 Unknown Bone - Ischial Bone Wound Culture - Final No growth aerobically. 09/06/24 Unknown Bone - Ischial Bone Anaerobic Culture - Final No growth in 5 days. Physical Exam Narrative No acute distress Normal respiratory rate and normal work of breathing Abdomen: Nontender to palpation, no distention Wound: Incision is clean dry and intact with Prineo tape in place. Drain in place holding suction and has serosanguineous fluid. Incision is clean and intact over the ischial wound closure. SCDs were on and activated on the extremities. No extremity swelling No wounds on the extremities. I examined his right trochanteric region and right ischial region as well as the sacrum and there were no wounds developing. Appropriately offloaded on a pressure offloading bed Assessment & Plan Assessment/Plan (1) Pressure ulcer: QUALIFIERS: Pressure injury location: hip Pressure injury stage: stage 4 Laterality: left Qualified Code(s): L89.224 - Pressure ulcer of left hip, stage 4 PLAN: Neuro: Tylenol and or oxycodone for pain control as needed Cardiac: Continue home amlodipine and metoprolol Respiratory: Continue incentive spirometer Abdomen/GI: Continue daily digital disimpaction for bowel movements. Medicine has added Reglan to stimulate bowel movements and improved nausea. Appreciate recommendations. I have added Tums and Protonix as well for heartburn FEN: Regular diet. electrolytes within normal limits. Discontinued IV fluids Infectious disease: Continue clindamycin based on susceptibilities from the staph lugdunensis deep soft tissue cultures, follow-up other cultures from the OR. Hematology: Lovenox 40 mg daily, SCDs. Plan to resume Eliquis soon. Continue drain care and monitoring the ischial wound closure. Ischial wound following closure appears healthy right now and bone cultures have been negative Charges/Coding Procedures Integumentary [id number]: [id number] Global Visit
[2024-09-11 15:16] VITALS: BP 120/81; PULSE 78; RESP 16; TEMP 36.8; O2SAT 97
[2024-09-11] MEDS: Potassium Chloride Oral Tablet 20 MEQ PO (15:22)
[2024-09-11 21:00] VITALS: BP 129/88; PULSE 72; RESP 16; TEMP 37.1; O2SAT 96
[2024-09-11 22:00] VITALS: BP 129/88; PULSE 72
[2024-09-11] MEDS: Atorvastatin Calcium 20 MG Tablet PO (22:00)
[2024-09-12 02:40] VITALS: BP 145/80; PULSE 86; RESP 16; TEMP 36.7; O2SAT 96
[2024-09-12] MEDS: Clindamycin 300 MG in Dextrose 5%-Water (50mL Bag) 50 ML 150 MG IV ×3 (05:12→22:27)
[2024-09-12 05:48] LABS: Absolute Lymphocyte Count 1.86 X10^3/uL (0.83-4.51); Absolute Neutrophil Count 4.7 X10^3/uL (2.0-7.7); Basophil# 0.04 X10^3/uL; Basophil% 0.5 % (0-1); Eosinophil# 0.41 X10^3/uL; Eosinophils% 5.2 % (0-5); Hematocrit 41.3 % (40-54); Hemoglobin 13.8 g/dL (13.0-16.5); Lymphocyte # 1.86 X10^3/ul (0.83-4.51); Lymphocyte % 23.7 % (19-41); Mean Corp Hgb Conc 33.4 g/dL (32-36); Mean Corpuscular Hgb 28.8 pg (27.0-32.0); Mean Corpuscular Volume 86.2 fL (80-94); Mean Platelet Vol. 9.2 fl (6.2-12.0); Monocyte# 0.82 X10^3/uL; Monocyte% 10.4 % (0-10); NRBC Flagged by Analyzer 0 % (0-5); Neutrophil % 59.9 % (47-70); Platelet Count 374 K/mm3 (150-450); RBC Distribution Width SD 43.4 fl (35.1-43.9); Red Blood Count 4.79 M/mm3 (4.6-6.2); White Blood Count 7.9 K/mm3 (4.4-11.0)
[2024-09-12 06:09] LABS: Anion Gap 12 (5-15); BUN 17 mg/dL (4-19); BUN/Creat Ratio 29.5 RATIO (10-20); Calcium,Total 8.9 mg/dL (7.6-11.0); Carbon Dioxide 22.5 mmol/L (21.0-32.0); Chloride 105 mmol/L (98-108); Creatinine, Serum 0.57 mg/dL (0.70-1.20); EST Glomerular Filtration Rate 104 (>60); Estimated Creatinine Clearance 84.21 ml/min (50-250); Glucose 114 mg/dL (70-99); Potassium 3.7 mmol/L (3.3-5.1); Sodium Level 139 mmol/L (133-145)
--- NOTE | 2024-09-12 07:47 | PCM.PN.HOSP ---
Reason for Visit Reason for Visit: Diagnoses Obesity, unspecified (09/06/24) Paraplegia, incomplete (09/06/24) Chronic atrial fibrillation, unspecified (09/06/24) Pressure ulcer of left hip, stage 4 (09/06/24) Pressure ulcer of unspecified site, unspecified stage (09/06/24) Spina bifida, unspecified (09/06/24) Nausea with vomiting, unspecified (09/06/24) Other specified postprocedural states (09/06/24) Subjective Subjective Seen per nursing staff had a relatively uneventful night. Objective Data Objective Data Vital Signs: Vital Signs Temp Pulse Resp BP Pulse Ox O2 Del Method O2 Flow Rate 98.1 F 86 16 145/80 H 96 Room Air 2 09/12/24 02:40 09/12/24 02:40 09/12/24 02:40 09/12/24 02:40 09/12/24 02:40 09/12/24 02:40 09/08/24 06:49 Oxygen Flow Rate (L/min) 2 Oxygen Delivery Method Room Air Weight: 92.98 kg Body Mass Index (BMI) 36.3 Intake & Output: Intake and Output for Last 24 Hours 09/10/24 09/11/24 09/12/24 23:59 23:59 23:59 Intake Total 214 / 214 606 / 606 52 / 52 Output Total 1175 / 1175 1134 / 1334 725 / 725 Balance -961 / -961 -528 / -728 -673 / -673 Lab / Micro Data 09/12/24 05:35 09/12/24 05:35 Labs: Laboratory Results - last 24 hr 09/12/24 05:35: WBC 7.9, RBC 4.79, Hgb 13.8, Hct 41.3, MCV 86.2, MCH 28.8, MCHC 33.4, RDW Std Deviation 43.4, RDW Coeff of Gregor 14.0, Plt Count 374, MPV 9.2, Immature Gran % (Auto) 0.300, Neut % (Auto) 59.9, Lymph % (Auto) 23.7, [place] % (Auto) 10.4 H, Eos % (Auto) 5.2 H, Baso % (Auto) 0.5, Absolute Neuts (auto) 4.7, Absolute Lymphs (auto) 1.86, Nucleated RBC % 0, Sodium 139, Potassium 3.7, Chloride 105, Carbon Dioxide 22.5, Anion Gap 12, BUN 17, Creatinine 0.57 L, Estim Creat Clear Calc 84.21, Est GFR (MDRD) Non-Af 104, BUN/Creatinine Ratio 29.5 H, Glucose 114 H, Calcium 8.9 Micro: Microbiology 09/08/24 Unknown Ulcer, Decubitus - Ischium Gram Stain - Final 09/08/24 Unknown Ulcer, Decubitus - Ischium Wound Culture - Final No growth aerobically. 09/08/24 Unknown Ulcer, Decubitus - Ischium Anaerobic Culture - Preliminary No growth in 48 hours. 09/08/24 Unknown Bone - Ischium Gram Stain - Final 09/08/24 Unknown Bone - Ischium Wound Culture - Final No growth aerobically. 09/08/24 Unknown Bone - Ischium Anaerobic Culture - Preliminary No growth in 48 hours. 09/06/24 Unknown Tissue - Ischial Pressure Sore Gram Stain - Final 09/06/24 Unknown Tissue - Ischial Pressure Sore Wound Culture - Final Staphylococcus lugdunensis 09/06/24 Unknown Tissue - Ischial Pressure Sore Anaerobic Culture - Final No growth in 5 days. 09/06/24 Unknown Bone - Ischial Bone Gram Stain - Final 09/06/24 Unknown Bone - Ischial Bone Wound Culture - Final No growth aerobically. 09/06/24 Unknown Bone - Ischial Bone Anaerobic Culture - Final No growth in 5 days. Physical Exam Narrative GENERAL: cooperative HEENT: Atraumatic; normocephalic EYES; Anicteric, Normal Conjunctiva NECK; supple, normal thyroid, RESPIRATORY: Diminished to auscultation CARDIOVASCULAR: Regular S1 S2, GI: soft, normoactive bowel sounds, : No Renal angle tenderness; EXTREMITIES: Left ischial drain in place NEURO: Awake; no lateralizing signs. SKIN: No Rash PSYCH; Flat affect Assessment & Plan Assessment/Plan (1) Postoperative nausea and vomiting: PLAN: Plan Patient is a 74-year-old gentleman with history of spina bifida with incomplete paraplegia who was admitted by Dr. Cabrera on 09/06/2024 for significant debridement of worsening left ischial pressure ulcer with increasing drainage. Patient underwent I&D t on 09/08/2024. The hospitalist service was consulted to assist with management of postoperative nausea and vomiting 1. Postoperative nausea and vomiting Patient underwent CT of the abdomen and pelvis following his procedure which is unremarkable for obstruction or ileus. Patient has since been managed symptomatically ? 09/12/2024; patient complains of occasional nausea, his antinausea medication appears to be helping 2. Left ischial pressure ulcer with increasing drainage - Patient underwent I&D on 09/08/2024.. Wound cultures obtained prior to patient surgery did grow staphylococcus lugdunensis. Remains on appropriate antibiotic therapy ? 09/12/2024; wound cultures from surgery so far negative to date the above positive culture was from the wound prior to patient surgical intervention 3. Spina bifida ? Complicated by incomplete paraplegia as well as urinary retention with a chronic indwelling Gooden catheter and chronic constipation. Plan is to continue with supportive care 4. Paroxysmal atrial fibrillation ? Rate controlled on metoprolol and systemic anticoagulation with apixaban. Held for patient surgery. Okay to resume when okay with surgery 5. Hypertension ? Blood pressure controlled, home medications continued with dose adjustment as needed 6. Dyslipidemia ?Patient is on statin therapy, continued at home dose 7. DVT prophylaxis ?Subcu Lovenox for now 8. Mild hypokalemia ? Patient started on potassium supplementation Time spent in the patient's overall evaluation,decision-making process, review of diagnostic data, adjustment of management, discussion with other providers, nursing nursing and ancillary staff involved in patient's care documentation, 35 Minutes Charges/Coding Visit Charges Inpatient E&M: 64257 Subs Hosp L2
[2024-09-12 08:04] VITALS: BP 142/86; PULSE 69; RESP 18; TEMP 36.6; O2SAT 95
[2024-09-12 09:51] VITALS: PULSE 69
[2024-09-12] MEDS: Metoprolol Tartrate 100 MG Tablet PO ×2 (09:51→22:27)
[2024-09-12] MEDS: amLODIPine 10 MG Tablet PO (09:51)
[2024-09-12] MEDS: Pantoprazole Sodium 20 MG Tablet PO (09:51)
[2024-09-12] MEDS: Enoxaparin 40 MG/0.4 ML Syringe SC (09:52)
[2024-09-12] MEDS: Potassium Chloride Oral Tablet 20 MEQ PO ×2 (09:52→16:11)
--- NOTE | 2024-09-12 12:58 | PCM.PN.SRG ---
Subjective Subjective Doing well overall. No fevers chills or pain. No abdominal pain. No chest pain racing heart shortness of breath. Had BM yesterday Objective Data Objective Data Vital Signs: Vital Signs Temp Pulse Resp BP Pulse Ox O2 Del Method O2 Flow Rate 98 F 69 18 142/86 H 95 Room Air 2 09/12/24 08:04 09/12/24 09:51 09/12/24 08:04 09/12/24 08:04 09/12/24 08:04 09/12/24 08:04 09/08/24 06:49 Oxygen Flow Rate (L/min) 2 Oxygen Delivery Method Room Air Weight: 204 lb 15.773 oz Body Mass Index (BMI) 36.3 Intake & Output: Intake and Output for Last 24 Hours 09/10/24 09/11/24 09/12/24 23:59 23:59 23:59 Intake Total 214 / 214 606 / 606 52 / 52 Output Total 1175 / 1175 1134 / 1334 1225 / 1225 Balance -961 / -961 -528 / -728 -1173 / -1173 Lab / Micro Data 09/12/24 05:35 09/12/24 05:35 Labs: Laboratory Results - last 24 hr 09/12/24 05:35: WBC 7.9, RBC 4.79, Hgb 13.8, Hct 41.3, MCV 86.2, MCH 28.8, MCHC 33.4, RDW Std Deviation 43.4, RDW Coeff of Gregor 14.0, Plt Count 374, MPV 9.2, Immature Gran % (Auto) 0.300, Neut % (Auto) 59.9, Lymph % (Auto) 23.7, [place] % (Auto) 10.4 H, Eos % (Auto) 5.2 H, Baso % (Auto) 0.5, Absolute Neuts (auto) 4.7, Absolute Lymphs (auto) 1.86, Nucleated RBC % 0, Sodium 139, Potassium 3.7, Chloride 105, Carbon Dioxide 22.5, Anion Gap 12, BUN 17, Creatinine 0.57 L, Estim Creat Clear Calc 84.21, Est GFR (MDRD) Non-Af 104, BUN/Creatinine Ratio 29.5 H, Glucose 114 H, Calcium 8.9 Micro: Microbiology 09/08/24 Unknown Ulcer, Decubitus - Ischium Gram Stain - Final 09/08/24 Unknown Ulcer, Decubitus - Ischium Wound Culture - Final No growth aerobically. 09/08/24 Unknown Ulcer, Decubitus - Ischium Anaerobic Culture - Preliminary No growth in 48 hours. 09/08/24 Unknown Bone - Ischium Gram Stain - Final 09/08/24 Unknown Bone - Ischium Wound Culture - Final No growth aerobically. 09/08/24 Unknown Bone - Ischium Anaerobic Culture - Preliminary No growth in 48 hours. 09/06/24 Unknown Tissue - Ischial Pressure Sore Gram Stain - Final 09/06/24 Unknown Tissue - Ischial Pressure Sore Wound Culture - Final Staphylococcus lugdunensis 09/06/24 Unknown Tissue - Ischial Pressure Sore Anaerobic Culture - Final No growth in 5 days. 09/06/24 Unknown Bone - Ischial Bone Gram Stain - Final 09/06/24 Unknown Bone - Ischial Bone Wound Culture - Final No growth aerobically. 09/06/24 Unknown Bone - Ischial Bone Anaerobic Culture - Final No growth in 5 days. Physical Exam Narrative No acute distress Normal respiratory rate and normal work of breathing Abdomen: Nontender to palpation, no distention Wound: Incision is clean dry and intact with Prineo tape in place. Drain in place holding suction and has serosanguineous fluid. Incision is clean and intact over the ischial wound closure. SCDs were on and activated on the extremities. No extremity swelling No wounds on the extremities. I examined his right trochanteric region and right ischial region as well as the sacrum and there were no wounds developing. Appropriately offloaded on a pressure offloading bed Assessment & Plan Assessment/Plan (1) Pressure ulcer: QUALIFIERS: Pressure injury location: hip Pressure injury stage: stage 4 Laterality: left Qualified Code(s): L89.224 - Pressure ulcer of left hip, stage 4 PLAN: Neuro: Tylenol and or oxycodone for pain control as needed Cardiac: Continue home amlodipine and metoprolol Respiratory: Continue incentive spirometer Abdomen/GI: Continue daily digital disimpaction for bowel movements. Medicine has added Reglan to stimulate bowel movements and improved nausea. Appreciate recommendations. I have added Tums and Protonix as well for heartburn FEN: Regular diet. electrolytes within normal limits. Discontinued IV fluids Infectious disease: Continue clindamycin based on susceptibilities from the staph lugdunensis deep soft tissue cultures, follow-up other cultures from the OR. Hematology: Lovenox 40 mg daily, SCDs. Plan to resume Eliquis soon. Continue drain care and monitoring the ischial wound closure. Ischial wound following closure appears healthy right now and bone cultures have been negative Charges/Coding Procedures Integumentary 111xxx-113xx: [id number] Global Visit
[2024-09-12 14:22] VITALS: BP 119/77; PULSE 77; RESP 18; TEMP 37; O2SAT 96
[2024-09-12] MEDS: Calcium Carbonate 500 MG Tablet PO (17:37)
[2024-09-12 19:55] VITALS: BP 123/83; PULSE 78; RESP 18; TEMP 37; O2SAT 98
[2024-09-12 22:27] VITALS: BP 123/83; PULSE 78
[2024-09-12] MEDS: Atorvastatin Calcium 20 MG Tablet PO (22:27)
[2024-09-13 03:35] VITALS: BP 116/89; PULSE 62; RESP 18; TEMP 36.4; O2SAT 97
[2024-09-13 05:57] LABS: Absolute Lymphocyte Count 1.82 X10^3/uL (0.83-4.51); Absolute Neutrophil Count 3.9 X10^3/uL (2.0-7.7); Basophil# 0.05 X10^3/uL; Basophil% 0.7 % (0-1); Eosinophil# 0.56 X10^3/uL; Eosinophils% 7.9 % (0-5); Hematocrit 40.1 % (40-54); Hemoglobin 13.4 g/dL (13.0-16.5); Lymphocyte # 1.82 X10^3/ul (0.83-4.51); Lymphocyte % 25.7 % (19-41); Mean Corp Hgb Conc 33.4 g/dL (32-36); Mean Corpuscular Hgb 29.1 pg (27.0-32.0); Mean Corpuscular Volume 87.2 fL (80-94); Mean Platelet Vol. 9.2 fl (6.2-12.0); Monocyte# 0.71 X10^3/uL; NRBC Flagged by Analyzer 0 % (0-5); Neutrophil % 55.1 % (47-70); Platelet Count 353 K/mm3 (150-450); RBC Distribution Width CV 14.3 % (11.6-14.6); RBC Distribution Width SD 44.6 fl (35.1-43.9); White Blood Count 7.1 K/mm3 (4.4-11.0)
[2024-09-13] MEDS: Clindamycin 300 MG in Dextrose 5%-Water (50mL Bag) 50 ML 150 MG IV (06:01)
[2024-09-13 06:53] LABS: Anion Gap 10 (5-15); BUN 22 mg/dL (4-19); BUN/Creat Ratio 41.6 RATIO (10-20); Calcium,Total 8.8 mg/dL (7.6-11.0); Carbon Dioxide 22.6 mmol/L (21.0-32.0); Chloride 106 mmol/L (98-108); Creatinine, Serum 0.52 mg/dL (0.70-1.20); EST Glomerular Filtration Rate 107 (>60); Estimated Creatinine Clearance 84.21 ml/min (50-250); Glucose 103 mg/dL (70-99); Sodium Level 139 mmol/L (133-145)
--- NOTE | 2024-09-13 07:27 | PCM.PN.HOSP ---
Reason for Visit Reason for Visit: Diagnoses Obesity, unspecified (09/06/24) Paraplegia, incomplete (09/06/24) Chronic atrial fibrillation, unspecified (09/06/24) Pressure ulcer of left hip, stage 4 (09/06/24) Pressure ulcer of unspecified site, unspecified stage (09/06/24) Spina bifida, unspecified (09/06/24) Nausea with vomiting, unspecified (09/06/24) Other specified postprocedural states (09/06/24) Subjective Subjective Patient seen no change in clinical condition. Disposition as per plastic surgery Objective Data Objective Data Vital Signs: Vital Signs Temp Pulse Resp BP Pulse Ox O2 Del Method O2 Flow Rate 97.6 F L 62 18 116/89 H 97 Room Air 2 09/13/24 03:35 09/13/24 03:35 09/13/24 03:35 09/13/24 03:35 09/13/24 03:35 09/13/24 04:04 09/08/24 06:49 Oxygen Flow Rate (L/min) 2 Oxygen Delivery Method Room Air Weight: 92.98 kg Body Mass Index (BMI) 36.3 Intake & Output: Intake and Output for Last 24 Hours 09/11/24 09/12/24 09/13/24 23:59 23:59 23:59 Intake Total 606 / 606 156 / 156 600 / 600 Output Total 1134 / 1334 1627 / 1627 803 / 803 Balance -528 / -728 -1471 / -1471 -203 / -203 Lab / Micro Data 09/13/24 05:42 09/13/24 05:42 Labs: Laboratory Results - last 24 hr 09/13/24 05:42: WBC 7.1, RBC 4.60, Hgb 13.4, Hct 40.1, MCV 87.2, MCH 29.1, MCHC 33.4, RDW Std Deviation 44.6 H, RDW Coeff of Gregor 14.3, Plt Count 353, MPV 9.2, Immature Gran % (Auto) 0.600, Neut % (Auto) 55.1, Lymph % (Auto) 25.7, [place] % (Auto) 10.0, Eos % (Auto) 7.9 H, Baso % (Auto) 0.7, Absolute Neuts (auto) 3.9, Absolute Lymphs (auto) 1.82, Nucleated RBC % 0, Sodium 139, Potassium 4.0, Chloride 106, Carbon Dioxide 22.6, Anion Gap 10, BUN 22 H, Creatinine 0.52 L, Estim Creat Clear Calc 84.21, Est GFR (MDRD) Non-Af 107, BUN/Creatinine Ratio 41.6 H, Glucose 103 H, Calcium 8.8 Micro: Microbiology 09/08/24 Unknown Ulcer, Decubitus - Ischium Gram Stain - Final 09/08/24 Unknown Ulcer, Decubitus - Ischium Wound Culture - Final No growth aerobically. 09/08/24 Unknown Ulcer, Decubitus - Ischium Anaerobic Culture - Final No anaerobic bacteria isolated. 09/08/24 Unknown Bone - Ischium Gram Stain - Final 09/08/24 Unknown Bone - Ischium Wound Culture - Final No growth aerobically. 09/08/24 Unknown Bone - Ischium Anaerobic Culture - Preliminary No growth in 48 hours. 09/06/24 Unknown Tissue - Ischial Pressure Sore Gram Stain - Final 09/06/24 Unknown Tissue - Ischial Pressure Sore Wound Culture - Final Staphylococcus lugdunensis 09/06/24 Unknown Tissue - Ischial Pressure Sore Anaerobic Culture - Final No growth in 5 days. 09/06/24 Unknown Bone - Ischial Bone Gram Stain - Final 09/06/24 Unknown Bone - Ischial Bone Wound Culture - Final No growth aerobically. 09/06/24 Unknown Bone - Ischial Bone Anaerobic Culture - Final No growth in 5 days. Physical Exam Narrative GENERAL: cooperative HEENT: Atraumatic; normocephalic EYES; Anicteric, Normal Conjunctiva NECK; supple, normal thyroid, RESPIRATORY: Diminished to auscultation CARDIOVASCULAR: Regular S1 S2, GI: soft, normoactive bowel sounds, : No Renal angle tenderness; EXTREMITIES: Left ischial drain in place NEURO: Awake; no lateralizing signs. SKIN: No Rash PSYCH; Flat affect Assessment & Plan Assessment/Plan (1) Postoperative nausea and vomiting: PLAN: Plan Patient is a 74-year-old gentleman with history of spina bifida with incomplete paraplegia who was admitted by Dr. Cabrera on 09/06/2024 for significant debridement of worsening left ischial pressure ulcer with increasing drainage. Patient underwent I&D t on 09/08/2024. The hospitalist service was consulted to assist with management of postoperative nausea and vomiting 1. Postoperative nausea and vomiting Patient underwent CT of the abdomen and pelvis following his procedure which is unremarkable for obstruction or ileus. Patient has since been managed symptomatically ? 09/12/2024; patient complains of occasional nausea, his antinausea medication appears to be helping ? 09/13/2024; symptoms well-controlled with current regimen 2. Left ischial pressure ulcer with increasing drainage - Patient underwent I&D on 09/08/2024.. Wound cultures obtained prior to patient surgery did grow staphylococcus lugdunensis. Remains on appropriate antibiotic therapy ? 09/12/2024; wound cultures from surgery so far negative to date the above positive culture was from the wound prior to patient surgical intervention 3. Spina bifida ? Complicated by incomplete paraplegia as well as urinary retention with a chronic indwelling Gooden catheter and chronic constipation. Plan is to continue with supportive care 4. Paroxysmal atrial fibrillation ? Rate controlled on metoprolol and systemic anticoagulation with apixaban. Held for patient surgery. Okay to resume when okay with surgery 5. Hypertension ? Blood pressure controlled, home medications continued with dose adjustment as needed 6. Dyslipidemia ?Patient is on statin therapy, continued at home dose 7. DVT prophylaxis ?Subcu Lovenox for now 8. Mild hypokalemia ? Patient started on potassium supplementation 9. Physical deconditioning ? Requested for PT OT eval and vp digital marketing social media and crm to assist with discharge planning Charges/Coding Visit Charges Inpatient E&M: 49166 Subs Hosp L2
[2024-09-13 08:17] VITALS: BP 138/94; PULSE 87; RESP 18; TEMP 36.8; O2SAT 96
[2024-09-13] MEDS: Potassium Chloride Oral Tablet 20 MEQ PO (08:21)
--- NOTE | 2024-09-13 08:50 | WOUNDNOTE ---
wound photo: left ischium
--- NOTE | 2024-09-13 08:54 | WOUNDNOTE ---
Called and talked with Jane at the [facility]. Follow up appointment made with Dr Cabrera for September 19 at 10:15 at the wound center. This appt was placed on the discharge instructions for patient as well.
--- NOTE | 2024-09-13 09:23 | DS.PCM_ITS ---
Providers Date of Admission: 09/06/24 Primary Care Physician: Dr. Guillermo Duenas, Consultations 09/07/24 19:23 Consult: Hospitalist Routine Consulting Provider: Gregorio Barrera Reason for Consult: persistent post operative nausea and vomiting EMERGENT Consult: No MD Notified: Yes Date Notified: 09/07/24 Time Notified: 19:23 Method of Notification: Text Reason For Visit: Left Ischium pressure sore excision with irrigatin Diagnosis Discharge Diagnosis (1) Postoperative nausea and vomiting: Status: Acute Code(s): R11.2 - Nausea with vomiting, unspecified; Z98.890 - Other specified postprocedural states Medications at Discharge Home Medications amlodipine 10 mg tablet 10 mg PO DAILY Blood pressure 04/12/24 apixaban 5 mg tablet (Eliquis) 5 mg PO BID AFIB 04/12/24 lisinopril 20 mg-hydrochlorothiazide 12.5 mg tablet 1 tab PO BID Blood pressure 04/12/24 metoprolol tartrate 100 mg tablet 100 mg PO BID Blood pressure 04/12/24 simvastatin 40 mg tablet 40 mg PO .qd Cholesterol 04/12/24 amoxicillin 875 mg-potassium clavulanate 125 mg tablet 1 tab PO Q12H 14 days #28 tabs 09/13/24 Hospital Course Operations - (See summary) Summary of Care Provided Minutes Spent on Discharge: 10 Hospital Course: Lamont Wolf is a delightful 74-year-old male with spina bifida and a left ischial wound who presented to the hospital on 06 Sep 2024 for excision of the wound in the operating room. He was admitted postoperatively and placed on an irrigating wound VAC. He had some postoperative nausea and vomiting which was treated with a scopolamine patch and internal medicine consultation. Cultures from this operation grew at 72 hours which were staph lugdunensis and he was placed on clindamycin. He was taken back to the operating room on 08 Sep 2024 for definitive closure of the left ischial wound with excision/ostectomy and skin flap closure. Prineo tape was placed over the incision and a drain was tunneled out. The drain was removed on postop day 5 on 13 Sep 2024. At this point the wound was clean, dry and intact with the Prineo tape in place. There was no signs of fluid collections or infections. He was transition to Augmentin (given a 14-day prescription per phone discussion with his infectious disease doctor Dr. Salas). The bone cultures were negative. He will follow-up in the wound care center on 19 September 2024. Patient is self-pay and desired self transport to and from the hospital. I talked to him about postoperative sitting protocol including no sitting on the ischial wound for 3 weeks, followed by gradual 15-minute increments of pressure/sitting. He understands the postoperative protocol. He does not have a pressure offloading bed (too expensive and were unable to find one at the [facility]). He is therefore going to do turns at home with the assistance of his and family. Physical Exam Narrative No acute distress Normal respiratory rate and normal work of breathing Abdomen: Nontender to palpation, no distention Wound: Incision is clean dry and intact with Prineo tape in place. Drain in place holding suction and has serosanguineous fluid (removed today). Incision is clean and intact over the ischial wound closure. SCDs were on and activated on the extremities. No extremity swelling No wounds on the extremities. I examined his right trochanteric region and right ischial region as well as the sacrum and there were no wounds developing. Appropriately offloaded on a pressure offloading bed Weight / BMI Weight Weight: 204 lb 15.773 oz Body Mass Index (BMI) 36.3 ABG / Lab / Microbiology Data 09/13/24 05:42 09/13/24 05:42 Laboratory: Laboratory Results - last 24 hr 09/13/24 05:42: WBC 7.1, RBC 4.60, Hgb 13.4, Hct 40.1, MCV 87.2, MCH 29.1, MCHC 33.4, RDW Std Deviation 44.6 H, RDW Coeff of Gregor 14.3, Plt Count 353, MPV 9.2, Immature Gran % (Auto) 0.600, Neut % (Auto) 55.1, Lymph % (Auto) 25.7, Evangeline % (Auto) 10.0, Eos % (Auto) 7.9 H, Baso % (Auto) 0.7, Absolute Neuts (auto) 3.9, Absolute Lymphs (auto) 1.82, Nucleated RBC % 0, Sodium 139, Potassium 4.0, Chloride 106, Carbon Dioxide 22.6, Anion Gap 10, BUN 22 H, Creatinine 0.52 L, Estim Creat Clear Calc 84.21, Est GFR (MDRD) Non-Af 107, BUN/Creatinine Ratio 41.6 H, Glucose 103 H, Calcium 8.8 Microbiology: Microbiology 09/08/24 Unknown Ulcer, Decubitus - Ischium Gram Stain - Final 09/08/24 Unknown Ulcer, Decubitus - Ischium Wound Culture - Final No growth aerobically. 09/08/24 Unknown Ulcer, Decubitus - Ischium Anaerobic Culture - Final No anaerobic bacteria isolated. 09/08/24 Unknown Bone - Ischium Gram Stain - Final 09/08/24 Unknown Bone - Ischium Wound Culture - Final No growth aerobically. 09/08/24 Unknown Bone - Ischium Anaerobic Culture - Preliminary No growth in 48 hours. 09/06/24 Unknown Tissue - Ischial Pressure Sore Gram Stain - Final 09/06/24 Unknown Tissue - Ischial Pressure Sore Wound Culture - Final Staphylococcus lugdunensis 09/06/24 Unknown Tissue - Ischial Pressure Sore Anaerobic Culture - Final No growth in 5 days. 09/06/24 Unknown Bone - Ischial Bone Gram Stain - Final 09/06/24 Unknown Bone - Ischial Bone Wound Culture - Final No growth aerobically. 09/06/24 Unknown Bone - Ischial Bone Anaerobic Culture - Final No growth in 5 days. D/C Instructions DC O2, CPAP, BIPAP Needs Home O2 Discharge instructions: No Meaningful Use Info Meaningful Use Meaningful Use Diagnoses (Choose all that apply): None applicable Ischemic Stroke Statin Dosing Therapy Reference: STATIN DOSE THERAPY REFERENCE: * Patients > 75 years receive moderate or high dose statin therapy. * Patients 75 years or YOUNGER should receive HIGH intensity statin dose unless contraindicated. You will be required to document reason for non-treatment if statin daily dose does not meet guidelines. HIGH DOSE STATIN THERAPY DAILY Atorvastatin > than or = to 40 mg Rosuvastatin > than or = to 20 mg Amlodipine + Atorvastatin > than or = to 2.5/40 mg Ezetimibe + Simvastatin 10/80 mg Simvastatin 80mg Discharge Plan Admission Admit Date/Time: 09/06/24 08:24 Attending Provider: Gregorio Rawls Primary Care Provider: Guillermo Duenas Consulting Providers: Eddi Carmona; Lamont Cabrera Instructions Additional Instructions / Restrictions: Operations Performed: Left ischial wound excision and closure Instructions for My Care at Home or Healthcare Facility The following instructions will help you know what to expect in the days following surgery. These are general instructions. Your surgeon and therapist may give you special instructions, which vary to some degree based on your specific procedure -- follow those as directed. Do not, however, hesitate to call if you have any questions or concerns. Splint Care/Dressing Care/Wound Care * Dressings - You may have a dressing over the operative site. * Leave the dressing in place and try to keep the tape clean during bowel movements (cover it with a pad) then wash the area with soapy water * Avoid smoking or other tobacco products. Smoking tobacco impairs wound healing and increases the risks of post-operative complications. * Tape over your incisions will fall off on its own * Do drain care as noted below * Absolutely no pressure on the left ischial wound closure * Q2 hour turns while at home to pressure offload other parts of your body (you do not want a pressure sore elsewhere) ? Activities * For the first 4 weeks after surgery, try to balance your activity, allowing time for rest. * Avoid lifting, pushing, or pulling anything over 5 pounds. * Do not drive or operate heavy machinery within 24 hrs of surgery or while taking narcotic pain medication.? Pain Control/Medications * If you received an anesthetic block, your hand or arm may be numb for several hours. You will be discharged to home with medications, including an oral pain medication (analgesic). Rest and elevation are still one of the most important factors for pain control. Take your pain medication as needed, but do not wait for the pain to become out of control. * For severe pain, you may take prescription pain medication as directed, but please note that this may also contain Tylenol (e.g. Percocet). Do not take more than 4000mg of Tylenol (acetaminophen) from all sources daily.? * Pain medication may cause some lethargy, nausea, and or constipation. You should not drive/operate dangerous machinery while taking these medications. If these or other symptoms become significantly problematic, please your surgeon's office. * If prescribed oral antibiotics (Keflex, Clindamycin, or others), please take prescription for full duration as instructed. You should not have any pills remaining once completed (refills are written for your convenience should the course need to be extended, but generally they are not required). * RESTART ELIQUIS TOMORROW (THU, 14 SEP 2024) WELL THE ASPIRIN TOMORROW Diet (what I can eat): Resume normal diet Follow up * You will be seen (most likely) 1 to 2 weeks after surgery depending on the procedure. Follow-up appointment reminders:? (A list of any scheduled appointments is at the end of this document)? At your earliest convenience, please call [phone] to confirm/schedule a follow-up appointment with me in clinic. When to call your surgeon: * If any signs of surgical site infection develop: redness, pus, pain, increased swelling or foul odor at the incision site, fever, cold and clammy skin, or confusion. * Consistent temperature above 101?F (38.3?C). * The affected area gets swollen or much more painful. * You have excessive bleeding from surgical site (soaking through). If you experience difficulty breathing and/or shortness of breath, seek immediate medical attention. If experiencing any of the above complications or if you have any questions, call [phone] Drain Care:? A drain has been placed during surgery in order to prevent the accumulation of fluids beneath your skin. The drain decreases the chance of infection and helps in the healing process. The nursing staff will instruct you and your family on the care and recording of drainage. ? * You may shower with them. Let soap and water run down over drains, rinse and pat dry with clean towel. Reinforce with gauze or ABD pad around drain site if leaking occurs around the drain; this is not unusual.?Hold drains in your hand or attach to lanyard (or string) around your neck with safety pin so they do not hang from your body (the tension on your skin may cause them to be pulled out) while your are showering. * The drains are attached to you with suture. If your drain(s) falls out accidentally, place a clean piece of gauze over the drain site with tape and discard your drain.? * If your drain bulb loses suction or your drain has migrated out from the drain site, do not attempt to push the drain back into your skin. Cover the area with dry gauze. You may be asked by your surgeon to place a piece of semi occlusive dressing (tegaderm) over the drain site to keep the site clean and drain in place until you are seen in the office.? * When you are wearing clothes, attach drains to your clothes in a place where there is minimal/no tension on the insertion site to your skin.? * You should empty the drainage and record the output at least 2 times per day, or when the drainage fills the bulb almost half-way. Please keep daily amounts of drainage separate for each drain for a 24-hour period (for example drain #1 put out 40 mL for 24 hours).? * Strip your drains daily as shown to you by your nurse prior to discharge to avoid them from becoming clogged:? * Wash your hands. * Strip tubing three times a day (more often if there are a lot of blood clots). * Grasp tubing close to body with one hand and pull toward body. With other hand grasp tubing below the first hand. Using an alcohol swab, pinch tubing tightly, sliding fingers down tubing, away from body. * Repeat 2 or 3 times. Be sure drainage is flowing into bulbs. * Measure the drainage in the bulb by either using the calibrations on the bulb or by emptying the Bulb into small measuring container 3 times a day (more often if there is a lot of drainage or they feel heavy) Open small lid on top of bulb. Pour drainage into container. Squeeze bulb and hold while replacing small lid. Bulb should be collapsed to be effective. Pin bulb to clothing so the weight will not pull on the insertion site. * Measure drainage and record amount each time you empty the bulbs. Hold container at eye level to read the numbers on the side of the container. Read the numbers in the ml column. Record amount of drainage on chart. * Record your drain output daily and bring this record with you to your next follow up appointment. Drains will typically be removed in the clinic when output is less than 30 mL/24 hours per drain over 2 consecutive days. For drain removal appointment, please call your doctors office directly to schedule.? Location: Drain #1 Drain #2 Drain #3 Drain #4 0 0 0 AM Noon PM AM Noon PM AM Noon PM AM Noon PM Date: Total (daily) 0 0 0 AM Noon PM AM Noon PM AM Noon PM AM Noon PM Date: Total (daily) 0 0 0 AM Noon PM AM Noon PM AM Noon PM AM Noon PM Date: Total (daily) 0 0 0 AM Noon PM AM Noon PM AM Noon PM AM Noon PM Date: Total (daily) 0 0 0 AM Noon PM AM Noon PM AM Noon PM AM Noon PM Date: Total (daily) 0 0 0 AM Noon PM AM Noon PM AM Noon PM AM Noon PM Date: Total (daily) 0 0 0 AM Noon PM AM Noon PM AM Noon PM AM Noon PM Date: Total (daily) 0 0 0 AM Noon PM AM Noon PM AM Noon PM AM Noon PM Date: Total (daily) 0 0 0 AM Noon PM AM Noon PM AM Noon PM AM Noon PM Date: Total (daily) 0 0 0 AM Noon PM AM Noon PM AM Noon PM AM Noon PM Date: Total (daily) 0 0 0 AM Noon PM AM Noon PM AM Noon PM AM Noon PM Date: Total (daily) 0 0 0 AM Noon PM AM Noon PM AM Noon PM AM Noon PM Date: Total (daily) 0 0 0 AM Noon PM AM Noon PM AM Noon PM AM Noon PM Date: Total (daily) 0 0 0 AM Noon PM AM Noon PM AM Noon PM AM Noon PM Date: Total (daily) 0 0 0 AM Noon PM AM Noon PM AM Noon PM AM Noon PM Date: Total (daily) 0 0 0 Discharge Orders/Prescriptions Prescriptions: New amoxicillin-pot clavulanate 875-125 mg tablet 1 tab PO Q12H 14 Days Qty: 28 0RF No Action amlodipine 10 mg tablet 10 mg PO DAILY lisinopril-hydrochlorothiazide 20-12.5 mg tablet 1 tab PO BID metoprolol tartrate 100 mg tablet 100 mg PO BID simvastatin 40 mg tablet 40 mg PO .qd Eliquis 5 mg tablet 5 mg PO BID Referrals / Follow Up: Guillermo Duenas DO [Primary Care Provider] - [facility] [Non-Staff] - 09/19/24 10:15 am Disposition Disposition (needs filled in before D/C Order can be placed): Home, Self Care
[2024-09-13 10:09] VITALS: PULSE 87
[2024-09-13] MEDS: Pantoprazole Sodium 20 MG Tablet PO (10:09)
[2024-09-13] MEDS: Metoprolol Tartrate 100 MG Tablet PO (10:09)
[2024-09-13] MEDS: amLODIPine 10 MG Tablet PO (10:09)
--- NOTE | 2024-09-13 10:42 | PHA.DC.MC.R ---
Pharmacy [facility] Counseling Pharmacy Service has performed discharge medication reconciliation and counseling for this patient. Patient requested meds to beds. This [facility] called retail, spoke to Michelle and requested delivery. 1. AUGMENTIN 875/125MG PO BID X 14 DAYS The patient's discharge medication list was reviewed for discrepancies and discrepancies were resolved. The patient was counseled on the following discharge medications and changes in medications for homegoing were reviewed. The Reason for Use, instructions for use, and potential side effects were reviewed for all new medications. The patient's questions regarding all of their medications were answered. The patient was able to verbally demonstrate an understanding of their discharge medications. Medications at Discharge Home Medications amlodipine 10 mg tablet 10 mg PO DAILY Blood pressure 04/12/24 apixaban 5 mg tablet (Eliquis) 5 mg PO BID AFIB 04/12/24 lisinopril 20 mg-hydrochlorothiazide 12.5 mg tablet 1 tab PO BID Blood pressure 04/12/24 metoprolol tartrate 100 mg tablet 100 mg PO BID Blood pressure 04/12/24 simvastatin 40 mg tablet 40 mg PO .qd Cholesterol 04/12/24 amoxicillin 875 mg-potassium clavulanate 125 mg tablet 1 tab PO Q12H 14 days #28 tabs 09/13/24
[2024-09-13 11:04] VITALS: BP 127/88; PULSE 88; RESP 18; TEMP 36.6; O2SAT 97
== END 2024-09-13 11:20 | disposition home or self-care (01) | DRG 982 ==
LOC: MS3 13:19
PROVIDERS: Family Medicine; Internal Medicine; Admitting Provider Surgery Plastic and Reconstructive Surgery; Referring Provider Surgery Plastic and Reconstructive Surgery; Visit Provider Internal Medicine
PROC: 0KX Muscles, Transfer (ICD-10-PCS; principal; 2024-09-08 07:15)
DX: L89.224 Pressure ulcer of left hip, stage 4 (principal); M86.8X8 Other osteomyelitis, other site; M86.152 Other acute osteomyelitis, left femur; G82.22 Paraplegia, incomplete; I48.20 Chronic atrial fibrillation, unspecified; Q05.4 Unspecified spina bifida with hydrocephalus; K91.89 Other postprocedural complications and disorders of digestive system; M87.050 Idiopathic aseptic necrosis of pelvis; L89.159 Pressure ulcer of sacral region, unspecified stage; L89.329 Pressure ulcer of left buttock, unspecified stage; K61.39 Other ischiorectal abscess; I10 Essential (primary) hypertension; E66.9 Obesity, unspecified; E78.2 Mixed hyperlipidemia; R11.2 Nausea with vomiting, unspecified; M19.90 Unspecified osteoarthritis, unspecified site; L89.324 Pressure ulcer of left buttock, stage 4; E87.6 Hypokalemia; L89.894 Pressure ulcer of other site, stage 4; Z79.01 Long term (current) use of anticoagulants; N31.9 Neuromuscular dysfunction of bladder, unspecified; Z68.36 Body mass index [BMI] 36.0-36.9, adult; R88.8 Abnormal findings in other body fluids and substances; B95.7 Other staphylococcus as the cause of diseases classified elsewhere
CPT/HCPCS: 36415; 74176; 80048; 80053; 83735; 84100; 85025; 87015; 87070; 87075; 87077; 87102; 87116; 87186; 87205; 87206; 88305; 88307; 88311; 94668; 94762; A4216; J2405

== ENCOUNTER 2024-10-03 09:45 | Outpatient (RCR) | payer SELFPAY ==
[2024-09-18 00:29] VITALS: BP 143/91; PULSE 72; RESP 18; TEMP 36.2; BMI 36.3
[2024-09-19 10:10] VITALS: BP 128/83; PULSE 83; RESP 18; TEMP 36.1; BMI 36.3
--- NOTE | 2024-09-19 11:41 | PCM.PN.SRG ---
Subjective Subjective Doing well 12 days out from closure of ischial wound. No fevers chills or drainage. He has been compliant with his antibiotics as well as overall pressure offloading Objective Data Objective Data Vital Signs: Vital Signs Temp Pulse Resp BP 97.0 F L 83 18 128/83 H 09/19/24 10:10 09/19/24 10:10 09/19/24 10:10 09/19/24 10:10 Weight: 205 lb Body Mass Index (BMI) 36.3 Physical Exam Narrative Left ischial wound suture line clean dry and intact. Prineo tape and sutures removed without any issue. No fluid collections or induration. No dehiscence at this time Assessment & Plan Assessment/Plan (1) S/P flap graft: PLAN: Continue no pressure onto the left ischium Xeroform daily to be in suture line Discussed importance of keeping the suture line clean, especially around the time of bowel movements (okay to wash with soapy water afterwards). Follow-up in 2 weeks Charges/Coding Procedures Integumentary 111xxx-113xx: 24802 Global Visit
--- NOTE | 2024-09-20 10:12 | WC ---
PHOTO 09/19/24 LEFT ISCHIAL
[2024-10-03 09:47] VITALS: BP 116/85; PULSE 74; RESP 18; TEMP 36.7; BMI 36.3
--- NOTE | 2024-10-03 11:04 | PCM.PN.SRG ---
Subjective Subjective The patient is a 74-year-old male presenting for follow-up after flap reconstruction of the left ischium. The procedure was performed approximately one month ago, and the patient is now one month post-operative. The suture line is reported to be clean, dry, and intact, although there was a spitting suture at the inferior aspect of the wound causing mild erythema. The patient has a history of an abscess with bone infection, which had previously extended to the bone in March. The infection was treated with antibiotics, and the patient has completed the antibiotic course. There are no current signs of fluid collections, wound breakdown, or exposed bone, indicating good healing progress. Attestation: Documentation on this patient encounter was supported using ambient scribe technology/ voice AI technology. The patient consented to recording for the purpose of documenting the encounter. Provider reviewed content of the generated note prior to signature. Objective Data Objective Data - Integumentary: Reports mild erythema at the wound site. Denies any new symptoms. Vital Signs: Vital Signs Temp Pulse Resp BP 98.1 F 74 18 116/85 H 10/03/24 09:47 10/03/24 09:47 10/03/24 09:47 10/03/24 09:47 Weight: 205 lb Body Mass Index (BMI) 36.3 Physical Exam Narrative - Integumentary: Suture line clean, dry, and intact with mild erythema due to spitting suture - Musculoskeletal: No signs of fluid collections, wound breakdown, or exposed bone Assessment & Plan Assessment/Plan (1) S/P flap graft: PLAN: 1. Flap reconstruction of the left ischium The patient is one month post-operative with a clean, dry, and intact suture line. A spitting suture was noted and removed, causing mild erythema. The plan is to keep the area dry with gauze applied twice daily to absorb moisture. The patient should avoid sitting on the area for prolonged periods and gradually increase sitting time to 15 minutes, three times per day, starting next week. Follow-up is scheduled in two weeks to assess healing progress. 2. Previous abscess with bone infection The patient had a history of an abscess with bone infection, which was treated with antibiotics. There are no current signs of infection or wound breakdown. The patient is advised to avoid prolonged sitting to prevent pressure sores and to perform position changes every two hours. - Keep the surgical area dry and apply gauze twice daily to absorb moisture. - Avoid sitting on the surgical area for prolonged periods. - Gradually increase sitting time to 15 minutes, three times per day, starting next week. - Perform position changes every two hours to prevent pressure sores. - Follow up in two weeks for reassessment. Charges/Coding Procedures Integumentary 111xxx-113xx: 25835 Global Visit
--- NOTE | 2024-10-03 13:39 | WC ---
PHOTO 10/03/24 LEFT ISCHIAL
== END 2024-10-17 23:59 | disposition home or self-care (01) ==
LOC: WC 09:45
PROVIDERS: Referring Provider Surgery Plastic and Reconstructive Surgery; Visit Provider Surgery Plastic and Reconstructive Surgery
DX: Z48.817 Encounter for surgical aftercare following surgery on the skin and subcutaneous tissue (principal); L53.8 Other specified erythematous conditions
CPT/HCPCS: 99213; G0463

== ENCOUNTER 2024-10-24 10:07 | Outpatient (RCR) | payer SELFPAY ==
[2024-10-24 10:07] VITALS: BP 136/85; PULSE 83; RESP 16; TEMP 36
--- NOTE | 2024-10-24 11:40 | PCM.PROGNOTE ---
Subjective Subjective Operative Information Date of Procedure: 09/08/24 Pre-Operative Diagnosis: Left ischial pressure ulcer, stage IV Post-Operative Diagnosis: Same Surgery/Procedure Performed: 1) Excision of left ischial pressure ulcer with ostectomy and skin flap closure (30816) Current encounter , 24 October 2024 : patient doing well 6 weeks out from closure of his ischial wound. Reports some small areas of suture spitting and bleeding, otherwise no issues Objective Data Objective Data Vital Signs: Vital Signs Temp Pulse Resp BP O2 Del Method 96.8 F L 83 16 136/85 H Room Air 10/24/24 10:10/24/24 10:07 10/24/24 10:07 10/24/24 10:10/24/24 10:07 Oxygen Delivery Method Room Air Physical Exam Narrative - Integumentary: Suture line clean, dry, and intact with mild erythema due to spitting suture. No fluid collections and no signs of underlying drainage or infection. Appears to be healed well Assessment & Plan Assessment/Plan (1) S/P flap graft: PLAN: 1. Flap reconstruction of the left ischium Doing well overall. Discussed spitting sutures and return precautions including potential purulent drainage in the future. Patient appears to be healed at this point though. We discussed continuing the sitting protocol which is no more than 2 hours sitting on the ischial wound or any other position more than 2 hours. Patient happy with the plan Follow-up as needed Charges/Coding Procedures Integumentary 111xxx-113xx: 33200 Global Visit
== END 2024-11-17 14:37 | disposition home or self-care (01) ==
LOC: WC 10:07
PROVIDERS: Referring Provider Surgery Plastic and Reconstructive Surgery; Visit Provider Surgery Plastic and Reconstructive Surgery
DX: Z09 Encounter for follow-up examination after completed treatment for conditions other than malignant neoplasm (principal)
CPT/HCPCS: 99213; G0463